=== PATIENT | female | born 1980 ===

== ENCOUNTER 2020-08-25 18:03 | Emergency (ER) | payer OTHER, MEDICAID, SELFPAY ==
[2020-08-25 18:37] VITALS: BP 118/67; PULSE 103; RESP 16; TEMP 36.8; O2SAT 97; BMI 28.1
[2020-08-25 19:02] LABS: MANUAL DIFF FLAG NO
[2020-08-25 19:03] LABS: Basophils Percent Auto 0.5 % (0-2); Eosinophils Percent Auto 0.2 % (0-4); Hematocrit 40.9 % (37-47); Hemoglobin 13.5 g/dl (12.0-16.0); Imm Gran Abs Auto 0.01 X10*3/uL (0.00-0.03); Imm Gran Pct Auto 0.2 % (0.0-0.4); Lymphocytes Absolute Auto 1.8 X10*3/uL (1.2-4.9); Lymphocytes Percent Auto 31.1 % (20-40); Mean Corpuscular Hemoglobin 33.8 pg (27.0-33.0); Mean Corpuscular Volume 102.3 fL (80-98); Mean Platelet Volume 9.6 fL (9.4-12.3); Monocytes Absolute Auto 0.5 X10*3/uL (0.1-1.2); Monocytes Percent Auto 7.9 % (2-11); Neutrophils Absolute Auto 3.5 X10*3/uL (2.0-8.3); Neutrophils Percent Auto 60.1 % (45-73); Platelet Count 275 X10*3/uL (160-400); White Blood Count 5.9 X10*3/uL (4.8-10.8)
[2020-08-25 19:29] LABS: Glucose Urine UA NEG (NEG); Leukocyte Esterase Urine NEG (NEG); Nitrite Urine NEG (NEG); Urine Blood NEG (NEG); Urine Ketones NEG (NEG); Urine Protein NEG (NEG-TRACE)
[2020-08-25 19:30] LABS: Appearance Urine CLEAR; Color Urine YELLOW
[2020-08-25 19:32] LABS: Anion Gap 20 (12-20); Blood Urea Nitrogen 15 mg/dL (9-16); Calcium 8.4 mg/dL (8.4-10.2); Carbon Dioxide 19 mmol/L (22-29); Chloride 108 mmol/L (96-108); Creatinine Clr Calc Pharmacy 113.5; Estimated Glomerular Filt Rate > 60; Glucose Random 93 mg/dL (60-115); Potassium 4.9 mmol/L (3.3-5.1); Sodium 142 mmol/L (135-145)
[2020-08-25 19:42] LABS: Influenza A PCR NEGATIVE (Negative); Influenza B PCR NEGATIVE (Negative); Resp Syncy Virus RNA Qual PCR NEGATIVE (Negative); SARS COV2 PCR INHOUSE NEGATIVE (Negative)
--- NOTE | 2020-08-25 21:39 | ED_ITS ---
HPI - Nausea/Vomiting/Diarrhea General Chief complaint: Nausea/Vomiting/Diarrhea Stated complaint: headache,nausea,vomiting,contact with positive pt Time Seen by Provider: 08/25/20 21:37 Source: patient Mode of arrival: ambulatory History of Present Illness HPI Narrative: This is a 39-year-old female who is status post bariatric surgery and presents with 2 days of nausea, vomiting, diarrhea that has not been associated with fevers, chills, urinary pain/burning/frequency. Patient states that she has had this before, as well as having had an ileus and states that this is nothing similar to those events. And she also endorses that although she can keep down some chicken soup and some water it is not adequate to make it for the volume loss that she has experienced. Related Data Allergies Allergy/AdvReac Type Severity Reaction Status Date / Time shellfish derived Allergy Severe ANAPHYLAXIS Verified 08/25/20 22:45 [SHELLFISH DERIVED] benztropine [From COGENTIN] Allergy Intermediate PSYCHOSIS Verified 08/25/20 22:45 gabapentin [GABAPENTIN] Allergy Intermediate PSYCHOSIS Verified 08/25/20 22:45 amantadine [AMANTADINE] Allergy Mild HIVES, rash Verified 08/25/20 22:45 seafood Allergy Unknown anaphylaxis Uncoded 02/26/19 00:00 Review of Systems Review of Systems: Pertinent positives and negatives as stated in HPI and 10 point review of systems is otherwise negative. PMFSH Past Medical History Source: nursing notes reviewed Medical History ADHD Depression Migraine Surgical History H/O tubal ligation History of cholecystectomy Previous section Social History Social History Advance Directives: No Advance Directives Information Provided: No Physical Exam Vital Signs: Vital Signs: Last Vital Signs Temp 97.7 F 08/25/20 21:48 Pulse 72 08/25/20 21:48 Resp 16 08/25/20 21:48 BP 128/66 08/25/20 21:48 Pulse Ox 100 08/25/20 21:48 Body Mass Index 28.1 VITAL SIGNS: Reviewed. GENERAL: Well developed, well nourished, in no acute distress. HEAD: Normocephalic/atraumatic NOSE: Nares patent bilateral OROPHARYNX: no oral lesions noted, posterior pharynx clear, tacky mucosa NECK: Supple, no adenopathy LUNGS: Normal breath sounds. No adventitious sounds or accessory muscle use. SpO2<97> CARDIOVASCULAR: Regular rate and rhythm without noted murmurs ABDOMEN: Soft, non-tender, non-distended with bowel sounds. NEUROLOGIC: Alert and oriented x 4. Course Course Course Narrative: This is a 39-year-old female with history and clinical p resentation consistent with moderate dehydration secondary to 2 days of nausea, vomiting, diarrhea. I have reviewed all investigations and there are no acute findings. Patient will receive Tylenol, 2 L of IV fluids as well as Zofran and will re-evaluate. On re-evaluation patient has had complete resolution of her headache and is feeling much better and tolerating p.o. intake. She was discharged in stable condition with instructions to follow up with primary care provider. MDM - Nausea/Vomiting/Diarrhea Lab Data Result diagrams: 08/25/20 18:53 08/25/20 18:53 Labs: Lab Results 08/25/20 08/25/20 08/25/20 Range/Units 18:50 18:53 18:53 WBC 5.9 (4.8-10.8) X10*3/uL RBC 4.00 L (4.20-5.50) X10*6/uL Hgb 13.5 (12.0-16.0) g/dl Hct 40.9 (37-47) % MCV 102.3 H (80-98) fL MCH 33.8 H (27.0-33.0) pg MCHC 33.0 (31.0-35.0) g/dl RDW 15.0 (11.0-16.0) % Plt Count 275 (160-400) X10*3/uL MPV 9.6 (9.4-12.3) fL Immature Gran % (Auto) 0.2 (0.0-0.4) % Neut % (Auto) 60.1 (45-73) % Lymph % (Auto) 31.1 (20-40) % Wilkin % (Auto) 7.9 (2-11) % Eos % (Auto) 0.2 (0-4) % Baso % (Auto) 0.5 (0-2) % Lymph # (Auto) 1.8 (1.2-4.9) X10*3/uL Wilkin # (Auto) 0.5 (0.1-1.2) X10*3/uL Eos # (Auto) 0.0 (0.0-0.4) X10*3/uL Baso # (Auto) 0.0 (0.0-0.2) X10*3/uL Abs Immat Gran (auto) 0.01 (0.00-0.03) X10*3/uL Absolute Neuts (auto) 3.5 (2.0-8.3) X10*3/uL Absolute Nucleated RBC 0.000 (0.0-0.012) X10*3/uL Nucleated RBC % (auto) 0.0 (0.0-0.2) /100WBC Sodium 142 (135-145) mmol/L Potassium 4.9 (3.3-5.1) mmol/L Chloride 108 (96-108) mmol/L Carbon Dioxide 19 L (22-29) mmol/L Anion Gap 20 (12-20) BUN 15 (9-16) mg/dL Creatinine 0.77 (0.5-1.4) mg/dL Estim Creat Clear Calc 113.5 Estimated GFR > 60 Random Glucose 93 (60-115) mg/dL Calcium 8.4 (8.4-10.2) mg/dL Urine Color YELLOW Urine Appearance CLEAR Urine pH 7.0 (5.0-8.0) Ur Specific Holland 1.010 (1.005-1.025) Urine Protein NEG (NEG-TRACE) MG/DL Urine Glucose (UA) NEG (NEG) MG/DL Urine Ketones NEG (NEG) MG/DL Urine Blood NEG (NEG) Urine Nitrite NEG (NEG) Ur Leukocyte Esterase NEG (NEG) Coronavirus (PCR) (Negative) Influenza Type A (PCR) (Negative) Influenza Type B (PCR) (Negative) RSV RNA Qual (PCR) (Negative) 08/25/20 Range/Units 18:54 WBC (4.8-10.8) X10*3/uL RBC (4.20-5.50) X10*6/uL Hgb (12.0-16.0) g/dl Hct (37-47) % MCV (80-98) fL MCH (27.0-33.0) pg MCHC (31.0-35.0) g/dl RDW (11.0-16.0) % Plt Count (160-400) X10*3/uL MPV (9.4-12.3) fL Immature Gran % (Auto) (0.0-0.4) % Neut % (Auto) (45-73) % Lymph % (Auto) (20-40) % Wilkin % (Auto) (2-11) % Eos % (Auto) (0-4) % Baso % (Auto) (0-2) % Lymph # (Auto) (1.2-4.9) X10*3/uL Wilkin # (Auto) (0.1-1.2) X10*3/uL Eos # (Auto) (0.0-0.4) X10*3/uL Baso # (Auto) (0.0-0.2) X10*3/uL Abs Immat Gran (auto) (0.00-0.03) X10*3/uL Absolute Neuts (auto) (2.0-8.3) X10*3/uL Absolute Nucleated RBC (0.0-0.012) X10*3/uL Nucleated RBC % (auto) (0.0-0.2) /100WBC Sodium (135-145) mmol/L Potassium (3.3-5.1) mmol/L Chloride (96-108) mmol/L Carbon Dioxide (22-29) mmol/L Anion Gap (12-20) BUN (9-16) mg/dL Creatinine (0.5-1.4) mg/dL Estim Creat Clear Calc Estimated GFR Random Glucose (60-115) mg/dL Calcium (8.4-10.2) mg/dL Urine Color Urine Appearance Urine pH (5.0-8.0) Ur Specific Holland (1.005-1.025) Urine Protein (NEG-TRACE) MG/DL Urine Glucose (UA) (NEG) MG/DL Urine Ketones (NEG) MG/DL Urine Blood (NEG) Urine Nitrite (NEG) Ur Leukocyte Esterase (NEG) Coronavirus (PCR) NEGATIVE (Negative) Influenza Type A (PCR) NEGATIVE (Negative) Influenza Type B (PCR) NEGATIVE (Negative) RSV RNA Qual (PCR) NEGATIVE (Negative) Discharge Plan Discharge Clinical Impression: Gastroenteritis Patient Disposition: Home, Self-Care Instructions: Gastroenteritis (ED) Additional Instructions: Resume all home medications as prescribed. Do not hesitate to return to the emergency department should you experience any acute worsening of your symptoms. Referrals: Physician,Unknown [Primary Care Provider] - 2 days
[2020-08-25 21:48] VITALS: BP 128/66; PULSE 72; RESP 16; TEMP 36.5; O2SAT 100
[2020-08-25] MEDS: ondansetron HCL 4 MG/2 ML VIAL IVPUSH (22:47)
[2020-08-25] MEDS: Acetaminophen 325 MG TABLET 975 MG PO (22:48)
[2020-08-25] MEDS: 0.9 % Sodium Chloride 2,000 ML 999 ML IV (22:48)
[2020-08-26] VITALS: BP 109/64; PULSE 86; RESP 16; TEMP 36.7; O2SAT 99
== END 2020-08-26 01:01 | disposition home or self-care (01) ==
PROVIDERS: Emergency Provider Student in an Organized Health Care Education/Training Program
DX: K52.9 Noninfective gastroenteritis and colitis, unspecified (principal); R11.2 Nausea with vomiting, unspecified; E86.0 Dehydration; Z20.822 Contact with and (suspected) exposure to COVID-19
CPT/HCPCS: 0241U; 36415; 80048; 81003; 85025; 96365; 96375; 99284; J2405

== ENCOUNTER 2020-09-16 01:54 | Emergency (ER) | payer OTHER, MEDICAID, SELFPAY ==
--- NOTE | ~2020-09-16 | CT_ITS ---
EXAMINATION: CT ABDOMEN AND PELVIS WITHOUT CONTRAST CLINICAL INFORMATION: Right lower quadrant pain COMPARISON: Previous pelvic ultrasound obtained the same day and abdominal ultrasound July 2016 TECHNIQUE: Multidetector volumetric imaging was performed from the superior aspect of the liver through the pubic symphysis. Sagittal and coronal reformatted images were obtained on the technologist's workstation. This CT examination was performed using dose optimization techniques as appropriate, variously including the following: *Automated exposure control *Adjustment of mA and/or kV according to patient size (this includes techniques or standardized protocols for targeted exams where dose is matched to indication/reason for exam; i.e. extremities or head) *Use of iterative reconstruction technique DLP: 746 mGy-cm FINDINGS: LUNG BASES: The visualized lung bases are unremarkable. LIVER, GALLBLADDER, AND BILIARY TREE: The liver is enlarged and low in attenuation suggestive of fatty infiltration. The gallbladder is not identified and has presumably been removed. No focal liver lesion or biliary duct dilatation is seen. PANCREAS: Unremarkable. SPLEEN: Unremarkable. ADRENAL GLANDS: Unremarkable. KIDNEYS AND URETERS: The kidneys are normal in size, shape, and attenuation. There is a small 5 mm high attenuation lesion exophytic to the upper pole of the right kidney. This may represent a hyperdense cyst. This was not seen on prior ultrasound July 2016 No hydronephrosis, hydroureter, or calculi seen. No perinephric stranding. BLADDER: Not optimally distended. There is question of mild diffuse bladder wall thickening. GASTROINTESTINAL TRACT: There are postsurgical changes from gastric bypass. The small and large bowel are unremarkable. The appendix is unremarkable. ABDOMINAL WALL: No significant hernia is appreciated. LYMPH NODES: Normal. VASCULAR: Unremarkable. PELVIC VISCERA: There is a surgical clip in the right adnexal region. The uterus and adnexa otherwise appear unremarkable. OSSEOUS STRUCTURES: Unremarkable. CT/CT abdomen pelvis wo con IMPRESSION: Normal-appearing appendix. Postsurgical changes from gastric bypass. Enlarged fatty liver. 5 mm high attenuation lesion exophytic to the upper pole of the right kidney, question representing a hyperdense cyst.
--- NOTE | ~2020-09-16 | US_ITS ---
EXAMINATION: PELVIC ULTRASOUND CLINICAL INFORMATION: Right-sided pain. Rule out torsion. COMPARISON: Previous CT of the abdomen and pelvis from the same day TECHNIQUE: Grayscale and color Doppler imaging of the uterus and ovaries including waveform spectral analysis of the ovarian arteries and veins. FINDINGS: The uterus is anteverted and measures 6.9 x 3.1 x 5.1 cm in dimension. The endometrium does not appear thickened measuring 0.4 cm. There are 2 simple uterine cyst seen adjacent to the endometrium measuring 7 x 9 x 8 mm and 5 x 5 x 4 mm. This is probably related to patient's history of previous endometrial ablation. No other focal uterine lesion is seen. The cervix is normal appearing. The right ovary is normal-appearing and measures 2 x 1.7 x 1.6 cm. The left ovary is normal-appearing and measures 2.9 x 2.1 x 2.2 cm. There is a small simple 1 cm left ovarian cyst. Color and Doppler flow is documented to both ovaries. The bilateral ovarian arteries and veins are patent without evidence of torsion. There is a small amount of fluid in the left pelvis adjacent to the left ovary. US/US pelvic and transvaginal IMPRESSION: No evidence of torsion. Small simple 1 cm left ovarian cyst and small amount of fluid adjacent to the left ovary. 2 central cysts in the uterus adjacent to the endometrium, probably related to patient's history of previous endometrial ablation.
--- NOTE | ~2020-09-16 | US_ITS ---
EXAMINATION: PELVIC ULTRASOUND CLINICAL INFORMATION: Right-sided pain. Rule out torsion. COMPARISON: Previous CT of the abdomen and pelvis from the same day TECHNIQUE: Grayscale and color Doppler imaging of the uterus and ovaries including waveform spectral analysis of the ovarian arteries and veins. FINDINGS: The uterus is anteverted and measures 6.9 x 3.1 x 5.1 cm in dimension. The endometrium does not appear thickened measuring 0.4 cm. There are 2 simple uterine cyst seen adjacent to the endometrium measuring 7 x 9 x 8 mm and 5 x 5 x 4 mm. This is probably related to patient's history of previous endometrial ablation. No other focal uterine lesion is seen. The cervix is normal appearing. The right ovary is normal-appearing and measures 2 x 1.7 x 1.6 cm. The left ovary is normal-appearing and measures 2.9 x 2.1 x 2.2 cm. There is a small simple 1 cm left ovarian cyst. Color and Doppler flow is documented to both ovaries. The bilateral ovarian arteries and veins are patent without evidence of torsion. There is a small amount of fluid in the left pelvis adjacent to the left ovary. US/US pelvic ovarian doppler IMPRESSION: No evidence of torsion. Small simple 1 cm left ovarian cyst and small amount of fluid adjacent to the left ovary. 2 central cysts in the uterus adjacent to the endometrium, probably related to patient's history of previous endometrial ablation.
[2020-09-16 02:21] VITALS: BP 107/74; PULSE 80; RESP 18; TEMP 36.7; O2SAT 100; BMI 27.3
[2020-09-16 05:26] VITALS: BP 117/69; PULSE 106; RESP 16; O2SAT 97
[2020-09-16 05:59] LABS: Basophils Percent Auto 0.4 % (0-2); Eosinophils Percent Auto 0.6 % (0-4); Hematocrit 36.3 % (37-47); Hemoglobin 12.1 g/dl (12.0-16.0); Imm Gran Abs Auto 0.01 X10*3/uL (0.00-0.03); Imm Gran Pct Auto 0.2 % (0.0-0.4); Lymphocytes Absolute Auto 1.3 X10*3/uL (1.2-4.9); Lymphocytes Percent Auto 25.1 % (20-40); MANUAL DIFF FLAG NO; Mean Corpuscular HGB Conc 33.3 g/dl (31.0-35.0); Mean Corpuscular Hemoglobin 33.8 pg (27.0-33.0); Mean Corpuscular Volume 101.4 fL (80-98); Mean Platelet Volume 9.3 fL (9.4-12.3); Monocytes Absolute Auto 0.4 X10*3/uL (0.1-1.2); Monocytes Percent Auto 7.7 % (2-11); Neutrophils Absolute Auto 3.5 X10*3/uL (2.0-8.3); Platelet Count 228 X10*3/uL (160-400); Red Blood Count 3.58 X10*6/uL (4.20-5.50); Red Cell Distribution Width 15.6 % (11.0-16.0); White Blood Count 5.2 X10*3/uL (4.8-10.8)
[2020-09-16 06:39] LABS: Alanine Aminotransferase 36 U/L (0-31); Albumin Level 3.6 g/dL (3.5-5.0); Alkaline Phosphatase 111 U/L (39-117); Anion Gap 19 (12-20); Aspartate Amino Transferase 47 U/L (5-31); Bilirubin Total 0.5 mg/dL (0.0-1.0); Blood Urea Nitrogen 15 mg/dL (9-16); Calcium 7.9 mg/dL (8.4-10.2); Carbon Dioxide 16 mmol/L (22-29); Chloride 110 mmol/L (96-108); Creatinine Clr Calc Pharmacy 122.5; Estimated Glomerular Filt Rate > 60; Glucose Random 144 mg/dL (60-115); Sodium 141 mmol/L (135-145); Total Protein 6.3 g/dL (6.5-8.0)
--- NOTE | 2020-09-16 06:49 | ED_ITS ---
HPI - Abdominal Pain General Chief Complaint: Abdominal Pain Stated Complaint: Abd pain Time Seen by Provider: 09/16/20 06:43 Source: patient Mode of arrival: ambulatory Limitations: no limitations History of Present Illness HPI narrative: 40-year-old female walked into the emergency department for evaluation of lower abdominal pain. Lower abdominal/pelvic pain started about 7 hours ago woke the patient up from sleep, patient describes the pain as sharp, confined to the right lower quadrant/right pelvic area, no radiation, describes the pain as constant since it started, pain is severe 10/10, no other associated symptoms in particular no vaginal discharge, no vaginal bleed, no nausea, no vomiting. Patient never had this pain in the past. Nothing makes the pain worse or better. Patient had surgical history of cholecystectomy, endometrial ablation, C- section, urinary bladder polyp removal. Related Data Allergies Allergy/AdvReac Type Severity Reaction Status Date / Time shellfish derived Allergy Severe ANAPHYLAXIS Verified 08/25/20 22:45 [SHELLFISH DERIVED] benztropine [From COGENTIN] Allergy Intermediate PSYCHOSIS Verified 08/25/20 22:45 gabapentin [GABAPENTIN] Allergy Intermediate PSYCHOSIS Verified 08/25/20 22:45 amantadine [AMANTADINE] Allergy Mild HIVES, rash Verified 08/25/20 22:45 seafood Allergy Unknown anaphylaxis Uncoded 02/26/19 00:00 Review of Systems Review of Systems All other systems are reviewed and are negative Constitutional: Reports as per HPI and Reports no additional constitutional complaints Eyes: Reports as per HPI and Reports no additional eye complaints Reports system reviewed and no additional complaints, except as documented Cardiovascular: Reports as per HPI and Reports no additional cardiovascular complaints Respiratory: Reports as per HPI and Reports no additional respiratory complaints Gastrointestinal: Reports as per HPI and Reports no additional gastrointestinal complaints Genitourinary: Reports no additional female genitourinary complaints Musculoskeletal: Reports no additional musculoskeletal complaints Skin/Breast: Reports system reviewed and no additional complaints, except as docu Psychiatric: Reports no additional psychiatric complaints Endocrine: Reports no additional endocrine complaints Hematologic/Lymphatic: Reports no additional hematologic/lymphatic complaints Allergic/Immunologic: Reports no additional allergic/immunologic complaints Reports system reviewed and no additional complaints, except as documented and Reports Abnormal speech present Physical Exam Vital Signs: Vital Signs: Last Vital Signs Temp 98.0 F 09/16/20 02:21 Pulse 105 H 09/16/20 10:05 Resp 18 09/16/20 10:05 BP 113/53 L 09/16/20 10:05 Pulse Ox 97 09/16/20 10:05 Body Mass Index 27.3 Vital signs have been reviewed as appeared to be correct. Blood pressure normal. Heart rate normal. Respiration rate normal. Temperature normal. Oxygen saturation normal. Appearance: Alert. Oriented X3. No acute distress. Head: Normal external exam. Normocephalic. Atraumatic. No Villanueva signs noted. No raccoon eyes noted Eyes: PERRLA. EOMI. Conjunctiva and sclera normal. Eyelids normal. ENT: TM's Normal. Pharynx normal. Uvula midline. Moist mucous membranes. No trismus noted. No drooling noted. No muffled voice noted. Neck: Normal inspection. Neck supple. FROM. No adenopathy. Thyroid Normal. No meningeal signs. No neck mass noted. CVS: Normal heart rate and rhythm. Heart sound normal. No murmurs noted. Pulses normal throughout. Respiratory: No respiratory distress. Painless inspiration. Breath sounds normal. No wheezes/rales/rhonchi noted. Chest nontender. No accessory muscle usage noted or decreased air movement noted. Abdomen: Soft, obese, right lower quadrant tenderness, no rebound, no guarding. Bowel sounds normal in all 4 quadrants. No distention noted. No organomegaly noted. No visible injury noted. Pelvic exam: Normal external genitalia inspection, no discharge, no CMT, no palpable adnexal mass. Back: No CVA tenderness. Full range of motion noted. Skin: Skin warm and dry. Normal skin color. Normal skin turgor. No rashes/lesions/lacerations noted. Extremities: No lower extremity edema. Extremities exhibit normal range of motion. Extremities nontender. Neuro: Oriented X 3. No motor deficit. No sensory deficit. Reflexes normal. Course Course Course Narrative: Assessment and plan. 40-year-old female came in with lower abdominal/pelvic pain. Labs are unremarkable, patient had pelvic ultrasound and CT of the abdomen pelvis which did not explain the reason for the patient's symptoms, patient received morphine and Toradol in the emergency department pain with under better control, patient is hungry with good appetite tolerated p.o. intake in the emergency department. 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 Reevaluation(s) Reevaluation #1: Patient was ready to be discharged is complaining of palpitation which is likely secondary to anxiety, EKG was ordered which shows sinus tachycardia at 102. MDM - Abdominal Pain Lab Data Attestation: I reviewed the patient's lab results. Result diagrams: 09/16/20 05:50 09/16/20 05:50 Labs: Lab Results 09/16/20 09/16/20 09/16/20 Range/Units 05:35 05:50 05:50 WBC 5.2 (4.8-10.8) X10*3/uL RBC 3.58 L (4.20-5.50) X10*6/uL Hgb 12.1 (12.0-16.0) g/dl Hct 36.3 L (37-47) % MCV 101.4 H (80-98) fL MCH 33.8 H (27.0-33.0) pg MCHC 33.3 (31.0-35.0) g/dl RDW 15.6 (11.0-16.0) % Plt Count 228 (160-400) X10*3/uL MPV 9.3 L (9.4-12.3) fL Immature Gran % (Auto) 0.2 (0.0-0.4) % Neut % (Auto) 66.0 (45-73) % Lymph % (Auto) 25.1 (20-40) % Stone % (Auto) 7.7 (2-11) % Eos % (Auto) 0.6 (0-4) % Baso % (Auto) 0.4 (0-2) % Lymph # (Auto) 1.3 (1.2-4.9) X10*3/uL Stone # (Auto) 0.4 (0.1-1.2) X10*3/uL Eos # (Auto) 0.0 (0.0-0.4) X10*3/uL Baso # (Auto) 0.0 (0.0-0.2) X10*3/uL Abs Immat Gran (auto) 0.01 (0.00-0.03) X10*3/uL Absolute Neuts (auto) 3.5 (2.0-8.3) X10*3/uL Absolute Nucleated RBC 0.000 (0.0-0.012) X10*3/uL Nucleated RBC % (auto) 0.0 (0.0-0.2) /100WBC Hold Purple Top SEE NOTE Hold Blue Top Sodium (135-145) mmol/L Potassium (3.3-5.1) mmol/L Chloride (96-108) mmol/L Carbon Dioxide (22-29) mmol/L Anion Gap (12-20) BUN (9-16) mg/dL Creatinine (0.5-1.4) mg/dL Estim Creat Clear Calc Estimated GFR Random Glucose (60-115) mg/dL Calcium (8.4-10.2) mg/dL Total Bilirubin (0.0-1.0) mg/dL AST (5-31) U/L ALT (0-31) U/L Alkaline Phosphatase (39-117) U/L Total Protein (6.5-8.0) g/dL Albumin (3.5-5.0) g/dL Lipase (8-78) U/L Urine Test NEGATIVE (NEGATIVE) 09/16/20 09/16/20 Range/Units 05:50 05:50 WBC (4.8-10.8) X10*3/uL RBC (4.20-5.50) X10*6/uL Hgb (12.0-16.0) g/dl Hct (37-47) % MCV (80-98) fL MCH (27.0-33.0) pg MCHC (31.0-35.0) g/dl RDW (11.0-16.0) % Plt Count (160-400) X10*3/uL MPV (9.4-12.3) fL Immature Gran % (Auto) (0.0-0.4) % Neut % (Auto) (45-73) % Lymph % (Auto) (20-40) % Stone % (Auto) (2-11) % Eos % (Auto) (0-4) % Baso % (Auto) (0-2) % Lymph # (Auto) (1.2-4.9) X10*3/uL Stone # (Auto) (0.1-1.2) X10*3/uL Eos # (Auto) (0.0-0.4) X10*3/uL Baso # (Auto) (0.0-0.2) X10*3/uL Abs Immat Gran (auto) (0.00-0.03) X10*3/uL Absolute Neuts (auto) (2.0-8.3) X10*3/uL Absolute Nucleated RBC (0.0-0.012) X10*3/uL Nucleated RBC % (auto) (0.0-0.2) /100WBC Hold Purple Top Hold Blue Top SEE NOTE Sodium 141 (135-145) mmol/L Potassium 4.0 (3.3-5.1) mmol/L Chloride 110 H (96-108) mmol/L Carbon Dioxide 16 L (22-29) mmol/L Anion Gap 19 (12-20) BUN 15 (9-16) mg/dL Creatinine 0.72 (0.5-1.4) mg/dL Estim Creat Clear Calc 122.5 Estimated GFR > 60 Random Glucose 144 H D (60-115) mg/dL Calcium 7.9 L (8.4-10.2) mg/dL Total Bilirubin 0.5 (0.0-1.0) mg/dL AST 47 H (5-31) U/L ALT 36 H (0-31) U/L Alkaline Phosphatase 111 (39-117) U/L Total Protein 6.3 L (6.5-8.0) g/dL Albumin 3.6 (3.5-5.0) g/dL Lipase 30 (8-78) U/L Urine Test (NEGATIVE) Imaging Data CT scan - abdomen: Radiologist's impression: Normal-appearing appendix. Postsurgical changes from gastric bypass. Enlarged fatty liver. 5 mm high attenuation lesion exophytic to the upper pole of the right kidney, question representing a hyperdense cyst. Pelvic/ovarian ultrasound: Radiologist's impression: No evidence of torsion. Small simple 1 cm left ovarian cyst and small amount of fluid adjacent to the left ovary. 2 central cysts in the uterus adjacent to the endometrium, probably related to patient's history of previous endometrial ablation. Discharge Plan Discharge Clinical Impression: Abdominal pain Qualifiers: Abdominal location: lower abdomen, unspecified Qualified Code(s): R10.30 - Lower abdominal pain, unspecified Patient Disposition: Home, Self-Care Instructions: Abdominal Pain (ED) Referrals: Physician,Unknown [Primary Care Provider] - 2 days PMFSH Past Medical History Medical History ADHD Depression Migraine Surgical History H/O tubal ligation History of cholecystectomy Previous section Social History Social History Advance Directives: No Advance Directives Information Provided: No
[2020-09-16 07:11] LABS: Lipase 30 U/L (8-78)
[2020-09-16] MEDS: Ketorolac Tromethamine 15 MG/ML VIAL IV (07:46)
[2020-09-16] MEDS: 0.9 % Sodium Chloride 1,000 ML 999 ML IVCONT (07:46)
[2020-09-16] MEDS: Morphine Sulfate 2 MG/ML CARTRIDGE IVPUSH (09:05)
--- NOTE | 2020-09-16 09:15 | PC.NURSE ---
THIS TECH ASSISTED DR STANLEY WITH PELVIC EXAM.
[2020-09-16 09:54] LABS: UPreg QC Valid YES; Urine Pregnancy NEGATIVE (NEGATIVE)
[2020-09-16 10:05] VITALS: BP 113/53; PULSE 105; RESP 18; O2SAT 97
[2020-09-16 10:45] LABS: Glucose Urine UA NEG (NEG); Leukocyte Esterase Urine NEG (NEG); Nitrite Urine NEG (NEG); Urine Blood NEG (NEG); Urine Ketones NEG (NEG); Urine Protein NEG (NEG-TRACE)
[2020-09-16 10:50] LABS: Appearance Urine CLEAR; Color Urine YELLOW
--- NOTE | 2020-09-20 | ECG_ITS ---
Test Reason : palpitations Blood Pressure : / mmHG Vent. Rate : 102 BPM Atrial Rate : 102 BPM P-R Int : 126 ms QRS Dur : 098 ms QT Int : 366 ms P-R-T Axes : 049 009 -12 degrees QTc Int : 477 ms Artifact in tracing Sinus tachycardia Possible Left atrial enlargement Borderline ECG No previous ECGs available Referred By: Mary Jane Del Toro Electronically Signed By:CORINNA LORENZANA
== END 2020-09-16 11:00 | disposition home or self-care (01) ==
PROVIDERS: Emergency Provider Emergency Medicine
DX: R10.30 Lower abdominal pain, unspecified (principal)
CPT/HCPCS: 36415; 74176; 76830; 76856; 80053; 81003; 81025; 83690; 85025; 87086; 93005; 93975; 96361; 96365; 96375; 99284; J1885; J2270

== ENCOUNTER 2020-11-29 14:38 | Outpatient (REF) | payer OTHER, SELFPAY ==
--- NOTE | ~2020-11-29 | MM_ITS ---
EXAMINATION: MM DIAGNOSTIC DIGITAL BREAST TOMOSYNTHESIS, BILATERAL US DIAGNOSTIC ULTRASOUND BREAST, LEFT CLINICAL INFORMATION: 40-year-old with small palpable lesion anterior 11:00 left breast. Left breast tenderness. Prior history oil cyst near this area. Assess for change or new finding. Family history breast cancer, paternal grandmother. The lifetime risk of breast cancer based on the Tyrer-Cuzick Model is 12%. COMPARISON: Mammography: 08/25/2019, outside left mammography 02/17/2017 ([facility]). Targeted left breast ultrasound 08/25/2019. TECHNIQUE: Digital breast tomosynthesis is performed in both the craniocaudal and mediolateral oblique views along with computer-aided detection (CAD). Synthesized 2D images are generated from the tomosynthesis. Ultrasound left breast is targeted to the area of clinical concern 10:00 through 2:00 position. Patient is able to point to the area of palpable concern at time of imaging. Grayscale imaging and color Doppler are performed without and with harmonics. FINDINGS: There are scattered areas of fibroglandular density (ACR BI-RADS breast composition Category b). Parenchymal pattern is similar to prior studies. The right breast shows no interval mass or architectural abnormality. Neither breast shows abnormal calcifications. There is no skin thickening or coarsening of the Jorge's ligaments. There are bilateral nipple piercings. Left breast has a small oil cyst at site of palpable concern anterior 11:00 position with fine peripheral rim and central fat composition. Ultrasound left breast demonstrates oval hypoechoic lesion at site of palpable concern corresponding to the oral cyst on mammography and measuring 1.1 x 0.9 x 0.6 cm. Prior measurements are 1.4 x 1.2 x 0.8 cm. A smaller cyst anterior left breast noted on prior ultrasound is not demonstrated on today's exam. There is no solid mass or architectural abnormality. No skin thickening or edema tracking in soft tissue planes. No focal duct ectasia. Results are discussed with the patient at time of visit. The palpable area corresponds to the chronic oil cyst which is borderline decreased on ultrasound, measuring 1.1 cm in greatest dimension. MM/MM tomosynthesis diagnostic BI IMPRESSION: There are no significant changes from prior study. Palpable lesion left breast corresponds to a chronic oil cyst. ASSESSMENT: BI-RADS 2: Benign RECOMMENDATION: Routine annual mammography screening, beginning age 40, or earlier as clinical risk factors warrant. This patient's information was entered into a reminder system with a target due date for their next mammogram.
== END 2020-11-29 14:39 | disposition home or self-care (01) ==
LOC: HO.MAMMO 14:38
PROVIDERS: Visit Provider Nurse Practitioner Women's Health
DX: N63.22 Unspecified lump in the left breast, upper inner quadrant (principal)
CPT/HCPCS: 76642; 77062; 77066

== ENCOUNTER 2021-01-01 16:00 | Outpatient (REF) | payer OTHER, SELFPAY ==
--- NOTE | ~2021-01-01 | XR_ITS ---
EXAMINATION: XR SHOULDER, LEFT CLINICAL INFORMATION: Dislocation of shoulder. COMPARISON: None TECHNIQUE: Three views of the left shoulder. FINDINGS: The bones and soft tissues are normal. No fracture. Glenohumeral and acromioclavicular alignment is anatomic with normal joint space. No abnormal soft tissue calcifications. XR/XR shoulder LT min 2V IMPRESSION: Normal left shoulder.
--- NOTE | ~2021-01-01 | XR_ITS ---
EXAMINATION: XR HIP, RIGHT CLINICAL INFORMATION: Bursitis of hip. Pain. COMPARISON: None TECHNIQUE: Two views of the right hip. FINDINGS: Bones and soft tissues are normal. No fracture. Alignment is anatomic. Hip joint space is maintained. XR/XR hip RT min 2V IMPRESSION: Normal right hip.
== END 2021-01-01 16:01 | disposition home or self-care (01) ==
LOC: HO.HMGCX 16:00
PROVIDERS: PCP Family Medicine; Visit Provider Physician Assistant Medical
DX: M70.70 Other bursitis of hip, unspecified hip (principal); S43.006A Unspecified dislocation of unspecified shoulder joint, initial encounter; X58.XXXA Exposure to other specified factors, initial encounter; Y93.9 Activity, unspecified; Y92.9 Unspecified place or not applicable; Y99.9 Unspecified external cause status
CPT/HCPCS: 73030; 73502

== ENCOUNTER 2021-01-03 06:15 | Inpatient (IN) | payer OTHER, SELFPAY ==
[2021-01-03] VITALS (7 sets, daily range): BP systolic 123–152; BP diastolic 83–98; PULSE 75–103; RESP 16–18; TEMP 36–36.9; O2SAT 98–100; BMI 25.9
--- NOTE | ~2021-01-03 | CT_ITS ---
EXAMINATION: CT ABDOMEN AND PELVIS WITH CONTRAST CLINICAL INFORMATION: Epigastric pain after drinking. COMPARISON: Most recent CT abdomen/pelvis and pelvic ultrasound dated 09/16/2020. TECHNIQUE: Multidetector volumetric images were obtained from the superior aspect of the liver through the pubic symphysis following administration 85 mL of Omnipaque 350 intravenous contrast. Sagittal and coronal reformatted images were obtained on the technologist's workstation. Oral contrast: No This CT examination was performed using dose optimization techniques as appropriate, variously including the following: *Automated exposure control *Adjustment of mA and/or kV according to patient size (this includes techniques or standardized protocols for targeted exams where dose is matched to indication/reason for exam; i.e. extremities or head) *Use of iterative reconstruction technique DLP: 644 mGy-cm. FINDINGS: LUNG BASES: The visualized lung bases are unremarkable. LIVER, GALLBLADDER, AND BILIARY TREE: The liver is normal in size and shape. Parenchymal hypoattenuation consistent with steatosis. No focal hepatic lesion or biliary ductal dilatation is present. The gallbladder is not visualized and likely surgically absent. PANCREAS: There is moderate fat stranding adjacent to the entirety of the pancreas, consistent with acute pancreatitis. No pancreatic parenchymal lesion or pancreatic ductal dilatation. No associated organized fluid collection to suggest pseudocyst or abscess formation. SPLEEN: Unremarkable. ADRENAL GLANDS: Unremarkable. KIDNEYS AND URETERS: The kidneys are normal in size, shape, and attenuation. No hydronephrosis, hydroureter, or calculi seen. No perinephric stranding. BLADDER: Unremarkable. GASTROINTESTINAL TRACT: Status post Calixto-en-Y gastric bypass. Unremarkable jejunojejunal anastomosis. No bowel wall thickening or associated inflammatory change. No small or large bowel obstruction. Unremarkable appendix. PERITONEAL CAVITY: Trace ascites. No intra-abdominal free air. No organized fluid collection/abscess formation. ABDOMINAL WALL: No significant hernia is appreciated. LYMPH NODES: No new or increasing lymphadenopathy. VASCULAR: Unremarkable. PELVIC VISCERA: The uterus and adnexa are unremarkable. OSSEOUS STRUCTURES: Unremarkable. CT/CT abdomen pelvis w con IMPRESSION: 1. Moderate fat stranding surrounding the entirety of the pancreas, consistent with acute pancreatitis. No pseudocyst or abscess formation. No pancreatic parenchymal lesion or pancreatic ductal dilatation. 2. Trace ascites. 3. Hepatic steatosis is redemonstrated. No new hepatic parenchymal lesion or biliary ductal dilatation. 4. Status post Calixto-en-Y gastric bypass without evidence of complication. No bowel wall thickening or associated inflammatory change. No small or large bowel obstruction.
--- NOTE | 2021-01-03 06:37 | ED_ITS ---
HPI - Abdominal Pain General Chief Complaint: Abdominal Pain Stated Complaint: Abd pain Time Seen by Provider: 01/03/21 06:36 Source: patient Mode of arrival: ambulatory Limitations: no limitations History of Present Illness MD elicited complaint: abdominal pain Onset (ago): day(s) (1) Pain Consistency: constant Location: epigastric Severity: severe Quality: stabbing Radiation: none Migration to: no migration Exacerbating factors: movement Relieving factors: nothing Context: other (states she dislocated her shoulder this weekend and self medicated with whiskey) Associated symptoms: nausea Related Data Home Medications Medication Instructions Recorded Confirmed calcium carbonate 500 mg calcium 500 mg PO DAILY 01/03/21 01/03/21 (1,250 mg) tablet (Calcium 500) cetirizine 10 mg tablet 10 mg PO DAILY 01/03/21 01/03/21 dextroamphetamine-amphetamine ER 1 cap PO QAM 01/03/21 01/03/21 20 mg 24hr capsule,extend release multivitamin 1 tab PO DAILY 01/03/21 01/03/21 oxycodone-acetaminophen 5 mg-325 1 tab PO Q6H PRN 01/03/21 01/03/21 mg tablet (Percocet) vitamin B complex 1 cap PO DAILY 01/03/21 01/03/21 Previous Rx's Medication Instructions Recorded cyclobenzaprine 10 mg tablet 10 mg PO TID PRN #14 tab 01/01/21 ondansetron HCl 4 mg tablet 4 mg PO Q8H PRN #20 tab 01/01/21 (Zofran) Allergies Allergy/AdvReac Type Severity Reaction Status Date / Time shellfish derived Allergy Severe ANAPHYLAXIS Verified 08/25/20 22:45 [SHELLFISH DERIVED] benztropine [From COGENTIN] Allergy Intermediate PSYCHOSIS Verified 08/25/20 22:45 gabapentin [GABAPENTIN] Allergy Intermediate PSYCHOSIS Verified 08/25/20 22:45 amantadine [AMANTADINE] Allergy Mild HIVES, rash Verified 08/25/20 22:45 seafood Allergy Unknown anaphylaxis Uncoded 02/26/19 00:00 Review of Systems Review of Systems Constitutional : No Weight loss, No Fever, No Chills ENT/Mouth : No sore throat, No Rhinorrhea Eyes: No Swelling, No Redness Cardiovascular : No Chest Pain, No SOB, NoEdema Respiratory : No Cough, No Sputum, No Wheezing Gastrointestinal : Positive Nausea, no Vomiting, no Diarrhea, positive abdominal Pain, No Hematochezia, No Melena Genitourinary : No Dysuria, No Urinary Frequency, No Hematuria, No Urgency Musculoskeletal : No joint pain, No Myalgias, No Joint Swelling Skin : No Skin Lesions, No rash Neuro : No Weakness, No Numbness, No Dizziness, No Headache Psych : No Anxiety/Panic, No Depression Heme/Lymph: No Bruising, No Lymphadenopathy Endocrine : No Polyuria, No Polydipsia All other systems reviewed and are negative. Physical Exam Vital Signs: Vital Signs: Last Vital Signs Temp 98.5 F 01/03/21 07:01 Pulse 75 01/03/21 08:53 Resp 16 01/03/21 08:53 BP 123/83 01/03/21 08:53 Pulse Ox 99 01/03/21 07:01 Body Mass Index 25.9 Appearance: Alert. Oriented X3. in pain mild acute distress. Eyes: Pupils equal, round and reactive to light. ENT: Pharynx normal. Neck: Normal inspection. Neck supple. CVS: Normal heart rate and rhythm. Pulses normal. Respiratory: No respiratory distress. Breath sounds normal. Abdomen: Soft and moderate epigastric ttp no rebound mild vol guarding Skin: Skin warm and dry. Normal skin color. Normal skin turgor. Extremities: No lower extremity edema. No calf ttp Neuro: Oriented X 3. No motor deficit. No sensory deficit. Course Course Course Narrative: patient states she dipped her urine earlier and had protein as well as nitrates - discussed need for urine sample with patient repeat IV dilaudid ordered 931am - review of urine suspected infection cultures, lactic acid and IV rocephin ordered MDM - Abdominal Pain MDM Narrative Medical decision making narrative: 40 yo female with hx of migraines, s/p laparascopic gastric bypass remotely, cholecystectomy - comes in with epigastric pain post drinking x 2 days after dislocating her shoulder. Concern for pancreatitis vs internal hernia vs ulcer. IVF, IV morphine for pain, CT scan for evaluation of pancreas/intestines. Dispo per results and findings Lab Data Result diagrams: 01/03/21 07:13 01/03/21 07:13 Labs: Lab Results 01/03/21 01/03/21 01/03/21 Range/Units 07:13 07:13 07:13 WBC 3.4 L (4.8-10.8) X10*3/uL RBC 3.68 L (4.20-5.50) X10*6/uL Hgb 13.1 (12.0-16.0) g/dl Hct 38.9 (37-47) % MCV 105.7 H (80-98) fL MCH 35.6 H (27.0-33.0) pg MCHC 33.7 (31.0-35.0) g/dl RDW 13.2 (11.0-16.0) % Plt Count 132 L D (160-400) X10*3/uL MPV 9.4 (9.4-12.3) fL Immature Gran % (Auto) 0.3 (0.0-0.4) % Neut % (Auto) 76.3 H (45-73) % Lymph % (Auto) 14.3 L (20-40) % [place] % (Auto) 8.2 (2-11) % Eos % (Auto) 0.6 (0-4) % Baso % (Auto) 0.3 (0-2) % Lymph # (Auto) 0.5 L (1.2-4.9) X10*3/uL [place] # (Auto) 0.3 (0.1-1.2) X10*3/uL Eos # (Auto) 0.0 (0.0-0.4) X10*3/uL Baso # (Auto) 0.0 (0.0-0.2) X10*3/uL Abs Immat Gran (auto) 0.01 (0.00-0.03) X10*3/uL Absolute Neuts (auto) 2.6 (2.0-8.3) X10*3/uL Absolute Nucleated RBC 0.000 (0.0-0.012) X10*3/uL Nucleated RBC % (auto) 0.0 (0.0-0.2) /100WBC Sodium 131 L (135-145) mmol/L Potassium 4.0 (3.3-5.1) mmol/L Chloride 95 L (96-108) mmol/L Carbon Dioxide 17 L (22-29) mmol/L Anion Gap 23 H (12-20) BUN 10 (9-16) mg/dL Creatinine 0.97 (0.5-1.4) mg/dL Estim Creat Clear Calc 85.9 Estimated GFR > 60 Random Glucose 100 (60-115) mg/dL Calcium 9.1 D (8.4-10.2) mg/dL Magnesium 1.9 (1.6-2.6) mg/dL Total Bilirubin 0.5 (0.0-1.0) mg/dL Direct Bilirubin 0.3 (0.0-0.5) mg/dL AST 316 H (5-31) U/L ALT 135 H (0-31) U/L Alkaline Phosphatase 177 H D (39-117) U/L Lactate Dehydrogenase 341 H (122-220) U/L Total Protein 7.2 (6.5-8.0) g/dL Albumin 3.9 (3.5-5.0) g/dL Lipase 1312 H (8-78) U/L Urine Color Urine Appearance Urine pH (5.0-8.0) Ur Specific [place] (1.005-1.025) Urine Protein (NEG-TRACE) MG/DL Urine Glucose (UA) (NEG) MG/DL Urine Ketones (NEG) MG/DL Urine Blood (NEG) Urine Nitrite (NEG) Ur Leukocyte Esterase (NEG) Urine RBC (0) /HPF Urine WBC (0-4) /HPF Ur Squamous Epith Cells /LPF Urine Bacteria /LPF Urine Test (NEGATIVE) Ethyl Alcohol mg/dL COVID-19 (ANIKET) Negative (Negative) COVID-19 Clin Com See Note 01/03/21 01/03/21 01/03/21 Range/Units 07:13 07:26 07:26 WBC (4.8-10.8) X10*3/uL RBC (4.20-5.50) X10*6/uL Hgb (12.0-16.0) g/dl Hct (37-47) % MCV (80-98) fL MCH (27.0-33.0) pg MCHC (31.0-35.0) g/dl RDW (11.0-16.0) % Plt Count (160-400) X10*3/uL MPV (9.4-12.3) fL Immature Gran % (Auto) (0.0-0.4) % Neut % (Auto) (45-73) % Lymph % (Auto) (20-40) % [place] % (Auto) (2-11) % Eos % (Auto) (0-4) % Baso % (Auto) (0-2) % Lymph # (Auto) (1.2-4.9) X10*3/uL [place] # (Auto) (0.1-1.2) X10*3/uL Eos # (Auto) (0.0-0.4) X10*3/uL Baso # (Auto) (0.0-0.2) X10*3/uL Abs Immat Gran (auto) (0.00-0.03) X10*3/uL Absolute Neuts (auto) (2.0-8.3) X10*3/uL Absolute Nucleated RBC (0.0-0.012) X10*3/uL Nucleated RBC % (auto) (0.0-0.2) /100WBC Sodium (135-145) mmol/L Potassium (3.3-5.1) mmol/L Chloride (96-108) mmol/L Carbon Dioxide (22-29) mmol/L Anion Gap (12-20) BUN (9-16) mg/dL Creatinine (0.5-1.4) mg/dL Estim Creat Clear Calc Estimated GFR Random Glucose (60-115) mg/dL Calcium (8.4-10.2) mg/dL Magnesium (1.6-2.6) mg/dL Total Bilirubin (0.0-1.0) mg/dL Direct Bilirubin (0.0-0.5) mg/dL AST (5-31) U/L ALT (0-31) U/L Alkaline Phosphatase (39-117) U/L Lactate Dehydrogenase (122-220) U/L Total Protein (6.5-8.0) g/dL Albumin (3.5-5.0) g/dL Lipase (8-78) U/L Urine Color YELLOW Urine Appearance HAZY Urine pH 6.0 (5.0-8.0) Ur Specific [place] >= 1.030 H (1.005-1.025) Urine Protein 2+ H (NEG-TRACE) MG/DL Urine Glucose (UA) NEG (NEG) MG/DL Urine Ketones 40 (NEG) MG/DL Urine Blood TRACE (NEG) Urine Nitrite POS H (NEG) Ur Leukocyte Esterase NEG (NEG) Urine RBC 0-2 (0) /HPF Urine WBC 0-2 (0-4) /HPF Ur Squamous Epith Cells 2+ /LPF Urine Bacteria 2+ /LPF Urine Test NEGATIVE (NEGATIVE) Ethyl Alcohol < 10 mg/dL COVID-19 (ANIKET) (Negative) COVID-19 Clin Com Critical Care Time Critical Care Time Critical Care Time: Yes Total Critical Care Time: 35 Attestation: repeat IV pain medications, 2L of IVF ordered I attest to this time spent taking care of the patient Discharge Plan Discharge Clinical Impression: Abdominal pain, Elevated liver function tests, Acute pancreatitis, UTI (urinary tract infection) Patient Disposition: Admitted As Inpatient [facility] Past Medical History Attestation statement: The following information was validated with the patient. Medical History (Updated 01/03/21 @ 09:32 by Caroline Schwab DO) ADHD Depression Migraine Surgical History (Updated 01/03/21 @ 07:12 by Caroline Schwab DO) H/O gastric bypass H/O tubal ligation History of cholecystectomy Previous section Social History Social History Smoked in Last 30 Days: No Use of substances other than those prescribed or required for medical reasons: No Advance Directives: No Advance Directives Information Provided: No Patient : No
[2021-01-03 07:18] LABS: MANUAL DIFF FLAG NO
[2021-01-03] MEDS: Lactated Ringers 1,000 ML 999 ML IV ×2 (07:22→07:31)
[2021-01-03] MEDS: ondansetron HCL 4 MG/2 ML VIAL IVPUSH (07:22)
[2021-01-03] MEDS: Morphine Sulfate 4 MG/ML CARTRIDGE IVPUSH (07:22)
[2021-01-03 07:23] LABS: Basophils Percent Auto 0.3 % (0-2); Eosinophils Percent Auto 0.6 % (0-4); Hematocrit 38.9 % (37-47); Hemoglobin 13.1 g/dl (12.0-16.0); Imm Gran Abs Auto 0.01 X10*3/uL (0.00-0.03); Imm Gran Pct Auto 0.3 % (0.0-0.4); Lymphocytes Absolute Auto 0.5 X10*3/uL (1.2-4.9); Lymphocytes Percent Auto 14.3 % (20-40); Mean Corpuscular HGB Conc 33.7 g/dl (31.0-35.0); Mean Corpuscular Hemoglobin 35.6 pg (27.0-33.0); Mean Corpuscular Volume 105.7 fL (80-98); Mean Platelet Volume 9.4 fL (9.4-12.3); Monocytes Absolute Auto 0.3 X10*3/uL (0.1-1.2); Monocytes Percent Auto 8.2 % (2-11); Neutrophils Absolute Auto 2.6 X10*3/uL (2.0-8.3); Neutrophils Percent Auto 76.3 % (45-73); Platelet Count 132 X10*3/uL (160-400); Red Blood Count 3.68 X10*6/uL (4.20-5.50); Red Cell Distribution Width 13.2 % (11.0-16.0); White Blood Count 3.4 X10*3/uL (4.8-10.8)
[2021-01-03 07:36] LABS: Glucose Urine UA NEG (NEG); Leukocyte Esterase Urine NEG (NEG); Nitrite Urine POS (NEG); Specific Gravity - Urine >= 1.030 (1.005-1.025); UACC Culture Trigger YES; Urine Blood TRACE (NEG); Urine Ketones 40 MG/DL (NEG); Urine Protein 2+ MG/DL (NEG-TRACE)
[2021-01-03 07:37] LABS: COVID-19 Test Negative (Negative)
[2021-01-03 07:37] LABS: UPreg QC Valid YES; Urine Pregnancy NEGATIVE (NEGATIVE)
[2021-01-03] MEDS: Thiamine HCL 200 MG/2 ML VIAL 100 MG IVPUSH (07:43)
[2021-01-03 07:48] LABS: Ethanol < 10 mg/dL
[2021-01-03 07:48] LABS: Color Urine YELLOW
[2021-01-03 07:49] LABS: Appearance Urine HAZY
[2021-01-03 07:50] LABS: Bacteria Urine 2+ /LPF; RBC Urine 0-2 /HPF (0); Squamous Epithelial Cell Urine 2+ /LPF; WBC Urine 0-2 /HPF (0-4)
[2021-01-03 08:19] LABS: Alanine Aminotransferase 135 U/L (0-31); Albumin Level 3.9 g/dL (3.5-5.0); Alkaline Phosphatase 177 U/L (39-117); Aspartate Amino Transferase 316 U/L (5-31); Bilirubin Direct 0.3 mg/dL (0.0-0.5); Bilirubin Total 0.5 mg/dL (0.0-1.0); Lactate Dehydrogenase 341 U/L (122-220); Lipase 1312 U/L (8-78); Magnesium 1.9 mg/dL (1.6-2.6); Total Protein 7.2 g/dL (6.5-8.0)
[2021-01-03] MEDS: HYDROmorphone HCl 1 MG/ML SYRINGE IVPUSH ×2 (08:52→10:49)
--- NOTE | 2021-01-03 08:59 | PHA.MEDREC ---
Pharmacy Consult ? Medication Reconciliation Pharmacy has completed the medication reconciliation.
[2021-01-03 09:28] LABS: Anion Gap 23 (12-20); Carbon Dioxide 17 mmol/L (22-29); Estimated Glomerular Filt Rate > 60
[2021-01-03] MEDS: cefTRIAXone sodium 1 GM in 0.9 % Sodium Chloride 50 ML IV (10:13)
[2021-01-03] MEDS: iohexoL 350 MG/ML 100 ML INFUS..BTL IV (10:24)
[2021-01-03 10:43] LABS: Lactic Acid 0.8 mmol/L (0.5-2.0)
--- NOTE | 2021-01-03 13:46 | PM.IMHP ---
History of Present Illness Date of Service: 01/03/21 Chief Complaint: Abdominal pain 40 year old female with history of obesity s/p Calixto-en-Y gastric bypass, ADHD here abdominal pain for 2 days, described as severe epigastric pain of 10 radiating to the back. She related that she dislocated her shoulder over the weenken and has been self medicating with whiskey. Work u in the ED has revealed lipase level of >1300 and markedly inflamed pancreas on the CT, fattly liver, anastamosis looks fine. LFTs are high. She is s/p cholecestectomy. Review of Systems Review of Systems: Gen: no fever Resp: no sob, no cough CV: no chest, no CHUN, no leg edema GI: epigastric Neuro: No confusion PMFSH Medical History ADHD Depression Migraine Surgical History H/O gastric bypass H/O tubal ligation History of cholecystectomy History of Calixto-en-Y gastric bypass Previous section Social History Smoked in Last 30 Days: No Use of substances other than those prescribed or required for medical reasons: No Advance Directives: No Advance Directives Information Provided: No Patient : No Meds Allergies Allergy/AdvReac Type Severity Reaction Status Date / Time shellfish derived Allergy Severe ANAPHYLAXIS Verified 08/25/20 22:45 [SHELLFISH DERIVED] benztropine [From COGENTIN] Allergy Intermediate PSYCHOSIS Verified 08/25/20 22:45 gabapentin [GABAPENTIN] Allergy Intermediate PSYCHOSIS Verified 08/25/20 22:45 amantadine [AMANTADINE] Allergy Mild HIVES, rash Verified 08/25/20 22:45 seafood Allergy Unknown anaphylaxis Uncoded 02/26/19 00:00 Active Medications: Current Medications Generic Name Dose Route Start Last Admin Trade Name Freq PRN Reason Stop Dose Admin Al Hydroxide/Mg Hydroxide 30 ml 01/03/21 13:41 Magnesium Hydrox/Alum Hydrox 30 Ml Oral.Susp PO Q4H PRN Heartburn/Nausea Hydromorphone HCl 0.5 mg 01/03/21 13:41 Hydromorphone Hcl 0.5 Mg/0.5 Ml Syringe IVPUSH Q4H PRN Pain, Severe (Pain Scale 7-10) Protocol Dextrose/Sodium Chloride 1,000 mls @ 100 mls/hr 01/03/21 13:45 D5ns IVCONT .Q10H [facility] Pharmacy Consult 1 each 01/03/21 08:39 Consult Rx Perform Med Rec MISCELLANE ONCE PRN Consult order Sodium Chloride 3 ml 01/03/21 16:00 0.9 % Sodium Chloride Flush 3 Ml Syringe IVFLUSH QSHIFT [facility] Home Medications Medication Instructions Recorded Confirmed Last Taken Type calcium carbonate 500 mg calcium 500 mg PO DAILY 01/03/21 01/03/21 12/28/20 History (1,250 mg) tablet (Calcium 500) cetirizine 10 mg tablet 10 mg PO DAILY 01/03/21 01/03/21 12/28/20 History dextroamphetamine-amphetamine ER 1 cap PO QAM 01/03/21 01/03/21 12/28/20 History 20 mg 24hr capsule,extend release multivitamin 1 tab PO DAILY 01/03/21 01/03/21 12/28/20 History oxycodone-acetaminophen 5 mg-325 1 tab PO Q6H PRN 01/03/21 01/03/21 Unknown History mg tablet (Percocet) vitamin B complex 1 cap PO DAILY 01/03/21 01/03/21 12/28/20 History Physical Exam Vital Signs and Narrative: Vital Signs: Last Vital Signs Temp 98.2 F 01/03/21 09:58 Pulse 81 01/03/21 10:50 Resp 16 01/03/21 10:50 BP 132/85 01/03/21 10:50 Pulse Ox 98 01/03/21 09:58 Body Mass Index 25.9 Constitutional Awake and Alert, No apparent distress HEENT-anicteric, Neck Supple, No lymphadenopathy Cardiovascular RRR, No M/R/G, S1 S2, No S3 S4, No pedal edema Respiratory Lungs clear, No respiratory distress Gastrointestinal Epigastric tenderness Skin No rash Neurological Alert & oriented x3 Psychological Appropriate affect Results Labs CBC and Chem 7: 01/03/21 07:13 01/03/21 07:13 Labs: Laboratory Results - last 24 hr 01/03/21 01/03/21 01/03/21 07:13 07:13 07:13 MCV 105.7 H MCH 35.6 H MCHC 33.7 RDW 13.2 Plt Count 132 L D MPV 9.4 Immature Gran % (Auto) 0.3 Neut % (Auto) 76.3 H Lymph % (Auto) 14.3 L [place] % (Auto) 8.2 Eos % (Auto) 0.6 Baso % (Auto) 0.3 Lymph # (Auto) 0.5 L [place] # (Auto) 0.3 Eos # (Auto) 0.0 Baso # (Auto) 0.0 Abs Immat Gran (auto) 0.01 Absolute Neuts (auto) 2.6 Absolute Nucleated RBC 0.000 Nucleated RBC % (auto) 0.0 Anion Gap 23 H Estim Creat Clear Calc 85.9 Estimated GFR > 60 Random Glucose 100 Lactic Acid Calcium 9.1 D Magnesium 1.9 Total Bilirubin 0.5 Direct Bilirubin 0.3 AST 316 H ALT 135 H Alkaline Phosphatase 177 H D Lactate Dehydrogenase 341 H Total Protein 7.2 Albumin 3.9 Lipase 1312 H Urine Color Urine Appearance Urine pH Ur Specific [place] Urine Protein Urine Glucose (UA) Urine Ketones Urine Blood Urine Nitrite Ur Leukocyte Esterase Urine RBC Urine WBC Ur Squamous Epith Cells Urine Bacteria Urine Test Ethyl Alcohol COVID-19 (ANIKET) Negative COVID-19 Clin Com See Note 01/03/21 01/03/21 01/03/21 07:13 07:26 07:26 MCV MCH MCHC RDW Plt Count MPV Immature Gran % (Auto) Neut % (Auto) Lymph % (Auto) [place] % (Auto) Eos % (Auto) Baso % (Auto) Lymph # (Auto) [place] # (Auto) Eos # (Auto) Baso # (Auto) Abs Immat Gran (auto) Absolute Neuts (auto) Absolute Nucleated RBC Nucleated RBC % (auto) Anion Gap Estim Creat Clear Calc Estimated GFR Random Glucose Lactic Acid Calcium Magnesium Total Bilirubin Direct Bilirubin AST ALT Alkaline Phosphatase Lactate Dehydrogenase Total Protein Albumin Lipase Urine Color YELLOW Urine Appearance HAZY Urine pH 6.0 Ur Specific [place] >= 1.030 H Urine Protein 2+ H Urine Glucose (UA) NEG Urine Ketones 40 Urine Blood TRACE Urine Nitrite POS H Ur Leukocyte Esterase NEG Urine RBC 0-2 Urine WBC 0-2 Ur Squamous Epith Cells 2+ Urine Bacteria 2+ Urine Test NEGATIVE Ethyl Alcohol < 10 COVID-19 (ANIKET) COVID-19 Clin Com 01/03/21 09:53 MCV MCH MCHC RDW Plt Count MPV Immature Gran % (Auto) Neut % (Auto) Lymph % (Auto) [place] % (Auto) Eos % (Auto) Baso % (Auto) Lymph # (Auto) [place] # (Auto) Eos # (Auto) Baso # (Auto) Abs Immat Gran (auto) Absolute Neuts (auto) Absolute Nucleated RBC Nucleated RBC % (auto) Anion Gap Estim Creat Clear Calc Estimated GFR Random Glucose Lactic Acid 0.8 Calcium Magnesium Total Bilirubin Direct Bilirubin AST ALT Alkaline Phosphatase Lactate Dehydrogenase Total Protein Albumin Lipase Urine Color Urine Appearance Urine pH Ur Specific [place] Urine Protein Urine Glucose (UA) Urine Ketones Urine Blood Urine Nitrite Ur Leukocyte Esterase Urine RBC Urine WBC Ur Squamous Epith Cells Urine Bacteria Urine Test Ethyl Alcohol COVID-19 (ANIKET) COVID-19 Clin Com Imaging Radiologist's Impressions: Impressions Abdomen/Pelvis CT 01/03/21 06:44 IMPRESSION: 1. Moderate fat stranding surrounding the entirety of the pancreas, consistent with acute pancreatitis. No pseudocyst or abscess formation. No pancreatic parenchymal lesion or pancreatic ductal dilatation. 2. Trace ascites. 3. Hepatic steatosis is redemonstrated. No new hepatic parenchymal lesion or biliary ductal dilatation. 4. Status post Calixto-en-Y gastric bypass without evidence of complication. No bowel wall thickening or associated inflammatory change. No small or large bowel obstruction. Assessment and Plan (1) Acute pancreatitis: Qualifiers: Acute pancreatitis complication: unspecified Pancreatitis type: alcohol induced Qualified Code(s): K85.20 - Alcohol induced acute pancreatitis without necrosis or infection Status: Acute (2) UTI (urinary tract infection): Qualifiers: Hematuria presence: without hematuria Urinary tract infection type: acute cystitis Qualified Code(s): N30.00 - Acute cystitis without hematuria Status: Acute (3) Abdominal pain: Qualifiers: Abdominal location: epigastric Qualified Code(s): R10.13 - Epigastric pain Status: Acute 40 year old female with history of obesity s/p Calixto-en-Y gastric bypass, ADHD here abdominal pain for 2 days, described as severe epigastric pain of 10 radiating to the back, elevated Lipase, and inflamed pancreas on CT. I suspect posible alcoholic pancreatitis. 1/Acute Pancreatitis, possibly alcoholic--with marked imflamation, no Pseudocyst -NPO -check triglycerid -IVF -Dilaudid for pain -GI consult -Should avoid alcohol in the future. 2. ADHD--continue Adaral 3. Alcohol use--CIWA, folic acid, thiamine 4. Elevated LFTs--possibly rlated to pancreatitis, fatty liver, monitor. 5. Leukopenia/thrombocytopenia--possibly related to alcohol use, or acute illness, monitor. 6. DVT--low risk, ambulate Quality Stroke Does the patient have a stroke diagnosis?: No VTE Prior VTE?: No VTE Risk Level:: Medical - low VTE Device Contraindication: N/A - Device Ordered VTE Drug Contraindication: N/A - Med Ordered
[2021-01-03] MEDS: Dextrose 5 % and 0.9 % NaCl 1,000 ML 100 ML IVCONT ×2 (14:12→21:37)
[2021-01-03] MEDS: HYDROmorphone HCl 0.5 MG/0.5 ML SYRINGE IVPUSH ×3 (14:12→21:35)
[2021-01-03 14:18] LABS: Blood Urea Nitrogen 11 mg/dL (9-16); Calcium 9.4 mg/dL (8.4-10.2); Chloride 96 mmol/L (96-108); Creatinine Clr Calc Pharmacy 87.7; Glucose Random 101 mg/dL (60-115); Sodium 132 mmol/L (135-145); Triglycerides 77 mg/dL
[2021-01-04] VITALS: BP 141/86; PULSE 69; RESP 15; TEMP 36.1; O2SAT 100
[2021-01-04] MEDS: HYDROmorphone HCl 0.5 MG/0.5 ML SYRINGE IVPUSH ×8 (01:41→23:17)
[2021-01-04] MEDS: Dextrose 5 % and 0.9 % NaCl 1,000 ML 100 ML IVCONT (06:29)
[2021-01-04 07:16] LABS: Alanine Aminotransferase 84 U/L (0-31); Albumin Level 3.1 g/dL (3.5-5.0); Alkaline Phosphatase 146 U/L (39-117); Aspartate Amino Transferase 146 U/L (5-31); Bilirubin Direct 0.3 mg/dL (0.0-0.5); Bilirubin Total 0.7 mg/dL (0.0-1.0); Lipase 429 U/L (8-78); Total Protein 5.8 g/dL (6.5-8.0)
[2021-01-04 07:45] VITALS: BP 145/81; PULSE 78; RESP 16; TEMP 36.4; O2SAT 99
--- NOTE | 2021-01-04 10:25 | MHC.CM.PN ---
PT REPORTS SHE LIVES WITH HER BOYFRIEND AND TWO CHILDREN. PT STATES SHE IS FROM [place] , [place], HOWEVER THEY ARE STILL FRIENDLY AND SHE WOULD LIKE TO KEEP HIM HER PRIMARY CONTACT. PT REPORTS SHE HAS NO DME AND NO SERVICES. PT REPORTS HER PCP IS DEBORAH SEARS AT [facility]. CURRENT DC PLAN IS HOME WITH NO SERVICES CAR IS OUTSIDE
--- NOTE | 2021-01-04 11:29 | HO.PM.IMPN ---
Subjective Subjective Date of Service: 01/04/21 Interval History: still with pain, wants to try clears Constitutional Constitutional: Reports no additional constitutional complaints Eyes Eyes: Reports no additional eye complaints Physical Exam Vital Signs: Vital Signs: Last Vital Signs Temp 97.5 F 01/04/21 07:45 Pulse 78 01/04/21 07:45 Resp 16 01/04/21 07:45 BP 145/81 H 01/04/21 07:45 Pulse Ox 99 01/04/21 07:45 Body Mass Index 25.9 General: AO X 3, anxious Resp: CTA bilateral CVS: S1,S2,RRR GI: soft, epigastric tender, non distended Neuro: motor grossly intact Psych: appropriate affect Objective Data Current Medications Generic Name Dose Route Start Last Admin Trade Name Freq PRN Reason Stop Dose Admin Al Hydroxide/Mg Hydroxide 30 ml 01/03/21 13:41 Magnesium Hydrox/Alum Hydrox 30 Ml Oral.Susp PO Q4H PRN Heartburn/Nausea Hydromorphone HCl 0.5 mg 01/04/21 09:21 01/04/21 09:48 Hydromorphone Hcl 0.5 Mg/0.5 Ml Syringe IVPUSH 0.5 mg Q2H PRN Administration Pain, Severe (Pain Scale 7-10) Protocol Dextrose/Sodium Chloride 1,000 mls @ 100 mls/hr 01/03/21 13:45 01/04/21 06:29 D5ns IVCONT 100 mls/hr .Q10H MALI Administration Lorazepam 0.5 mg 01/03/21 14:05 Lorazepam 2 Mg/Ml Vial IVPUSH Q4H PRN Anxiety Pharmacy Consult 1 each 01/03/21 08:39 Consult Rx Perform Med Rec MISCELLANE ONCE PRN Consult order Sodium Chloride 3 ml 01/03/21 16:00 01/04/21 09:59 0.9 % Sodium Chloride Flush 3 Ml Syringe IVFLUSH Not Given QSHIFT MALI Vitamin B Complex/Vit C/Folic Acid 1 tab 01/04/21 09:00 01/04/21 09:49 Folic Acid/Vit B Complex And C Tablet PO 1 tab DAILY MALI Administration Labs CBC & Chem 7: 01/03/21 07:13 01/03/21 07:13 Labs: Laboratory Results - last 24 hr 08/18/21 08/19/21 07:13 06:03 Estim Creat Clear Calc 87.7 Random Glucose 101 Calcium 9.4 D Total Bilirubin 0.7 Direct Bilirubin 0.3 AST 146 H ALT 84 H Alkaline Phosphatase 146 H Total Protein 5.8 L Albumin 3.1 L D Triglycerides 77 Lipase 429 H Assessment and Plan (1) Acute pancreatitis: Status: Acute Assessment and Plan: 40F presented with epigastric pain acute alcoholic pancreatitis IVF, pain control, advance to clears, monitor LFTs adhd adderal Quality Stroke Does the patient have a stroke diagnosis?: No VTE Prior VTE?: No VTE Risk Level:: Medical - low VTE Device Contraindication: N/A - Device Ordered VTE Drug Contraindication: N/A - Med Ordered
[2021-01-04 15:14] VITALS: BP 152/94; PULSE 81; RESP 18; TEMP 36.1; O2SAT 100
[2021-01-04] MEDS: 0.9 % Sodium Chloride Flush 3 ML SYRINGE IVFLUSH ×2 (16:09→21:24)
[2021-01-04] MEDS: LORazepam 2 MG/ML VIAL 0.5 MG IVPUSH (21:22)
[2021-01-04 23:17] VITALS: BP 131/90; PULSE 78; RESP 18; TEMP 36; O2SAT 97
[2021-01-05 03:09] VITALS: BP 127/77; PULSE 62; RESP 18; TEMP 36.3; O2SAT 99
[2021-01-05] MEDS: Dextrose 5 % and 0.9 % NaCl 1,000 ML 100 ML IVCONT ×2 (03:11→13:12)
[2021-01-05] MEDS: LORazepam 2 MG/ML VIAL 0.5 MG IVPUSH ×3 (03:11→20:50)
[2021-01-05] MEDS: HYDROmorphone HCl 0.5 MG/0.5 ML SYRINGE IVPUSH ×8 (03:11→22:55)
[2021-01-05 06:36] LABS: Hematocrit 31.8 % (37-47); Hemoglobin 10.1 g/dl (12.0-16.0); Mean Corpuscular HGB Conc 31.8 g/dl (31.0-35.0); Mean Corpuscular Hemoglobin 34.8 pg (27.0-33.0); Mean Corpuscular Volume 109.7 fL (80-98); Mean Platelet Volume 10.6 fL (9.4-12.3); Platelet Count 116 X10*3/uL (160-400); Red Cell Distribution Width 13.3 % (11.0-16.0); White Blood Count 2.8 X10*3/uL (4.8-10.8)
[2021-01-05 07:18] LABS: Alanine Aminotransferase 71 U/L (0-31); Albumin Level 2.9 g/dL (3.5-5.0); Alkaline Phosphatase 128 U/L (39-117); Anion Gap 11 (12-20); Aspartate Amino Transferase 96 U/L (5-31); Bilirubin Direct 0.3 mg/dL (0.0-0.5); Bilirubin Total 0.5 mg/dL (0.0-1.0); Blood Urea Nitrogen 7 mg/dL (9-16); Carbon Dioxide 25 mmol/L (22-29); Chloride 108 mmol/L (96-108); Creatinine Clr Calc Pharmacy 136.6; Estimated Glomerular Filt Rate > 60; Glucose Fasting 96 mg/dL (60-99); Magnesium 1.5 mg/dL (1.6-2.6); Potassium 3.6 mmol/L (3.3-5.1); Sodium 140 mmol/L (135-145); Total Protein 5.3 g/dL (6.5-8.0)
[2021-01-05 07:30] LABS: Calcium 8.2 mg/dL (8.4-10.2)
[2021-01-05 07:49] VITALS: BP 140/102; PULSE 74; RESP 18; TEMP 36; O2SAT 99
[2021-01-05] MEDS: Magnesium Oxide 400 MG TABLET PO ×2 (08:44→17:14)
[2021-01-05] MEDS: 0.9 % Sodium Chloride Flush 3 ML SYRINGE IVFLUSH ×2 (08:45→16:06)
--- NOTE | 2021-01-05 11:27 | MHC.CM.PN ---
IF PATIENT IS ABLE TO TOLERATE DIET, SHE CAN DISCHARGE HOME TODAY- SELF CARE.
--- NOTE | 2021-01-05 11:55 | MHC.CLN ---
DIET/ALLERGY PATIENT ASKED FOR CAESAR SALAD. ADVISED THAT HAS ANCHOVY IN DRESSING. STATED THAT SHE IS NOT ALLERGIC TO SEAFOOD, ONLY SHELLFISH. SEAFOOD ALLERGY DELETED AND ALERTED DINING STAFF.
[2021-01-05] MEDS: ondansetron HCL 4 MG/2 ML VIAL IVPUSH (12:07)
--- NOTE | 2021-01-05 15:15 | HO.PM.IMPN ---
Subjective Subjective Date of Service: 01/05/21 Interval History: had abd pain after trying solids for lunch Constitutional Constitutional: Reports no additional constitutional complaints Eyes Eyes: Reports no additional eye complaints Physical Exam Vital Signs: Vital Signs: Last Vital Signs Temp 96.8 F 01/05/21 07:49 Pulse 74 01/05/21 07:49 Resp 18 01/05/21 07:49 BP 140/102 H 01/05/21 07:49 Pulse Ox 99 01/05/21 07:49 Body Mass Index 25.9 General: AO X 3, anxious Resp:? CTA bilateral CVS: S1,S2,RRR GI: soft, epigastric tender, non distended Neuro:? motor grossly intact Psych: appropriate affect Objective Data Current Medications Generic Name Dose Route Start Last Admin Trade Name Freq PRN Reason Stop Dose Admin Al Hydroxide/Mg Hydroxide 30 ml 01/03/21 13:41 Magnesium Hydrox/Alum Hydrox 30 Ml Oral.Susp PO Q4H PRN Heartburn/Nausea Hydromorphone HCl 0.5 mg 01/04/21 09:21 01/05/21 12:07 Hydromorphone Hcl 0.5 Mg/0.5 Ml Syringe IVPUSH 0.5 mg Q2H PRN Administration Pain, Severe (Pain Scale 7-10) Protocol Dextrose/Sodium Chloride 1,000 mls @ 100 mls/hr 01/03/21 13:45 01/05/21 13:12 D5ns IVCONT 100 mls/hr .Q10H MALI Administration Lorazepam 0.5 mg 01/03/21 14:05 01/05/21 14:03 Lorazepam 2 Mg/Ml Vial IVPUSH 0.5 mg Q4H PRN Administration Anxiety Magnesium Oxide 400 mg 01/05/21 08:30 01/05/21 08:44 Magnesium Oxide 400 Mg Tablet PO 400 mg BIDPC MALI Administration Ondansetron HCl 4 mg 01/05/21 11:56 01/05/21 12:07 Ondansetron Hcl 4 Mg/2 Ml Vial IVPUSH 4 mg Q6H PRN Administration nausea Pharmacy Consult 1 each 01/03/21 08:39 Consult Rx Perform Med Rec MISCELLANE ONCE PRN Consult order Sodium Chloride 3 ml 01/03/21 16:00 01/05/21 08:45 0.9 % Sodium Chloride Flush 3 Ml Syringe IVFLUSH 3 ml QSHIFT MALI Administration Vitamin B Complex/Vit C/Folic Acid 1 tab 01/04/21 09:00 01/05/21 08:44 Folic Acid/Vit B Complex And C Tablet PO 1 tab DAILY MALI Administration Labs CBC & Chem 7: 01/05/21 05:55 01/05/21 05:55 Labs: Laboratory Results - last 24 hr 01/05/21 01/05/21 05:55 05:55 MCV 109.7 H MCH 34.8 H MCHC 31.8 RDW 13.3 Plt Count 116 L MPV 10.6 Absolute Nucleated RBC 0.000 Nucleated RBC % (auto) 0.0 Anion Gap 11 L Estim Creat Clear Calc 136.6 Estimated GFR > 60 Fasting Glucose 96 Calcium 8.2 L D Magnesium 1.5 L Total Bilirubin 0.5 Direct Bilirubin 0.3 AST 96 H ALT 71 H Alkaline Phosphatase 128 H Total Protein 5.3 L Albumin 2.9 L Microbiology Microbiology Results: Microbiology 01/03/21 10:07 Blood Culture - Preliminary Blood - Venous No growth after 48 hours. 01/03/21 09:53 Blood Culture - Preliminary Blood - Venous No growth after 48 hours. 01/03/21 Unknown Urine Culture - Preliminary Urine clean catch - Urine chiu top Gram negative cammy Assessment and Plan (1) Acute pancreatitis: Status: Acute Assessment and Plan: 40F presented with epigastric pain acute alcoholic pancreatitis IVF- changed to lr at 150cc/hr pain control, advanced to solids -but not tolerating today adhd adderal Quality Stroke Does the patient have a stroke diagnosis?: No VTE Prior VTE?: No VTE Risk Level:: Medical - low VTE Device Contraindication: N/A - Device Ordered VTE Drug Contraindication: N/A - Med Ordered
[2021-01-05 15:30] VITALS: BP 149/81; PULSE 76; RESP 18; TEMP 36.4; O2SAT 100
[2021-01-05] MEDS: Lactated Ringers 1,000 ML 150 ML IVCONT ×2 (16:02→22:56)
[2021-01-06] VITALS: BP 158/92; PULSE 74; RESP 16; TEMP 36.6; O2SAT 98
[2021-01-06] MEDS: HYDROmorphone HCl 0.5 MG/0.5 ML SYRINGE IVPUSH ×3 (01:13→07:41)
[2021-01-06] MEDS: LORazepam 2 MG/ML VIAL 0.5 MG IVPUSH (03:56)
[2021-01-06] MEDS: Lactated Ringers 1,000 ML 150 ML IVCONT (05:53)
[2021-01-06 06:50] LABS: Anion Gap 11 (12-20); Blood Urea Nitrogen 7 mg/dL (9-16); Calcium 8.6 mg/dL (8.4-10.2); Carbon Dioxide 27 mmol/L (22-29); Chloride 108 mmol/L (96-108); Creatinine Clr Calc Pharmacy 138.9; Estimated Glomerular Filt Rate > 60; Glucose Fasting 101 mg/dL (60-99); Potassium 3.9 mmol/L (3.3-5.1); Sodium 142 mmol/L (135-145)
[2021-01-06 06:57] LABS: Hematocrit 28.9 % (37-47); Hemoglobin 9.5 g/dl (12.0-16.0); Mean Corpuscular HGB Conc 32.9 g/dl (31.0-35.0); Mean Corpuscular Volume 109.5 fL (80-98); Mean Platelet Volume 10.6 fL (9.4-12.3); Platelet Count 150 X10*3/uL (160-400); Red Blood Count 2.64 X10*6/uL (4.20-5.50); Red Cell Distribution Width 13.4 % (11.0-16.0); White Blood Count 2.9 X10*3/uL (4.8-10.8)
[2021-01-06] MEDS: 0.9 % Sodium Chloride Flush 3 ML SYRINGE IVFLUSH (07:41)
[2021-01-06] MEDS: Magnesium Oxide 400 MG TABLET PO (07:41)
[2021-01-06 08:00] VITALS: BP 140/94; PULSE 68; RESP 16; TEMP 36.4; O2SAT 98
--- NOTE | 2021-01-06 09:40 | PM.DS ---
DS: Providers Provider Date of Service: 01/06/21 Date of admission: 01/03/21 13:42 Primary care physician: Skinny Stout MD DS: Diagnosis Discharge Diagnosis (1) Acute pancreatitis: Status: Acute DS: Medications Discharge Medications Home Medications: Home Medications Medication Instructions Recorded Confirmed calcium carbonate 500 mg calcium 500 mg PO DAILY 01/03/21 01/03/21 (1,250 mg) tablet (Calcium 500) cetirizine 10 mg tablet 10 mg PO DAILY 01/03/21 01/03/21 dextroamphetamine-amphetamine ER 1 cap PO QAM 01/03/21 01/03/21 20 mg 24hr capsule,extend release multivitamin 1 tab PO DAILY 01/03/21 01/03/21 vitamin B complex 1 cap PO DAILY 01/03/21 01/03/21 Previous Rx's Medication Instructions Recorded cyclobenzaprine 10 mg tablet 10 mg PO TID PRN #14 tab 01/01/21 ondansetron HCl 4 mg tablet 4 mg PO Q8H PRN #20 tab 01/01/21 (Zofran) oxycodone-acetaminophen 5 mg-325 1 tab PO Q6H PRN #10 tab 01/06/21 mg tablet (Percocet) DS: Summary Hospital Course Hospital Course: Patient was admitted for acute alcoholic pancreatitis. She was given IV fluids and pain medication. Eventually pain improved and patient was able to tolerate solid diet. She was educated on importance of alcohol abstinence. Time Spent with Patient Time attestation: Total time spent providing and/or coordinating discharge services: Discharge coordination time: Greater than 30 minutes Quality: Stroke Does the patient have a stroke diagnosis?: No Physical Exam Vital Signs: Vital Signs: Last Vital Signs Temp 97.6 F 01/06/21 08:00 Pulse 68 01/06/21 08:00 Resp 16 01/06/21 08:00 BP 140/94 H 01/06/21 08:00 Pulse Ox 98 01/06/21 08:00 Body Mass Index 25.9 General: AO X 3, no acute distress Resp: CTA bilateral CVS: S1,S2,RRR GI: soft, non tender, non distended Neuro: motor grossly intact Psych: appropriate affect DS: Data Data Completed and Pending Labs on day of discharge: Laboratory Results - last 24 hr 01/06/21 01/06/21 05:58 05:58 WBC 2.9 L RBC 2.64 L Hgb 9.5 L Hct 28.9 L MCV 109.5 H MCH 36.0 H MCHC 32.9 RDW 13.4 Plt Count 150 L D MPV 10.6 Absolute Nucleated RBC 0.000 Nucleated RBC % (auto) 0.0 Sodium 142 Potassium 3.9 Chloride 108 Carbon Dioxide 27 Anion Gap 11 L BUN 7 L Creatinine 0.60 Estim Creat Clear Calc 138.9 Estimated GFR > 60 Fasting Glucose 101 H Calcium 8.6 Preliminary micro results at discharge 01/03/21 10:07 Blood Culture - Preliminary Blood - Venous No growth after 48 hours. 01/03/21 09:53 Blood Culture - Preliminary Blood - Venous No growth after 48 hours. Discharge Plan Discharge Patient Disposition: Home, Self-Care Discharge Diagnosis: pancreatitis Referrals: Skinny Stout MD [Primary Care Provider] - 1 Week Discharge Medications: Continued multivitamin Tablet 1 tab PO DAILY RF: 0 cetirizine 10 mg Tablet 10 mg PO DAILY RF: 0 calcium carbonate [Calcium 500] 500 mg calcium (1,250 mg) Tablet 500 mg PO DAILY RF: 0 dextroamphetamine-amphetamine 20 mg capsule,extended release 24hr 1 cap PO QAM RF: 0 vitamin B complex Capsule 1 cap PO DAILY RF: 0 oxycodone-acetaminophen [Percocet] 5-325 mg tablet 1 tab PO Q6H PRN (Reason: Pain (Scale Score 4-6)) Qty: 10 RF: 0 cyclobenzaprine 10 mg tablet 10 mg PO TID PRN (Reason: muscle spasm) Qty: 14 RF: 0 ondansetron HCl [Zofran] 4 mg tablet 4 mg PO Q8H PRN (Reason: nausea and vomiting) Qty: 20 RF: 0 Discharge Orders: Discharge Order (Routine); Ordered 01/06/21 Ordered By: Zaire Diaz Diet: advance to usual diet Activity on Discharge: As tolerated Stand Alone Forms: Patient Portal Discharge page Care Plan Goals: recovery Health Concerns: pancreatitis Plan of Treatment: advance diet as tolerated Assessment: see above
--- NOTE | 2021-01-06 10:05 | MHC.CM.PN ---
HOME TODAY - SELF CARE. RN AWARE OF PLAN.
== END 2021-01-06 11:50 | disposition home or self-care (01) | DRG 282 ==
LOC: HO.ED 09:21 → HO.EDOVER 13:52 → HO.S3 14:08
PROVIDERS: Admitting Provider Internal Medicine; Emergency Provider Emergency Medicine; PCP Family Medicine; Visit Provider Internal Medicine
DX: K85.20 Alcohol induced acute pancreatitis without necrosis or infection (principal); N39.0 Urinary tract infection, site not specified; F32.9 Major depressive disorder, single episode, unspecified; F90.9 Attention-deficit hyperactivity disorder, unspecified type; Z20.822 Contact with and (suspected) exposure to COVID-19; Z98.84 Bariatric surgery status; Z79.899 Other long term (current) drug therapy
CPT/HCPCS: 36415; 74177; 80048; 80076; 81001; 81025; 82077; 83605; 83615; 83690; 83735; 84478; 85025; 85027; 87040; 87086; 87088; 87186; 87635; 96361; 96365; 96375; 96376; 99285; 99291; J0696; J1170; J2060; J2270; J2405; J3411; Q9967

== ENCOUNTER 2021-01-07 11:14 | Emergency (ER) | payer OTHER, MEDICAID, SELFPAY ==
[2021-01-07 11:22] VITALS: BP 151/100; PULSE 61; RESP 18; TEMP 36.6; O2SAT 100; BMI 27.3
--- NOTE | 2021-01-07 11:30 | ED.ABDPAIN ---
HPI - Abdominal Pain General Chief Complaint: Abdominal Pain Stated Complaint: abd pain Time Seen by Provider: 01/07/21 11:18 Source: patient and old records reviewed Mode of arrival: ambulatory Limitations: no limitations History of Present Illness MD elicited complaint: abdominal pain Pertinent past history: other (just DC yesterday after 4 day stay for ETOH pancreatitis) Onset (ago): day(s) (5) Pain Consistency: constant Location: epigastric Severity: severe Quality: stabbing Radiation: back Exacerbating factors: eating and movement Relieving factors: nothing Context: history of similar episodes (just admitted for ETOH pancreatitis) Associated symptoms: nausea and vomiting Related Data Home Medications Medication Instructions Recorded Confirmed calcium carbonate 500 mg calcium 500 mg PO DAILY 01/03/21 01/03/21 (1,250 mg) tablet (Calcium 500) cetirizine 10 mg tablet 10 mg PO DAILY 01/03/21 01/03/21 dextroamphetamine-amphetamine ER 1 cap PO QAM 01/03/21 01/03/21 20 mg 24hr capsule,extend release multivitamin 1 tab PO DAILY 01/03/21 01/03/21 vitamin B complex 1 cap PO DAILY 01/03/21 01/03/21 Previous Rx's Medication Instructions Recorded cyclobenzaprine 10 mg tablet 10 mg PO TID PRN #14 tab 01/01/21 ondansetron HCl 4 mg tablet 4 mg PO Q8H PRN #20 tab 01/01/21 (Zofran) oxycodone-acetaminophen 5 mg-325 1 tab PO Q6H PRN #10 tab 01/06/21 mg tablet (Percocet) morphine 15 mg immediate release 15 mg PO Q6H PRN 3 Days #12 tab 01/07/21 tablet Allergies Allergy/AdvReac Type Severity Reaction Status Date / Time shellfish derived Allergy Severe ANAPHYLAXIS Verified 08/25/20 22:45 [SHELLFISH DERIVED] benztropine [From COGENTIN] Allergy Intermediate PSYCHOSIS Verified 08/25/20 22:45 gabapentin [GABAPENTIN] Allergy Intermediate PSYCHOSIS Verified 08/25/20 22:45 amantadine [AMANTADINE] Allergy Mild HIVES, rash Verified 08/25/20 22:45 seafood Allergy Unknown anaphylaxis Uncoded 01/05/21 11:54 Review of Systems Review of Systems Constitutional : No Weight loss, No Fever, No Chills ENT/Mouth : No sore throat, No Rhinorrhea Eyes: No Swelling, No Redness Cardiovascular : No Chest Pain, No SOB, NoEdema Respiratory : No Cough, No Sputum, No Wheezing Gastrointestinal : Positive Nausea, no Vomiting, no Diarrhea, positive abdominal Pain, No Hematochezia, No Melena Genitourinary : No Dysuria, No Urinary Frequency, No Hematuria, No Urgency Musculoskeletal : No joint pain, No Myalgias, No Joint Swelling Skin : No Skin Lesions, No rash Neuro : No Weakness, No Numbness, No Dizziness, No Headache Psych : No Anxiety/Panic, No Depression Heme/Lymph: No Bruising, No Lymphadenopathy Endocrine : No Polyuria, No Polydipsia All other systems reviewed and are negative. Physical Exam Vital Signs: Vital Signs: Last Vital Signs Temp 98.2 F 01/07/21 14:55 Pulse 61 01/07/21 14:55 Resp 16 01/07/21 14:55 BP 155/99 H 01/07/21 14:55 Pulse Ox 100 01/07/21 14:55 Body Mass Index 27.3 Appearance: Alert. Oriented X3. No acute distress. Eyes: Pupils equal, round and reactive to light. ENT: Pharynx normal. Neck: Normal inspection. Neck supple. CVS: Normal heart rate and rhythm. Pulses normal. Respiratory: No respiratory distress. Breath sounds normal. Abdomen: Soft and moderate epigastric ttp Skin: Skin warm and dry. Normal skin color. Normal skin turgor. Extremities: No lower extremity edema. No calf ttp Neuro: Oriented X 3. No motor deficit. No sensory deficit. Course Course Course Narrative: labs steadily improving VS stable, can tolerate PO, doubt worsening pathology will DC home with Morphine and instruct her to follow up with PCP in 2 days MDM - Abdominal Pain MDM Narrative Medical decision making narrative: 40 yo female with recent admission for ETOH pancreatitis, discharged from facility yesterday after 4 day stay reports persistent pain not controlled with PO medications, states she has nausea but can tolerate PO and does not feel well at this time labs, IVF, IV pain control, will reassess, dispo per results and findings. Lab Data Result diagrams: 01/07/21 14:44 01/07/21 14:44 Labs: Lab Results 01/07/21 01/07/21 01/07/21 Range/Units 14:44 14:44 14:44 WBC 3.1 L (4.8-10.8) X10*3/uL RBC 2.89 L (4.20-5.50) X10*6/uL Hgb 10.3 L (12.0-16.0) g/dl Hct 31.3 L (37-47) % MCV 108.3 H (80-98) fL MCH 35.6 H (27.0-33.0) pg MCHC 32.9 (31.0-35.0) g/dl RDW 13.6 (11.0-16.0) % Plt Count 194 D (160-400) X10*3/uL MPV 10.7 (9.4-12.3) fL Immature Gran % (Auto) 0.6 H (0.0-0.4) % Neut % (Auto) 51.8 (45-73) % Lymph % (Auto) 32.2 (20-40) % [place] % (Auto) 14.1 H (2-11) % Eos % (Auto) 1.0 (0-4) % Baso % (Auto) 0.3 (0-2) % Lymph # (Auto) 1.0 L (1.2-4.9) X10*3/uL [place] # (Auto) 0.4 (0.1-1.2) X10*3/uL Eos # (Auto) 0.0 (0.0-0.4) X10*3/uL Baso # (Auto) 0.0 (0.0-0.2) X10*3/uL Abs Immat Gran (auto) 0.02 (0.00-0.03) X10*3/uL Absolute Neuts (auto) 1.6 L (2.0-8.3) X10*3/uL Absolute Nucleated RBC 0.000 (0.0-0.012) X10*3/uL Nucleated RBC % (auto) 0.0 (0.0-0.2) /100WBC Smear Tech's Comments VERIFIED Sodium 141 (135-145) mmol/L Potassium 4.2 (3.3-5.1) mmol/L Chloride 108 (96-108) mmol/L Carbon Dioxide 21 L (22-29) mmol/L Anion Gap 16 (12-20) BUN 8 L (9-16) mg/dL Creatinine 0.61 (0.5-1.4) mg/dL Estim Creat Clear Calc 140.1 Estimated GFR > 60 Random Glucose 121 H (60-115) mg/dL Calcium 8.7 (8.4-10.2) mg/dL Magnesium 1.8 (1.6-2.6) mg/dL Total Bilirubin 0.2 (0.0-1.0) mg/dL Direct Bilirubin < 0.2 (0.0-0.5) mg/dL AST 60 H (5-31) U/L ALT 67 H (0-31) U/L Alkaline Phosphatase 108 (39-117) U/L Lactate Dehydrogenase 371 H (122-220) U/L Total Protein 6.1 L (6.5-8.0) g/dL Albumin 3.2 L (3.5-5.0) g/dL Lipase 238 H (8-78) U/L Ethyl Alcohol mg/dL COVID-19 (ANIKET) (Negative) COVID-19 Clin Com 01/07/21 01/07/21 Range/Units 14:44 14:46 WBC (4.8-10.8) X10*3/uL RBC (4.20-5.50) X10*6/uL Hgb (12.0-16.0) g/dl Hct (37-47) % MCV (80-98) fL MCH (27.0-33.0) pg MCHC (31.0-35.0) g/dl RDW (11.0-16.0) % Plt Count (160-400) X10*3/uL MPV (9.4-12.3) fL Immature Gran % (Auto) (0.0-0.4) % Neut % (Auto) (45-73) % Lymph % (Auto) (20-40) % [place] % (Auto) (2-11) % Eos % (Auto) (0-4) % Baso % (Auto) (0-2) % Lymph # (Auto) (1.2-4.9) X10*3/uL [place] # (Auto) (0.1-1.2) X10*3/uL Eos # (Auto) (0.0-0.4) X10*3/uL Baso # (Auto) (0.0-0.2) X10*3/uL Abs Immat Gran (auto) (0.00-0.03) X10*3/uL Absolute Neuts (auto) (2.0-8.3) X10*3/uL Absolute Nucleated RBC (0.0-0.012) X10*3/uL Nucleated RBC % (auto) (0.0-0.2) /100WBC Smear Tech's Comments Sodium (135-145) mmol/L Potassium (3.3-5.1) mmol/L Chloride (96-108) mmol/L Carbon Dioxide (22-29) mmol/L Anion Gap (12-20) BUN (9-16) mg/dL Creatinine (0.5-1.4) mg/dL Estim Creat Clear Calc Estimated GFR Random Glucose (60-115) mg/dL Calcium (8.4-10.2) mg/dL Magnesium (1.6-2.6) mg/dL Total Bilirubin (0.0-1.0) mg/dL Direct Bilirubin (0.0-0.5) mg/dL AST (5-31) U/L ALT (0-31) U/L Alkaline Phosphatase (39-117) U/L Lactate Dehydrogenase (122-220) U/L Total Protein (6.5-8.0) g/dL Albumin (3.5-5.0) g/dL Lipase (8-78) U/L Ethyl Alcohol < 10 mg/dL COVID-19 (ANIKET) Negative (Negative) COVID-19 Clin Com See Note Discharge Plan Discharge Clinical Impression: Abdominal pain Qualifiers: Abdominal location: epigastric Qualified Code(s): R10.13 - Epigastric pain Pancreatitis Qualifiers: Chronicity: acute Pancreatitis type: alcohol induced Acute pancreatitis complication: unspecified Qualified Code(s): K85.20 - Alcohol induced acute pancreatitis without necrosis or infection Patient Disposition: Home, Self-Care Instructions: Pancreatitis (ED) Additional Instructions: return to ED for any worsening symptoms or concerns Prescriptions: New morphine 15 mg tablet 15 mg PO Q6H PRN (Reason: pain) 3 Days Qty: 12 RF: 0 No Action multivitamin Tablet 1 tab PO DAILY RF: 0 cetirizine 10 mg Tablet 10 mg PO DAILY RF: 0 calcium carbonate [Calcium 500] 500 mg calcium (1,250 mg) Tablet 500 mg PO DAILY RF: 0 dextroamphetamine-amphetamine 20 mg capsule,extended release 24hr 1 cap PO QAM RF: 0 vitamin B complex Capsule 1 cap PO DAILY RF: 0 oxycodone-acetaminophen [Percocet] 5-325 mg tablet 1 tab PO Q6H PRN (Reason: Pain (Scale Score 4-6)) Qty: 10 RF: 0 cyclobenzaprine 10 mg tablet 10 mg PO TID PRN (Reason: muscle spasm) Qty: 14 RF: 0 ondansetron HCl [Zofran] 4 mg tablet 4 mg PO Q8H PRN (Reason: nausea and vomiting) Qty: 20 RF: 0 Referrals: Skinny Stout MD [Primary Care Provider] - 2 days Stand Alone Forms: Work/School Release [facility] Past Medical History Attestation statement: The following information was validated with the patient. Medical History Acute pancreatitis ADHD Depression Elevated liver function tests Migraine Surgical History H/O gastric bypass H/O tubal ligation History of cholecystectomy History of Calixto-en-Y gastric bypass Previous section Social History Social History Household Members: Spouse Housing: House Do you presently have visiting nurse or other home services: No Patient Tobacco Use Status: Never used Tobacco e-Cigarette/Vaping Use: Never Used Advance Directives: No Advance Directives Information Provided: No Patient : No service: No Current occupational status: employed
[2021-01-07 14:53] LABS: Basophils Percent Auto 0.3 % (0-2); Hematocrit 31.3 % (37-47); Hemoglobin 10.3 g/dl (12.0-16.0); Imm Gran Abs Auto 0.02 X10*3/uL (0.00-0.03); Imm Gran Pct Auto 0.6 % (0.0-0.4); Lymphocytes Percent Auto 32.2 % (20-40); MANUAL DIFF FLAG SCAN; Mean Corpuscular HGB Conc 32.9 g/dl (31.0-35.0); Mean Corpuscular Hemoglobin 35.6 pg (27.0-33.0); Mean Corpuscular Volume 108.3 fL (80-98); Mean Platelet Volume 10.7 fL (9.4-12.3); Monocytes Absolute Auto 0.4 X10*3/uL (0.1-1.2); Monocytes Percent Auto 14.1 % (2-11); Neutrophils Absolute Auto 1.6 X10*3/uL (2.0-8.3); Neutrophils Percent Auto 51.8 % (45-73); Platelet Count 194 X10*3/uL (160-400); Red Blood Count 2.89 X10*6/uL (4.20-5.50); Red Cell Distribution Width 13.6 % (11.0-16.0); SCAN SMEAR FLAG 1; White Blood Count 3.1 X10*3/uL (4.8-10.8)
[2021-01-07 14:55] VITALS: BP 155/99; PULSE 61; RESP 16; TEMP 36.8; O2SAT 100
[2021-01-07 15:07] LABS: COVID-19 Test Negative (Negative); IDNOW Serial# 9DD0AD1C
[2021-01-07 15:11] LABS: Ethanol < 10 mg/dL
[2021-01-07 15:16] LABS: Alanine Aminotransferase 67 U/L (0-31); Albumin Level 3.2 g/dL (3.5-5.0); Alkaline Phosphatase 108 U/L (39-117); Aspartate Amino Transferase 60 U/L (5-31); Bilirubin Direct < 0.2 mg/dL (0.0-0.5); Bilirubin Total 0.2 mg/dL (0.0-1.0); Lipase 238 U/L (8-78); Magnesium 1.8 mg/dL (1.6-2.6); SLIDE REVIEW VERIFIED; Total Protein 6.1 g/dL (6.5-8.0)
[2021-01-07 15:18] LABS: Anion Gap 16 (12-20); Blood Urea Nitrogen 8 mg/dL (9-16); Calcium 8.7 mg/dL (8.4-10.2); Carbon Dioxide 21 mmol/L (22-29); Chloride 108 mmol/L (96-108); Creatinine Clr Calc Pharmacy 140.1; Estimated Glomerular Filt Rate > 60; Glucose Random 121 mg/dL (60-115); Potassium 4.2 mmol/L (3.3-5.1); Sodium 141 mmol/L (135-145)
[2021-01-07 15:22] LABS: Lactate Dehydrogenase 371 U/L (122-220)
[2021-01-07] MEDS: Lactated Ringers 1,000 ML 999 ML IV (15:31)
[2021-01-07] MEDS: ondansetron HCL 4 MG/2 ML VIAL IVPUSH (15:32)
[2021-01-07] MEDS: Morphine Sulfate 4 MG/ML CARTRIDGE 6 MG IVPUSH (15:33)
[2021-01-07] MEDS: Morphine Sulfate Immed Release 15 MG TABLET PO (15:45)
[2021-01-07 17:22] LABS: Amphetamine Screen Urine Not Detected (Not Detect); Barbiturates, Urine Not Detected (Not Detect); Benzodiazepines Screen Urine Not Detected (Not Detect); Cannabinoid Screen Urine Not Detected (Not Detect); Cocaine Screen Urine Not Detected (Not Detect); Fentanyl, urine Not Detected (Not Detect); Opiate Screen Urine POSITIVE (Not Detect); Phencyclidine Screen Urine Not Detected (Not Detect)
== END 2021-01-07 17:19 | disposition home or self-care (01) ==
PROVIDERS: Emergency Provider Emergency Medicine; PCP Family Medicine
DX: K85.20 Alcohol induced acute pancreatitis without necrosis or infection (principal); R10.13 Epigastric pain; R10.9 Unspecified abdominal pain; M54.5 Low back pain; Z79.899 Other long term (current) drug therapy; Z98.84 Bariatric surgery status; Z20.822 Contact with and (suspected) exposure to COVID-19
CPT/HCPCS: 36415; 80048; 80076; 80307; 82077; 83615; 83690; 83735; 85025; 87635; 96365; 96375; 96376; 99284; J2270; J2405

== ENCOUNTER 2021-08-22 14:59 | Outpatient (REF) | payer OTHER, MEDICAID, SELFPAY ==
[2021-08-22 17:01] LABS: Vitamin D 25-OH Total 7.8 ng/mL (>30)
[2021-08-22 17:22] LABS: Folate 2.1 ng/mL (> or = 4.0); Vitamin B12 205 pg/mL (200-900)
[2021-08-23 15:02] LABS: Calcium (PTHI) 8.8 mg/dL (8.6-10.2); PTHI 122 pg/mL (16-77)
[2021-08-27 04:41] LABS: Vitamin B1 21 nmol/L (8-30)
[2021-08-27 15:32] LABS: Zinc 77 mcg/dL (60-130)
[2021-08-28 10:17] LABS: Vitamin A 71 mcg/dL (38-98)
== END 2021-08-22 15:00 | disposition home or self-care (01) ==
LOC: HO.LAB 14:59
PROVIDERS: PCP Family Medicine; Visit Provider Physician Assistant
DX: E66.3 Overweight (principal); E21.3 Hyperparathyroidism, unspecified; K85.10 Biliary acute pancreatitis without necrosis or infection; Z98.84 Bariatric surgery status
CPT/HCPCS: 36415; 82306; 82607; 82746; 83970; 84425; 84590; 84630

== ENCOUNTER 2021-09-06 17:39 | Emergency (ER) | payer OTHER, MEDICAID, SELFPAY ==
--- NOTE | ~2021-09-06 | US_ITS ---
EXAMINATION: US PELVIS CLINICAL INFORMATION: Right lower quadrant/pelvic pain. COMPARISON: None TECHNIQUE: Ultrasound of the pelvis is performed using both transabdominal and transvaginal transducers along with Doppler. Transvaginal imaging is performed due to inadequate visualization transabdominally. FINDINGS: Uterus: The uterus is anteverted and measures 8.1 x 3.2 x 5.1 cm. Nabothian cysts at the cervix. Small cysts along the endometrium as well. The double wall endometrial thickness is 3 mm. The uterus is smooth in contour and has normal myometrial echogenicity. No visible fibroid. Adnexa: Both ovaries are visualized. There is normal color flow to the adnexa. There is no ovarian torsion. There is no pelvic ascites or fluid collection. Right ovary measures 3.5 x 1.8 x 2.3 cm. Dominant follicle measures up to 1.6 cm. No adnexal mass. Left ovary measures 2.6 x 1.7 x 2.4 cm. US/US pelvic and transvaginal IMPRESSION: No active ovarian torsion at this time. No suspicious adnexal mass.
--- NOTE | ~2021-09-06 | US_ITS ---
EXAMINATION: US PELVIS CLINICAL INFORMATION: Right lower quadrant/pelvic pain. COMPARISON: None TECHNIQUE: Ultrasound of the pelvis is performed using both transabdominal and transvaginal transducers along with Doppler. Transvaginal imaging is performed due to inadequate visualization transabdominally. FINDINGS: Uterus: The uterus is anteverted and measures 8.1 x 3.2 x 5.1 cm. Nabothian cysts at the cervix. Small cysts along the endometrium as well. The double wall endometrial thickness is 3 mm. The uterus is smooth in contour and has normal myometrial echogenicity. No visible fibroid. Adnexa: Both ovaries are visualized. There is normal color flow to the adnexa. There is no ovarian torsion. There is no pelvic ascites or fluid collection. Right ovary measures 3.5 x 1.8 x 2.3 cm. Dominant follicle measures up to 1.6 cm. No adnexal mass. Left ovary measures 2.6 x 1.7 x 2.4 cm. US/US pelvic ovarian doppler IMPRESSION: No active ovarian torsion at this time. No suspicious adnexal mass.
--- NOTE | ~2021-09-06 | CT_ITS ---
EXAMINATION: CT ABDOMEN AND PELVIS WITH CONTRAST CLINICAL INFORMATION: Right lower quadrant pain. COMPARISON: 09/03/2020 TECHNIQUE: Multidetector volumetric images were obtained from the superior aspect of the liver through the pubic symphysis following administration 85 mL of Omnipaque 350 intravenous contrast. Sagittal and coronal reformatted images were obtained on the technologist's workstation. Oral contrast: No This CT examination was performed using dose optimization techniques as appropriate, variously including the following: *Automated exposure control *Adjustment of mA and/or kV according to patient size (this includes techniques or standardized protocols for targeted exams where dose is matched to indication/reason for exam; i.e. extremities or head) *Use of iterative reconstruction technique DLP: 559 mGy-cm FINDINGS: LUNG BASES: The visualized lung bases are unremarkable. LIVER, GALLBLADDER, AND BILIARY TREE: Relative hypoattenuation of the hepatic parenchyma is consistent with steatosis. Liver is at the upper limits of normal in size. Hepatic contour is normal. Gallbladder is surgically absent. No biliary ductal dilatation. PANCREAS: Unremarkable. SPLEEN: Unremarkable. ADRENAL GLANDS: Unremarkable. KIDNEYS AND URETERS: The kidneys are normal in size, shape, and attenuation. No hydronephrosis, hydroureter, or calculi seen. No perinephric stranding. BLADDER: Unremarkable. GASTROINTESTINAL TRACT: Postsurgical changes of prior Aclixto-en-Y gastric bypass are noted. The stomach, small bowel, and colon are normal in caliber. No bowel wall thickening. No surrounding inflammatory changes are identified. No intraperitoneal free fluid or free air. Normal appendix. ABDOMINAL WALL: No significant hernia is appreciated. LYMPH NODES: No adenopathy. VASCULAR: Unremarkable. PELVIC VISCERA: Unremarkable. OSSEOUS STRUCTURES: No acute osseous findings. Minimal right convex curvature. CT/CT abdomen pelvis w con IMPRESSION: No acute intra-abdominal or intrapelvic abnormalities. Normal appendix. Prior Calixto-en-Y gastric bypass evidence of bowel obstruction nor surrounding inflammation. Hepatic steatosis.
[2021-09-06 18:00] VITALS: BP 132/85; PULSE 106; RESP 16; TEMP 36.3; O2SAT 98; BMI 26.3
[2021-09-06 18:18] LABS: MANUAL DIFF FLAG NO
[2021-09-06 18:20] LABS: Basophils Percent Auto 0.5 % (0-2); Eosinophils Percent Auto 0.3 % (0-4); Hematocrit 37.2 % (37.0-47.0); Hemoglobin 12.8 g/dl (12.0-16.0); Imm Gran Abs Auto 0.01 X10*3/uL (0.00-0.03); Imm Gran Pct Auto 0.2 % (0.0-0.4); Lymphocytes Absolute Auto 2.1 X10*3/uL (1.2-4.9); Lymphocytes Percent Auto 32.5 % (20-40); Mean Corpuscular HGB Conc 34.4 g/dl (31.0-35.0); Mean Corpuscular Hemoglobin 37.5 pg (27.0-33.0); Mean Corpuscular Volume 109.1 fL (80.0-98.0); Mean Platelet Volume 9.1 fL (9.4-12.3); Monocytes Absolute Auto 0.6 X10*3/uL (0.1-1.2); Monocytes Percent Auto 8.5 % (2-11); Neutrophils Absolute Auto 3.8 x10*3/uL (2.0-8.3); Platelet Count 227 X10*3/uL (160-400); Red Blood Count 3.41 X10*6/uL (4.20-5.50); Red Cell Distribution Width 14.8 % (11.0-16.0); White Blood Count 6.6 X10*3/uL (4.8-10.8)
[2021-09-06 18:24] LABS: Appearance Urine HAZY; Color Urine YELLOW; Glucose Urine UA NEG (NEG); Leukocyte Esterase Urine NEG (NEG); Nitrite Urine NEG (NEG); Specific Gravity - Urine 1.025 (1.005-1.025); Urine Blood NEG (NEG); Urine Ketones 5 MG/DL (NEG); Urine Protein NEG (NEG-TRACE)
[2021-09-06 18:32] LABS: Bacteria Urine TRACE /LPF; RBC Urine 0 /HPF (0); Squamous Epithelial Cell Urine 1+ /LPF; WBC Urine 0 /HPF (0-4)
[2021-09-06 18:43] LABS: Anion Gap 18 (12-20); Blood Urea Nitrogen 16 mg/dL (9-16); Calcium 8.7 mg/dL (8.4-10.2); Carbon Dioxide 24 mmol/L (22-29); Chloride 108 mmol/L (96-108); Creatinine Clr Calc Pharmacy 123.4; Estimated Glomerular Filt Rate > 60; Glucose Random 89 mg/dL (60-115); Potassium 4.4 mmol/L (3.3-5.1); Sodium 146 mmol/L (135-145)
[2021-09-06 20:00] VITALS: BP 120/75; PULSE 89; RESP 20; TEMP 37.4; O2SAT 100
--- NOTE | 2021-09-06 20:00 | ED_ITS ---
HPI - Abdominal Pain General Chief Complaint: Abdominal Pain Stated Complaint: Vomiting Time Seen by Provider: 09/06/21 20:00 Source: patient Mode of arrival: ambulatory Limitations: no limitations History of Present Illness HPI narrative: This is a 40-year-old female presenting to the emergency department with severe right lower quadrant pain and nausea x2 days. Patient tells me that she has not been eating or drinking the past few days because her abdomen is hurting so much. She reports nausea with out vomiting. She rates her pain a 10/10, constant nature. She tells me that the pain has always been in her right lower quadrant it does not radiate. Patient tells me that she has an ultrasound tach, she tells me that she did an ultrasound on herself and found a hemorrhagic cyst. Patient had a gastric Jammie-en-Y 5 years ago and she had her gallbladder removed years ago as well. Patient still has her appendix. She denies chest pain, shortness of breath, fevers, chills, vomiting, back pain, changes in urination, headache, dizziness, vision changes. Throughout my history taking patient is rolling around in her bed, screaming in pain. MD elicited complaint: abdominal pain Pertinent past history: none Onset (ago): day(s) (2) Pain Consistency: constant Location: RLQ Severity: severe Pain scale (0-10): 10 Quality: sharp Radiation: none Migration to: no migration Exacerbating factors: nothing Relieving factors: nothing Associated symptoms: denies other symptoms Related Data Home Medications Medication Instructions Recorded Confirmed calcium carbonate 500 mg calcium 500 mg PO DAILY 01/03/21 08/22/21 (1,250 mg) tablet (Calcium 500) cetirizine 10 mg tablet 10 mg PO DAILY 01/03/21 08/22/21 dextroamphetamine-amphetamine ER 1 cap PO QAM 01/03/21 08/22/21 20 mg 24hr capsule,extend release vitamin B complex 1 cap PO DAILY 01/03/21 08/22/21 levothyroxine 50 mcg tablet 50 mcg PO DAILY 08/22/21 08/22/21 rqxikelr-azhixfee-rmxw 45 mg-folic cap PO DAILY cap 08/22/21 08/22/21 acid 800 mcg-vit K 120 mcg capsule (Bariatric Multivitamins) Previous Rx's Medication Instructions Recorded cholecalciferol (vitamin D3) 50 50 mcg PO DAILY #30 cap 08/23/21 mcg (2,000 unit) capsule ondansetron 4 mg disintegrating 4 mg PO ONCE PRN #10 tab 09/07/21 tablet Allergies Allergy/AdvReac Type Severity Reaction Status Date / Time shellfish derived Allergy Severe ANAPHYLAXIS Verified 08/22/21 15:07 [SHELLFISH DERIVED] benztropine [From COGENTIN] Allergy Intermediate PSYCHOSIS Verified 08/22/21 15:07 gabapentin [GABAPENTIN] Allergy Intermediate PSYCHOSIS Verified 08/22/21 15:07 amantadine [AMANTADINE] Allergy Mild HIVES, rash Verified 08/22/21 15:07 seafood Allergy Unknown anaphylaxis Uncoded 01/05/21 11:54 Review of Systems Review of Systems Constitutional : No Weight loss, No Fever, No Chills, No Fatigue, No Malaise ENT/Mouth : No sore throat, No Rhinorrhea Eyes: No Eye Pain, No Swelling, No Redness Cardiovascular : No Chest Pain, No SOB, No Dyspnea on Exertion, No Orthopnea, No Edema, No Palpitations Respiratory : No Cough, No Sputum, No Wheezing Gastrointestinal : + Nausea, No Vomiting, No Diarrhea, No Constipation, + abdominal Pain, No Hematochezia, No Melena Genitourinary : No Dysuria, No Urinary Frequency, No Hematuria, Musculoskeletal : No joint pain, No Myalgias, No Joint Swelling Skin : No Skin Lesions, No rash Neuro : No Weakness, No Numbness, No Dizziness, No Headache Psych : No Anxiety/Panic, No Depression All other systems reviewed and are negative Yes all other systems are reviewed and are negative [facility] Past Medical History Attestation statement: The following information was validated with the patient. Source: old records reviewed and nursing notes reviewed Medical History Acute pancreatitis ADHD Congenital hypothyroidism Depression Elevated liver function tests Migraine Surgical History H/O gastric bypass H/O tubal ligation History of cholecystectomy History of Jammie-en-Y gastric bypass Previous section Family History Family History Mother No problems noted. Father No problems noted. Brother No problems noted. Brother No problems noted. Sister No problems noted. Sister No problems noted. Son No problems noted. Social History Social History Household Members: Spouse Housing: House Do you presently have visiting nurse or other home services: No Alcohol intake: current Alcohol intake frequency: 3 or more drinks per day Alcohol type: hard liquor Patient Tobacco Use Status: Never used Tobacco e-Cigarette/Vaping Use: Never Used Use of substances other than those prescribed or required for medical reasons: No Advance Directives: No Patient : No service: No Current occupational status: employed Physical Exam ED Vital Signs: Vital Signs - 24 hr 09/06/21 18:00 09/06/21 20:00 09/06/21 21:46 Temperature 97.3 F 99.4 F 99.6 F Pulse Rate 106 H 89 98 Respiratory Rate 16 20 18 Blood Pressure 132/85 120/75 123/77 Pulse Oximetry 98 100 98 09/06/21 23:54 Temperature 99.2 F Pulse Rate 83 Respiratory Rate 16 Blood Pressure 123/60 Pulse Oximetry 97 BMI result Body Mass Index 26.3 VSS Appearance: Alert.? Oriented X3.? No acute distress.? Patient appears un comfortable she is rolling around in bed. Head: Normocephalic, atraumatic, no step-offs or deformities Eyes: Pupils equal, round and reactive to light.? ENT: Pharynx normal.? Neck: Normal inspection.? Neck supple.? CVS: Normal heart rate and rhythm.? Pulses normal.? Respiratory: No respiratory distress.? Breath sounds normal.? Abdomen: Soft and + severe pain to palpation to right lower quadrant. Skin: Skin warm and dry.? Normal skin color.? Normal skin turgor.? Extremities: No lower extremity edema.? No calf ttp. 5/5 strength to bilateral upper and lower extremities Back: No midline tenderness, no C-spine tenderness, full range of motion, no CVA tenderness bilaterally Neuro: Oriented X 3.? No motor deficit.? No sensory deficit. CN 2-12 intact Course Reevaluation(s) Reevaluation #1: CBC appears to be around patient's baseline. No acute electrolyte abnormalities requiring intervention. Transaminases slightly elevated likely secondary to patient's chronic ethanol use. Urine clean. Urine toxicology positive for opiates. Patient refusing ethanol level. COVID negative. CT of the abdomen and pelvis with no acute intra-abdominal or intrapelvic abnormalities. Normal appearing appendix. Patient had a prior jammie en y gastric bypass, w/o obstruction or surrounding inflammation . Hepatic steatosis is noted. Ultrasound of the pelvis pending. History, physical and laboratory studies not consistent with appendicitis, cholecystitis or pancreatitis. Time: 01:05 Reevaluation #2: CT of pelvic and transvaginal with Doppler no signs of active torsion at this time. No adnexal masses noted. Patient reports some improvement after medication. Ambulating with steady gait. At this time patient will be disc harged home with GI follow-up. Comfortable with discharge home Time: 01:52 MDM - Abdominal Pain MDM Narrative Medical decision making narrative: 1952 40-year-old female presents with severe right lower quadrant pain and nausea x2 days worsening. On physical examination patient complains of severe pain with palpation to the right lower quadrant. No rebound tenderness. Negative obturator and psoas. Lungs clear. Regular rate and rhythm. Vital signs stable. Neuro exam nonfocal. Plan at this time is basic labs, CT of the abdomen and pelvis with contrast. Will rule out appendicitis. History and physical examination not consistent with acute abdomen. Medical Records Attestation: I reviewed the patient's medical records. Lab Data Attestation: I reviewed the patient's lab results. Result diagrams: 09/06/21 18:12 09/06/21 21:25 Labs: Lab Results 09/06/21 09/06/21 09/06/21 Range/Units 18:12 18:12 18:12 WBC 6.6 (4.8-10.8) X10*3/uL RBC 3.41 L (4.20-5.50) X10*6/uL Hgb 12.8 (12.0-16.0) g/dl Hct 37.2 (37.0-47.0) % MCV 109.1 H (80.0-98.0) fL MCH 37.5 H (27.0-33.0) pg MCHC 34.4 (31.0-35.0) g/dl RDW 14.8 (11.0-16.0) % Plt Count 227 (160-400) X10*3/uL MPV 9.1 L (9.4-12.3) fL Immature Gran % (Auto) 0.2 (0.0-0.4) % Neut % (Auto) 58.0 (45-73) % Lymph % (Auto) 32.5 (20-40) % [place] % (Auto) 8.5 (2-11) % Eos % (Auto) 0.3 (0-4) % Baso % (Auto) 0.5 (0-2) % Lymph # (Auto) 2.1 (1.2-4.9) X10*3/uL [place] # (Auto) 0.6 (0.1-1.2) X10*3/uL Eos # (Auto) 0.0 (0.0-0.4) X10*3/uL Baso # (Auto) 0.0 (0.0-0.2) X10*3/uL Abs Immat Gran (auto) 0.01 (0.00-0.03) X10*3/uL Absolute Neuts (auto) 3.8 (2.0-8.3) x10*3/uL Absolute Nucleated RBC 0.000 (0.0-0.012) X10*3/uL Nucleated RBC % (auto) 0.0 (0.0-0.2) /100WBC Sodium 146 H (135-145) mmol/L Potassium 4.4 (3.3-5.1) mmol/L Chloride 108 (96-108) mmol/L Carbon Dioxide 24 (22-29) mmol/L Anion Gap 18 (12-20) BUN 16 (9-16) mg/dL Creatinine 0.68 (0.5-1.4) mg/dL Estim Creat Clear Calc 123.4 Estimated GFR > 60 Random Glucose 89 (60-115) mg/dL Calcium 8.7 (8.4-10.2) mg/dL Magnesium (1.6-2.6) mg/dL Total Bilirubin (0.0-1.0) mg/dL AST (5-31) U/L ALT (0-31) U/L Alkaline Phosphatase (39-117) U/L Total Protein (6.5-8.0) g/dL Albumin (3.5-5.0) g/dL Lipase (8-78) U/L Beta HCG, Quant mIU/mL Urine Color YELLOW Urine Appearance HAZY Urine pH 5.0 (5.0-8.0) Ur Specific [place] 1.025 (1.005-1.025) Urine Protein NEG (NEG-TRACE) MG/DL Urine Glucose (UA) NEG (NEG) MG/DL Urine Ketones 5 (NEG) MG/DL Urine Blood NEG (NEG) Urine Nitrite NEG (NEG) Ur Leukocyte Esterase NEG (NEG) Urine RBC 0 (0) /HPF Urine WBC 0 (0-4) /HPF Ur Squamous Epith Cells 1+ /LPF Urine Bacteria TRACE /LPF Urine Opiates Screen (Not Detect) Urine Fentanyl Screen (Not Detect) Ur Barbiturates Screen (Not Detect) Ur Phencyclidine Scrn (Not Detect) Ur Amphetamines Screen (Not Detect) U Benzodiazepines Scrn (Not Detect) Urine Cocaine Screen (Not Detect) U Marijuana (THC) Screen (Not Detect) COVID-19 (ANIKET) (Negative) COVID-19 Clin Com 09/06/21 09/06/21 09/06/21 Range/Units 21:25 21:48 22:49 WBC (4.8-10.8) X10*3/uL RBC (4.20-5.50) X10*6/uL Hgb (12.0-16.0) g/dl Hct (37.0-47.0) % MCV (80.0-98.0) fL MCH (27.0-33.0) pg MCHC (31.0-35.0) g/dl RDW (11.0-16.0) % Plt Count (160-400) X10*3/uL MPV (9.4-12.3) fL Immature Gran % (Auto) (0.0-0.4) % Neut % (Auto) (45-73) % Lymph % (Auto) (20-40) % [place] % (Auto) (2-11) % Eos % (Auto) (0-4) % Baso % (Auto) (0-2) % Lymph # (Auto) (1.2-4.9) X10*3/uL [place] # (Auto) (0.1-1.2) X10*3/uL Eos # (Auto) (0.0-0.4) X10*3/uL Baso # (Auto) (0.0-0.2) X10*3/uL Abs Immat Gran (auto) (0.00-0.03) X10*3/uL Absolute Neuts (auto) (2.0-8.3) x10*3/uL Absolute Nucleated RBC (0.0-0.012) X10*3/uL Nucleated RBC % (auto) (0.0-0.2) /100WBC Sodium 144 (135-145) mmol/L Potassium 4.7 (3.3-5.1) mmol/L Chloride 107 (96-108) mmol/L Carbon Dioxide 22 (22-29) mmol/L Anion Gap 20 (12-20) BUN 16 (9-16) mg/dL Creatinine 0.62 (0.5-1.4) mg/dL Estim Creat Clear Calc 135.4 Estimated GFR > 60 Random Glucose 87 (60-115) mg/dL Calcium 8.3 L (8.4-10.2) mg/dL Magnesium 1.5 L (1.6-2.6) mg/dL Total Bilirubin 0.7 (0.0-1.0) mg/dL AST 83 H (5-31) U/L ALT 79 H (0-31) U/L Alkaline Phosphatase 107 (39-117) U/L Total Protein 6.9 (6.5-8.0) g/dL Albumin 3.7 (3.5-5.0) g/dL Lipase 35 (8-78) U/L Beta HCG, Quant < 2 mIU/mL Urine Color Urine Appearance Urine pH (5.0-8.0) Ur Specific [place] (1.005-1.025) Urine Protein (NEG-TRACE) MG/DL Urine Glucose (UA) (NEG) MG/DL Urine Ketones (NEG) MG/DL Urine Blood (NEG) Urine Nitrite (NEG) Ur Leukocyte Esterase (NEG) Urine RBC (0) /HPF Urine WBC (0-4) /HPF Ur Squamous Epith Cells /LPF Urine Bacteria /LPF Urine Opiates Screen POSITIVE H (Not Detect) Urine Fentanyl Screen Not Detected (Not Detect) Ur Barbiturates Screen Not Detected (Not Detect) Ur Phencyclidine Scrn Not Detected (Not Detect) Ur Amphetamines Screen Not Detected (Not Detect) U Benzodiazepines Scrn Not Detected (Not Detect) Urine Cocaine Screen Not Detected (Not Detect) U Marijuana (THC) Screen Not Detected (Not Detect) COVID-19 (ANIKET) Negative (Negative) COVID-19 Clin Com See Note 09/06/21 Range/Units 22:49 WBC (4.8-10.8) X10*3/uL RBC (4.20-5.50) X10*6/uL Hgb (12.0-16.0) g/dl Hct (37.0-47.0) % MCV (80.0-98.0) fL MCH (27.0-33.0) pg MCHC (31.0-35.0) g/dl RDW (11.0-16.0) % Plt Count (160-400) X10*3/uL MPV (9.4-12.3) fL Immature Gran % (Auto) (0.0-0.4) % Neut % (Auto) (45-73) % Lymph % (Auto) (20-40) % [place] % (Auto) (2-11) % Eos % (Auto) (0-4) % Baso % (Auto) (0-2) % Lymph # (Auto) (1.2-4.9) X10*3/uL [place] # (Auto) (0.1-1.2) X10*3/uL Eos # (Auto) (0.0-0.4) X10*3/uL Baso # (Auto) (0.0-0.2) X10*3/uL Abs Immat Gran (auto) (0.00-0.03) X10*3/uL Absolute Neuts (auto) (2.0-8.3) x10*3/uL Absolute Nucleated RBC (0.0-0.012) X10*3/uL Nucleated RBC % (auto) (0.0-0.2) /100WBC Sodium (135-145) mmol/L Potassium (3.3-5.1) mmol/L Chloride (96-108) mmol/L Carbon Dioxide (22-29) mmol/L Anion Gap (12-20) BUN (9-16) mg/dL Creatinine (0.5-1.4) mg/dL Estim Creat Clear Calc Estimated GFR Random Glucose (60-115) mg/dL Calcium (8.4-10.2) mg/dL Magnesium (1.6-2.6) mg/dL Total Bilirubin (0.0-1.0) mg/dL AST (5-31) U/L ALT (0-31) U/L Alkaline Phosphatase (39-117) U/L Total Protein (6.5-8.0) g/dL Albumin (3.5-5.0) g/dL Lipase (8-78) U/L Beta HCG, Quant mIU/mL Urine Color YELLOW Urine Appearance HAZY Urine pH 5.0 (5.0-8.0) Ur Specific [place] 1.020 (1.005-1.025) Urine Protein NEG (NEG-TRACE) MG/DL Urine Glucose (UA) NEG (NEG) MG/DL Urine Ketones NEG (NEG) MG/DL Urine Blood NEG (NEG) Urine Nitrite NEG (NEG) Ur Leukocyte Esterase NEG (NEG) Urine RBC (0) /HPF Urine WBC (0-4) /HPF Ur Squamous Epith Cells /LPF Urine Bacteria /LPF Urine Opiates Screen (Not Detect) Urine Fentanyl Screen (Not Detect) Ur Barbiturates Screen (Not Detect) Ur Phencyclidine Scrn (Not Detect) Ur Amphetamines Screen (Not Detect) U Benzodiazepines Scrn (Not Detect) Urine Cocaine Screen (Not Detect) U Marijuana (THC) Screen (Not Detect) COVID-19 (ANIKET) (Negative) COVID-19 Clin Com Critical Care Time Critical Care Time Critical Care Time: No Discharge Plan Discharge Clinical Impression: Abdominal pain, Nausea Patient Disposition: Still a Patient Instructions: Acute Nausea and Vomiting (ED), Abdominal Pain (ED) Additional Instructions: Take your medications as prescribed. If you were prescribed antibiotics today, it is important that you take your medication to their entirety, do not skip any doses, do not finish them early. Follow-up with your primary care provider this week. Follow-up with Gastroe nterology and your OBGYN Return to the emergency department with new or worsening symptoms. Such as fevers, chills, chest pain, shortness of breath, nausea, vomiting, dizziness, headache, vision changes, lethargy In case of emergency call 911 CT/CT abdomen pelvis w con IMPRESSION: No acute intra-abdominal or intrapelvic abnormalities. Normal appendix. ? ? Prior Jammie-en-Y gastric bypass evidence of bowel obstruction nor surrounding inflammation. ? Hepatic steatosis. US/US pelvic ovarian doppler IMPRESSION: No active ovarian torsion at this time. No suspicious adnexal mass. FINDINGS: Uterus: The uterus is anteverted and measures 8.1 x 3.2 x 5.1 cm. Nabothian cysts at the cervix. Small cysts along the endometrium as well. The double wall endometrial thickness is 3 mm.? The uterus is smooth in contour and has normal myometrial echogenicity. ? No visible fibroid. Adnexa: Both ovaries are visualized. There is normal color flow to the adnexa. There is no ovarian torsion.? There is no pelvic ascites or fluid collection. Right ovary measures 3.5 x 1.8 x 2.3 cm. Dominant follicle measures up to 1.6 cm. No adnexal mass. Left ovary measures 2.6 x 1.7 x 2.4 cm. Prescriptions: New ondansetron 4 mg tablet,disintegrating 4 mg PO ONCE PRN (Reason: nausea and vomiting) Qty: 10 0RF No Action cholecalciferol (vitamin D3) 50 mcg (2,000 unit) capsule 50 mcg PO DAILY Qty: 30 11RF cetirizine 10 mg Tablet 10 mg PO DAILY 0RF calcium carbonate [Calcium 500] 500 mg calcium (1,250 mg) Tablet 500 mg PO DAILY 0RF dextroamphetamine-amphetamine 20 mg capsule,extended release 24hr 1 cap PO QAM 0RF vitamin B complex Capsule 1 cap PO DAILY 0RF levothyroxine 50 mcg tablet 50 mcg PO DAILY 0RF Bariatric Multivitamins 45 mg iron- 800 mcg-120 mcg capsule PO DAILY 0RF Referrals: Skinny Stout MD [Primary Care Provider] - 2 days Stand Alone Forms: Work/School Release
--- NOTE | 2021-09-06 20:57 | PC.NURSE ---
pt is difficult stick, multiple nurses have attempted to gain access, provider aware
--- NOTE | 2021-09-06 21:30 | PC.NURSE ---
lab drawn, pt to CT.
[2021-09-06] MEDS: iohexoL 350 MG/ML 100 ML INFUS..BTL IV (21:33)
[2021-09-06] MEDS: Morphine Sulfate 4 MG/ML CARTRIDGE IVPUSH (21:42)
[2021-09-06] MEDS: 0.9 % Sodium Chloride 1,000 ML 999 ML IV (21:43)
[2021-09-06] MEDS: ondansetron HCL 4 MG/2 ML VIAL IVPUSH (21:43)
[2021-09-06 21:46] VITALS: BP 123/77; PULSE 98; RESP 18; TEMP 37.6; O2SAT 98
[2021-09-06 21:50] LABS: Alanine Aminotransferase 79 U/L (0-31); Albumin Level 3.7 g/dL (3.5-5.0); Alkaline Phosphatase 107 U/L (39-117); Anion Gap 20 (12-20); Aspartate Amino Transferase 83 U/L (5-31); Bilirubin Total 0.7 mg/dL (0.0-1.0); Blood Urea Nitrogen 16 mg/dL (9-16); Calcium 8.3 mg/dL (8.4-10.2); Carbon Dioxide 22 mmol/L (22-29); Chloride 107 mmol/L (96-108); Creatinine Clr Calc Pharmacy 135.4; Estimated Glomerular Filt Rate > 60; Glucose Random 87 mg/dL (60-115); Magnesium 1.5 mg/dL (1.6-2.6); Potassium 4.7 mmol/L (3.3-5.1); Sodium 144 mmol/L (135-145); Total Protein 6.9 g/dL (6.5-8.0)
--- NOTE | 2021-09-06 21:50 | PC.NURSE ---
pt a&ox3, vss, medicated per provider order, family at bedside. covid swab to lab.
[2021-09-06 21:55] LABS: HCG Quantitative < 2 mIU/mL
[2021-09-06 22:10] LABS: COVID-19 Test Negative (Negative)
[2021-09-06 22:43] LABS: Lipase 35 U/L (8-78)
[2021-09-06 23:11] LABS: Appearance Urine HAZY; Color Urine YELLOW; Glucose Urine UA NEG (NEG); Leukocyte Esterase Urine NEG (NEG); Nitrite Urine NEG (NEG); Urine Blood NEG (NEG); Urine Ketones NEG (NEG); Urine Protein NEG (NEG-TRACE)
[2021-09-06 23:12] LABS: Amphetamine Screen Urine Not Detected (Not Detect); Barbiturates, Urine Not Detected (Not Detect); Benzodiazepines Screen Urine Not Detected (Not Detect); Cannabinoid Screen Urine Not Detected (Not Detect); Cocaine Screen Urine Not Detected (Not Detect); Fentanyl, urine Not Detected (Not Detect); Opiate Screen Urine POSITIVE (Not Detect); Phencyclidine Screen Urine Not Detected (Not Detect)
[2021-09-06 23:54] VITALS: BP 123/60; PULSE 83; RESP 16; TEMP 37.3; O2SAT 97
[2021-09-07] MEDS: Morphine Sulfate 2 MG/ML CARTRIDGE IVPUSH (01:10)
--- NOTE | 2021-09-07 02:37 | PC.NURSE ---
This RN assumed care at 2300. Patient refused to allow ethanol level to be drawn, provider notified of refusal. Patient medicated per JUL. Patient discharged, ambulated with steady gait and able to make needs known, requested a glass of ice water and told this RN that she was going to call an Uber to get home.
== END 2021-09-07 02:05 | disposition still patient (30) ==
PROVIDERS: Physician Assistant; Emergency Provider Internal Medicine; PCP Family Medicine
DX: R10.2 Pelvic and perineal pain (principal); R10.31 Right lower quadrant pain; Z20.822 Contact with and (suspected) exposure to COVID-19; Z79.899 Other long term (current) drug therapy
CPT/HCPCS: 36415; 74177; 76830; 76856; 80048; 80053; 80307; 81001; 81003; 82077; 83690; 83735; 84702; 85025; 87635; 93975; 96361; 96374; 96375; 96376; 99284; J2270; J2405; Q9967

== ENCOUNTER 2021-09-27 18:43 | Emergency (ER) | payer OTHER, MEDICAID, SELFPAY ==
[2021-09-27 19:59] VITALS: BP 143/102; PULSE 88; RESP 18; TEMP 37.4; O2SAT 99; BMI 26.7
[2021-09-27 20:25] LABS: MANUAL DIFF FLAG NO
[2021-09-27 20:27] LABS: Basophils Percent Auto 0.5 % (0-2); Eosinophils Absolute Auto 0.1 X10*3/uL (0.0-0.4); Eosinophils Percent Auto 1.3 % (0-4); Hematocrit 33.8 % (37.0-47.0); Hemoglobin 11.5 g/dl (12.0-16.0); Imm Gran Abs Auto 0.01 X10*3/uL (0.00-0.03); Imm Gran Pct Auto 0.3 % (0.0-0.4); Lymphocytes Absolute Auto 1.4 X10*3/uL (1.2-4.9); Lymphocytes Percent Auto 36.6 % (20-40); Mean Corpuscular Volume 108.7 fL (80.0-98.0); Monocytes Absolute Auto 0.3 X10*3/uL (0.1-1.2); Monocytes Percent Auto 8.2 % (2-11); Neutrophils Absolute Auto 2.1 x10*3/uL (2.0-8.3); Neutrophils Percent Auto 53.1 % (45-73); Platelet Count 126 X10*3/uL (160-400); Red Blood Count 3.11 X10*6/uL (4.20-5.50); Red Cell Distribution Width 13.9 % (11.0-16.0); White Blood Count 3.9 X10*3/uL (4.8-10.8)
[2021-09-27 20:30] LABS: UPreg QC Valid YES; Urine Pregnancy NEGATIVE (NEGATIVE)
[2021-09-27 20:31] LABS: Appearance Urine HAZY; Color Urine YELLOW; Glucose Urine UA NEG (NEG); Leukocyte Esterase Urine NEG (NEG); Nitrite Urine NEG (NEG); PH 5.5 (5.0-8.0); Specific Gravity - Urine >= 1.030 (1.005-1.025); UACC Culture Trigger NO; Urine Blood NEG (NEG); Urine Ketones 15 MG/DL (NEG); Urine Protein 1+ MG/DL (NEG-TRACE)
[2021-09-27 20:39] LABS: Anion Gap 15 (12-20); Blood Urea Nitrogen 17 mg/dL (9-16); Calcium 8.8 mg/dL (8.4-10.2); Carbon Dioxide 23 mmol/L (22-29); Chloride 106 mmol/L (96-108); Estimated Glomerular Filt Rate > 60; Glucose Random 104 mg/dL (60-115); Potassium 3.7 mmol/L (3.3-5.1); Sodium 140 mmol/L (135-145)
[2021-09-27 20:41] LABS: COVID-19 Test Negative (Negative); IDNOW Serial# 55D5AD1C
[2021-09-27 21:12] LABS: RBC Urine 0 /HPF (0); Squamous Epithelial Cell Urine 3+ /LPF; WBC Urine 0 /HPF (0-4)
[2021-09-27 21:13] LABS: Bacteria Urine TRACE /LPF
[2021-09-28 00:28] VITALS: BP 136/102; PULSE 110; RESP 16; TEMP 37; O2SAT 95
[2021-09-28 01:10] LABS: Alanine Aminotransferase 26 U/L (0-31); Albumin Level 3.8 g/dL (3.5-5.0); Alkaline Phosphatase 111 U/L (39-117); Aspartate Amino Transferase 65 U/L (5-31); Bilirubin Direct 0.3 mg/dL (0.0-0.5); Bilirubin Total 0.6 mg/dL (0.0-1.0); Lipase 137 U/L (8-78); Total Protein 6.7 g/dL (6.5-8.0)
--- NOTE | 2021-09-28 01:33 | ED.ABDPAIN ---
HPI - Abdominal Pain General Chief Complaint: Abdominal Pain <RANJAN Beavers Last Filed: 09/28/21 02:02> Stated Complaint: severe abd pain <RANJAN Beavers Last Filed: 09/28/21 02:02> Time Seen by Provider: 09/28/21 00:51 <RANJAN Beavers Last Filed: 09/28/21 02:02> Source: patient <RANJAN Beavers Last Filed: 09/28/21 02:02> Mode of arrival: ambulatory <RANJAN Beavers Last Filed: 09/28/21 02:02> History of Present Illness HPI narrative: 41-year-old female with a past medical history of pancreatitis, ADHD, hypothyroid, depression, migraines, s/p tubal ligation, cholecystectomy, Calixto-en-Y gastric bypass, , presenting to the ED complaining of a severe epigastric abdominal pain radiating around to back x1wk. Admits symptoms feels similar to prior pancreatitis. denies recent ETOH use. Admits to nausea and anorexia with decreased p.o. intake. denies vomiting, diarrhea, constipation, dysuria /hematuria. Patient reports she performed an ultrasound on herself showing fluid around the head of the pancreas <RANJAN Beavers Last Filed: 09/28/21 02:02> MD elicited complaint: abdominal pain <RANJAN Beavers Last Filed: 09/28/21 02:02> Onset (ago): day(s) <RANJAN Beavers Last Filed: 09/28/21 02:02> Related Data Home Medications: Home Medications Medication Instructions Recorded Confirmed calcium carbonate 500 mg calcium 500 mg PO DAILY 01/03/21 08/22/21 (1,250 mg) tablet (Calcium 500) cetirizine 10 mg tablet 10 mg PO DAILY 01/03/21 08/22/21 dextroamphetamine-amphetamine ER 1 cap PO QAM 01/03/21 08/22/21 20 mg 24hr capsule,extend release vitamin B complex 1 cap PO DAILY 01/03/21 08/22/21 levothyroxine 50 mcg tablet 50 mcg PO DAILY 08/22/21 08/22/21 eafikamn-whyukugt-sxef 45 mg-folic cap PO DAILY cap 08/22/21 08/22/21 acid 800 mcg-vit K 120 mcg capsule (Bariatric Multivitamins) Previous Rx's Medication Instructions Recorded cholecalciferol (vitamin D3) 50 50 mcg PO DAILY #30 cap 08/23/21 mcg (2,000 unit) capsule ondansetron 4 mg disintegrating 4 mg PO ONCE PRN #10 tab 09/07/21 tablet <RANJAN Beavers Last Filed: 09/28/21 02:02> Allergies/Adverse Reactions: Allergies Allergy/AdvReac Type Severity Reaction Status Date / Time shellfish derived Allergy Severe ANAPHYLAXIS Verified 08/22/21 15:07 [SHELLFISH DERIVED] benztropine [From COGENTIN] Allergy Intermediate PSYCHOSIS Verified 08/22/21 15:07 gabapentin [GABAPENTIN] Allergy Intermediate PSYCHOSIS Verified 08/22/21 15:07 amantadine [AMANTADINE] Allergy Mild HIVES, rash Verified 08/22/21 15:07 seafood Allergy Unknown anaphylaxis Uncoded 01/05/21 11:54 <RANJAN Beavers Last Filed: 09/28/21 02:02> Review of Systems Review of Systems Constitutional: No Fever, No Chills, No Fatigue, No Malaise, +anorexia ENT/Mouth: No Hearing loss, No Ear Pain, No sore throat, No Rhinorrhea, No Swallowing Difficulty Eyes: No Eye Pain, No Swelling, No Redness, No Vision Changes Cardiovascular: No Chest Pain, No SOB, No Dyspnea on Exertion, No Orthopnea, No Edema, No Palpitations Respiratory: No Cough, No Sputum, No Dyspnea Gastrointestinal: + Nausea, No Vomiting, No Diarrhea, No Constipation, + Abdominal pain Genitourinary: No irregular bleeding, No Dysuria, No Urinary Frequency, No Hematuria, No Urinary Incontinence/retention, No Flank Pain Musculoskeletal: No joint pain, No Myalgias, No Joint Swelling Skin: No Skin Lesions, No rash Neuro: No Weakness, No Dizziness, No Headache <RANJAN Beavers Last Filed: 09/28/21 02:02> Yes all other systems are reviewed and are negative <RANJAN Beavers Last Filed: 09/28/21 02:02> [facility] Past Medical History Attestation statement: The following information was validated with the patient. <RANJAN Beavers Last Filed: 09/28/21 02:02> Medical History: Medical History Acute pancreatitis ADHD Congenital hypothyroidism Depression Elevated liver function tests Migraine <RANJAN Beavers - Last Filed: 09/28/21 02:02> Surgical History: Surgical History H/O gastric bypass H/O tubal ligation History of cholecystectomy History of Calixto-en-Y gastric bypass Previous section <RANJAN Beavers - Last Filed: 09/28/21 02:02> Family History Family History: Family History Mother No problems noted. Father No problems noted. Brother No problems noted. Brother No problems noted. Sister No problems noted. Sister No problems noted. Son No problems noted. <RANJAN Beavers - Last Filed: 09/28/21 02:02> Social History Social History: Social History Household Members: Spouse Housing: House Do you presently have visiting nurse or other home services: No Alcohol intake: never Patient Tobacco Use Status: Never used Tobacco e-Cigarette/Vaping Use: Never Used Use of substances other than those prescribed or required for medical reasons: No Advance Directives: No service: No Current occupational status: employed <RANJAN Beavers - Last Filed: 09/28/21 02:02> Physical Exam ED Vital Signs: Vital Signs - 24 hr 09/27/21 19:59 09/28/21 00:28 09/28/21 02:00 Temperature 99.3 F 98.6 F Pulse Rate 88 110 H 77 Respiratory Rate 18 16 16 Blood Pressure 143/102 H 136/102 H 116/76 Pulse Oximetry 99 95 98 09/28/21 02:51 Temperature Pulse Rate 106 H Respiratory Rate 16 Blood Pressure 133/105 H Pulse Oximetry 98 BMI result Body Mass Index 26.7 <RANJAN Beavers Last Filed: 09/28/21 02:02> Vital Signs - 24 hr 09/27/21 19:59 09/28/21 00:28 09/28/21 02:00 Temperature 99.3 F 98.6 F Pulse Rate 88 110 H 77 Respiratory Rate 18 16 16 Blood Pressure 143/102 H 136/102 H 116/76 Pulse Oximetry 99 95 98 09/28/21 02:51 Temperature Pulse Rate 106 H Respiratory Rate 16 Blood Pressure 133/105 H Pulse Oximetry 98 BMI result Body Mass Index 26.7 <Scarlet Huerta MD - Last Filed: 09/28/21 04:48> Const General: cooperative, healthy appearing and no acute distress <RANJAN Beavers - Last Filed: 09/28/21 02:02> Orientation/consciousness: patient oriented x3 <RANJAN Beavers - Last Filed: 09/28/21 02:02> Limitations: no limitations <RANJAN Beavers - Last Filed: 09/28/21 02:02> HENMT Head: Yes normal to inspection and Yes atraumatic <RANJAN Beavers - Last Filed: 09/28/21 02:02> Ears: hearing grossly normal bilaterally <RANJAN Beavers - Last Filed: 09/28/21 02:02> General nose exam: Normal external nose present <RANJAN Beavers - Last Filed: 09/28/21 02:02> Face and sinus: Yes normal facial exam <RANJAN Beavers - Last Filed: 09/28/21 02:02> Eyes General: appearance normal, both eyes and all related structures <RANJAN Beavers - Last Filed: 09/28/21 02:02> EOM: EOMs intact bilaterally <RANJAN Beavers - Last Filed: 09/28/21 02:02> Neck Neck: Yes normal visual inspection and Yes no meningeal signs <RANJAN Beavers - Last Filed: 09/28/21 02:02> Resp Effort & Inspection: normal respiratory effort and no respiratory distress <RANJAN Beavers - Last Filed: 09/28/21 02:02> Auscultation: clear to auscultation bilaterally <RANJAN Beavers Last Filed: 09/28/21 02:02> Cardio Rate: regular rate <RANJAN Beavers - Last Filed: 09/28/21 02:02> Heart sounds: S1 normal heart sound present and S2 normal heart sound present <RANJAN Beavers - Last Filed: 09/28/21 02:02> GI Inspection: Yes normal to inspection <RANJAN Beavers - Last Filed: 09/28/21 02:02> Palpation (GI): Soft to palpation, Tenderness to palpation present (GI) in the epigastrum, no guarding and not rigid <RANJAN Beavers - Last Filed: 09/28/21 02:02> General: Yes no CVA tenderness <RANJAN Beavers - Last Filed: 09/28/21 02:02> Back/Spine/Pelvis Back: no CVA tenderness <RANJAN Beavers - Last Filed: 09/28/21 02:02> Skin Rashes: no rashes <RANJAN Beavers - Last Filed: 09/28/21 02:02> Wounds: no wounds <RANJAN Beavers - Last Filed: 09/28/21 02:02> Neuro General: patient oriented x3, tone normal and no meningeal signs <RANJAN Beavers - Last Filed: 09/28/21 02:02> Gait exam (Neuro): Normal gait present <RANJAN Beavers - Last Filed: 09/28/21 02:02> Extrem General: Yes normal to inspection <RANJAN Beavers - Last Filed: 09/28/21 02:02> Course Course Course Narrative: -0144-- chronic leukopenia. H&H at baseline. AST chronically elevated. -Lipase 137 - UA not infected, with 15 ketones -0200-- ED care transferred to Dr. Huerta pending IVF, pain management and p.o. challenge <RANJAN Beavers - Last Filed: 09/28/21 02:02> Reevaluation(s) Reevaluation #1: Patient re-evaluated and noted to be able to tolerate oral intake, she was provided with a GI cocktail and otherwise discharged home in stable condition with instructions to follow up with the primary care provider. <Scarlet Huerta MD - Last Filed: 09/28/21 04:48> Time: 04:47 <Scarlet Huerta MD - Last Filed: 09/28/21 04:48> MDM - Abdominal Pain MDM Narrative Medical decision making narrative: 41-year-old female with a past medical history of pancreatitis, ADHD, hypothyroid, depression, migraines, s/p tubal ligation, cholecystectomy, Calixto-en-Y gastric bypass, , presenting to the ED complaining of a severe epigastric abdominal pain radiating around to back x1wk. On exam hypertensive, tachycardic, likely from pain. Abdomen soft with epigastric tenderness, no rebound or guarding, no CVA tenderness. Concern for pancreatitis. Lower concern for dissection/ACS or appendicitis/diverticulitis. Concern for dehydration/metabolic abnormalities Low concern for severe sepsis at this time Plan: Labs, UA, , IVF, symptomatic treatment, re-evaluated. Of note patient had CT abdomen/pelvis and pelvic ultrasound on 09/07/2021 without acute findings. <RANJAN Beavers - Last Filed: 09/28/21 02:02> Medical Records Attestation: I reviewed the patient's medical records. <RANJAN Beavers - Last Filed: 09/28/21 02:02> Lab Data Attestation: I reviewed the patient's lab results. <RANJAN Beavers - Last Filed: 09/28/21 02:02> Result diagrams: : 09/27/21 20:14 09/27/21 20:14 <RANJAN Beavers - Last Filed: 09/28/21 02:02> Labs: Lab Results 09/27/21 09/27/21 09/27/21 Range/Units 20:14 20:14 20:14 WBC 3.9 L (4.8-10.8) X10*3/uL RBC 3.11 L (4.20-5.50) X10*6/uL Hgb 11.5 L (12.0-16.0) g/dl Hct 33.8 L (37.0-47.0) % MCV 108.7 H (80.0-98.0) fL MCH 37.0 H (27.0-33.0) pg MCHC 34.0 (31.0-35.0) g/dl RDW 13.9 (11.0-16.0) % Plt Count 126 L D (160-400) X10*3/uL MPV 10.0 (9.4-12.3) fL Immature Gran % (Auto) 0.3 (0.0-0.4) % Neut % (Auto) 53.1 (45-73) % Lymph % (Auto) 36.6 (20-40) % [place] % (Auto) 8.2 (2-11) % Eos % (Auto) 1.3 (0-4) % Baso % (Auto) 0.5 (0-2) % Lymph # (Auto) 1.4 (1.2-4.9) X10*3/uL [place] # (Auto) 0.3 (0.1-1.2) X10*3/uL Eos # (Auto) 0.1 (0.0-0.4) X10*3/uL Baso # (Auto) 0.0 (0.0-0.2) X10*3/uL Abs Immat Gran (auto) 0.01 (0.00-0.03) X10*3/uL Absolute Neuts (auto) 2.1 (2.0-8.3) x10*3/uL Absolute Nucleated RBC 0.000 (0.0-0.012) X10*3/uL Nucleated RBC % (auto) 0.0 (0.0-0.2) /100WBC Sodium 140 (135-145) mmol/L Potassium 3.7 D (3.3-5.1) mmol/L Chloride 106 (96-108) mmol/L Carbon Dioxide 23 (22-29) mmol/L Anion Gap 15 (12-20) BUN 17 H (9-16) mg/dL Creatinine 0.79 (0.5-1.4) mg/dL Estim Creat Clear Calc 106.0 Estimated GFR > 60 Random Glucose 104 (60-115) mg/dL Calcium 8.8 D (8.4-10.2) mg/dL Magnesium 1.5 L (1.6-2.6) mg/dL Total Bilirubin 0.6 (0.0-1.0) mg/dL Direct Bilirubin 0.3 (0.0-0.5) mg/dL AST 65 H (5-31) U/L ALT 26 (0-31) U/L Alkaline Phosphatase 111 (39-117) U/L Total Protein 6.7 (6.5-8.0) g/dL Albumin 3.8 (3.5-5.0) g/dL Lipase 137 H (8-78) U/L Urine Color Urine Appearance Urine pH (5.0-8.0) Ur Specific Central (1.005-1.025) Urine Protein (NEG-TRACE) MG/DL Urine Glucose (UA) (NEG) MG/DL Urine Ketones (NEG) MG/DL Urine Blood (NEG) Urine Nitrite (NEG) Ur Leukocyte Esterase (NEG) Urine RBC (0) /HPF Urine WBC (0-4) /HPF Ur Squamous Epith Cells /LPF Urine Bacteria /LPF Urine Test (NEGATIVE) Ethyl Alcohol < 10 mg/dL COVID-19 (ANIKET) (Negative) COVID-19 Clin Com 09/27/21 09/27/21 09/27/21 Range/Units 20:18 20:18 20:18 WBC (4.8-10.8) X10*3/uL RBC (4.20-5.50) X10*6/uL Hgb (12.0-16.0) g/dl Hct (37.0-47.0) % MCV (80.0-98.0) fL MCH (27.0-33.0) pg MCHC (31.0-35.0) g/dl RDW (11.0-16.0) % Plt Count (160-400) X10*3/uL MPV (9.4-12.3) fL Immature Gran % (Auto) (0.0-0.4) % Neut % (Auto) (45-73) % Lymph % (Auto) (20-40) % [place] % (Auto) (2-11) % Eos % (Auto) (0-4) % Baso % (Auto) (0-2) % Lymph # (Auto) (1.2-4.9) X10*3/uL [place] # (Auto) (0.1-1.2) X10*3/uL Eos # (Auto) (0.0-0.4) X10*3/uL Baso # (Auto) (0.0-0.2) X10*3/uL Abs Immat Gran (auto) (0.00-0.03) X10*3/uL Absolute Neuts (auto) (2.0-8.3) x10*3/uL Absolute Nucleated RBC (0.0-0.012) X10*3/uL Nucleated RBC % (auto) (0.0-0.2) /100WBC Sodium (135-145) mmol/L Potassium (3.3-5.1) mmol/L Chloride (96-108) mmol/L Carbon Dioxide (22-29) mmol/L Anion Gap (12-20) BUN (9-16) mg/dL Creatinine (0.5-1.4) mg/dL Estim Creat Clear Calc Estimated GFR Random Glucose (60-115) mg/dL Calcium (8.4-10.2) mg/dL Magnesium (1.6-2.6) mg/dL Total Bilirubin (0.0-1.0) mg/dL Direct Bilirubin (0.0-0.5) mg/dL AST (5-31) U/L ALT (0-31) U/L Alkaline Phosphatase (39-117) U/L Total Protein (6.5-8.0) g/dL Albumin (3.5-5.0) g/dL Lipase (8-78) U/L Urine Color YELLOW Urine Appearance HAZY Urine pH 5.5 (5.0-8.0) Ur Specific Central >= 1.030 H (1.005-1.025) Urine Protein 1+ H (NEG-TRACE) MG/DL Urine Glucose (UA) NEG (NEG) MG/DL Urine Ketones 15 (NEG) MG/DL Urine Blood NEG (NEG) Urine Nitrite NEG (NEG) Ur Leukocyte Esterase NEG (NEG) Urine RBC 0 (0) /HPF Urine WBC 0 (0-4) /HPF Ur Squamous Epith Cells 3+ /LPF Urine Bacteria TRACE /LPF Urine Test NEGATIVE (NEGATIVE) Ethyl Alcohol mg/dL COVID-19 (ANIKET) Negative (Negative) COVID-19 Clin Com See Note <RANJAN Beavers - Last Filed: 09/28/21 02:02> Lab Results 09/27/21 09/27/21 09/27/21 Range/Units 20:14 20:14 20:14 WBC 3.9 L (4.8-10.8) X10*3/uL RBC 3.11 L (4.20-5.50) X10*6/uL Hgb 11.5 L (12.0-16.0) g/dl Hct 33.8 L (37.0-47.0) % MCV 108.7 H (80.0-98.0) fL MCH 37.0 H (27.0-33.0) pg MCHC 34.0 (31.0-35.0) g/dl RDW 13.9 (11.0-16.0) % Plt Count 126 L D (160-400) X10*3/uL MPV 10.0 (9.4-12.3) fL Immature Gran % (Auto) 0.3 (0.0-0.4) % Neut % (Auto) 53.1 (45-73) % Lymph % (Auto) 36.6 (20-40) % [place] % (Auto) 8.2 (2-11) % Eos % (Auto) 1.3 (0-4) % Baso % (Auto) 0.5 (0-2) % Lymph # (Auto) 1.4 (1.2-4.9) X10*3/uL [place] # (Auto) 0.3 (0.1-1.2) X10*3/uL Eos # (Auto) 0.1 (0.0-0.4) X10*3/uL Baso # (Auto) 0.0 (0.0-0.2) X10*3/uL Abs Immat Gran (auto) 0.01 (0.00-0.03) X10*3/uL Absolute Neuts (auto) 2.1 (2.0-8.3) x10*3/uL Absolute Nucleated RBC 0.000 (0.0-0.012) X10*3/uL Nucleated RBC % (auto) 0.0 (0.0-0.2) /100WBC Sodium 140 (135-145) mmol/L Potassium 3.7 D (3.3-5.1) mmol/L Chloride 106 (96-108) mmol/L Carbon Dioxide 23 (22-29) mmol/L Anion Gap 15 (12-20) BUN 17 H (9-16) mg/dL Creatinine 0.79 (0.5-1.4) mg/dL Estim Creat Clear Calc 106.0 Estimated GFR > 60 Random Glucose 104 (60-115) mg/dL Calcium 8.8 D (8.4-10.2) mg/dL Magnesium 1.5 L (1.6-2.6) mg/dL Total Bilirubin 0.6 (0.0-1.0) mg/dL Direct Bilirubin 0.3 (0.0-0.5) mg/dL AST 65 H (5-31) U/L ALT 26 (0-31) U/L Alkaline Phosphatase 111 (39-117) U/L Total Protein 6.7 (6.5-8.0) g/dL Albumin 3.8 (3.5-5.0) g/dL Lipase 137 H (8-78) U/L Urine Color Urine Appearance Urine pH (5.0-8.0) Ur Specific Central (1.005-1.025) Urine Protein (NEG-TRACE) MG/DL Urine Glucose (UA) (NEG) MG/DL Urine Ketones (NEG) MG/DL Urine Blood (NEG) Urine Nitrite (NEG) Ur Leukocyte Esterase (NEG) Urine RBC (0) /HPF Urine WBC (0-4) /HPF Ur Squamous Epith Cells /LPF Urine Bacteria /LPF Urine Test (NEGATIVE) Ethyl Alcohol < 10 mg/dL COVID-19 (ANIKET) (Negative) COVID-19 Clin Com 09/27/21 09/27/21 09/27/21 Range/Units 20:18 20:18 20:18 WBC (4.8-10.8) X10*3/uL RBC (4.20-5.50) X10*6/uL Hgb (12.0-16.0) g/dl Hct (37.0-47.0) % MCV (80.0-98.0) fL MCH (27.0-33.0) pg MCHC (31.0-35.0) g/dl RDW (11.0-16.0) % Plt Count (160-400) X10*3/uL MPV (9.4-12.3) fL Immature Gran % (Auto) (0.0-0.4) % Neut % (Auto) (45-73) % Lymph % (Auto) (20-40) % [place] % (Auto) (2-11) % Eos % (Auto) (0-4) % Baso % (Auto) (0-2) % Lymph # (Auto) (1.2-4.9) X10*3/uL [place] # (Auto) (0.1-1.2) X10*3/uL Eos # (Auto) (0.0-0.4) X10*3/uL Baso # (Auto) (0.0-0.2) X10*3/uL Abs Immat Gran (auto) (0.00-0.03) X10*3/uL Absolute Neuts (auto) (2.0-8.3) x10*3/uL Absolute Nucleated RBC (0.0-0.012) X10*3/uL Nucleated RBC % (auto) (0.0-0.2) /100WBC Sodium (135-145) mmol/L Potassium (3.3-5.1) mmol/L Chloride (96-108) mmol/L Carbon Dioxide (22-29) mmol/L Anion Gap (12-20) BUN (9-16) mg/dL Creatinine (0.5-1.4) mg/dL Estim Creat Clear Calc Estimated GFR Random Glucose (60-115) mg/dL Calcium (8.4-10.2) mg/dL Magnesium (1.6-2.6) mg/dL Total Bilirubin (0.0-1.0) mg/dL Direct Bilirubin (0.0-0.5) mg/dL AST (5-31) U/L ALT (0-31) U/L Alkaline Phosphatase (39-117) U/L Total Protein (6.5-8.0) g/dL Albumin (3.5-5.0) g/dL Lipase (8-78) U/L Urine Color YELLOW Urine Appearance HAZY Urine pH 5.5 (5.0-8.0) Ur Specific Central >= 1.030 H (1.005-1.025) Urine Protein 1+ H (NEG-TRACE) MG/DL Urine Glucose (UA) NEG (NEG) MG/DL Urine Ketones 15 (NEG) MG/DL Urine Blood NEG (NEG) Urine Nitrite NEG (NEG) Ur Leukocyte Esterase NEG (NEG) Urine RBC 0 (0) /HPF Urine WBC 0 (0-4) /HPF Ur Squamous Epith Cells 3+ /LPF Urine Bacteria TRACE /LPF Urine Test NEGATIVE (NEGATIVE) Ethyl Alcohol mg/dL COVID-19 (ANIKET) Negative (Negative) COVID-19 Clin Com See Note <Scarlet Huerta MD - Last Filed: 09/28/21 04:48> Discharge Plan Discharge Clinical Impression: Abdominal pain, Pancreatitis <RANJAN Beavers - Last Filed: 09/28/21 02:02> Patient Disposition: Home, Self-Care <RANJAN Beavers - Last Filed: 09/28/21 02:02> Instructions: Abdominal Pain (ED), Pancreatitis (ED), Gastritis (ED), Diet for Stomach Ulcers and Gastritis (ED) <RANJAN Beavers - Last Filed: 09/28/21 02:02> Additional Instructions: your blood work showed mild elevation in your pancreatic enzyme. It is very important for you to stay hydrated at home. Avoid any alcohol use. Please follow-up with your doctor. If symptoms persist or worsen, becomes unbearable, you have fever, your unable to eat or drink you need to return to the emergency department <RANJAN Beavers - Last Filed: 09/28/21 02:02> Prescriptions: No Action cholecalciferol (vitamin D3) 50 mcg (2,000 unit) capsule 50 mcg PO DAILY Qty: 30 11RF cetirizine 10 mg Tablet 10 mg PO DAILY 0RF calcium carbonate [Calcium 500] 500 mg calcium (1,250 mg) Tablet 500 mg PO DAILY 0RF dextroamphetamine-amphetamine 20 mg capsule,extended release 24hr 1 cap PO QAM 0RF vitamin B complex Capsule 1 cap PO DAILY 0RF ondansetron 4 mg tablet,disintegrating 4 mg PO ONCE PRN (Reason: nausea and vomiting) Qty: 10 0RF levothyroxine 50 mcg tablet 50 mcg PO DAILY 0RF Bariatric Multivitamins 45 mg iron- 800 mcg-120 mcg capsule PO DAILY 0RF <RANJAN Beavers - Last Filed: 09/28/21 02:02> Referrals: Lalita lEam MD [Physician] - <RAJNAN Beavers - Last Filed: 09/28/21 02:02>
[2021-09-28 01:49] LABS: Magnesium 1.5 mg/dL (1.6-2.6)
[2021-09-28 02:00] VITALS: BP 116/76; PULSE 77; RESP 16; O2SAT 98
[2021-09-28] MEDS: 0.9 % Sodium Chloride 1,000 ML 999 ML IV ×2 (02:02)
[2021-09-28] MEDS: Magnesium Hydrox/Alum Hydrox 30 ML ORAL.SUSP PO ×2 (02:07→04:53)
[2021-09-28] MEDS: ondansetron HCL 4 MG/2 ML VIAL IVPUSH (02:07)
[2021-09-28] MEDS: Morphine Sulfate 2 MG/ML CARTRIDGE IVPUSH (02:07)
[2021-09-28] MEDS: Famotidine/PF 20 MG/2 ML VIAL IVPUSH (02:07)
[2021-09-28 02:08] LABS: Ethanol < 10 mg/dL
[2021-09-28 02:51] VITALS: BP 133/105; PULSE 106; RESP 16; O2SAT 98
--- NOTE | 2021-09-28 03:30 | PC.NURSE ---
pt given water and saltine crackers for a po challenge, waiting results. pt sitting up on her phone. no s/s of distress.
[2021-09-28] MEDS: Lidocaine HCl Viscous 2 % 15 ML SOLUTION 10 ML MUCOUS MEM (04:52)
[2021-09-28 04:53] VITALS: BP 116/72; PULSE 75; RESP 16
== END 2021-09-28 05:19 | disposition home or self-care (01) ==
PROVIDERS: Physician Assistant; Emergency Provider Student in an Organized Health Care Education/Training Program
DX: K85.90 Acute pancreatitis without necrosis or infection, unspecified (principal); Z90.49 Acquired absence of other specified parts of digestive tract; Z98.84 Bariatric surgery status; Z20.822 Contact with and (suspected) exposure to COVID-19
CPT/HCPCS: 80048; 80076; 81001; 81025; 82077; 83690; 83735; 85025; 87635; 96361; 96374; 96375; 99284; J2270; J2405

== ENCOUNTER 2021-10-13 23:05 | Emergency (ER) | payer OTHER, MEDICAID, SELFPAY ==
[2021-10-14 00:03] VITALS: BP 104/56; PULSE 67; RESP 18; TEMP 36.9; O2SAT 97; BMI 27.2
[2021-10-14 00:32] LABS: MANUAL DIFF FLAG NO
[2021-10-14 00:34] LABS: Basophils Percent Auto 0.6 % (0-2); Eosinophils Percent Auto 0.4 % (0-4); Hematocrit 36.5 % (37.0-47.0); Hemoglobin 12.2 g/dl (12.0-16.0); Imm Gran Abs Auto 0.01 X10*3/uL (0.00-0.03); Imm Gran Pct Auto 0.2 % (0.0-0.4); Lymphocytes Absolute Auto 1.9 X10*3/uL (1.2-4.9); Lymphocytes Percent Auto 38.8 % (20-40); Mean Corpuscular HGB Conc 33.4 g/dl (31.0-35.0); Mean Corpuscular Hemoglobin 36.4 pg (27.0-33.0); Mean Platelet Volume 9.1 fL (9.4-12.3); Monocytes Absolute Auto 0.3 X10*3/uL (0.1-1.2); Monocytes Percent Auto 5.2 % (2-11); Neutrophils Absolute Auto 2.6 x10*3/uL (2.0-8.3); Neutrophils Percent Auto 54.8 % (45-73); Platelet Count 184 X10*3/uL (160-400); Red Blood Count 3.35 X10*6/uL (4.20-5.50); White Blood Count 4.8 X10*3/uL (4.8-10.8)
[2021-10-14 00:37] VITALS: BP 115/60; PULSE 57; RESP 16; O2SAT 98
[2021-10-14 00:44] LABS: Appearance Urine CLEAR; Color Urine YELLOW; Glucose Urine UA NEG (NEG); Leukocyte Esterase Urine NEG (NEG); Nitrite Urine POS (NEG); PH 5.5 (5.0-8.0); Specific Gravity - Urine 1.015 (1.005-1.025); UACC Culture Trigger YES; Urine Blood NEG (NEG); Urine Ketones NEG (NEG); Urine Protein NEG (NEG-TRACE)
[2021-10-14 00:44] LABS: INTERNATIONAL NORM RATIO 1.1 (0.9-1.1); Prothrombin Time 12.8 SEC (9.9-13.0)
[2021-10-14 00:48] LABS: UPreg QC Valid YES; Urine Pregnancy NEGATIVE (NEGATIVE)
[2021-10-14 00:49] LABS: Alanine Aminotransferase 34 U/L (0-31); Albumin Level 3.9 g/dL (3.5-5.0); Alkaline Phosphatase 90 U/L (39-117); Anion Gap 15 (12-20); Aspartate Amino Transferase 51 U/L (5-31); Bilirubin Total 0.7 mg/dL (0.0-1.0); Blood Urea Nitrogen 14 mg/dL (9-16); Calcium 8.4 mg/dL (8.4-10.2); Carbon Dioxide 24 mmol/L (22-29); Chloride 110 mmol/L (96-108); Creatinine Clr Calc Pharmacy 131.9; Estimated Glomerular Filt Rate > 60; Glucose Random 84 mg/dL (60-115); Potassium 3.9 mmol/L (3.3-5.1); Sodium 145 mmol/L (135-145); Total Protein 6.8 g/dL (6.5-8.0)
[2021-10-14 00:51] LABS: Bacteria Urine 3+ /LPF; Calcium Phosphate Crystals Ur TRACE /LPF; RBC Urine 0 /HPF (0); Squamous Epithelial Cell Urine 2+ /LPF; WBC Urine 0 /HPF (0-4)
[2021-10-14 00:55] LABS: COVID-19 Test Negative (Negative); IDNOW Serial# 16C4AD1C; Influenza A Negative (Negative); Influenza B2 Negative (Negative)
[2021-10-14 02:38] VITALS: BP 116/74; PULSE 85; RESP 16; O2SAT 95
--- NOTE | 2021-10-14 02:42 | PC.NURSE ---
Patient placed herself on the floor and then rang her call bryant and stated that she fell on the floor. RN was next store and did not hear anyone fall. Patient has used call bryant many times this evening anytime she needed something.
[2021-10-14 04:00] VITALS: BP 116/81; PULSE 64; RESP 15; O2SAT 99
--- NOTE | 2021-10-14 04:32 | ED_ITS ---
HPI - General Adult General Chief complaint: General Medical Stated complaint: pulse ox high 80's, bruising, fatigue Time Seen by Provider: 10/14/21 01:56 Source: patient Mode of arrival: ambulatory History of Present Illness HPI narrative: 41-year-old female presents with complaints of fatigue, not feeling well, headache and stating that since Friday she has been experience some nausea and vomiting as well as chills and subjective fevers. She denies any alcohol marijuana use. She denies any urinary pain/burning/frequency but states that she often times does not experience when she has a urinary tract infection. Related Data Home Medications Medication Instructions Recorded Confirmed calcium carbonate 500 mg calcium 500 mg PO DAILY 01/03/21 08/22/21 (1,250 mg) tablet (Calcium 500) cetirizine 10 mg tablet 10 mg PO DAILY 01/03/21 08/22/21 dextroamphetamine-amphetamine ER 1 cap PO QAM 01/03/21 08/22/21 20 mg 24hr capsule,extend release vitamin B complex 1 cap PO DAILY 01/03/21 08/22/21 levothyroxine 50 mcg tablet 50 mcg PO DAILY 08/22/21 08/22/21 [id number] 45 mg-folic cap PO DAILY cap 08/22/21 08/22/21 acid 800 mcg-vit K 120 mcg capsule (Bariatric Multivitamins) Previous Rx's Medication Instructions Recorded cholecalciferol (vitamin D3) 50 50 mcg PO DAILY #30 cap 08/23/21 mcg (2,000 unit) capsule ondansetron 4 mg disintegrating 4 mg PO ONCE PRN #10 tab 09/07/21 tablet amoxicillin 875 mg-potassium 1 tab PO Q12H 7 Days #14 tab 10/14/21 clavulanate 125 mg tablet ondansetron 4 mg disintegrating 4 mg PO Q8H PRN #6 tab 10/14/21 tablet Allergies Allergy/AdvReac Type Severity Reaction Status Date / Time shellfish derived Allergy Severe ANAPHYLAXIS Verified 08/22/21 15:07 [SHELLFISH DERIVED] benztropine [From COGENTIN] Allergy Intermediate PSYCHOSIS Verified 08/22/21 15:07 gabapentin [GABAPENTIN] Allergy Intermediate PSYCHOSIS Verified 08/22/21 15:07 amantadine [AMANTADINE] Allergy Mild HIVES, rash Verified 08/22/21 15:07 seafood Allergy Unknown anaphylaxis Uncoded 01/05/21 11:54 Review of Systems Review of Systems: Pertinent positives and negatives as stated in HPI 10 point review of systems is otherwise negative. [facility] Past Medical History Source: nursing notes reviewed Medical History Acute pancreatitis ADHD Congenital hypothyroidism Depression Elevated liver function tests Migraine Surgical History H/O gastric bypass H/O tubal ligation History of cholecystectomy History of Calixto-en-Y gastric bypass Previous section Family History Family History Mother No problems noted. Father No problems noted. Brother No problems noted. Brother No problems noted. Sister No problems noted. Sister No problems noted. Son No problems noted. Social History Social History Household Members: Spouse Housing: House Do you presently have visiting nurse or other home services: No Alcohol intake: never Patient Tobacco Use Status: Never used Tobacco e-Cigarette/Vaping Use: Never Used Use of substances other than those prescribed or required for medical reasons: No Advance Directives: No Patient : No service: No Current occupational status: employed Physical Exam ED Vital Signs: Vital Signs - 24 hr 10/14/21 00:03 10/14/21 00:37 10/14/21 02:38 Temperature 98.5 F Pulse Rate 67 57 85 Respiratory Rate 18 16 16 Blood Pressure 104/56 L 115/60 116/74 Pulse Oximetry 97 98 95 10/14/21 04:00 Temperature Pulse Rate 64 Respiratory Rate 15 Blood Pressure 116/81 Pulse Oximetry 99 BMI result Body Mass Index 27.2 VITAL SIGNS: Reviewed. GENERAL: Well developed, well nourished, in no acute distress. HEAD: Normocephalic/atraumatic EYES: PERRLA, EOMI EARS: Ext canals without abnormality OROPHARYNX: no oral lesions noted, posterior pharynx clear LUNGS: Normal breath sounds. No adventitious sounds or accessory muscle use. SpO2<97> CARDIOVASCULAR: Regular rate and rhythm without noted murmurs ABDOMEN: Soft, non-tender, non-distended with bowel sounds, no CVA tenderness MUSCULOSKELETAL: No tenderness, deformities, or effusions noted on gross inspection. EXTREMITIES: No cyanosis, clubbing or edema. SKIN: Inspection of the skin reveals no rashes NEUROLOGIC: Alert and oriented x 4. Strength and sensation to light touch were grossly intact x 4. Course Course Course Narrative: 41-year-old female with history and clinical presentation most consistent after review of all investigations with likely mild pyelonephritis. Patient will rece moe combination analgesics as well as antiemetics and initial antibiotics. She was informed of all results and otherwise discharged home in stable condition. Medical Decision Making Lab Data Result diagrams: 10/14/21 00:20 10/14/21 00:20 Labs: Lab Results 10/14/21 10/14/21 10/14/21 Range/Units 00:20 00:20 00:20 WBC 4.8 (4.8-10.8) X10*3/uL RBC 3.35 L (4.20-5.50) X10*6/uL Hgb 12.2 (12.0-16.0) g/dl Hct 36.5 L (37.0-47.0) % MCV 109.0 H (80.0-98.0) fL MCH 36.4 H (27.0-33.0) pg MCHC 33.4 (31.0-35.0) g/dl RDW 14.0 (11.0-16.0) % Plt Count 184 D (160-400) X10*3/uL MPV 9.1 L (9.4-12.3) fL Immature Gran % (Auto) 0.2 (0.0-0.4) % Neut % (Auto) 54.8 (45-73) % Lymph % (Auto) 38.8 (20-40) % [place] % (Auto) 5.2 (2-11) % Eos % (Auto) 0.4 (0-4) % Baso % (Auto) 0.6 (0-2) % Lymph # (Auto) 1.9 (1.2-4.9) X10*3/uL [place] # (Auto) 0.3 (0.1-1.2) X10*3/uL Eos # (Auto) 0.0 (0.0-0.4) X10*3/uL Baso # (Auto) 0.0 (0.0-0.2) X10*3/uL Abs Immat Gran (auto) 0.01 (0.00-0.03) X10*3/uL Absolute Neuts (auto) 2.6 (2.0-8.3) x10*3/uL Absolute Nucleated RBC 0.000 (0.0-0.012) X10*3/uL Nucleated RBC % (auto) 0.0 (0.0-0.2) /100WBC PT (9.9-13.0) SEC INR (0.9-1.1) Sodium 145 (135-145) mmol/L Potassium 3.9 (3.3-5.1) mmol/L Chloride 110 H (96-108) mmol/L Carbon Dioxide 24 (22-29) mmol/L Anion Gap 15 (12-20) BUN 14 (9-16) mg/dL Creatinine 0.64 (0.5-1.4) mg/dL Estim Creat Clear Calc 131.9 Estimated GFR > 60 Random Glucose 84 (60-115) mg/dL Calcium 8.4 (8.4-10.2) mg/dL Total Bilirubin 0.7 (0.0-1.0) mg/dL AST 51 H (5-31) U/L ALT 34 H (0-31) U/L Alkaline Phosphatase 90 (39-117) U/L Total Protein 6.8 (6.5-8.0) g/dL Albumin 3.9 (3.5-5.0) g/dL Urine Color Urine Appearance Urine pH (5.0-8.0) Ur Specific [place] (1.005-1.025) Urine Protein (NEG-TRACE) MG/DL Urine Glucose (UA) (NEG) MG/DL Urine Ketones (NEG) MG/DL Urine Blood (NEG) Urine Nitrite (NEG) Ur Leukocyte Esterase (NEG) Urine RBC (0) /HPF Urine WBC (0-4) /HPF Ur Squamous Epith Cells /LPF Calcium Phosphate Cryst /LPF Urine Bacteria /LPF Urine Test (NEGATIVE) COVID-19 (ANIKET) (Negative) COVID-19 Clin Com Influenza Type A (DANNY) Negative (Negative) Influenza Type B (DANNY) Negative (Negative) Influenza A & B Note See Note 05/29/22 05/29/22 05/29/22 Range/Units 00:20 00:25 00:38 WBC (4.8-10.8) X10*3/uL RBC (4.20-5.50) X10*6/uL Hgb (12.0-16.0) g/dl Hct (37.0-47.0) % MCV (80.0-98.0) fL MCH (27.0-33.0) pg MCHC (31.0-35.0) g/dl RDW (11.0-16.0) % Plt Count (160-400) X10*3/uL MPV (9.4-12.3) fL Immature Gran % (Auto) (0.0-0.4) % Neut % (Auto) (45-73) % Lymph % (Auto) (20-40) % [place] % (Auto) (2-11) % Eos % (Auto) (0-4) % Baso % (Auto) (0-2) % Lymph # (Auto) (1.2-4.9) X10*3/uL [place] # (Auto) (0.1-1.2) X10*3/uL Eos # (Auto) (0.0-0.4) X10*3/uL Baso # (Auto) (0.0-0.2) X10*3/uL Abs Immat Gran (auto) (0.00-0.03) X10*3/uL Absolute Neuts (auto) (2.0-8.3) x10*3/uL Absolute Nucleated RBC (0.0-0.012) X10*3/uL Nucleated RBC % (auto) (0.0-0.2) /100WBC PT 12.8 (9.9-13.0) SEC INR 1.1 (0.9-1.1) Sodium (135-145) mmol/L Potassium (3.3-5.1) mmol/L Chloride (96-108) mmol/L Carbon Dioxide (22-29) mmol/L Anion Gap (12-20) BUN (9-16) mg/dL Creatinine (0.5-1.4) mg/dL Estim Creat Clear Calc Estimated GFR Random Glucose (60-115) mg/dL Calcium (8.4-10.2) mg/dL Total Bilirubin (0.0-1.0) mg/dL AST (5-31) U/L ALT (0-31) U/L Alkaline Phosphatase (39-117) U/L Total Protein (6.5-8.0) g/dL Albumin (3.5-5.0) g/dL Urine Color YELLOW Urine Appearance CLEAR Urine pH 5.5 (5.0-8.0) Ur Specific [place] 1.015 (1.005-1.025) Urine Protein NEG (NEG-TRACE) MG/DL Urine Glucose (UA) NEG (NEG) MG/DL Urine Ketones NEG (NEG) MG/DL Urine Blood NEG (NEG) Urine Nitrite POS H (NEG) Ur Leukocyte Esterase NEG (NEG) Urine RBC 0 (0) /HPF Urine WBC 0 (0-4) /HPF Ur Squamous Epith Cells 2+ /LPF Calcium Phosphate Cryst TRACE /LPF Urine Bacteria 3+ /LPF Urine Test (NEGATIVE) COVID-19 (ANIKET) Negative (Negative) COVID-19 Clin Com See Note Influenza Type A (DANNY) (Negative) Influenza Type B (DANNY) (Negative) Influenza A & B Note 10/14/21 Range/Units 00:38 WBC (4.8-10.8) X10*3/uL RBC (4.20-5.50) X10*6/uL Hgb (12.0-16.0) g/dl Hct (37.0-47.0) % MCV (80.0-98.0) fL MCH (27.0-33.0) pg MCHC (31.0-35.0) g/dl RDW (11.0-16.0) % Plt Count (160-400) X10*3/uL MPV (9.4-12.3) fL Immature Gran % (Auto) (0.0-0.4) % Neut % (Auto) (45-73) % Lymph % (Auto) (20-40) % [place] % (Auto) (2-11) % Eos % (Auto) (0-4) % Baso % (Auto) (0-2) % Lymph # (Auto) (1.2-4.9) X10*3/uL [place] # (Auto) (0.1-1.2) X10*3/uL Eos # (Auto) (0.0-0.4) X10*3/uL Baso # (Auto) (0.0-0.2) X10*3/uL Abs Immat Gran (auto) (0.00-0.03) X10*3/uL Absolute Neuts (auto) (2.0-8.3) x10*3/uL Absolute Nucleated RBC (0.0-0.012) X10*3/uL Nucleated RBC % (auto) (0.0-0.2) /100WBC PT (9.9-13.0) SEC INR (0.9-1.1) Sodium (135-145) mmol/L Potassium (3.3-5.1) mmol/L Chloride (96-108) mmol/L Carbon Dioxide (22-29) mmol/L Anion Gap (12-20) BUN (9-16) mg/dL Creatinine (0.5-1.4) mg/dL Estim Creat Clear Calc Estimated GFR Random Glucose (60-115) mg/dL Calcium (8.4-10.2) mg/dL Total Bilirubin (0.0-1.0) mg/dL AST (5-31) U/L ALT (0-31) U/L Alkaline Phosphatase (39-117) U/L Total Protein (6.5-8.0) g/dL Albumin (3.5-5.0) g/dL Urine Color Urine Appearance Urine pH (5.0-8.0) Ur Specific [place] (1.005-1.025) Urine Protein (NEG-TRACE) MG/DL Urine Glucose (UA) (NEG) MG/DL Urine Ketones (NEG) MG/DL Urine Blood (NEG) Urine Nitrite (NEG) Ur Leukocyte Esterase (NEG) Urine RBC (0) /HPF Urine WBC (0-4) /HPF Ur Squamous Epith Cells /LPF Calcium Phosphate Cryst /LPF Urine Bacteria /LPF Urine Test NEGATIVE (NEGATIVE) COVID-19 (ANIKET) (Negative) COVID-19 Clin Com Influenza Type A (DANNY) (Negative) Influenza Type B (DANNY) (Negative) Influenza A & B Note Discharge Plan Discharge Clinical Impression: Pyelonephritis Patient Disposition: Home, Self-Care Instructions: Kidney Infection (ED) Additional Instructions: 1. Tylenol 1000 mg, orally, every 6 hours as needed for pain control, temperatures greater than 100.4, or headaches. 2. Please complete the entire course of antibiotics that you have been prescribed. You have also been provided a prescription for antinausea med ications. Please increase your fluid hydration to include water over the next 24-48 hours. 3. Follow-up with your primary care provider in the next 2-3 days for re- evaluation. Return to the ER for worsening symptoms. Prescriptions: New amoxicillin-pot clavulanate 875-125 mg tablet 1 tab PO Q12H 7 Days Qty: 14 0RF ondansetron 4 mg tablet,disintegrating 4 mg PO Q8H PRN (Reason: nausea and vomiting) Qty: 6 0RF No Action cholecalciferol (vitamin D3) 50 mcg (2,000 unit) capsule 50 mcg PO DAILY Qty: 30 11RF cetirizine 10 mg Tablet 10 mg PO DAILY 0RF calcium carbonate [Calcium 500] 500 mg calcium (1,250 mg) Tablet 500 mg PO DAILY 0RF dextroamphetamine-amphetamine 20 mg capsule,extended release 24hr 1 cap PO QAM 0RF vitamin B complex Capsule 1 cap PO DAILY 0RF ondansetron 4 mg tablet,disintegrating 4 mg PO ONCE PRN (Reason: nausea and vomiting) Qty: 10 0RF levothyroxine 50 mcg tablet 50 mcg PO DAILY 0RF Bariatric Multivitamins 45 mg iron- 800 mcg-120 mcg capsule PO DAILY 0RF
[2021-10-14] MEDS: Acetaminophen 325 MG TABLET 975 MG PO (05:40)
[2021-10-14] MEDS: Amoxicillin/Potassium Clav 875 MG TABLET PO (05:40)
[2021-10-14] MEDS: Ondansetron ODT 4 MG TAB.RAPDIS TRANSLINGU (05:41)
== END 2021-10-14 06:02 | disposition home or self-care (01) ==
PROVIDERS: Emergency Provider Student in an Organized Health Care Education/Training Program
DX: N12 Tubulo-interstitial nephritis, not specified as acute or chronic (principal); R51.9 Headache, unspecified; R50.9 Fever, unspecified; Z20.822 Contact with and (suspected) exposure to COVID-19; Z79.899 Other long term (current) drug therapy
CPT/HCPCS: 36415; 80053; 81001; 81025; 85025; 85610; 87086; 87088; 87186; 87502; 87635; 99283; 99284

== ENCOUNTER 2021-11-05 17:25 | Emergency (ER) | payer OTHER, MEDICAID, SELFPAY ==
[2021-11-05 17:39] VITALS: BP 157/81; PULSE 73; RESP 24; TEMP 36.2; O2SAT 95; BMI 27.3
--- NOTE | 2021-11-05 20:07 | ED_ITS ---
HPI - Abdominal Pain General Chief Complaint: Abdominal Pain Stated Complaint: Abdominal Pain Time Seen by Provider: 11/05/21 20:03 Source: patient Mode of arrival: ambulatory Limitations: no limitations History of Present Illness HPI narrative: 41-year-old female with history of gallstone pancreatitis, obesity status post gastric bypass, hyperparathyroidism, alcohol use disorder who presents to the ER with middle abdominal pain and vomiting that started 3 hours prior to arrival. She states the pain came on all of the sudden and is intense in the middle of her abdomen. She denies any fevers or diarrhea. She feels it is different than her prior episodes of pancreatitis. She is noticeably tremulous on examination. She reports she drinks about a pt of alcohol every night, her last drink was 2 days ago. She has been slowly weaning down since December. She has been through withdrawal before and states she may be going through withdrawal at this time. She denies any other substance use. She denies any blood in her vomitus. MD elicited complaint: abdominal pain Pertinent past history: other (Pancreatitis, alcohol abuse) Onset (ago): hour(s) Pain Consistency: constant Location: epigastric and periumbilical Severity: moderate Pain scale (0-10): 7 Quality: stabbing and aching Radiation: none Migration to: no migration Exacerbating factors: nothing Relieving factors: nothing Context: history of similar episodes Associated symptoms: nausea and vomiting Related Data Home Medications Medication Instructions Recorded Confirmed calcium carbonate 500 mg calcium 500 mg PO DAILY 01/03/21 08/22/21 (1,250 mg) tablet (Calcium 500) cetirizine 10 mg tablet 10 mg PO DAILY 01/03/21 08/22/21 dextroamphetamine-amphetamine ER 1 cap PO QAM 01/03/21 08/22/21 20 mg 24hr capsule,extend release vitamin B complex 1 cap PO DAILY 01/03/21 08/22/21 levothyroxine 50 mcg tablet 50 mcg PO DAILY 08/22/21 08/22/21 [id number]-feac 45 mg-folic cap PO DAILY 08/22/21 08/22/21 acid 800 mcg-vit K 120 mcg capsule (Bariatric Multivitamins) Previous Rx's Medication Instructions Recorded cholecalciferol (vitamin D3) 50 50 mcg PO DAILY #30 caps 08/23/21 mcg (2,000 unit) capsule ondansetron 4 mg disintegrating 4 mg PO ONCE PRN nausea and 09/07/21 tablet vomiting #10 tabs amoxicillin 875 mg-potassium 1 tab PO Q12H 7 days #14 tabs 10/14/21 clavulanate 125 mg tablet ondansetron 4 mg disintegrating 4 mg PO Q8H PRN nausea and 10/14/21 tablet vomiting #6 tabs sulfamethoxazole 800 1 tab PO BID uti 7 days #14 tabs 10/18/21 mg-trimethoprim 160 mg tablet (Bactrim DS) chlordiazepoxide HCl 25 mg capsule 25 mg PO TID PRN alcohol 11/06/21 withdrawal #8 caps ondansetron 4 mg disintegrating 4 mg PO Q8H PRN nausea and 11/06/21 tablet vomiting #10 tabs Allergies Allergy/AdvReac Type Severity Reaction Status Date / Time shellfish derived Allergy Severe ANAPHYLAXIS Verified 08/22/21 15:07 [SHELLFISH DERIVED] benztropine [From COGENTIN] Allergy Intermediate PSYCHOSIS Verified 08/22/21 15:07 gabapentin [GABAPENTIN] Allergy Intermediate PSYCHOSIS Verified 08/22/21 15:07 amantadine [AMANTADINE] Allergy Mild HIVES, rash Verified 08/22/21 15:07 seafood Allergy Unknown anaphylaxis Uncoded 01/05/21 11:54 Review of Systems Review of Systems Constitutional: No Fever, No Chills ENT/Mouth: No sore throat, No Rhinorrhea, No Swallowing Difficulty Eyes: No Eye Pain, No Swelling, No Redness Cardiovascular: No Chest Pain, No SOB, No Orthopnea, No Edema Respiratory: No Cough, No Sputum, No Wheezing, No dyspnea Gastrointestinal: + Nausea, + Vomiting, No Diarrhea, +abdominal Pain, No Hematochezia, No Melena Genitourinary: No Dysuria, No Urinary Frequency, No Hematuria Musculoskeletal: No joint pain, No Myalgias Skin: No Skin Lesions, No rash Neuro: No Weakness, No Numbness, No Dizziness, No Headache Psych: + Anxiety/Panic, No Depression Heme/Lymph: No Bruising, No Lymphadenopathy Endocrine: No Polyuria, No Polydipsia PMFSH Past Medical History Medical History Acute pancreatitis ADHD Congenital hypothyroidism Depression Elevated liver function tests Migraine Surgical History H/O gastric bypass H/O tubal ligation History of cholecystectomy History of Calixto-en-Y gastric bypass Previous section Family History Family History Mother No problems noted. Father No problems noted. Brother No problems noted. Brother No problems noted. Sister No problems noted. Sister No problems noted. Son No problems noted. Social History Social History Household Members: Spouse Housing: House Do you presently have visiting nurse or other home services: No Alcohol intake: never Patient Tobacco Use Status: Never used Tobacco e-Cigarette/Vaping Use: Never Used Advance Directives: No service: No Current occupational status: employed Physical Exam ED Vital Signs: Vital Signs - 24 hr 11/05/21 17:39 11/05/21 20:34 11/05/21 23:14 Temperature 97.2 F Pulse Rate 73 81 106 H Respiratory Rate 24 H 18 16 Blood Pressure 157/81 H 156/74 H 162/77 H Pulse Oximetry 95 99 98 Oxygen Delivery Method Room Air Room Air Room Air BMI result Body Mass Index 27.3 Appearance: Alert. Oriented X3. No acute distress. Eyes: Pupils equal, round and reactive to light. ENT: Pharynx normal. Neck: Normal inspection. Neck supple. CVS: Normal heart rate and rhythm. Pulses normal. Respiratory: No respiratory distress. Breath sounds normal. Abdomen: Soft with middle abdominal tenderness, mild. No rebound or guarding. Normal +BS x4 Skin: Skin warm and dry. Normal skin color. Normal skin turgor. No rashes. Extremities: No lower extremity edema. Neuro: Oriented X 3. Tremulous in the upper extremities. Slightly anxious. Nonfocal. Course Course Course Narrative: 41-year-old female with a history of pancreatitis, history of alcoholism, gastric bypass, who presents to the ER with acute onset abdominal pain, nausea and vomiting that started today. This is in the setting of weaning down on alcohol and not having any alcohol intake in last 48 hours. She appears to be in early alcohol withdrawal. Her CIWA score is 4. She states she has been through alcohol withdrawal at home and this feels similar. She has never been h ospitalized for it and has no history of seizures. She is a difficult stick, labs unable to be obtained at triage. Tech at the bedside now to obtain the lab work. Will give a dose of Ativan, GI cocktail, Zofran and reassess. Reevaluation(s) Reevaluation #1: Labs show acute on chronic elevation of her liver enzymes, mild h yperbilirubinemia and lipase of 180. On previous visits she has had similar lab work, chronic elevation of her alk-phos is also noted. She is status post cholecystectomy in the past. She has no right upper quadrant pain. Suspect her transaminitis and abnormal liver functions are due to alcoholic hepatitis and alcohol abuse. Her magnesium is critically low 1.1. She was given 2 g IV magnesium. She is tolerating p.o.. She is declining need for detox. She would like to be discharged home. Will give her a few tablets of Librium to help her through her [place] withdrawal at home. Will also give her Zofran. We discussed the results of her lab work and need for repeat in the future. Stable for discharge home with outpatient follow-up. MDM - Abdominal Pain Lab Data Result diagrams: 11/05/21 20:31 11/05/21 20:31 Labs: Lab Results 11/05/21 11/05/21 11/05/21 Range/Units 20:31 20:31 20:31 WBC 3.7 L (4.8-10.8) X10*3/uL RBC 3.33 L (4.20-5.50) X10*6/uL Hgb 12.3 (12.0-16.0) g/dl Hct 34.7 L (37.0-47.0) % MCV 104.2 H (80.0-98.0) fL MCH 36.9 H (27.0-33.0) pg MCHC 35.4 H (31.0-35.0) g/dl RDW 14.1 (11.0-16.0) % Plt Count 174 (160-400) X10*3/uL MPV 9.5 (9.4-12.3) fL Immature Gran % (Auto) 0.0 (0.0-0.4) % Neut % (Auto) 66.2 (45-73) % Lymph % (Auto) 27.7 (20-40) % [place] % (Auto) 5.6 (2-11) % Eos % (Auto) 0.0 (0-4) % Baso % (Auto) 0.5 (0-2) % Lymph # (Auto) 1.0 L (1.2-4.9) X10*3/uL [place] # (Auto) 0.2 (0.1-1.2) X10*3/uL Eos # (Auto) 0.0 (0.0-0.4) X10*3/uL Baso # (Auto) 0.0 (0.0-0.2) X10*3/uL Abs Immat Gran (auto) 0.00 (0.00-0.03) X10*3/uL Absolute Neuts (auto) 2.5 (2.0-8.3) x10*3/uL Absolute Nucleated RBC 0.000 (0.0-0.012) X10*3/uL Nucleated RBC % (auto) 0.0 (0.0-0.2) /100WBC Sodium 131 L (135-145) mmol/L Potassium 3.8 (3.3-5.1) mmol/L Chloride 96 (96-108) mmol/L Carbon Dioxide 21 L (22-29) mmol/L Anion Gap 18 (12-20) BUN 9 (9-16) mg/dL Creatinine 0.67 (0.5-1.4) mg/dL Estim Creat Clear Calc 126.3 Estimated GFR > 60 Random Glucose 144 H (60-115) mg/dL Calcium 8.3 L (8.4-10.2) mg/dL Magnesium (1.6-2.6) mg/dL Total Bilirubin (0.0-1.0) mg/dL Direct Bilirubin (0.0-0.5) mg/dL AST (5-31) U/L ALT (0-31) U/L Alkaline Phosphatase (39-117) U/L Total Protein (6.5-8.0) g/dL Albumin (3.5-5.0) g/dL Lipase (8-78) U/L Urine Color DK YELLOW Urine Appearance CLEAR Urine pH 5.5 (5.0-8.0) Ur Specific [place] 1.025 (1.005-1.025) Urine Protein NEG (NEG-TRACE) MG/DL Urine Glucose (UA) NEG (NEG) MG/DL Urine Ketones 5 (NEG) MG/DL Urine Blood NEG (NEG) Urine Nitrite NEG (NEG) Ur Leukocyte Esterase NEG (NEG) Urine RBC 0-2 (0) /HPF Urine WBC 0-2 (0-4) /HPF Ur Squamous Epith Cells 3+ /LPF Amorphous Sediment TRACE /LPF Urine Bacteria TRACE /LPF Urine Mucus 1+ /LPF 11/05/21 Range/Units 20:31 WBC (4.8-10.8) X10*3/uL RBC (4.20-5.50) X10*6/uL Hgb (12.0-16.0) g/dl Hct (37.0-47.0) % MCV (80.0-98.0) fL MCH (27.0-33.0) pg MCHC (31.0-35.0) g/dl RDW (11.0-16.0) % Plt Count (160-400) X10*3/uL MPV (9.4-12.3) fL Immature Gran % (Auto) (0.0-0.4) % Neut % (Auto) (45-73) % Lymph % (Auto) (20-40) % [place] % (Auto) (2-11) % Eos % (Auto) (0-4) % Baso % (Auto) (0-2) % Lymph # (Auto) (1.2-4.9) X10*3/uL [place] # (Auto) (0.1-1.2) X10*3/uL Eos # (Auto) (0.0-0.4) X10*3/uL Baso # (Auto) (0.0-0.2) X10*3/uL Abs Immat Gran (auto) (0.00-0.03) X10*3/uL Absolute Neuts (auto) (2.0-8.3) x10*3/uL Absolute Nucleated RBC (0.0-0.012) X10*3/uL Nucleated RBC % (auto) (0.0-0.2) /100WBC Sodium (135-145) mmol/L Potassium (3.3-5.1) mmol/L Chloride (96-108) mmol/L Carbon Dioxide (22-29) mmol/L Anion Gap (12-20) BUN (9-16) mg/dL Creatinine (0.5-1.4) mg/dL Estim Creat Clear Calc Estimated GFR Random Glucose (60-115) mg/dL Calcium (8.4-10.2) mg/dL Magnesium 1.1 L* (1.6-2.6) mg/dL Total Bilirubin 1.9 H (0.0-1.0) mg/dL Direct Bilirubin 1.0 H (0.0-0.5) mg/dL AST 316 H (5-31) U/L ALT 219 H (0-31) U/L Alkaline Phosphatase 217 H D (39-117) U/L Total Protein 6.8 (6.5-8.0) g/dL Albumin 3.5 (3.5-5.0) g/dL Lipase 180 H (8-78) U/L Urine Color Urine Appearance Urine pH (5.0-8.0) Ur Specific [place] (1.005-1.025) Urine Protein (NEG-TRACE) MG/DL Urine Glucose (UA) (NEG) MG/DL Urine Ketones (NEG) MG/DL Urine Blood (NEG) Urine Nitrite (NEG) Ur Leukocyte Esterase (NEG) Urine RBC (0) /HPF Urine WBC (0-4) /HPF Ur Squamous Epith Cells /LPF Amorphous Sediment /LPF Urine Bacteria /LPF Urine Mucus /LPF Critical Care Time Critical Care Time Critical Care Time: Yes Total Critical Care Time: 35 Attestation: I have personally provided critical care time exclusive of time spent on separately billable procedures. Time includes review of lab data, radiology results, frequent bedside reassessment, and monitoring for potential decompensation. Intervention performed as documented. Discharge Plan Discharge Clinical Impression: Acute alcoholic hepatitis, Hypomagnesemia Patient Disposition: Home, Self-Care Instructions: Alcoholic Hepatitis (ED) Additional Instructions: Your labs showed mild elevation of your liver enzymes and your pancreatic enzy mes. Treatment is supportive care and abstaining from alcohol. Stick to a bland diet while you are not feeling well. Take the prescribed medication as needed for nausea and the prescribed Librium a s needed for alcohol withdrawal symptoms. Recommend following up with GI - name and number below. If you develop new or worsening symptoms call 911 or come back to the ER for further evaluation. Prescriptions: New ondansetron 4 mg tablet,disintegrating 4 mg PO Q8H PRN (Reason: nausea and vomiting) Qty: 10 0RF chlordiazepoxide HCl 25 mg capsule 25 mg PO TID PRN (Reason: alcohol withdrawal) Qty: 8 0RF No Action cholecalciferol (vitamin D3) 50 mcg (2,000 unit) capsule 50 mcg PO DAILY Qty: 30 11RF cetirizine 10 mg Tablet 10 mg PO DAILY calcium carbonate [Calcium 500] 500 mg calcium (1,250 mg) Tablet 500 mg PO DAILY dextroamphetamine-amphetamine 20 mg capsule,extended release 24hr 1 cap PO QAM vitamin B complex Capsule 1 cap PO DAILY amoxicillin-pot clavulanate 875-125 mg tablet 1 tab PO Q12H 7 Days Qty: 14 0RF ondansetron 4 mg tablet,disintegrating 4 mg PO Q8H PRN (Reason: nausea and vomiting) Qty: 6 0RF sulfamethoxazole-trimethoprim [Bactrim DS] 800-160 mg tablet 1 tab PO BID 7 Days Qty: 14 0RF ondansetron 4 mg tablet,disintegrating 4 mg PO ONCE PRN (Reason: nausea and vomiting) Qty: 10 0RF levothyroxine 50 mcg tablet 50 mcg PO DAILY Bariatric Multivitamins 45 mg iron- 800 mcg-120 mcg capsule PO DAILY Referrals: Ciro Kirk MD [Physician] - (alcoholic hepatitis, chronic pancreatitis ) Stand Alone Forms: Work/School Release
[2021-11-05] MEDS: Magnesium Hydrox/Alum Hydrox 30 ML ORAL.SUSP PO (20:13)
[2021-11-05] MEDS: Ondansetron ODT 4 MG TAB.RAPDIS TRANSLINGU (20:13)
[2021-11-05] MEDS: PHENobarb/Hyoscy/Atropine/Scop 10 ML ELIXIR PO (20:14)
[2021-11-05] MEDS: Lidocaine HCl Viscous 2 % 15 ML SOLUTION MUCOUS MEM (20:14)
[2021-11-05 20:34] VITALS: BP 156/74; PULSE 81; RESP 18; O2SAT 99
[2021-11-05 20:43] LABS: MANUAL DIFF FLAG NO
[2021-11-05 20:45] LABS: Appearance Urine CLEAR; Basophils Percent Auto 0.5 % (0-2); Color Urine DK YELLOW; Glucose Urine UA NEG (NEG); Hematocrit 34.7 % (37.0-47.0); Hemoglobin 12.3 g/dl (12.0-16.0); Leukocyte Esterase Urine NEG (NEG); Lymphocytes Percent Auto 27.7 % (20-40); Mean Corpuscular HGB Conc 35.4 g/dl (31.0-35.0); Mean Corpuscular Hemoglobin 36.9 pg (27.0-33.0); Mean Corpuscular Volume 104.2 fL (80.0-98.0); Mean Platelet Volume 9.5 fL (9.4-12.3); Monocytes Absolute Auto 0.2 X10*3/uL (0.1-1.2); Monocytes Percent Auto 5.6 % (2-11); Neutrophils Absolute Auto 2.5 x10*3/uL (2.0-8.3); Neutrophils Percent Auto 66.2 % (45-73); Nitrite Urine NEG (NEG); PH 5.5 (5.0-8.0); Platelet Count 174 X10*3/uL (160-400); Red Blood Count 3.33 X10*6/uL (4.20-5.50); Red Cell Distribution Width 14.1 % (11.0-16.0); Specific Gravity - Urine 1.025 (1.005-1.025); Urine Blood NEG (NEG); Urine Ketones 5 MG/DL (NEG); Urine Protein NEG (NEG-TRACE); White Blood Count 3.7 X10*3/uL (4.8-10.8)
[2021-11-05 20:56] LABS: Squamous Epithelial Cell Urine 3+ /LPF
[2021-11-05 20:57] LABS: Amorphous Sediment Urine TRACE /LPF; Bacteria Urine TRACE /LPF; Mucus Urine 1+ /LPF
[2021-11-05 20:58] LABS: RBC Urine 0-2 /HPF (0); WBC Urine 0-2 /HPF (0-4)
[2021-11-05 20:59] LABS: Anion Gap 18 (12-20); Blood Urea Nitrogen 9 mg/dL (9-16); Calcium 8.3 mg/dL (8.4-10.2); Carbon Dioxide 21 mmol/L (22-29); Chloride 96 mmol/L (96-108); Creatinine Clr Calc Pharmacy 126.3; Estimated Glomerular Filt Rate > 60; Glucose Random 144 mg/dL (60-115); Potassium 3.8 mmol/L (3.3-5.1); Sodium 131 mmol/L (135-145)
[2021-11-05] MEDS: LORazepam 1 MG TABLET PO (21:07)
[2021-11-05 21:09] LABS: Alanine Aminotransferase 219 U/L (0-31); Albumin Level 3.5 g/dL (3.5-5.0); Alkaline Phosphatase 217 U/L (39-117); Aspartate Amino Transferase 316 U/L (5-31); Bilirubin Total 1.9 mg/dL (0.0-1.0); Lipase 180 U/L (8-78); Magnesium 1.1 mg/dL (1.6-2.6); Total Protein 6.8 g/dL (6.5-8.0)
[2021-11-05] MEDS: Magnesium Sulfate/H2O 2 GM/50 ML PIGGYBACK IV (21:30)
[2021-11-05 23:14] VITALS: BP 162/77; PULSE 106; RESP 16; O2SAT 98
[2021-11-06] MEDS: chlordiazePOXIDE HCl 25 MG CAPSULE PO (00:13)
[2021-11-06 00:25] VITALS: BP 173/80; PULSE 93; RESP 17; TEMP 37.1; O2SAT 100
== END 2021-11-06 00:34 | disposition home or self-care (01) ==
PROVIDERS: Physician Assistant; Emergency Provider Internal Medicine
DX: K70.10 Alcoholic hepatitis without ascites (principal); E83.42 Hypomagnesemia; Z79.899 Other long term (current) drug therapy; Z98.84 Bariatric surgery status
CPT/HCPCS: 36415; 80048; 80076; 81001; 83690; 83735; 85025; 96365; 99284; J3475

== ENCOUNTER 2021-12-10 20:32 | Emergency (ER) | payer OTHER, MEDICAID, SELFPAY ==
--- NOTE | ~2021-12-10 | CT_ITS ---
EXAMINATION: NONCONTRAST HEAD CT NONCONTRAST MAXILLOFACIAL CT INDICATION INFORMATION: Fall. Contusion to left cheek. COMPARISON: None TECHNIQUE: Separate noncontrast CT examinations of the head and maxillofacial bones were performed. Coronal and sagittal images were created for each examination at the technologist workstation. This CT examination was performed using dose optimization techniques as appropriate, variously including the following: *Automated exposure control *Adjustment of mA and/or kV according to patient size (this includes techniques or standardized protocols for targeted exams where dose is matched to indication/reason for exam; i.e. extremities or head) *Use of iterative reconstruction technique DLP: 871 mGy-cm FINDINGS: Head: There is no evidence of acute intracranial hemorrhage or territorial infarction. No abnormal mass effect or midline shift is seen. [place] to white matter differentiation is well preserved. No extra-axial fluid collections are identified. No hydrocephalus. No significant volume loss. There is no abnormal attenuation within the brain parenchyma. No acute soft tissue abnormality. No calvarial fracture. The mastoid air cells are well aerated. Maxillofacial: No acute maxillofacial fractures are seen. The pterygoid plates are intact. The lamina papyracea are intact. The zygomatic arches are intact. The orbital rims are intact. Mandible and temporomandibular joints are intact. Scattered mucous retention cysts within the bilateral maxillary sinuses. Remainder of the paranasal sinuses are clear. The uncinate process is normal bilaterally. The infundibula and middle meati are patent. The nasal septum is midline. The orbits demonstrate a normal appearance bilaterally. The globes are intact, and there are no suspicious findings to suggest retrobulbar hemorrhage. Soft tissues unremarkable. CT/CT facial bones wo con IMPRESSION: 1. No acute intracranial findings. 2. No acute maxillofacial fracture.
[2021-12-10 20:54] VITALS: BP 104/64; PULSE 82; RESP 18; TEMP 37.2; O2SAT 96; BMI 27.3
[2021-12-10 21:09] LABS: MANUAL DIFF FLAG NO
[2021-12-10 21:12] LABS: Basophils Percent Auto 0.7 % (0-2); Eosinophils Percent Auto 0.7 % (0-4); Hematocrit 33.9 % (37.0-47.0); Hemoglobin 11.4 g/dl (12.0-16.0); Imm Gran Abs Auto 0.02 X10*3/uL (0.00-0.03); Imm Gran Pct Auto 0.4 % (0.0-0.4); Lymphocytes Absolute Auto 2.2 X10*3/uL (1.2-4.9); Lymphocytes Percent Auto 50.3 % (20-40); Mean Corpuscular HGB Conc 33.6 g/dl (31.0-35.0); Mean Corpuscular Hemoglobin 35.5 pg (27.0-33.0); Mean Corpuscular Volume 105.6 fL (80.0-98.0); Mean Platelet Volume 10.4 fL (9.4-12.3); Monocytes Absolute Auto 0.4 X10*3/uL (0.1-1.2); Monocytes Percent Auto 8.5 % (2-11); Neutrophils Absolute Auto 1.8 x10*3/uL (2.0-8.3); Neutrophils Percent Auto 39.4 % (45-73); Platelet Count 140 X10*3/uL (160-400); Red Blood Count 3.21 X10*6/uL (4.20-5.50); Red Cell Distribution Width 15.2 % (11.0-16.0); White Blood Count 4.5 X10*3/uL (4.8-10.8)
[2021-12-10 21:30] LABS: Alanine Aminotransferase 63 U/L (0-31); Albumin Level 3.2 g/dL (3.5-5.0); Alkaline Phosphatase 206 U/L (39-117); Anion Gap 19 (12-20); Aspartate Amino Transferase 89 U/L (5-31); Bilirubin Direct 0.2 mg/dL (0.0-0.5); Bilirubin Total 0.8 mg/dL (0.0-1.0); Blood Urea Nitrogen 12 mg/dL (9-16); Calcium 8.2 mg/dL (8.4-10.2); Carbon Dioxide 16 mmol/L (22-29); Chloride 110 mmol/L (96-108); Creatinine Clr Calc Pharmacy 124.4; Estimated Glomerular Filt Rate > 60; Glucose Random 79 mg/dL (60-115); Potassium 4.8 mmol/L (3.3-5.1); Sodium 140 mmol/L (135-145); Total Protein 7.1 g/dL (6.5-8.0)
[2021-12-10 22:19] LABS: Ethanol 363 mg/dL; Lipase 38 U/L (8-78)
[2021-12-10 22:53] VITALS: BP 94/56; PULSE 74; RESP 14; O2SAT 98
[2021-12-10 23:09] LABS: Appearance Urine CLEAR; Color Urine STRAW; Glucose Urine UA NEG (NEG); Leukocyte Esterase Urine NEG (NEG); Nitrite Urine NEG (NEG); Specific Gravity - Urine <= 1.005 (1.005-1.025); Urine Blood NEG (NEG); Urine Ketones NEG (NEG); Urine Protein NEG (NEG-TRACE)
[2021-12-10 23:10] LABS: UPreg QC Valid YES
[2021-12-10 23:11] LABS: Urine Pregnancy NEGATIVE (NEGATIVE)
[2021-12-10 23:26] LABS: COVID-19 Test Negative (Negative)
--- NOTE | 2021-12-10 23:39 | PC.NURSE ---
This US called [facility] med Records for Dr. Huerta @ 23:38
[2021-12-10] MEDS: 0.9 % Sodium Chloride 2,000 ML 999 ML IV (23:43)
[2021-12-11] VITALS: BP 102/72; PULSE 71; RESP 13; O2SAT 98
--- NOTE | 2021-12-11 00:01 | ED_ITS ---
HPI - Female Genitourinary General Chief complaint: Urogenital-Female Stated complaint: complications with UTI Time Seen by Provider: 12/10/21 21:58 Source: patient Mode of arrival: ambulatory History of Present Illness HPI Narrative: 41-year-old female who has complaints that her UTI has not been adequately treated with her current antibiotic regimen and states that she was seen at [facility] 2 days ago but the urine culture has not been returned yet at this time. Patient states that she is currently on Bactrim and that the antibiotic has been switched to Cipro but she has not picked that up. She denies any fever, chills, but states that she has had several episodes of nausea and vomiting without evidence of blood. Patient denies any alcohol consumption at this time and denies any alcohol withdrawal symptoms in the past such as seizures or hallucinations. However on reference to the triage note both the patient and spouse are concerned regarding increased fevers and confusion. Patient also reports that she has abrasions at her left cheek and shoulder that she sustained when she fell. Related Data Home Medications Medication Instructions Recorded Confirmed calcium carbonate 500 mg calcium 500 mg PO DAILY 01/03/21 08/22/21 (1,250 mg) tablet (Calcium 500) cetirizine 10 mg tablet 10 mg PO DAILY 01/03/21 08/22/21 dextroamphetamine-amphetamine ER 1 cap PO QAM 01/03/21 08/22/21 20 mg 24hr capsule,extend release vitamin B complex 1 cap PO DAILY 01/03/21 08/22/21 levothyroxine 50 mcg tablet 50 mcg PO DAILY 08/22/21 08/22/21 [id number] 45 mg-folic cap PO DAILY 08/22/21 08/22/21 acid 800 mcg-vit K 120 mcg capsule (Bariatric Multivitamins) Previous Rx's Medication Instructions Recorded cholecalciferol (vitamin D3) 50 50 mcg PO DAILY #30 caps 08/23/21 mcg (2,000 unit) capsule ondansetron 4 mg disintegrating 4 mg PO ONCE PRN nausea and 09/07/21 tablet vomiting #10 tabs amoxicillin 875 mg-potassium 1 tab PO Q12H 7 days #14 tabs 10/14/21 clavulanate 125 mg tablet ondansetron 4 mg disintegrating 4 mg PO Q8H PRN nausea and 05/29/22 tablet vomiting #6 tabs sulfamethoxazole 800 1 tab PO BID uti 7 days #14 tabs 10/18/21 mg-trimethoprim 160 mg tablet (Bactrim DS) chlordiazepoxide HCl 25 mg capsule 25 mg PO TID PRN alcohol 11/06/21 withdrawal #8 caps ondansetron 4 mg disintegrating 4 mg PO Q8H PRN nausea and 11/06/21 tablet vomiting #10 tabs Allergies Allergy/AdvReac Type Severity Reaction Status Date / Time shellfish derived Allergy Severe ANAPHYLAXIS Verified 08/22/21 15:07 [SHELLFISH DERIVED] benztropine [From COGENTIN] Allergy Intermediate PSYCHOSIS Verified 08/22/21 15:07 gabapentin [GABAPENTIN] Allergy Intermediate PSYCHOSIS Verified 08/22/21 15:07 amantadine [AMANTADINE] Allergy Mild HIVES, rash Verified 08/22/21 15:07 seafood Allergy Unknown anaphylaxis Uncoded 01/05/21 11:54 Review of Systems Review of Systems: Pertinent positives and negatives as stated in HPI 10 point review of systems is otherwise negative. [facility] Past Medical History Source: nursing notes reviewed Medical History Acute pancreatitis ADHD Congenital hypothyroidism Depression Elevated liver function tests Migraine Surgical History H/O gastric bypass H/O tubal ligation History of cholecystectomy History of Calixto-en-Y gastric bypass Previous section Family History Family History Mother No problems noted. Father No problems noted. Brother No problems noted. Brother No problems noted. Sister No problems noted. Sister No problems noted. Son No problems noted. Social History Social History Household Members: Spouse Housing: House Do you presently have visiting nurse or other home services: No Alcohol intake: current Alcohol intake frequency: 0-2 drinks per day Alcohol ty pe: hard liquor Patient Tobacco Use Status: Never used Tobacco e-Cigarette/Vaping Use: Never Used Use of substances other than those prescribed or required for medical reasons: No Advance Directives: No Advance Directives Information Provided: No Patient : No service: No Current occupational status: employed Physical Exam Vital Signs: Vital Signs: Last Vital Signs Temp 99.0 F 12/10/21 20:54 Pulse 90 12/11/21 03:47 Resp 13 12/11/21 00:00 BP 114/59 L 12/11/21 03:47 Pulse Ox 92 12/11/21 03:47 O2 Del Method 12/11/21 03:47 BMI result Body Mass Index 27.3 VITAL SIGNS: Reviewed. GENERAL: Well developed, well nourished, in no acute distress but appears to be intoxicated. HEAD: Normocephalic/atraumatic EYES: PERRLA, EOMI EARS: Ext canals without abnormality OROPHARYNX: no oral lesions noted, posterior pharynx clear LUNGS: Normal breath sounds. No adventitious sounds or accessory muscle use. SpO2<98> CARDIOVASCULAR: Regular rate and rhythm without noted murmurs ABDOMEN: Soft, non-tender, non-distended with bowel sounds. MUSCULOSKELETAL: No tenderness, deformities, or effusions noted on gross inspection. EXTREMITIES: No cyanosis, clubbing or edema. SKIN: Inspection of the skin reveals no rashes NEUROLOGIC: Alert and oriented x 4. Strength and sensation to light touch were grossly intact x 4. Course Course Course Narrative: 41-year-old female who presents with complaints regarding urinary symptoms, but she is currently on antibiotics and on review of prior urine cultures the antibiotics should cover her UTI. I obtained records from [facility] and it appears patient was last seen there on 12/06/2021 and at that time the urine culture showed no growth. I suspect patient is intoxicated and on review of BAL it is noted to be well over 300. Urinalysis appears to be within normal limits. Review of all investigations indicative dehydration and likely a mild alcohol related ketoacidosis, patient received 2 L of IV fluids as well as combination analgesics for the pain in her face and on re-evaluation patient is feeling much better. Review of all imaging negative for acute fractures Or intracranial pathology. Patient has been informed of all results as well as a plan for discharge. MDM - Female Genitourinary Lab Data Result diagrams: 12/10/21 21:05 12/11/21 03:19 Labs: Lab Results 12/10/21 12/10/21 12/10/21 Range/Units 21:05 21:05 23:00 WBC 4.5 L (4.8-10.8) X10*3/uL RBC 3.21 L (4.20-5.50) X10*6/uL Hgb 11.4 L (12.0-16.0) g/dl Hct 33.9 L (37.0-47.0) % MCV 105.6 H (80.0-98.0) fL MCH 35.5 H (27.0-33.0) pg MCHC 33.6 (31.0-35.0) g/dl RDW 15.2 (11.0-16.0) % Plt Count 140 L (160-400) X10*3/uL MPV 10.4 (9.4-12.3) fL Immature Gran % (Auto) 0.4 (0.0-0.4) % Neut % (Auto) 39.4 L (45-73) % Lymph % (Auto) 50.3 H (20-40) % [place]eman % (Auto) 8.5 (2-11) % Eos % (Auto) 0.7 (0-4) % Baso % (Auto) 0.7 (0-2) % Lymph # (Auto) 2.2 (1.2-4.9) X10*3/uL [place] # (Auto) 0.4 (0.1-1.2) X10*3/uL Eos # (Auto) 0.0 (0.0-0.4) X10*3/uL Baso # (Auto) 0.0 (0.0-0.2) X10*3/uL Abs Immat Gran (auto) 0.02 (0.00-0.03) X10*3/uL Absolute Neuts (auto) 1.8 L (2.0-8.3) x10*3/uL Absolute Nucleated RBC 0.000 (0.0-0.012) X10*3/uL Nucleated RBC % (auto) 0.0 (0.0-0.2) /100WBC Sodium 140 (135-145) mmol/L Potassium 4.8 D (3.3-5.1) mmol/L Chloride 110 H (96-108) mmol/L Carbon Dioxide 16 L (22-29) mmol/L Anion Gap 19 (12-20) BUN 12 (9-16) mg/dL Creatinine 0.68 (0.5-1.4) mg/dL Estim Creat Clear Calc 124.4 Estimated GFR > 60 Random Glucose 79 (60-115) mg/dL Calcium 8.2 L (8.4-10.2) mg/dL Magnesium Cancelled Total Bilirubin 0.8 (0.0-1.0) mg/dL Direct Bilirubin 0.2 (0.0-0.5) mg/dL AST 89 H (5-31) U/L ALT 63 H (0-31) U/L Alkaline Phosphatase 206 H (39-117) U/L Total Protein 7.1 (6.5-8.0) g/dL Albumin 3.2 L (3.5-5.0) g/dL Lipase 38 (8-78) U/L Urine Color Urine Appearance Urine pH (5.0-8.0) Ur Specific [place] (1.005-1.025) Urine Protein (NEG-TRACE) MG/DL Urine Glucose (UA) (NEG) MG/DL Urine Ketones (NEG) MG/DL Urine Blood (NEG) Urine Nitrite (NEG) Ur Leukocyte Esterase (NEG) Urine Test (NEGATIVE) Ethyl Alcohol 363 H* mg/dL COVID-19 (ANIKET) Negative (Negative) COVID-19 Clin Com See Note 12/10/21 12/10/21 12/11/21 Range/Units 23:00 23:00 03:19 WBC (4.8-10.8) X10*3/uL RBC (4.20-5.50) X10*6/uL Hgb (12.0-16.0) g/dl Hct (37.0-47.0) % MCV (80.0-98.0) fL MCH (27.0-33.0) pg MCHC (31.0-35.0) g/dl RDW (11.0-16.0) % Plt Count (160-400) X10*3/uL MPV (9.4-12.3) fL Immature Gran % (Auto) (0.0-0.4) % Neut % (Auto) (45-73) % Lymph % (Auto) (20-40) % Hodgeman % (Auto) (2-11) % Eos % (Auto) (0-4) % Baso % (Auto) (0-2) % Lymph # (Auto) (1.2-4.9) X10*3/uL [place] # (Auto) (0.1-1.2) X10*3/uL Eos # (Auto) (0.0-0.4) X10*3/uL Baso # (Auto) (0.0-0.2) X10*3/uL Abs Immat Gran (auto) (0.00-0.03) X10*3/uL Absolute Neuts (auto) (2.0-8.3) x10*3/uL Absolute Nucleated RBC (0.0-0.012) X10*3/uL Nucleated RBC % (auto) (0.0-0.2) /100WBC Sodium 144 (135-145) mmol/L Potassium 4.0 (3.3-5.1) mmol/L Chloride 113 H (96-108) mmol/L Carbon Dioxide 21 L (22-29) mmol/L Anion Gap 14 (12-20) BUN 11 (9-16) mg/dL Creatinine 0.76 (0.5-1.4) mg/dL Estim Creat Clear Calc 111.4 Estimated GFR > 60 Random Glucose 138 H (60-115) mg/dL Calcium 7.3 L D (8.4-10.2) mg/dL Magnesium Total Bilirubin (0.0-1.0) mg/dL Direct Bilirubin (0.0-0.5) mg/dL AST (5-31) U/L ALT (0-31) U/L Alkaline Phosphatase (39-117) U/L Total Protein (6.5-8.0) g/dL Albumin (3.5-5.0) g/dL Lipase (8-78) U/L Urine Color STRAW Urine Appearance CLEAR Urine pH 6.0 (5.0-8.0) Ur Specific [place] <= 1.005 (1.005-1.025) Urine Protein NEG (NEG-TRACE) MG/DL Urine Glucose (UA) NEG (NEG) MG/DL Urine Ketones NEG (NEG) MG/DL Urine Blood NEG (NEG) Urine Nitrite NEG (NEG) Ur Leukocyte Esterase NEG (NEG) Urine Test NEGATIVE (NEGATIVE) Ethyl Alcohol mg/dL COVID-19 (ANIKET) (Negative) COVID-19 Clin Com Discharge Plan Discharge Clinical Impression: Dysuria, Alcohol intoxication, Dehydration Patient Disposition: Home, Self-Care Instructions: Dehydration (ED), Alcohol Intoxication (ED), Dysuria (ED) Additional Instructions: 1. Resume all home medications as prescribed. 2. Increase fluid hydration, especially with water. 3. Follow-up with your primary care provider by calling the office in the morning. Return to the ER for worsening symptoms. Prescriptions: No Action cholecalciferol (vitamin D3) 50 mcg (2,000 unit) capsule 50 mcg PO DAILY Qty: 30 11RF cetirizine 10 mg Tablet 10 mg PO DAILY calcium carbonate [Calcium 500] 500 mg calcium (1,250 mg) Tablet 500 mg PO DAILY dextroamphetamine-amphetamine 20 mg capsule,extended release 24hr 1 cap PO QAM vitamin B complex Capsule 1 cap PO DAILY amoxicillin-pot clavulanate 875-125 mg tablet 1 tab PO Q12H 7 Days Qty: 14 0RF ondansetron 4 mg tablet,disintegrating 4 mg PO Q8H PRN (Reason: nausea and vomiting) Qty: 6 0RF sulfamethoxazole-trimethoprim [Bactrim DS] 800-160 mg tablet 1 tab PO BID 7 Days Qty: 14 0RF ondansetron 4 mg tablet,disintegrating 4 mg PO ONCE PRN (Reason: nausea and vomiting) Qty: 10 0RF ondansetron 4 mg tablet,disintegrating 4 mg PO Q8H PRN (Reason: nausea and vomiting) Qty: 10 0RF chlordiazepoxide HCl 25 mg capsule 25 mg PO TID PRN (Reason: alcohol withdrawal) Qty: 8 0RF levothyroxine 50 mcg tablet 50 mcg PO DAILY Bariatric Multivitamins 45 mg iron- 800 mcg-120 mcg capsule PO DAILY Referrals: Skinny Stout MD [Primary Care Provider] - Stand Alone Forms: Work/School Release
[2021-12-11 01:48] VITALS: BP 110/74; PULSE 78; O2SAT 97
[2021-12-11] MEDS: Ibuprofen 400 MG TABLET PO (02:18)
[2021-12-11] MEDS: Acetaminophen 325 MG TABLET 975 MG PO (02:19)
--- NOTE | 2021-12-11 02:21 | PC.NURSE ---
pt reporting increased left sided facial pain, medicated per provider order.
[2021-12-11 03:41] LABS: Anion Gap 14 (12-20); Blood Urea Nitrogen 11 mg/dL (9-16); Calcium 7.3 mg/dL (8.4-10.2); Carbon Dioxide 21 mmol/L (22-29); Chloride 113 mmol/L (96-108); Creatinine Clr Calc Pharmacy 111.4; Estimated Glomerular Filt Rate > 60; Glucose Random 138 mg/dL (60-115); Sodium 144 mmol/L (135-145)
[2021-12-11 03:47] VITALS: BP 114/59; PULSE 90; O2SAT 92
[2021-12-11 04:16] LABS: Magnesium 1.5 mg/dL (1.6-2.6)
== END 2021-12-11 04:44 | disposition home or self-care (01) ==
PROVIDERS: Emergency Provider Student in an Organized Health Care Education/Training Program; PCP Family Medicine
DX: N39.0 Urinary tract infection, site not specified (principal); R30.0 Dysuria; R51.9 Headache, unspecified; F10.129 Alcohol abuse with intoxication, unspecified; Y90.8 Blood alcohol level of 240 mg/100 ml or more; Z20.822 Contact with and (suspected) exposure to COVID-19; Z79.899 Other long term (current) drug therapy
CPT/HCPCS: 36415; 70450; 70486; 80048; 80053; 81003; 81025; 82077; 82248; 83690; 83735; 85025; 87635; 96360; 96361; 99284

== ENCOUNTER 2022-02-11 20:11 | Emergency (ER) | payer OTHER, MEDICAID, SELFPAY ==
[2022-02-11 20:15] VITALS: BP 90/48; PULSE 83; RESP 16; TEMP 36.8; O2SAT 96; BMI 28.1
--- NOTE | 2022-02-11 23:02 | ED_ITS ---
HPI - Allergic Reaction General Chief complaint: Allergic Reaction Stated complaint: allergic reaction epi pen given Time Seen by Provider: 02/11/22 22:59 Source: patient Mode of arrival: ambulatory Limitations: no limitations History of Present Illness HPI narrative: 41-year-old female presenting to the ER with complaints of possible allergic reaction that occurred prior to arrival. She reports that she ordered onion rings from a [place] location and she believes that they cross contaminated with seafood and she is allergic to seafood. She developed some scratchy throat after eating the onion rings therefore she took her EpiPen at approximately 19:30. She reports that she is feeling much better. She denies any symptoms at this time. Requesting for refill for her EpiPen. complaint: allergic reaction Onset (ago): hour(s) (Prior to arrival) Exposure: food (See above) Symptoms: other (Scratchy throat) Severity: mild Treatment prior to arrival: epinephrine Previous Allergic Reaction History: prior ED visit(s) Related Data Home Medications Medication Instructions Recorded Confirmed calcium carbonate 500 mg calcium 500 mg PO DAILY 01/03/21 08/22/21 (1,250 mg) tablet (Calcium 500) cetirizine 10 mg tablet 10 mg PO DAILY 01/03/21 08/22/21 dextroamphetamine-amphetamine ER 1 cap PO QAM 01/03/21 08/22/21 20 mg 24hr capsule,extend release vitamin B complex 1 cap PO DAILY 01/03/21 08/22/21 levothyroxine 50 mcg tablet 50 mcg PO DAILY 08/22/21 08/22/21 bfptkock-[id number]-[id number] 45 mg-folic cap PO DAILY 08/22/21 08/22/21 acid 800 mcg-vit K 120 mcg capsule (Bariatric Multivitamins) Previous Rx's Medication Instructions Recorded cholecalciferol (vitamin D3) 50 50 mcg PO DAILY #30 caps 08/23/21 mcg (2,000 unit) capsule ondansetron 4 mg disintegrating 4 mg PO ONCE PRN nausea and 09/07/21 tablet vomiting #10 tabs amoxicillin 875 mg-potassium 1 tab PO Q12H 7 days #14 tabs 10/14/21 clavulanate 125 mg tablet ondansetron 4 mg disintegrating 4 mg PO Q8H PRN nausea and 10/14/21 tablet vomiting #6 tabs sulfamethoxazole 800 1 tab PO BID uti 7 days #14 tabs 10/18/21 mg-trimethoprim 160 mg tablet (Bactrim DS) chlordiazepoxide HCl 25 mg capsule 25 mg PO TID PRN alcohol 11/06/21 withdrawal #8 caps ondansetron 4 mg disintegrating 4 mg PO Q8H PRN nausea and 11/06/21 tablet vomiting #10 tabs diphenhydramine HCl 25 mg tablet 50 mg PO TID PRN allergic reaction 02/11/22 (Benadryl Allergy) #10 tabs epinephrine 0.3 mg/0.3 mL 0.3 mg (0.3 mL) IM Q20M PRN 02/11/22 injection, auto-injector (EpiPen) anaphylaxis #2 ea prednisone 20 mg tablet 40 mg PO DAILY rash 5 days #10 tabs 02/11/22 Allergies Allergy/AdvReac Type Severity Reaction Status Date / Time shellfish derived Allergy Severe ANAPHYLAXIS Verified 08/22/21 15:07 [SHELLFISH DERIVED] benztropine [From COGENTIN] Allergy Intermediate PSYCHOSIS Verified 08/22/21 15:07 gabapentin [GABAPENTIN] Allergy Intermediate PSYCHOSIS Verified 08/22/21 15:07 amantadine [AMANTADINE] Allergy Mild HIVES, rash Verified 08/22/21 15:07 seafood Allergy Unknown anaphylaxis Uncoded 01/05/21 11:54 Review of Systems Review of Systems: Constitutional : No Fever, No Chills , no body aches, no recent illness Head/Face: No facial swelling, No facial redness ENT/Mouth : + resolved scratchy throat, No oral/throat swelling, No Hoarseness, No Swallowing Difficulty Eyes: No Eye Pain, No Swelling, No Redness Cardiovascular : No Chest Pain, No SOB, No palpitations Respiratory : No Cough, No Sputum, No Wheezing, No Smoke Exposure, No Dyspnea Gastrointestinal : No Nausea, No Vomiting, No Diarrhea, No abdominal Pain Genitourinary : No Dysuria, No Urinary Frequency, No Hematuria Musculoskeletal : No joint pain, No Myalgias, No Joint Swelling Skin : No Skin Lesions, No rash Neuro : No Weakness, No Numbness, No Headache, No dizziness, No tingling Psych : No Anxiety/Panic, No Depression Heme/Lymph: No Bruising, No Lymphadenopathy Endocrine : No Polyuria, No Polydipsia Denies changes in lotions or detergents. Denies new medications or any changes in medications. Denies drainage from rash. Denies any recent sick contacts or recent travel. Yes all other systems are reviewed and are negative [facility] Past Medical History Attestation statement: The following information was validated with the patient. Source: old records reviewed and nursing notes reviewed Medical History Acute pancreatitis ADHD Congenital hypothyroidism Depression Elevated liver function tests Migraine Surgical History H/O gastric bypass H/O tubal ligation History of cholecystectomy History of Calixto-en-Y gastric bypass Previous section Family History Family History Mother No problems noted. Father No problems noted. Brother No problems noted. Brother No problems noted. Sister No problems noted. Sister No problems noted. Son No problems noted. Social History Social History Household Members: Spouse Housing: House Do you presently have visiting nurse or other home services: No Alcohol intake: current Alcohol intake frequency: 0-2 drinks per day Alcohol type: hard liquor Patient Tobacco Use Status: Never used Tobacco e-Cigarette/Vaping Use: Never Used Advance Directives: No Advance Directives Information Provided: No service: No Current occupational status: employed Physical Exam ED Vital Signs: Vital Signs - 24 hr 02/11/22 20:15 Temperature 98.2 F Pulse Rate 83 Respiratory Rate 16 Blood Pressure 90/48 L Pulse Oximetry 96 Oxygen Delivery Method Room Air BMI result Body Mass Index 28.1 vital signs have been reviewed as normal and appeared to be correct. Blood pressure normal. Heart rate normal. Respiration rate normal. Temperature normal. Oxygen saturation normal. Appearance: Alert. Oriented X3. No acute distress. Head: Normal external exam. Normocephalic. Atraumatic. Eyes: PERRLA. EOMI. Conjunctiva and sclera normal. Eyelids normal. ENT: Pharynx normal. Uvula midline. Moist mucous membranes. No lesions/ulcerations or masses noted on the tongue. Normal voice. No trismus noted. No drooling noted. No muffled voice noted. Neck: Normal inspection. Neck supple. FROM. No adenopathy. Thyroid Normal. No tracheal deviation noted. No crepitus is noted. No meningeal signs. No neck mass noted. No signs of trauma noted. CVS: Normal heart rate and rhythm. Heart sound normal. Pulses normal throughout. No murmurs/rales/gallops. Respiratory: No respiratory distress. Painless inspiration. Breath sounds normal. No wheezes/rales/rhonchi noted. Chest nontender. No crepitus is noted. No signs of trauma noted. No accessory muscle usage noted or decreased air movement noted. No signs of trauma. Abdomen: Soft and nontender. Bowel sounds normal in all 4 quadrants. No distention noted. No organomegaly noted. No visible injury noted. Back: No CVA tenderness. Full range of motion noted. Nontender. No signs of trauma. Patient neuro intact bilaterally and distally on all 4 extremities. Patient's reflexes intact bilaterally and distally on all 4 extremities. No rashes/lesion/induration/fluctuance or signs of infection noted. Skin: Skin warm and dry. Normal skin color. Normal skin turgor. No rashes/lesions/lacerations noted. Extremities: No lower extremity edema. No calf tenderness is noted. Extre mities exhibit normal range of motion and nontender. Neuro: Oriented X 3. No motor deficit. No sensory deficit. Reflexes normal. Normal steady gait. No focal neuro deficits noted. CN's II-XII intact bilaterally? Vascular: + radial pulses/+ 2 distal pedal pulses/+2 dorsalis pedis b/l. Normal cap refill. No cyanosis noted to upper extremity nails and lower extremity toes nails. Course Course Course Narrative: IMP/Plan: Allergic rxn. Not anaphylaxis. Not sepsis/ infectious etiology. Patient well appearing in no acute distress, breathing easily without throat symptoms. Speaking full sentences, and handling secretions without difficulty. There is no obvious threat to airway. Lungs are CTA in all rojas. No signs of angioedema, stridor, airway compromise, anaphylaxis or anaphylactic shock. Not c/w SSSS/ TEN/ Eryth multiforme/ [place]. Given HPI and PE - Will watch and observe. If patient continues to be symptom free - will d/c with return precautions. Patient understands and agrees with plan MDM - Allergic Reaction Medical Records Attestation: I reviewed the patient's medical records. Discharge Plan Discharge Clinical Impression: Allergic reaction Patient Disposition: Home, Self-Care Instructions: General Allergic Reaction (ED) Prescriptions: New diphenhydramine HCl [Benadryl Allergy] 25 mg tablet 50 mg PO TID PRN (Reason: allergic reaction) Qty: 10 0RF prednisone 20 mg tablet 40 mg PO DAILY 5 Days Qty: 10 0RF epinephrine [EpiPen] 0.3 mg/0.3 mL auto-injector 0.3 mg IM Q20M PRN (Reason: anaphylaxis) Qty: 2 0RF Rx Instructions: do not exceed 3 doses per episode No Action cholecalciferol (vitamin D3) 50 mcg (2,000 unit) capsule 50 mcg PO DAILY Qty: 30 11RF cetirizine 10 mg Tablet 10 mg PO DAILY calcium carbonate [Calcium 500] 500 mg calcium (1,250 mg) Tablet 500 mg PO DAILY dextroamphetamine-amphetamine 20 mg capsule,extended release 24hr 1 cap PO QAM vitamin B complex Capsule 1 cap PO DAILY amoxicillin-pot clavulanate 875-125 mg tablet 1 tab PO Q12H 7 Days Qty: 14 0RF ondansetron 4 mg tablet,disintegrating 4 mg PO Q8H PRN (Reason: nausea and vomiting) Qty: 6 0RF sulfamethoxazole-trimethoprim [Bactrim DS] 800-160 mg tablet 1 tab PO BID 7 Days Qty: 14 0RF ondansetron 4 mg tablet,disintegrating 4 mg PO ONCE PRN (Reason: nausea and vomiting) Qty: 10 0RF ondansetron 4 mg tablet,disintegrating 4 mg PO Q8H PRN (Reason: nausea and vomiting) Qty: 10 0RF chlordiazepoxide HCl 25 mg capsule 25 mg PO TID PRN (Reason: alcohol withdrawal) Qty: 8 0RF levothyroxine 50 mcg tablet 50 mcg PO DAILY Bariatric Multivitamins 45 mg iron- 800 mcg-120 mcg capsule PO DAILY Referrals: Physician,Unknown J [Primary Care Provider] - 2 days (your pcp) Interventions: ED Discharge Assessment Last Done: 02/11/22 23:09 Discharge Date/Time: 02/11/22 23:09
== END 2022-02-11 23:09 | disposition home or self-care (01) ==
PROVIDERS: Emergency Provider Student in an Organized Health Care Education/Training Program
DX: T78.40XA Allergy, unspecified, initial encounter (principal); X58.XXXA Exposure to other specified factors, initial encounter; Z98.84 Bariatric surgery status
CPT/HCPCS: 99282; 99283

== ENCOUNTER 2022-03-08 09:01 | Emergency (ER) | payer OTHER, MEDICAID, SELFPAY ==
--- NOTE | ~2022-03-08 | CT_ITS ---
EXAMINATION: CT HEAD WITHOUT CONTRAST CLINICAL INFORMATION: Trauma, dizziness COMPARISON: CT had noncontrast 12/11/2021 TECHNIQUE: Contiguous axial imaging was performed from the skull base to vertex without intravenous administration of contrast. Additional 2-D coronal and sagittal reformatted images are generated on the CT workstation and uploaded to PACS. This CT examination was performed using dose optimization techniques as appropriate, variously including the following: *Automated exposure control *Adjustment of mA and/or kV according to patient size (this includes techniques or standardized protocols for targeted exams where dose is matched to indication/reason for exam; i.e. extremities or head) *Use of iterative reconstruction technique DLP: 684 mGy-cm FINDINGS: There is no intracranial hemorrhage, hematoma, or extra-axial fluid collection. The ventricles are normal in size. There is no hydrocephalus, edema, or mass effect. The chiu-white matter differentiation appears well preserved . There is no visible acute territorial infarct or mass lesion. The calvarium appears intact. There is no pneumocephalus or orbital emphysema. The visualized sinuses and middle ears and mastoid air cells show no significant mucosal thickening. There are no air-fluid levels. CT/CT head/brain wo IV con IMPRESSION: No acute intracranial abnormality.
--- NOTE | ~2022-03-08 | CT_ITS ---
EXAMINATION: CT ABDOMEN AND PELVIS WITHOUT CONTRAST CLINICAL INFORMATION: Right flank pain, fever, nausea and vomiting. COMPARISON: Pelvic ultrasound 09/07/2021. CT abdomen and pelvis with contrast 09/06/2021. TECHNIQUE: Multidetector volumetric imaging was performed from the superior aspect of the liver through the pubic symphysis. No oral or intravenous contrast. Sagittal and coronal reformatted images were obtained on the technologist's workstation. This CT examination was performed using dose optimization techniques as appropriate, variously including the following: *Automated exposure control *Adjustment of mA and/or kV according to patient size (this includes techniques or standardized protocols for targeted exams where dose is matched to indication/reason for exam; i.e. extremities or head) *Use of iterative reconstruction technique DLP: 666 mGy-cm FINDINGS: LUNG BASES: The visualized lung bases are unremarkable. LIVER, GALLBLADDER, AND BILIARY TREE: Liver is borderline enlarged measuring 20.7 cm in length. The parenchyma appears homogeneous. Hepatic steatosis noted on prior imaging. There is no intrahepatic ductal dilatation. There is been prior cholecystectomy. Common duct is just under 1 cm, stable from prior exam. No choledocholithiasis. PANCREAS: The pancreas is normal in size and contour. No pancreatic ductal distention. The fatty tissue posterior to the pancreatic head is ill-defined which may suggest early/mild pancreatitis. This may be correlated with laboratories and clinical impression. SPLEEN: Unremarkable. ADRENAL GLANDS: Unremarkable. KIDNEYS AND URETERS: The kidneys are normal in size, shape, and attenuation. No hydronephrosis, hydroureter, or calculi seen. No perinephric stranding. BLADDER: Unremarkable. GASTROINTESTINAL TRACT: Prior gastric bypass. No bowel obstruction or focal inflammatory changes in bowel or mesentery. Normal appendix. No ascites or fluid collection. ABDOMINAL WALL: No significant hernia is appreciated. LYMPH NODES: No lymphadenopathy. VASCULAR: Unremarkable. PELVIC VISCERA: There are 2 surgical clips deep right pelvis again noted. There is a 3.0 x 3.4 cm right adnexal cyst, water attenuation, 9 HU. No pelvic ascites. OSSEOUS STRUCTURES: Unremarkable. CT/CT abdomen pelvis wo IV con IMPRESSION: -Subtle induration side adjacent to posterior pancreatic head. Pancreas otherwise unremarkable. Recommend correlation with laboratories and clinical impression to exclude early pancreatitis. -Prior cholecystectomy. No ductal dilatation. -Prior gastric bypass. No obstruction or inflammatory changes. Normal appendix. No ascites. -Right adnexal cyst 3.4 x 3.0 cm, likely benign functional cyst.
[2022-03-08 09:10] VITALS: BP 136/76; PULSE 73; RESP 18; TEMP 36.7; O2SAT 99; BMI 26.1
--- NOTE | 2022-03-08 09:22 | ED.DIZZY ---
HPI - Dizziness General Chief Complaint: Dizziness Stated Complaint: head inj/dizziness/flank pain Time Seen by Provider: 03/08/22 09:05 Source: patient Mode of arrival: ambulatory Limitations: no limitations History of Present Illness HPI Narrative: 41 yo female with history of obesity s/p gastric bypass, gallstone pancreatitis s/p cholecystectomy, hx recurrent UTIs, hx pyelonephritis, alcohol use disorder, ADHD who presents to the ER for evaluation of dizziness for the last 1 week s/p minor head trauma as well as acute onset of right flank pain that started at 3am. She states last on 03/01 she sneezed and hit her head on the coffee table. She does not know if she lost consciousness. She went to bed and woke up the next day nauseated, vomiting and dizzy. She rested the weekend but felt lethargic and unwell. She works as an [employer] and looking at the screens this week made her symptoms worse. She reports dizziness and vertigo with moving her head and bending down. She also reports intermittent fevers all week, all less than 102 per her report. She woke up today at 3am with right flank pain and she feels she has a kidney infection and says she is prone to them. No abdominal pain. She endorses ongoing nausea, vomiting, chills, and fevers. She denies urinary symptoms like dysuria, frequency and urgency. MD elicited complaint: dizziness, vertigo and other (flank pain) Pertinent past history: BPPV Onset (ago): week(s) (1) Timing: sudden onset Severity: moderate Description: sense of movement, room spinning and off-balance Context: trauma History of similar symptoms: No Exacerbating factors: change in body position Relieving factors: remaining still and lying down Associated symptoms: nausea, vomiting, fever and chills Related Data Home Medications Medication Instructions Recorded Confirmed calcium carbonate 500 mg calcium 500 mg PO DAILY 01/03/21 08/22/21 (1,250 mg) tablet (Calcium 500) cetirizine 10 mg tablet 10 mg PO DAILY 01/03/21 08/22/21 dextroamphetamine-amphetamine ER 1 cap PO QAM 01/03/21 08/22/21 20 mg 24hr capsule,extend release vitamin B complex 1 cap PO DAILY 01/03/21 08/22/21 levothyroxine 50 mcg tablet 50 mcg PO DAILY 08/22/21 08/22/21 [id number] 45 mg-folic cap PO DAILY 08/22/21 08/22/21 acid 800 mcg-vit K 120 mcg capsule (Bariatric Multivitamins) Previous Rx's Medication Instructions Recorded cholecalciferol (vitamin D3) 50 50 mcg PO DAILY #30 caps 08/23/21 mcg (2,000 unit) capsule ondansetron 4 mg disintegrating 4 mg PO ONCE PRN nausea and 09/07/21 tablet vomiting #10 tabs amoxicillin 875 mg-potassium 1 tab PO Q12H 7 days #14 tabs 10/14/21 clavulanate 125 mg tablet ondansetron 4 mg disintegrating 4 mg PO Q8H PRN nausea and 10/14/21 tablet vomiting #6 tabs sulfamethoxazole 800 1 tab PO BID uti 7 days #14 tabs 10/18/21 mg-trimethoprim 160 mg tablet (Bactrim DS) chlordiazepoxide HCl 25 mg capsule 25 mg PO TID PRN alcohol 11/06/21 withdrawal #8 caps ondansetron 4 mg disintegrating 4 mg PO Q8H PRN nausea and 11/06/21 tablet vomiting #10 tabs diphenhydramine HCl 25 mg tablet 50 mg PO TID PRN allergic reaction 02/11/22 (Benadryl Allergy) #10 tabs epinephrine 0.3 mg/0.3 mL 0.3 mg (0.3 mL) IM Q20M PRN 02/11/22 injection, auto-injector (EpiPen) anaphylaxis #2 ea prednisone 20 mg tablet 40 mg PO DAILY rash 5 days #10 tabs 02/11/22 meclizine 25 mg tablet 25 mg PO TID PRN dizziness #14 tabs 03/08/22 Allergies Allergy/AdvReac Type Severity Reaction Status Date / Time shellfish derived Allergy Severe ANAPHYLAXIS Verified 08/22/21 15:07 [SHELLFISH DERIVED] benztropine [From COGENTIN] Allergy Intermediate PSYCHOSIS Verified 08/22/21 15:07 gabapentin [GABAPENTIN] Allergy Intermediate PSYCHOSIS Verified 08/22/21 15:07 amantadine [AMANTADINE] Allergy Mild HIVES, rash Verified 08/22/21 15:07 seafood Allergy Unknown anaphylaxis Uncoded 01/05/21 11:54 Review of Systems Review of Systems: Constitutional: No Fever, No Chills ENT/Mouth: No sore throat, No Rhinorrhea, No Swallowing Difficulty Eyes: No Eye Pain, No Swelling, No Redness Cardiovascular: No Chest Pain, No SOB, No Orthopnea, No Edema Respiratory: No Cough, No Sputum, No Wheezing, No dyspnea Gastrointestinal: No Nausea, No Vomiting, No Diarrhea, No abdominal Pain, No Hematochezia, No Melena Genitourinary: No Dysuria, No Urinary Frequency, No Hematuria, +Flank pain Musculoskeletal: No joint pain, No Myalgias Skin: No Skin Lesions, No rash Neuro: No Weakness, No Numbness, + Dizziness, +Headache Psych: +Anxiety/Panic, No Depression Heme/Lymph: No Bruising, No Lymphadenopathy Endocrine: No Polyuria, No Polydipsia PMFSH Past Medical History Medical History Acute pancreatitis ADHD Congenital hypothyroidism Depression Elevated liver function tests Migraine Surgical History H/O gastric bypass H/O tubal ligation History of cholecystectomy History of Calixto-en-Y gastric bypass Previous section Family History Family History Mother No problems noted. Father No problems noted. Brother No problems noted. Brother No problems noted. Sister No problems noted. Sister No problems noted. Son No problems noted. Social History Social History Household Members: Spouse Housing: House Do you presently have visiting nurse or other home services: No Alcohol intake: current Alcohol intake frequency: 0-2 drinks per day Alcohol type: hard liquor Patient Tobacco Use Status: Never used Tobacco e-Cigarette/Vaping Use: Never Used Advance Directives: Yes Advance Directives Information Provided: Yes Advance Directives on File: No service: No Current occupational status: employed Physical Exam Vital Signs: Vital Signs: Last Vital Signs Temp 98.1 F 03/08/22 09:10 Pulse 73 03/08/22 09:10 Resp 18 03/08/22 09:10 BP 136/76 03/08/22 09:10 Pulse Ox 99 03/08/22 09:10 O2 Del Method 03/08/22 09:10 BMI result Body Mass Index 26.1 Appearance: Alert. Oriented X3. No acute distress. Eyes: Pupils equal, round and reactive to light. ENT: Pharynx normal. Neck: Normal inspection. Neck supple. CVS: Normal heart rate and rhythm. Pulses normal. Respiratory: No respiratory distress. Breath sounds normal. Abdomen: Soft and nontender. +BS x4. CVA tenderness on the right. Skin: Skin warm and dry. Normal skin color. Normal skin turgor. No rashes. Extremities: No lower extremity edema. Neuro: Oriented X 3. No motor deficit. No sensory deficit. Steady gait Course Course Course Narrative: 41 yo female presenting with dizziness status post minor head trauma 1 week ago as well as new onset right flank pain that started last night. Nonfocal neuro exam, odd affect. CT scan and labs are pending. IVF and meclizine ordered for now, will reassess. Reevaluation(s) Reevaluation #1: CT head normal. CT abd without acute pathology. Lipase normal. LFTs slightly elevated but improved from her baseline. UA negative for infection and . Her pain is most likely due to MSK pain. ETOH level 250. Explained not comfortable giving narcotics or muscle relaxers. Offered detox but declined. Will d/c home with meclizine for vertigo. Counseled on concussion management. She will follow up with her PCP. [facility] - Dizziness Lab Data Result diagrams: 03/08/22 09:27 03/08/22 09:27 Labs: Lab Results 03/08/22 03/08/22 03/08/22 Range/Units 09:26 09:26 09:26 WBC (4.8-10.8) X10*3/uL RBC (4.20-5.50) X10*6/uL Hgb (12.0-16.0) g/dl Hct (37.0-47.0) % MCV (80.0-98.0) fL MCH (27.0-33.0) pg MCHC (31.0-35.0) g/dl RDW (11.0-16.0) % Plt Count (160-400) X10*3/uL MPV (9.4-12.3) fL Immature Gran % (Auto) (0.0-0.4) % Neut % (Auto) (45-73) % Lymph % (Auto) (20-40) % Garza % (Auto) (2-11) % Eos % (Auto) (0-4) % Baso % (Auto) (0-2) % Lymph # (Auto) (1.2-4.9) X10*3/uL Garza # (Auto) (0.1-1.2) X10*3/uL Eos # (Auto) (0.0-0.4) X10*3/uL Baso # (Auto) (0.0-0.2) X10*3/uL Abs Immat Gran (auto) (0.00-0.03) X10*3/uL Absolute Neuts (auto) (2.0-8.3) x10*3/uL Absolute Nucleated RBC (0.0-0.012) X10*3/uL Nucleated RBC % (auto) (0.0-0.2) /100WBC Sodium (135-145) mmol/L Potassium (3.3-5.1) mmol/L Chloride (96-108) mmol/L Carbon Dioxide (22-29) mmol/L Anion Gap (12-20) BUN (9-16) mg/dL Creatinine (0.5-1.4) mg/dL Estim Creat Clear Calc Estimated GFR Random Glucose (60-115) mg/dL Calcium (8.4-10.2) mg/dL Magnesium (1.6-2.6) mg/dL Total Bilirubin (0.0-1.0) mg/dL Direct Bilirubin (0.0-0.5) mg/dL AST (5-31) U/L ALT (0-31) U/L Alkaline Phosphatase (39-117) U/L Total Protein (6.5-8.0) g/dL Albumin (3.5-5.0) g/dL Lipase (8-78) U/L Urine Color Yellow Urine Appearance Clear Urine pH 7.5 (5.0-9.0) Ur Specific Weston <= 1.005 (1.005-1.025) Urine Protein Negative (Neg-Trace) mg/dL Urine Glucose (UA) Negative (Negative) mg/dL Urine Ketones Negative (Negative) mg/dL Urine Blood Negative (Negative) Urine Nitrite Negative (Negative) Ur Leukocyte Esterase Negative (Negative) Urine Test NEGATIVE (NEGATIVE) Urine Opiates Screen Not Detected (Not Detect) Urine Fentanyl Screen Not Detected (Not Detect) Ur Barbiturates Screen Not Detected (Not Detect) Ur Phencyclidine Scrn Not Detected (Not Detect) Ur Amphetamines Screen Not Detected (Not Detect) U Benzodiazepines Scrn Not Detected (Not Detect) Urine Cocaine Screen Not Detected (Not Detect) U Marijuana (THC) Screen Not Detected (Not Detect) Ethyl Alcohol mg/dL COVID-19 (ANIKET) (Negative) COVID-19 Clin Com Influenza Type A (DANNY) (Negative) Influenza Type B (DANNY) (Negative) Influenza A & B Note 03/08/22 03/08/22 03/08/22 Range/Units 09:27 09:27 09:27 WBC 3.5 L (4.8-10.8) X10*3/uL RBC 3.21 L (4.20-5.50) X10*6/uL Hgb 11.1 L (12.0-16.0) g/dl Hct 33.8 L (37.0-47.0) % MCV 105.3 H (80.0-98.0) fL MCH 34.6 H (27.0-33.0) pg MCHC 32.8 (31.0-35.0) g/dl RDW 14.6 (11.0-16.0) % Plt Count 182 D (160-400) X10*3/uL MPV 9.7 (9.4-12.3) fL Immature Gran % (Auto) 0.0 (0.0-0.4) % Neut % (Auto) 45.3 (45-73) % Lymph % (Auto) 47.6 H (20-40) % Garza % (Auto) 5.9 (2-11) % Eos % (Auto) 0.6 (0-4) % Baso % (Auto) 0.6 (0-2) % Lymph # (Auto) 1.7 (1.2-4.9) X10*3/uL Garza # (Auto) 0.2 (0.1-1.2) X10*3/uL Eos # (Auto) 0.0 (0.0-0.4) X10*3/uL Baso # (Auto) 0.0 (0.0-0.2) X10*3/uL Abs Immat Gran (auto) 0.00 (0.00-0.03) X10*3/uL Absolute Neuts (auto) 1.6 L (2.0-8.3) x10*3/uL Absolute Nucleated RBC 0.000 (0.0-0.012) X10*3/uL Nucleated RBC % (auto) 0.0 (0.0-0.2) /100WBC Sodium 141 (135-145) mmol/L Potassium 4.9 D (3.3-5.1) mmol/L Chloride 106 (96-108) mmol/L Carbon Dioxide 20 L (22-29) mmol/L Anion Gap 20 (12-20) BUN 14 (9-16) mg/dL Creatinine 0.67 (0.5-1.4) mg/dL Estim Creat Clear Calc 123.8 Estimated GFR > 60 Random Glucose 90 (60-115) mg/dL Calcium 9.1 D (8.4-10.2) mg/dL Magnesium 1.7 (1.6-2.6) mg/dL Total Bilirubin 0.4 (0.0-1.0) mg/dL Direct Bilirubin < 0.2 (0.0-0.5) mg/dL AST 75 H (5-31) U/L ALT 33 H (0-31) U/L Alkaline Phosphatase 102 D (39-117) U/L Total Protein 7.6 (6.5-8.0) g/dL Albumin 3.8 (3.5-5.0) g/dL Lipase 28 (8-78) U/L Urine Color Urine Appearance Urine pH (5.0-9.0) Ur Specific Weston (1.005-1.025) Urine Protein (Neg-Trace) mg/dL Urine Glucose (UA) (Negative) mg/dL Urine Ketones (Negative) mg/dL Urine Blood (Negative) Urine Nitrite (Negative) Ur Leukocyte Esterase (Negative) Urine Test (NEGATIVE) Urine Opiates Screen (Not Detect) Urine Fentanyl Screen (Not Detect) Ur Barbiturates Screen (Not Detect) Ur Phencyclidine Scrn (Not Detect) Ur Amphetamines Screen (Not Detect) U Benzodiazepines Scrn (Not Detect) Urine Cocaine Screen (Not Detect) U Marijuana (THC) Screen (Not Detect) Ethyl Alcohol 246 mg/dL COVID-19 (ANIKET) (Negative) COVID-19 Clin Com Influenza Type A (DANNY) Negative (Negative) Influenza Type B (DANNY) Negative (Negative) Influenza A & B Note See Note 03/08/22 Range/Units 09:27 WBC (4.8-10.8) X10*3/uL RBC (4.20-5.50) X10*6/uL Hgb (12.0-16.0) g/dl Hct (37.0-47.0) % MCV (80.0-98.0) fL MCH (27.0-33.0) pg MCHC (31.0-35.0) g/dl RDW (11.0-16.0) % Plt Count (160-400) X10*3/uL MPV (9.4-12.3) fL Immature Gran % (Auto) (0.0-0.4) % Neut % (Auto) (45-73) % Lymph % (Auto) (20-40) % Garza % (Auto) (2-11) % Eos % (Auto) (0-4) % Baso % (Auto) (0-2) % Lymph # (Auto) (1.2-4.9) X10*3/uL Garza # (Auto) (0.1-1.2) X10*3/uL Eos # (Auto) (0.0-0.4) X10*3/uL Baso # (Auto) (0.0-0.2) X10*3/uL Abs Immat Gran (auto) (0.00-0.03) X10*3/uL Absolute Neuts (auto) (2.0-8.3) x10*3/uL Absolute Nucleated RBC (0.0-0.012) X10*3/uL Nucleated RBC % (auto) (0.0-0.2) /100WBC Sodium (135-145) mmol/L Potassium (3.3-5.1) mmol/L Chloride (96-108) mmol/L Carbon Dioxide (22-29) mmol/L Anion Gap (12-20) BUN (9-16) mg/dL Creatinine (0.5-1.4) mg/dL Estim Creat Clear Calc Estimated GFR Random Glucose (60-115) mg/dL Calcium (8.4-10.2) mg/dL Magnesium (1.6-2.6) mg/dL Total Bilirubin (0.0-1.0) mg/dL Direct Bilirubin (0.0-0.5) mg/dL AST (5-31) U/L ALT (0-31) U/L Alkaline Phosphatase (39-117) U/L Total Protein (6.5-8.0) g/dL Albumin (3.5-5.0) g/dL Lipase (8-78) U/L Urine Color Urine Appearance Urine pH (5.0-9.0) Ur Specific Weston (1.005-1.025) Urine Protein (Neg-Trace) mg/dL Urine Glucose (UA) (Negative) mg/dL Urine Ketones (Negative) mg/dL Urine Blood (Negative) Urine Nitrite (Negative) Ur Leukocyte Esterase (Negative) Urine Test (NEGATIVE) Urine Opiates Screen (Not Detect) Urine Fentanyl Screen (Not Detect) Ur Barbiturates Screen (Not Detect) Ur Phencyclidine Scrn (Not Detect) Ur Amphetamines Screen (Not Detect) U Benzodiazepines Scrn (Not Detect) Urine Cocaine Screen (Not Detect) U Marijuana (THC) Screen (Not Detect) Ethyl Alcohol mg/dL COVID-19 (ANIKET) Negative (Negative) COVID-19 Clin Com See Note Influenza Type A (DANNY) (Negative) Influenza Type B (DANNY) (Negative) Influenza A & B Note Critical Care Time Critical Care Time Critical Care Time: No Discharge Plan Discharge Clinical Impression: Head injury Patient Disposition: Home, Self-Care Instructions: Head Injury (ED) Additional Instructions: Your head CT was normal. Your labs were unremarkable compared to your prior. Your urine test is negative for infection. Rest and stay hydrated, drink plenty of water. Avoid screen time and physical activity. Do not drink alcohol. Recommend detox. Take the prescribed medication as needed for dizziness and vertigo. CT scan of your abdomen is unremarkable. , the most likely cause of your pain in your right flank is muscular pain. Recommend taking Tylenol and Motrin as needed for this. Follow-up with the primary care doctor. If you develop new or worsening symptoms call 911 or come back to the ER for further evaluation. Prescriptions: New meclizine 25 mg tablet 25 mg PO TID PRN (Reason: dizziness) Qty: 14 0RF No Action cholecalciferol (vitamin D3) 50 mcg (2,000 unit) capsule 50 mcg PO DAILY Qty: 30 11RF cetirizine 10 mg Tablet 10 mg PO DAILY calcium carbonate [Calcium 500] 500 mg calcium (1,250 mg) Tablet 500 mg PO DAILY dextroamphetamine-amphetamine 20 mg capsule,extended release 24hr 1 cap PO QAM vitamin B complex Capsule 1 cap PO DAILY amoxicillin-pot clavulanate 875-125 mg tablet 1 tab PO Q12H 7 Days Qty: 14 0RF ondansetron 4 mg tablet,disintegrating 4 mg PO Q8H PRN (Reason: nausea and vomiting) Qty: 6 0RF sulfamethoxazole-trimethoprim [Bactrim DS] 800-160 mg tablet 1 tab PO BID 7 Days Qty: 14 0RF diphenhydramine HCl [Benadryl Allergy] 25 mg tablet 50 mg PO TID PRN (Reason: allergic reaction) Qty: 10 0RF prednisone 20 mg tablet 40 mg PO DAILY 5 Days Qty: 10 0RF epinephrine [EpiPen] 0.3 mg/0.3 mL auto-injector 0.3 mg IM Q20M PRN (Reason: anaphylaxis) Qty: 2 0RF Rx Instructions: do not exceed 3 doses per episode ondansetron 4 mg tablet,disintegrating 4 mg PO ONCE PRN (Reason: nausea and vomiting) Qty: 10 0RF ondansetron 4 mg tablet,disintegrating 4 mg PO Q8H PRN (Reason: nausea and vomiting) Qty: 10 0RF chlordiazepoxide HCl 25 mg capsule 25 mg PO TID PRN (Reason: alcohol withdrawal) Qty: 8 0RF levothyroxine 50 mcg tablet 50 mcg PO DAILY Bariatric Multivitamins 45 mg iron- 800 mcg-120 mcg capsule PO DAILY Stand Alone Forms: Work/School Release Interventions: ED Discharge Assessment Last Done: 03/08/22 12:33 Discharge Date/Time: 03/08/22 12:34
[2022-03-08] MEDS: 0.9 % Sodium Chloride 1,000 ML 999 ML IVCONT (09:30)
[2022-03-08] MEDS: ondansetron HCL 4 MG/2 ML VIAL IVPUSH (09:35)
[2022-03-08] MEDS: Meclizine HCl 25 MG TABLET 50 MG PO (09:35)
[2022-03-08 09:41] LABS: MANUAL DIFF FLAG NO
[2022-03-08 09:45] LABS: Basophils Percent Auto 0.6 % (0-2); Eosinophils Percent Auto 0.6 % (0-4); Hematocrit 33.8 % (37.0-47.0); Hemoglobin 11.1 g/dl (12.0-16.0); Lymphocytes Absolute Auto 1.7 X10*3/uL (1.2-4.9); Lymphocytes Percent Auto 47.6 % (20-40); Mean Corpuscular HGB Conc 32.8 g/dl (31.0-35.0); Mean Corpuscular Hemoglobin 34.6 pg (27.0-33.0); Mean Corpuscular Volume 105.3 fL (80.0-98.0); Mean Platelet Volume 9.7 fL (9.4-12.3); Monocytes Absolute Auto 0.2 X10*3/uL (0.1-1.2); Monocytes Percent Auto 5.9 % (2-11); Neutrophils Absolute Auto 1.6 x10*3/uL (2.0-8.3); Neutrophils Percent Auto 45.3 % (45-73); Platelet Count 182 X10*3/uL (160-400); Red Blood Count 3.21 X10*6/uL (4.20-5.50); Red Cell Distribution Width 14.6 % (11.0-16.0); White Blood Count 3.5 X10*3/uL (4.8-10.8)
[2022-03-08 09:51] LABS: Appearance Urine Clear; Color Urine Yellow; Glucose Urine UA Negative (Negative); Leukocyte Esterase Urine Negative (Negative); Nitrite Urine Negative (Negative); PH 7.5 (5.0-9.0); Specific Gravity - Urine <= 1.005 (1.005-1.025); UPreg QC Valid YES; Urine Blood Negative (Negative); Urine Ketones Negative (Negative); Urine Pregnancy NEGATIVE (NEGATIVE); Urine Protein Negative (Neg-Trace)
[2022-03-08 10:02] LABS: Amphetamine Screen Urine Not Detected (Not Detect); Barbiturates, Urine Not Detected (Not Detect); Benzodiazepines Screen Urine Not Detected (Not Detect); Cannabinoid Screen Urine Not Detected (Not Detect); Cocaine Screen Urine Not Detected (Not Detect); Fentanyl, urine Not Detected (Not Detect); Opiate Screen Urine Not Detected (Not Detect); Phencyclidine Screen Urine Not Detected (Not Detect)
[2022-03-08 10:05] LABS: COVID-19 Test Negative (Negative); IDNOW Serial# 16C4AD1C
[2022-03-08 10:06] LABS: Alanine Aminotransferase 33 U/L (0-31); Albumin Level 3.8 g/dL (3.5-5.0); Alkaline Phosphatase 102 U/L (39-117); Anion Gap 20 (12-20); Aspartate Amino Transferase 75 U/L (5-31); Bilirubin Direct < 0.2 mg/dL (0.0-0.5); Bilirubin Total 0.4 mg/dL (0.0-1.0); Blood Urea Nitrogen 14 mg/dL (9-16); Calcium 9.1 mg/dL (8.4-10.2); Carbon Dioxide 20 mmol/L (22-29); Chloride 106 mmol/L (96-108); Creatinine Clr Calc Pharmacy 123.8; Estimated Glomerular Filt Rate > 60; Ethanol 246 mg/dL; Glucose Random 90 mg/dL (60-115); Influenza A Negative (Negative); Influenza B2 Negative (Negative); Lipase 28 U/L (8-78); Magnesium 1.7 mg/dL (1.6-2.6); Potassium 4.9 mmol/L (3.3-5.1); Sodium 141 mmol/L (135-145); Total Protein 7.6 g/dL (6.5-8.0)
[2022-03-08] MEDS: Lidocaine 4 % Patch ADH..PATCH 1 PATCH TRANSDERMA (11:10)
== END 2022-03-08 12:34 | disposition home or self-care (01) ==
PROVIDERS: Physician Assistant; Emergency Provider Emergency Medicine
DX: S09.90XA Unspecified injury of head, initial encounter (principal); W22.03XA Walked into furniture, initial encounter; R42 Dizziness and giddiness; R10.9 Unspecified abdominal pain; F10.99 Alcohol use, unspecified with unspecified alcohol-induced disorder; Y90.8 Blood alcohol level of 240 mg/100 ml or more; Z20.822 Contact with and (suspected) exposure to COVID-19; Y93.89 Activity, other specified; Y92.019 Unspecified place in single-family (private) house as the place of occurrence of the external cause; Y99.9 Unspecified external cause status
CPT/HCPCS: 70450; 74176; 80048; 80076; 80307; 81003; 81025; 82077; 83690; 83735; 85025; 87502; 87635; 96361; 96374; 99284; J2405

== ENCOUNTER 2022-05-22 20:12 | Emergency (ER) | payer OTHER, SELFPAY ==
--- NOTE | 2022-05-22 20:13 | ED_ITS ---
HPI - Allergic Reaction General Chief complaint: Allergic Reaction <RANJAN Beavers - Last Filed: 05/22/22 20:38> Stated complaint: allergic reaction to shellfish <RANJAN Beavers - Last Filed: 05/22/22 20:38> Time Seen by Provider: 05/22/22 20:52 <RANJAN Beavers - Last Filed: 05/22/22 20:38> Source: patient <Peter Blank MD - Last Filed: 05/23/22 02:38> Mode of arrival: ambulatory <Peter Blank MD - Last Filed: 05/23/22 02:38> Limitations: no limitations <Peter Blank MD - Last Filed: 05/23/22 02:38> History of Present Illness HPI narrative: Patient allergic to shellfish had fried clamari at home noticed throat tightness face swelling coughing shortness of breath took EpiPen injection and 50 mg of Benadryl prior to arrival. Patient also had few drinks. After arrival patient feeling much better no nausea no vomiting <Peter Blank MD - Last Filed: 05/23/22 02:38> Related Data Home medications: Home Medications Medication Instructions Recorded Confirmed calcium carbonate 500 mg calcium 500 mg PO DAILY 01/03/21 08/22/21 (1,250 mg) tablet (Calcium 500) cetirizine 10 mg tablet 10 mg PO DAILY 01/03/21 08/22/21 dextroamphetamine-amphetamine ER 1 cap PO QAM 01/03/21 08/22/21 20 mg 24hr capsule,extend release vitamin B complex 1 cap PO DAILY 01/03/21 08/22/21 levothyroxine 50 mcg tablet 50 mcg PO DAILY 08/22/21 08/22/21 [id number] 45 mg-folic cap PO DAILY 08/22/21 08/22/21 acid 800 mcg-vit K 120 mcg capsule (Bariatric Multivitamins) Previous Rx's Medication Instructions Recorded cholecalciferol (vitamin D3) 50 50 mcg PO DAILY #30 caps 08/23/21 mcg (2,000 unit) capsule ondansetron 4 mg disintegrating 4 mg PO ONCE PRN nausea and 09/07/21 tablet vomiting #10 tabs amoxicillin 875 mg-potassium 1 tab PO Q12H 7 days #14 tabs 10/14/21 clavulanate 125 mg tablet ondansetron 4 mg disintegrating 4 mg PO Q8H PRN nausea and 10/14/21 tablet vomiting #6 tabs sulfamethoxazole 800 1 tab PO BID uti 7 days #14 tabs 10/18/21 mg-trimethoprim 160 mg tablet (Bactrim DS) chlordiazepoxide HCl 25 mg capsule 25 mg PO TID PRN alcohol 11/06/21 withdrawal #8 caps ondansetron 4 mg disintegrating 4 mg PO Q8H PRN nausea and 11/06/21 tablet vomiting #10 tabs diphenhydramine HCl 25 mg tablet 50 mg PO TID PRN allergic reaction 02/11/22 (Benadryl Allergy) #10 tabs epinephrine 0.3 mg/0.3 mL 0.3 mg (0.3 mL) IM Q20M PRN 02/11/22 injection, auto-injector (EpiPen) anaphylaxis #2 ea prednisone 20 mg tablet 40 mg PO DAILY rash 5 days #10 tabs 02/11/22 meclizine 25 mg tablet 25 mg PO TID PRN dizziness #14 tabs 03/08/22 <RANJAN Beavers - Last Filed: 05/22/22 20:38> Allergies/adverse reactions: Allergies Allergy/AdvReac Type Severity Reaction Status Date / Time shellfish derived Allergy Severe ANAPHYLAXIS Verified 05/22/22 20:28 [SHELLFISH DERIVED] benztropine [From COGENTIN] Allergy Intermediate PSYCHOSIS Verified 05/22/22 20:28 gabapentin [GABAPENTIN] Allergy Intermediate PSYCHOSIS Verified 05/22/22 20:28 amantadine [AMANTADINE] Allergy Mild HIVES, rash Verified 05/22/22 20:28 seafood Allergy Unknown anaphylaxis Uncoded 05/22/22 20:28 <RANJAN Beavers - Last Filed: 05/22/22 20:38> Review of Systems Review of Systems: Yes all other systems are reviewed and are negative <Peter Blank MD - Last Filed: 05/23/22 02:38> FOR[facility]LY [facility] Past Medical History Medical History: Medical History Acute pancreatitis ADHD Congenital hypothyroidism Depression Elevated liver function tests Migraine <RANJAN Beavers - Last Filed: 05/22/22 20:38> Surgical History: Surgical History H/O gastric bypass H/O tubal ligation History of cholecystectomy History of Calixto-en-Y gastric bypass Previous section <RANJAN Beavers - Last Filed: 05/22/22 20:38> Family History Family History: Family History Mother No problems noted. Father No problems noted. Brother No problems noted. Brother No problems noted. Sister No problems noted. Sister No problems noted. Son No problems noted. <RANJAN Beavers - Last Filed: 05/22/22 20:38> Social History Social History: Social History Household Members: Spouse Housing: House Do you presently have visiting nurse or other home services: No Alcohol intake: current Alcohol intake frequency: a few times a week Alcohol type: hard liquor Patient Tobacco Use Status: Never used Tobacco Smoked in Last 30 Days: No e-Cigarette/Vaping Use: Never Used Use of substances other than those prescribed or required for medical reasons: No Advance Directives: No Patient : No service: No Current occupational status: employed <RANJAN Beavers - Last Filed: 05/22/22 20:38> Physical Exam ED Vital Signs: Vital Signs - 24 hr 05/22/22 20:15 05/22/22 20:47 05/22/22 20:58 Temperature 96.9 F 98.4 F Pulse Rate 98 84 94 Respiratory Rate 20 16 18 Blood Pressure 93/36 L 104/44 L 112/47 L Pulse Oximetry 100 93 99 Oxygen Delivery Method Room Air Room Air Room Air BMI result Body Mass Index 26.6 <RANJAN Beavers - Last Filed: 05/22/22 20:38> Vital Signs - 24 hr 05/22/22 20:15 05/22/22 20:47 05/22/22 20:58 Temperature 96.9 F 98.4 F Pulse Rate 98 84 94 Respiratory Rate 20 16 18 Blood Pressure 93/36 L 104/44 L 112/47 L Pulse Oximetry 100 93 99 Oxygen Delivery Method Room Air Room Air Room Air BMI result Body Mass Index 26.6 <Peter Blank MD - Last Filed: 05/23/22 02:38> Appearance: Alert. Oriented X3. No acute distress. ENT: Pharynx normal. Oral Mucosa moist no rash noticed tongue normal uvula normal no stridor Neck: Normal inspection. Neck supple. CVS: Normal heart rate and rhythm. Pulses normal. Respiratory: No respiratory distress. Equal air entry bilateral, no wheezing/rales/rhonchi Abdomen: Soft and nontender. Bowel sounds are present, no mass palpable, no CVA tenderness Skin: Skin warm and dry. Normal skin color. Normal skin turgor. Extremities: No lower extremity edema. No calf tenderness Neuro: Oriented X 3. No motor deficit. No sensory deficit.No cerebellar signs , cranial nerves II-XII intact <Peter Blank MD - Last Filed: 05/23/22 02:38> Course Course Course Narrative: RME--41yo F with PMHx anaphylaxis to shellfish presenting to the ED c/o allergic reaction to calarmari [employer] with facial swelling, cough, and throat closing sensation. Was given Epipen and 50mg Benadryl [employer] with some relief. Pt appears very intoxicated, head leaning back in wheelchair, admits to drinking [employer] will not be explicit Sating 100% on RA, lungs CTA, uvula midline, talking in complete sentences IV solumedrol, pepcid and Ethanol ordered <RANJAN Beavers - Last Filed: 05/22/22 20:38> Medications Administered Discontinued Medications Generic Name Dose Route Start Last Admin Trade Name Freq PRN Reason Stop Dose Admin Dexamethasone 10 mg 05/22/22 20:58 05/22/22 21:33 Dexamethasone 2 Mg Tablet PO 05/22/22 20:59 10 mg ONCE ONE Administration Famotidine 20 mg 05/22/22 20:58 05/22/22 21:33 Famotidine 20 Mg Tablet PO 05/22/22 20:59 20 mg ONCE ONE Administration <RANJAN Beavers - Last Filed: 05/22/22 20:38> Medications Administered Discontinued Medications Generic Name Dose Route Start Last Admin Trade Name Freq PRN Reason Stop Dose Admin Dexamethasone 10 mg 05/22/22 20:58 05/22/22 21:33 Dexamethasone 2 Mg Tablet PO 05/22/22 20:59 10 mg ONCE ONE Administration Famotidine 20 mg 05/22/22 20:58 05/22/22 21:33 Famotidine 20 Mg Tablet PO 05/22/22 20:59 20 mg ONCE ONE Administration <Peter Blank MD - Last Filed: 05/23/22 02:38> Medical Decision Making Medical Decision Making MDM Narrative: Patient in for elective relation to shellfish likely had food at home with contain is part of shellfish. Improved after epi and Benadryl will give Decadron p.o. and Pepcid advised to take epi it recurs of symptoms <Peter Blank MD - Last Filed: 05/23/22 02:38> Discharge Plan Discharge Clinical Impression: Anaphylaxis <RANJAN Beavers - Last Filed: 05/22/22 20:38> Patient Disposition: Home, Self-Care <RANJAN Beavers - Last Filed: 05/22/22 20:38> Instructions: Food Allergy (ED) <RANJAN Beavers - Last Filed: 05/22/22 20:38> Additional Instructions: Rest at home try to stay away from shellfishn Take EpiPen/Benadryl as advised Report to the ER if worsening of recurrence of throat closing/ rash <RANJAN Beavers - Last Filed: 05/22/22 20:38> Prescriptions: No Action cholecalciferol (vitamin D3) 50 mcg (2,000 unit) capsule 50 mcg PO DAILY Qty: 30 11RF cetirizine 10 mg Tablet 10 mg PO DAILY calcium carbonate [Calcium 500] 500 mg calcium (1,250 mg) Tablet 500 mg PO DAILY dextroamphetamine-amphetamine 20 mg capsule,extended release 24hr 1 cap PO QAM vitamin B complex Capsule 1 cap PO DAILY amoxicillin-pot clavulanate 875-125 mg tablet 1 tab PO Q12H 7 Days Qty: 14 0RF ondansetron 4 mg tablet,disintegrating 4 mg PO Q8H PRN (Reason: nausea and vomiting) Qty: 6 0RF sulfamethoxazole-trimethoprim [Bactrim DS] 800-160 mg tablet 1 tab PO BID 7 Days Qty: 14 0RF diphenhydramine HCl [Benadryl Allergy] 25 mg tablet 50 mg PO TID PRN (Reason: allergic reaction) Qty: 10 0RF prednisone 20 mg tablet 40 mg PO DAILY 5 Days Qty: 10 0RF epinephrine [EpiPen] 0.3 mg/0.3 mL auto-injector 0.3 mg IM Q20M PRN (Reason: anaphylaxis) Qty: 2 0RF Rx Instructions: do not exceed 3 doses per episode ondansetron 4 mg tablet,disintegrating 4 mg PO ONCE PRN (Reason: nausea and vomiting) Qty: 10 0RF ondansetron 4 mg tablet,disintegrating 4 mg PO Q8H PRN (Reason: nausea and vomiting) Qty: 10 0RF chlordiazepoxide HCl 25 mg capsule 25 mg PO TID PRN (Reason: alcohol withdrawal) Qty: 8 0RF meclizine 25 mg tablet 25 mg PO TID PRN (Reason: dizziness) Qty: 14 0RF levothyroxine 50 mcg tablet 50 mcg PO DAILY Bariatric Multivitamins 45 mg iron- 800 mcg-120 mcg capsule PO DAILY <RANJAN Beavers - Last Filed: 05/22/22 20:38> Interventions: ED Discharge Assessment Last Done: 05/22/22 21:57 <RANJAN Beavers - Last Filed: 05/22/22 20:38> Discharge Date/Time: 05/22/22 21:57 <RANJAN Beavers - Last Filed: 05/22/22 20:38>
[2022-05-22 20:15] VITALS: BP 93/36; PULSE 98; RESP 20; TEMP 36.1; O2SAT 100; BMI 26.6
[2022-05-22 20:47] VITALS: BP 104/44; PULSE 84; RESP 16; TEMP 36.9; O2SAT 93
[2022-05-22 20:58] VITALS: BP 112/47; PULSE 94; RESP 18; O2SAT 99
[2022-05-22] MEDS: dexAMETHasone 2 MG TABLET 10 MG PO (21:33)
[2022-05-22] MEDS: Famotidine 20 MG TABLET PO (21:33)
--- NOTE | 2022-05-22 21:55 | PC.NURSE ---
pt discharge to waiting room to wait for ride. iv removed at time of discharge. pt reports 0/10 pain. pt verbalized understanding of discharge plan
== END 2022-05-22 21:57 | disposition home or self-care (01) ==
PROVIDERS: Emergency Provider Internal Medicine
DX: T78.03XA Anaphylactic reaction due to other fish, initial encounter (principal); T78.49XA Other allergy, initial encounter; X58.XXXA Exposure to other specified factors, initial encounter
CPT/HCPCS: 99283; 99284; J8540

== ENCOUNTER 2022-06-02 22:25 | Inpatient (IN) | payer OTHER, SELFPAY ==
--- NOTE | 2022-06-02 | ECG_ITS ---
Test Reason : CHEST PAIN Blood Pressure : / mmHG Vent. Rate : 088 BPM Atrial Rate : 088 BPM P-R Int : 116 ms QRS Dur : 094 ms QT Int : 356 ms P-R-T Axes : 047 009 017 degrees QTc Int : 430 ms Sinus rhythm with marked sinus arrhythmia Possible Left atrial enlargement Borderline ECG When compared with ECG of 16-SEP-2020 10:12, QT has shortened Referred By: Generic ED Physician Electronically Signed By:MARTINE VELASQUEZ MD
--- NOTE | ~2022-06-02 | XR_ITS ---
EXAMINATION: XR CHEST CLINICAL INFORMATION: Chest pain COMPARISON: 11/16/2019 TECHNIQUE: Frontal view of the chest was obtained. FINDINGS: No acute finding. Lung rojas are felt to be grossly clear. There is no effusion. The cardiac silhouette is comparable. Some limitation from rotation here. The hilar regions do not appear pathologically enlarged. XR/XR chest 1V IMPRESSION: No acute finding.
--- NOTE | ~2022-06-02 | CT_ITS ---
EXAMINATION: CT ABDOMEN AND PELVIS WITH CONTRAST CLINICAL INFORMATION: Left upper quadrant and epigastric pain COMPARISON: 03/08/2022 TECHNIQUE: Multidetector volumetric images were obtained from the superior aspect of the liver through the pubic symphysis following administration 85 mL of Omnipaque 350 intravenous contrast. Sagittal and coronal reformatted images were obtained on the technologist's workstation. Oral contrast: No This CT examination was performed using dose optimization techniques as appropriate, variously including the following: *Automated exposure control *Adjustment of mA and/or kV according to patient size (this includes techniques or standardized protocols for targeted exams where dose is matched to indication/reason for exam; i.e. extremities or head) *Use of iterative reconstruction technique DLP: 703 mGy-cm FINDINGS: LUNG BASES: The visualized lung bases are unremarkable. LIVER, GALLBLADDER, AND BILIARY TREE: The liver is enlarged measuring 22 cm in CC dimension. The liver is normal in shape with decreased attenuation. No focal hepatic lesion or biliary ductal dilatation is present. The gallbladder is not seen. PANCREAS: The pancreatic parenchyma is homogenous. Prominent inflammatory changes are seen along the pancreatic head and neck. No fluid collection. No ductal dilatation. SPLEEN: Unremarkable. ADRENAL GLANDS: Unremarkable. KIDNEYS AND URETERS: The kidneys are normal in size, shape, and attenuation. No hydronephrosis, hydroureter, or calculi seen. No perinephric stranding. BLADDER: Unremarkable. GASTROINTESTINAL TRACT: Postsurgical changes of gastric bypass. No bowel obstruction. No colonic wall thickening or inflammation. No free air. No significant free fluid. ABDOMINAL WALL: No significant hernia is appreciated. LYMPH NODES: Normal. VASCULAR: Unremarkable. PELVIC VISCERA: The uterus and adnexa are unremarkable. OSSEOUS STRUCTURES: Unremarkable. CT/CT abdomen pelvis w IV con IMPRESSION: 1. Prominent inflammatory changes along the pancreatic head and neck suggestive of acute pancreatitis. No fluid collection. 2. Hepatomegaly with hepatic steatosis. Fleischner guidelines were followed.
[2022-06-02 22:26] VITALS: BP 150/80; PULSE 104; RESP 20; TEMP 36.1; O2SAT 99; BMI 27.3
[2022-06-02 22:46] VITALS: BP 134/74; PULSE 103; RESP 15; TEMP 36.8; O2SAT 97
[2022-06-02 23:37] LABS: MANUAL DIFF FLAG NO
[2022-06-02 23:38] LABS: Basophils Percent Auto 0.5 % (0-2); Hematocrit 34.2 % (37.0-47.0); Hemoglobin 11.7 g/dl (12.0-16.0); Imm Gran Abs Auto 0.01 X10*3/uL (0.00-0.03); Imm Gran Pct Auto 0.2 % (0.0-0.4); Lymphocytes Absolute Auto 1.1 X10*3/uL (1.2-4.9); Lymphocytes Percent Auto 17.4 % (20-40); Mean Corpuscular HGB Conc 34.2 g/dl (31.0-35.0); Mean Corpuscular Volume 102.4 fL (80.0-98.0); Mean Platelet Volume 9.6 fL (9.4-12.3); Monocytes Absolute Auto 0.4 X10*3/uL (0.1-1.2); Monocytes Percent Auto 6.7 % (2-11); Neutrophils Percent Auto 75.2 % (45-73); Platelet Count 175 X10*3/uL (160-400); Red Blood Count 3.34 X10*6/uL (4.20-5.50); White Blood Count 6.6 X10*3/uL (4.8-10.8)
--- NOTE | 2022-06-02 23:41 | PC.NURSE ---
PT A&Ox4, reports 10/10 epigastric pain, radiating to chest and back. Reports N/V. Denies diarrhea. PT hyperventilating, tender to touch in the epigastric region, +BS. Labs collected and sent to lab.
[2022-06-02 23:52] LABS: Anion Gap 23 (12-20); Blood Urea Nitrogen 14 mg/dL (9-16); Calcium 8.6 mg/dL (8.4-10.2); Carbon Dioxide 18 mmol/L (22-29); Chloride 97 mmol/L (96-108); Creatinine Clr Calc Pharmacy 107.1; Estimated Glomerular Filt Rate > 60; Glucose Random 93 mg/dL (60-115); Potassium 3.8 mmol/L (3.3-5.1); Sodium 134 mmol/L (135-145)
[2022-06-03] VITALS (19 sets, daily range): BP systolic 107–145; BP diastolic 67–87; PULSE 78–109; RESP 14–22; TEMP 36.4–36.8; O2SAT 94–99
[2022-06-03] LABS: Troponin-I High Sensitivity < 3.5 ng/L (<3.5-17.0)
[2022-06-03] MEDS: Morphine Sulfate 4 MG/ML CARTRIDGE IVPUSH ×5 (00:23→21:20)
[2022-06-03] MEDS: 0.9 % Sodium Chloride 1,000 ML 999 ML IV (00:23)
[2022-06-03] MEDS: ondansetron HCL 4 MG/2 ML VIAL IVPUSH ×3 (00:24→17:01)
[2022-06-03] MEDS: LORazepam 2 MG/ML VIAL 1 MG IVPUSH (00:28)
--- NOTE | 2022-06-03 00:28 | ED_ITS ---
HPI - Chest Pain General Chief Complaint: Chest Pain <RANJAN Bone - Last Filed: 06/03/22 01:32> Stated Complaint: chest pain/ abdominal pain <RANJAN Bone Last Filed: 06/03/22 01:32> Time Seen by Provider: 06/02/22 22:55 <RANJAN Bone - Last Filed: 06/03/22 01:32> Source: patient <RANJAN Bone Last Filed: 06/03/22 01:32> Mode of arrival: ambulatory <RANJAN Bone Last Filed: 06/03/22 01:32> Limitations: no limitations <RANJAN Bone Last Filed: 06/03/22 01:32> History of Present Illness HPI narrative: This is a 41-year-old female presenting to the emergency department with severe epigastric pain and left upper quadrant pain associated with nausea and vomiting x1 day, she tells me at times she feels like the epigastric pain radiates into her chest, she describes as a sharp, burning sensation that is severe in nature. Patient tells me she has been vomiting bile and has not been able to keep anything down today and feels dehydrated. Patient tells me she is a daily drinker she drinks 1 pt of whiskey a day her last drink was yesterday, tells me she has never gone into alcohol withdrawal. She reports she does however have history of pancreatitis. Denies chest pain, shortness of breath, headache, vision changes, dizziness, weakness. <RANJAN Bone Last Filed: 06/03/22 01:32> Related Data Home Medications: Home Medications Medication Instructions Recorded Confirmed calcium carbonate 500 mg calcium 500 mg PO DAILY 01/03/21 08/22/21 (1,250 mg) tablet (Calcium 500) cetirizine 10 mg tablet 30 mg PO DAILY 01/03/21 08/22/21 dextroamphetamine-amphetamine ER 1 cap PO QAM 01/03/21 08/22/21 20 mg 24hr capsule,extend release vitamin B complex 1 cap PO DAILY 01/03/21 08/22/21 levothyroxine 50 mcg tablet 50 mcg PO DAILY 08/22/21 08/22/21 [id number] 45 mg-folic cap PO DAILY 08/22/21 08/22/21 acid 800 mcg-vit K 120 mcg capsule (Bariatric Multivitamins) dextroamphetamine-amphetamine ER 1 cap PO QAM 06/03/22 06/03/22 20 mg 24hr capsule,extend release levothyroxine 75 mcg tablet 1 tab PO DAILY 06/03/22 06/03/22 Previous Rx's Medication Instructions Recorded cholecalciferol (vitamin D3) 50 50 mcg PO DAILY #30 caps 08/23/21 mcg (2,000 unit) capsule ondansetron 4 mg disintegrating 4 mg PO ONCE PRN nausea and 09/07/21 tablet vomiting #10 tabs amoxicillin 875 mg-potassium 1 tab PO Q12H 7 days #14 tabs 10/14/21 clavulanate 125 mg tablet ondansetron 4 mg disintegrating 4 mg PO Q8H PRN nausea and 10/14/21 tablet vomiting #6 tabs sulfamethoxazole 800 1 tab PO BID uti 7 days #14 tabs 10/18/21 mg-trimethoprim 160 mg tablet (Bactrim DS) chlordiazepoxide HCl 25 mg capsule 25 mg PO TID PRN alcohol 11/06/21 withdrawal #8 caps ondansetron 4 mg disintegrating 4 mg PO Q8H PRN nausea and 11/06/21 tablet vomiting #10 tabs diphenhydramine HCl 25 mg tablet 50 mg PO TID PRN allergic reaction 02/11/22 (Benadryl Allergy) #10 tabs epinephrine 0.3 mg/0.3 mL 0.3 mg (0.3 mL) IM Q20M PRN 02/11/22 injection, auto-injector (EpiPen) anaphylaxis #2 ea prednisone 20 mg tablet 40 mg PO DAILY rash 5 days #10 tabs 02/11/22 meclizine 25 mg tablet 25 mg PO TID PRN dizziness #14 tabs 03/08/22 <RANJAN Bone - Last Filed: 06/03/22 01:32> Allergies/Adverse Reactions: Allergies Allergy/AdvReac Type Severity Reaction Status Date / Time shellfish derived Allergy Severe ANAPHYLAXIS Verified 06/02/22 22:31 [SHELLFISH DERIVED] benztropine [From COGENTIN] Allergy Intermediate PSYCHOSIS Verified 06/02/22 22:31 gabapentin [GABAPENTIN] Allergy Intermediate PSYCHOSIS Verified 06/02/22 22:31 amantadine [AMANTADINE] Allergy Mild HIVES, rash Verified 06/02/22 22:31 seafood Allergy Unknown anaphylaxis Uncoded 06/02/22 22:31 <RANJAN Bone - Last Filed: 06/03/22 01:32> Review of Systems Review of Systems: Constitutional : No Weight loss, No Fever, No Chills, No Fatigue, No Malaise ENT/Mouth : No sore throat, No Rhinorrhea Eyes: No Eye Pain, No Swelling, No Redness Cardiovascular : No Chest Pain, No SOB, No Dyspnea on Exertion, No Orthopnea, No Edema, No Palpitations Respiratory : No Cough, No Sputum, No Wheezing Gastrointestinal : + Nausea, + Vomiting, No Diarrhea, No Constipation, + abdo jluis Pain, No Hematochezia, No Melena Genitourinary : No Dysuria, No Urinary Frequency, No Hematuria, Musculoskeletal : No joint pain, No Myalgias, No Joint Swelling Skin : No Skin Lesions, No rash Neuro : No Weakness, No Numbness, No Dizziness, No Headache Psych : No Anxiety/Panic, No Depression All other systems reviewed and are negative <RANJAN Bone - Last Filed: 06/03/22 01:32> Yes all other systems are reviewed and are negative <RANJAN Bone - Last Filed: 06/03/22 01:32> PMFSH Past Medical History Attestation statement: The following information was validated with the patient. <RANJAN Bartholomew - Last Filed: 06/03/22 01:32> Source: old records reviewed and nursing notes reviewed <RANJAN Bone - Last Filed: 06/03/22 01:32> Medical History: Medical History Acute pancreatitis ADHD Congenital hypothyroidism Depression Elevated liver function tests Migraine <RANJAN Bone - Last Filed: 06/03/22 01:32> Surgical History: Surgical History H/O gastric bypass H/O tubal ligation History of cholecystectomy History of Calixto-en-Y gastric bypass Previous section <RANJAN Bone - Last Filed: 06/03/22 01:32> Family History Family History: Family History Mother No problems noted. Father No problems noted. Brother No problems noted. Brother No problems noted. Sister No problems noted. Sister No problems noted. Son No problems noted. <RANJAN Bone - Last Filed: 06/03/22 01:32> Social History Social History: Social History Household Members: Spouse Housing: House Do you presently have visiting nurse or other home services: No Alcohol intake: former Patient Tobacco Use Status: Never used Tobacco Smoked in Last 30 Days: No e-Cigarette/Vaping Use: Never Used Use of substances other than those prescribed or required for medical reasons: No Advance Directives: No Advance Directives Information Provided: No Patient : No service: No Current occupational status: employed <RANJAN Bone - Last Filed: 06/03/22 01:32> Physical Exam Vital Signs: Vital Signs: Last Vital Signs Temp 98.2 F 06/03/22 05:07 Pulse 98 06/03/22 06:24 Resp 20 06/03/22 06:24 BP 139/86 06/03/22 06:24 Pulse Ox 99 06/03/22 06:24 O2 Del Method 06/03/22 06:24 BMI result Body Mass Index 27.3 vss <RANJAN Bone - Last Filed: 06/03/22 01:32> Vital Signs: Last Vital Signs Temp 98.2 F 06/03/22 05:07 Pulse 98 06/03/22 06:24 Resp 20 06/03/22 06:24 BP 139/86 06/03/22 06:24 Pulse Ox 99 06/03/22 06:24 O2 Del Method 06/03/22 06:24 BMI result Body Mass Index 27.3 <Peace Lombardi MD - Last Filed: 06/03/22 06:27> Appearance: Alert.? Oriented X3.? No acute distress.? Patient appears uncomfortable. Head: Normocephalic, atraumatic, no step-offs or deformities Eyes: Pupils equal, round and reactive to light.? ENT: Pharynx normal.? Neck: Normal inspection.? Neck supple.? CVS: Rapid rate normal rhythm likely sinus tachycardia.? Pulses normal.? Respiratory: No respiratory distress.? Breath sounds normal.? Abdomen: Soft and tenderness to palpation of epigastric and left upper quadrant.? Normoactive bowel sounds Skin: Skin warm and dry.? Normal skin color.? Normal skin turgor.? Extremities: No lower extremity edema.? No calf ttp. 5/5 strength to bilateral upper and lower extremities Back: No midline tenderness, no C-spine tenderness, full range of motion, no CVA tenderness bilaterally Neuro: Oriented X 3.? No motor deficit.? No sensory deficit. CN 2-12 intact <RANJAN Bone - Last Filed: 06/03/22 01:32> Course Reevaluation(s) Reevaluation #1: CBC appears to be around patient's baseline with a macrocytic anemia hemoglobin 11.7, hematocrit 34.2, likely secondary to chronic alcohol abuse, chemistry with sodium of 134 patient being hydrated with IV fluids. Anion gap of 23 likely secondary to ethanol. <RANJAN Bone - Last Filed: 06/03/22 01:32> Time: 00:36 <RANJAN Bone - Last Filed: 06/03/22 01:32> Reevaluation #2: Patient's transaminases noted to be elevated at 2 2 1 fashion likely secondary to chronic alcohol abuse. Patient's lipase 90 elevated patient does have a left upper quadrant pain and epigastric pain which could be concerning for a pancreatitis Patient tells me she wants to cut down drinking. <RANJAN Bone - Last Filed: 06/03/22 01:32> Time: 01:23 <RANJAN Bone Last Filed: 06/03/22 01:32> Reevaluation #3: Patient not tolerating p.o. continues to have nausea and vomiting, CT showing pancreatitis. Patient will be admitted to the hospital due to patient's CIWA score will start her on phenobarbital to prevent alcohol withdrawal. Patient willing to stay. Comfortable at this time. Getting IV fluids. At this time I feel comfortable with plan hospital accepts admission <RANJAN Bone - Last Filed: 06/03/22 01:32> Time: 01:31 <RANJAN Bone - Last Filed: 06/03/22 01:32> Medications Administered Generic Name Dose Route Start Last Admin Trade Name Freq PRN Reason Stop Dose Admin Dextrose/Lactated Ringer's 1,000 mls @ 125 mls/hr 06/03/22 04:30 06/03/22 04:48 D5lr IVCONT 125 mls/hr .Q8H MALI Administration Insulin Human Regular 100 unit in 100 mls @ 0 mls/hr 06/03/22 04:30 06/03/22 04:51 Myxredlin IVCONT 1 unit/hr .Q0M MALI 1 mls/hr Administration Protocol Per Protocol Phenobarbital Sodium 230 mg 06/03/22 05:15 06/03/22 05:09 Phenobarbital Sodium 130 Mg/Ml Vial Im Q3hx2 IM 06/03/22 08:16 230 mg Q3H MALI Administration Discontinued Medications Generic Name Dose Route Start Last Admin Trade Name Freq PRN Reason Stop Dose Admin Dextrose 25 gm 06/03/22 04:22 06/03/22 05:02 Dextrose 50 % 25 Gm/50 Ml Syringe IVPUSH 06/03/22 04:23 25 gm ONCE ONE Administration Sodium Chloride 1,000 mls @ 999 mls/hr 06/03/22 00:15 06/03/22 01:40 Ns IV 06/03/22 01:15 Infused .Q1H1M MALI Infusion Iohexol 85 ml 06/03/22 01:14 06/03/22 01:15 Iohexol 350 Mg/Ml 100 Ml Infus..Btl IV 06/03/22 01:15 85 ml ONCE ONE Administration Lorazepam 1 mg 06/03/22 00:11 06/03/22 00:28 Lorazepam 2 Mg/Ml Vial IVPUSH 06/03/22 00:12 1 mg ONCE ONE Administration Morphine Sulfate 4 mg 06/03/22 00:11 06/03/22 00:23 Morphine Sulfate 4 Mg/Ml Cartridge IVPUSH 06/03/22 00:12 4 mg ONCE ONE Administration Protocol Morphine Sulfate 4 mg 06/03/22 06:14 06/03/22 06:24 Morphine Sulfate 4 Mg/Ml Cartridge IVPUSH 06/03/22 06:15 4 mg ONCE ONE Administration Protocol Ondansetron HCl 4 mg 06/03/22 00:11 06/03/22 00:24 Ondansetron Hcl 4 Mg/2 Ml Vial IVPUSH 06/03/22 00:12 4 mg ONCE ONE Administration Phenobarbital Sodium 300 mg 06/03/22 02:15 06/03/22 02:27 Phenobarbital Sodium 130 Mg/Ml Im Once IM 06/03/22 02:16 300 mg ONCE ONE Administration <RANJAN Bone - Last Filed: 06/03/22 01:32> Medications Administered Generic Name Dose Route Start Last Admin Trade Name Freq PRN Reason Stop Dose Admin Dextrose/Lactated Ringer's 1,000 mls @ 125 mls/hr 06/03/22 04:30 06/03/22 04:48 D5lr IVCONT 125 mls/hr .Q8H MALI Administration Insulin Human Regular 100 unit in 100 mls @ 0 mls/hr 06/03/22 04:30 06/03/22 04:51 Myxredlin IVCONT 1 unit/hr .Q0M MALI 1 mls/hr Administration Protocol Per Protocol Phenobarbital Sodium 230 mg 06/03/22 05:15 06/03/22 05:09 Phenobarbital Sodium 130 Mg/Ml Vial Im Q3hx2 IM 06/03/22 08:16 230 mg Q3H MALI Administration Discontinued Medications Generic Name Dose Route Start Last Admin Trade Name Fremariely PRN Reason Stop Dose Admin Dextrose 25 gm 06/03/22 04:22 06/03/22 05:02 Dextrose 50 % 25 Gm/50 Ml Syringe IVPUSH 06/03/22 04:23 25 gm ONCE ONE Administration Sodium Chloride 1,000 mls @ 999 mls/hr 06/03/22 00:15 06/03/22 01:40 Ns IV 06/03/22 01:15 Infused .Q1H1M MALI Infusion Iohexol 85 ml 06/03/22 01:14 06/03/22 01:15 Iohexol 350 Mg/Ml 100 Ml Infus..Btl IV 06/03/22 01:15 85 ml ONCE ONE Administration Lorazepam 1 mg 06/03/22 00:11 06/03/22 00:28 Lorazepam 2 Mg/Ml Vial IVPUSH 06/03/22 00:12 1 mg ONCE ONE Administration Morphine Sulfate 4 mg 06/03/22 00:11 06/03/22 00:23 Morphine Sulfate 4 Mg/Ml Cartridge IVPUSH 06/03/22 00:12 4 mg ONCE ONE Administration Protocol Morphine Sulfate 4 mg 06/03/22 06:14 06/03/22 06:24 Morphine Sulfate 4 Mg/Ml Cartridge IVPUSH 06/03/22 06:15 4 mg ONCE ONE Administration Protocol Ondansetron HCl 4 mg 06/03/22 00:11 06/03/22 00:24 Ondansetron Hcl 4 Mg/2 Ml Vial IVPUSH 06/03/22 00:12 4 mg ONCE ONE Administration Phenobarbital Sodium 300 mg 06/03/22 02:15 06/03/22 02:27 Phenobarbital Sodium 130 Mg/Ml Im Once IM 06/03/22 02:16 300 mg ONCE ONE Administration <Peace Lombardi MD - Last Filed: 06/03/22 06:27> Medical Decision Making Medical Decision Making [facility] Narrative: [id number] 41-year-old female presenting with nausea, vomiting, epigastric pain and left upper quadrant pain x1 day. Current daily drinker of 1 pt of whiskey per day. History of pancreatitis. Physical exam significant for tenderness to palpation to epigastric and left upper quadrant. Rapid rate normal rhythm likely sinus tachycardia. Patient appears uncomfortable. I do have some concern for alcohol withdrawal CIWA 9 at this time no signs of autonomic dysfunction however, however will rule out intra-abdominal processes as well such as pancreatitis, other differentials include gastric ulcers or gastritis. Unlikely acute abdomen, appendicitis, diverticulitis or cholecy stitis. Plan at this time labs, imaging, UA, CIWA,Ethanol, Lipase. Will medicate with morphine, Zofran, Ativan. <RANJAN Bone - Last Filed: 06/03/22 01:32> 0033 41-year-old female presenting with nausea, vomiting, epigastric pain and left upper quadrant pain x1 day. Current daily drinker of 1 pt of whiskey per day. History of pancreatitis. Physical exam significant for tenderness to palpation to epigastric and left upper quadrant. Rapid rate normal rhythm likely sinus tachycardia. Patient appears uncomfortable. I do have some concern for alcohol withdrawal CIWA 9 at this time no signs of autonomic dysfunction however, however will rule out intra-abdominal processes as well such as pancreatitis, other differentials include gastric ulcers or gastritis. Unlikely acute abdomen, appendicitis, diverticulitis or cholecystitis. Plan at this time labs, imaging, UA, CIWA,Ethanol, Lipase. Will medicate with morphine, Zofran, Ativan. 04:30: Dr. Lopez informed me that the patient's triglycerides are 2397. Patient will need an insulin drip and needs to be admitted to the ICU. We will have a bed available at 07:00. -I discussed the patient with [employer] COUNSELOR Mynor from the ICU, up-to-date recommends a dose of 0.1 milligrams/kilogram. However, in the unit the use 1-2 units/hour. Patient will be given D50 pushes, started on D5 LR, patient will need glucose checks every 30 minutes. -Dr. Bazzi accepted the pt to the ICU <Peace Lombardi MD - Last Filed: 06/03/22 06:27> Differential Diagnosis Differential Diagnoses: The differential diagnosis associated with the presentation includes <RANJAN Mar - Last Filed: 06/03/22 01:32> I do have some concern for alcohol withdrawal, however will rule out intra-abdominal processes as well such as pancreatitis, other differentials include gastric ulcers or gastritis. Unlikely acute abdomen, appendicitis, diverticulitis or cholecystitis. <RANJAN Bone - Last Filed: 06/03/22 01:32> Admission/Observation Consideration of admission/observation: Escalation of care including admission/observation considered <RANJAN Bone - Last Filed: 06/03/22 01:32> Possible hospital admission <RANJAN Bone - Last Filed: 06/03/22 01:32> Lab Data MDM Lab Attestation statement: I reviewed the patient's lab results. <RANJAN Bone - Last Filed: 06/03/22 01:32> Result Diagrams: 06/02/22 23:32 06/02/22 23:32 <RANJAN Bone - Last Filed: 06/03/22 01:32> Labs: Lab Results 06/02/22 06/02/22 06/02/22 Range/Units 23:32 23:32 23:32 WBC 6.6 (4.8-10.8) X10*3/uL RBC 3.34 L (4.20-5.50) X10*6/uL Hgb 11.7 L (12.0-16.0) g/dl Hct 34.2 L (37.0-47.0) % MCV 102.4 H (80.0-98.0) fL MCH 35.0 H (27.0-33.0) pg MCHC 34.2 (31.0-35.0) g/dl RDW 15.0 (11.0-16.0) % Plt Count 175 (160-400) X10*3/uL MPV 9.6 (9.4-12.3) fL Immature Gran % (Auto) 0.2 (0.0-0.4) % Neut % (Auto) 75.2 H (45-73) % Lymph % (Auto) 17.4 L (20-40) % [place] % (Auto) 6.7 (2-11) % Eos % (Auto) 0.0 (0-4) % Baso % (Auto) 0.5 (0-2) % Lymph # (Auto) 1.1 L (1.2-4.9) X10*3/uL [place] # (Auto) 0.4 (0.1-1.2) X10*3/uL Eos # (Auto) 0.0 (0.0-0.4) X10*3/uL Baso # (Auto) 0.0 (0.0-0.2) X10*3/uL Abs Immat Gran (auto) 0.01 (0.00-0.03) X10*3/uL Absolute Neuts (auto) 5.0 (2.0-8.3) x10*3/uL Absolute Nucleated RBC 0.000 (0.0-0.012) X10*3/uL Nucleated RBC % (auto) 0.0 (0.0-0.2) /100WBC Sodium 134 L (135-145) mmol/L Potassium 3.8 D (3.3-5.1) mmol/L Chloride 97 (96-108) mmol/L Carbon Dioxide 18 L (22-29) mmol/L Anion Gap 23 H (12-20) BUN 14 (9-16) mg/dL Creatinine 0.79 (0.5-1.4) mg/dL Estim Creat Clear Calc 107.1 Estimated GFR > 60 POC Glucose (60-115) mg/dL Random Glucose 93 (60-115) mg/dL Calcium 8.6 (8.4-10.2) mg/dL Total Bilirubin 0.9 (0.0-1.0) mg/dL Direct Bilirubin 0.4 (0.0-0.5) mg/dL AST 111 H (5-31) U/L ALT 89 H (0-31) U/L Alkaline Phosphatase 212 H (39-117) U/L Troponin I High Sens < 3.5 (<3.5-17.0) ng/L Total Protein 7.5 (6.5-8.0) g/dL Albumin 3.7 (3.5-5.0) g/dL Triglycerides 2397 mg/dL Lipase 90 H (8-78) U/L Ethyl Alcohol < 10 mg/dL COVID-19 (ANIKET) (Negative) COVID-19 Clin Com Influenza Type A (DANNY) (Negative) Influenza Type B (DANNY) (Negative) Influenza A & B Note 06/03/22 06/03/22 06/03/22 Range/Units 01:18 01:18 04:43 WBC (4.8-10.8) X10*3/uL RBC (4.20-5.50) X10*6/uL Hgb (12.0-16.0) g/dl Hct (37.0-47.0) % MCV (80.0-98.0) fL MCH (27.0-33.0) pg MCHC (31.0-35.0) g/dl RDW (11.0-16.0) % Plt Count (160-400) X10*3/uL MPV (9.4-12.3) fL Immature Gran % (Auto) (0.0-0.4) % Neut % (Auto) (45-73) % Lymph % (Auto) (20-40) % [place] % (Auto) (2-11) % Eos % (Auto) (0-4) % Baso % (Auto) (0-2) % Lymph # (Auto) (1.2-4.9) X10*3/uL [place] # (Auto) (0.1-1.2) X10*3/uL Eos # (Auto) (0.0-0.4) X10*3/uL Baso # (Auto) (0.0-0.2) X10*3/uL Abs Immat Gran (auto) (0.00-0.03) X10*3/uL Absolute Neuts (auto) (2.0-8.3) x10*3/uL Absolute Nucleated RBC (0.0-0.012) X10*3/uL Nucleated RBC % (auto) (0.0-0.2) /100WBC Sodium (135-145) mmol/L Potassium (3.3-5.1) mmol/L Chloride (96-108) mmol/L Carbon Dioxide (22-29) mmol/L Anion Gap (12-20) BUN (9-16) mg/dL Creatinine (0.5-1.4) mg/dL Estim Creat Clear Calc Estimated GFR POC Glucose 125 H (60-115) mg/dL Random Glucose (60-115) mg/dL Calcium (8.4-10.2) mg/dL Total Bilirubin (0.0-1.0) mg/dL Direct Bilirubin (0.0-0.5) mg/dL AST (5-31) U/L ALT (0-31) U/L Alkaline Phosphatase (39-117) U/L Troponin I High Sens (<3.5-17.0) ng/L Total Protein (6.5-8.0) g/dL Albumin (3.5-5.0) g/dL Triglycerides mg/dL Lipase (8-78) U/L Ethyl Alcohol mg/dL COVID-19 (ANIKET) Negative (Negative) COVID-19 Clin Com See Note Influenza Type A (DANNY) Negative (Negative) Influenza Type B (DANNY) Negative (Negative) Influenza A & B Note See Note 06/03/22 06/03/22 Range/Units 05:21 05:52 WBC (4.8-10.8) X10*3/uL RBC (4.20-5.50) X10*6/uL Hgb (12.0-16.0) g/dl Hct (37.0-47.0) % MCV (80.0-98.0) fL MCH (27.0-33.0) pg MCHC (31.0-35.0) g/dl RDW (11.0-16.0) % Plt Count (160-400) X10*3/uL MPV (9.4-12.3) fL Immature Gran % (Auto) (0.0-0.4) % Neut % (Auto) (45-73) % Lymph % (Auto) (20-40) % [place] % (Auto) (2-11) % Eos % (Auto) (0-4) % Baso % (Auto) (0-2) % Lymph # (Auto) (1.2-4.9) X10*3/uL [place] # (Auto) (0.1-1.2) X10*3/uL Eos # (Auto) (0.0-0.4) X10*3/uL Baso # (Auto) (0.0-0.2) X10*3/uL Abs Immat Gran (auto) (0.00-0.03) X10*3/uL Absolute Neuts (auto) (2.0-8.3) x10*3/uL Absolute Nucleated RBC (0.0-0.012) X10*3/uL Nucleated RBC % (auto) (0.0-0.2) /100WBC Sodium (135-145) mmol/L Potassium (3.3-5.1) mmol/L Chloride (96-108) mmol/L Carbon Dioxide (22-29) mmol/L Anion Gap (12-20) BUN (9-16) mg/dL Creatinine (0.5-1.4) mg/dL Estim Creat Clear Calc Estimated GFR POC Glucose 228 H 231 H (60-115) mg/dL Random Glucose (60-115) mg/dL Calcium (8.4-10.2) mg/dL Total Bilirubin (0.0-1.0) mg/dL Direct Bilirubin (0.0-0.5) mg/dL AST (5-31) U/L ALT (0-31) U/L Alkaline Phosphatase (39-117) U/L Troponin I High Sens (<3.5-17.0) ng/L Total Protein (6.5-8.0) g/dL Albumin (3.5-5.0) g/dL Triglycerides mg/dL Lipase (8-78) U/L Ethyl Alcohol mg/dL COVID-19 (ANIKET) (Negative) COVID-19 Clin Com Influenza Type A (DANNY) (Negative) Influenza Type B (DANNY) (Negative) Influenza A & B Note <RANJAN Bone - Last Filed: 06/03/22 01:32> Lab Results 06/02/22 06/02/22 06/02/22 Range/Units 23:32 23:32 23:32 WBC 6.6 (4.8-10.8) X10*3/uL RBC 3.34 L (4.20-5.50) X10*6/uL Hgb 11.7 L (12.0-16.0) g/dl Hct 34.2 L (37.0-47.0) % MCV 102.4 H (80.0-98.0) fL MCH 35.0 H (27.0-33.0) pg MCHC 34.2 (31.0-35.0) g/dl RDW 15.0 (11.0-16.0) % Plt Count 175 (160-400) X10*3/uL MPV 9.6 (9.4-12.3) fL Immature Gran % (Auto) 0.2 (0.0-0.4) % Neut % (Auto) 75.2 H (45-73) % Lymph % (Auto) 17.4 L (20-40) % [place] % (Auto) 6.7 (2-11) % Eos % (Auto) 0.0 (0-4) % Baso % (Auto) 0.5 (0-2) % Lymph # (Auto) 1.1 L (1.2-4.9) X10*3/uL [place] # (Auto) 0.4 (0.1-1.2) X10*3/uL Eos # (Auto) 0.0 (0.0-0.4) X10*3/uL Baso # (Auto) 0.0 (0.0-0.2) X10*3/uL Abs Immat Gran (auto) 0.01 (0.00-0.03) X10*3/uL Absolute Neuts (auto) 5.0 (2.0-8.3) x10*3/uL Absolute Nucleated RBC 0.000 (0.0-0.012) X10*3/uL Nucleated RBC % (auto) 0.0 (0.0-0.2) /100WBC Sodium 134 L (135-145) mmol/L Potassium 3.8 D (3.3-5.1) mmol/L Chloride 97 (96-108) mmol/L Carbon Dioxide 18 L (22-29) mmol/L Anion Gap 23 H (12-20) BUN 14 (9-16) mg/dL Creatinine 0.79 (0.5-1.4) mg/dL Estim Creat Clear Calc 107.1 Estimated GFR > 60 POC Glucose (60-115) mg/dL Random Glucose 93 (60-115) mg/dL Calcium 8.6 (8.4-10.2) mg/dL Total Bilirubin 0.9 (0.0-1.0) mg/dL Direct Bilirubin 0.4 (0.0-0.5) mg/dL AST 111 H (5-31) U/L ALT 89 H (0-31) U/L Alkaline Phosphatase 212 H (39-117) U/L Troponin I High Sens < 3.5 (<3.5-17.0) ng/L Total Protein 7.5 (6.5-8.0) g/dL Albumin 3.7 (3.5-5.0) g/dL Triglycerides 2397 mg/dL Lipase 90 H (8-78) U/L Ethyl Alcohol < 10 mg/dL COVID-19 (ANIKET) (Negative) COVID-19 Clin Com Influenza Type A (DANNY) (Negative) Influenza Type B (DANNY) (Negative) Influenza A & B Note 06/03/22 06/03/22 06/03/22 Range/Units 01:18 01:18 04:43 WBC (4.8-10.8) X10*3/uL RBC (4.20-5.50) X10*6/uL Hgb (12.0-16.0) g/dl Hct (37.0-47.0) % MCV (80.0-98.0) fL MCH (27.0-33.0) pg MCHC (31.0-35.0) g/dl RDW (11.0-16.0) % Plt Count (160-400) X10*3/uL MPV (9.4-12.3) fL Immature Gran % (Auto) (0.0-0.4) % Neut % (Auto) (45-73) % Lymph % (Auto) (20-40) % [place] % (Auto) (2-11) % Eos % (Auto) (0-4) % Baso % (Auto) (0-2) % Lymph # (Auto) (1.2-4.9) X10*3/uL [place] # (Auto) (0.1-1.2) X10*3/uL Eos # (Auto) (0.0-0.4) X10*3/uL Baso # (Auto) (0.0-0.2) X10*3/uL Abs Immat Gran (auto) (0.00-0.03) X10*3/uL Absolute Neuts (auto) (2.0-8.3) x10*3/uL Absolute Nucleated RBC (0.0-0.012) X10*3/uL Nucleated RBC % (auto) (0.0-0.2) /100WBC Sodium (135-145) mmol/L Potassium (3.3-5.1) mmol/L Chloride (96-108) mmol/L Carbon Dioxide (22-29) mmol/L Anion Gap (12-20) BUN (9-16) mg/dL Creatinine (0.5-1.4) mg/dL Estim Creat Clear Calc Estimated GFR POC Glucose 125 H (60-115) mg/dL Random Glucose (60-115) mg/dL Calcium (8.4-10.2) mg/dL Total Bilirubin (0.0-1.0) mg/dL Direct Bilirubin (0.0-0.5) mg/dL AST (5-31) U/L ALT (0-31) U/L Alkaline Phosphatase (39-117) U/L Troponin I High Sens (<3.5-17.0) ng/L Total Protein (6.5-8.0) g/dL Albumin (3.5-5.0) g/dL Triglycerides mg/dL Lipase (8-78) U/L Ethyl Alcohol mg/dL COVID-19 (ANIKET) Negative (Negative) COVID-19 Clin Com See Note Influenza Type A (DANNY) Negative (Negative) Influenza Type B (DANNY) Negative (Negative) Influenza A & B Note See Note 06/03/22 06/03/22 Range/Units 05:21 05:52 WBC (4.8-10.8) X10*3/uL RBC (4.20-5.50) X10*6/uL Hgb (12.0-16.0) g/dl Hct (37.0-47.0) % MCV (80.0-98.0) fL MCH (27.0-33.0) pg MCHC (31.0-35.0) g/dl RDW (11.0-16.0) % Plt Count (160-400) X10*3/uL MPV (9.4-12.3) fL Immature Gran % (Auto) (0.0-0.4) % Neut % (Auto) (45-73) % Lymph % (Auto) (20-40) % [place] % (Auto) (2-11) % Eos % (Auto) (0-4) % Baso % (Auto) (0-2) % Lymph # (Auto) (1.2-4.9) X10*3/uL [place] # (Auto) (0.1-1.2) X10*3/uL Eos # (Auto) (0.0-0.4) X10*3/uL Baso # (Auto) (0.0-0.2) X10*3/uL Abs Immat Gran (auto) (0.00-0.03) X10*3/uL Absolute Neuts (auto) (2.0-8.3) x10*3/uL Absolute Nucleated RBC (0.0-0.012) X10*3/uL Nucleated RBC % (auto) (0.0-0.2) /100WBC Sodium (135-145) mmol/L Potassium (3.3-5.1) mmol/L Chloride (96-108) mmol/L Carbon Dioxide (22-29) mmol/L Anion Gap (12-20) BUN (9-16) mg/dL Creatinine (0.5-1.4) mg/dL Estim Creat Clear Calc Estimated GFR POC Glucose 228 H 231 H (60-115) mg/dL Random Glucose (60-115) mg/dL Calcium (8.4-10.2) mg/dL Total Bilirubin (0.0-1.0) mg/dL Direct Bilirubin (0.0-0.5) mg/dL AST (5-31) U/L ALT (0-31) U/L Alkaline Phosphatase (39-117) U/L Troponin I High Sens (<3.5-17.0) ng/L Total Protein (6.5-8.0) g/dL Albumin (3.5-5.0) g/dL Triglycerides mg/dL Lipase (8-78) U/L Ethyl Alcohol mg/dL COVID-19 (ANIKET) (Negative) COVID-19 Clin Com Influenza Type A (DANNY) (Negative) Influenza Type B (DANNY) (Negative) Influenza A & B Note <Peace Lombradi MD - Last Filed: 06/03/22 06:27> Independent Interpretation I performed an independent interpretation of an: CT Scan <RANJAN Bone - Last Filed: 06/03/22 01:32> Radiology Impression Discussion of test interpretation with radiology: I have reviewed the radiologist's reading. <RANJAN Bone - Last Filed: 06/03/22 01:32> External Record Review External record reviewed: Inpatient record, Office record, Outpatient record, Prior outpatient labs, Prior outpatient radiology, Primary care record and Outside ED record <RANJAN Bone - Last Filed: 06/03/22 01:32> Core Measures AMI core measures followed: Yes <RANJAN Bone - Last Filed: 06/03/22 01:32> Measure exclusions: not indicated <RANJAN Bone - Last Filed: 06/03/22 01:32> Critical Care Time Critical Care Time Critical Care Time: No <RANJAN Bone - Last Filed: 06/03/22 01:32> Yes <Peace Lombardi MD - Last Filed: 06/03/22 06:27> Total Critical Care Time: 45 <Peace Lombardi MD - Last Filed: 06/03/22 06:27> Attestation: I have personally provided critical care time. Time includes review of lab data, radiology results, discussion with consultants, and monitoring for potential decompensation. Intervention performed as documented. <Peace Lombardi MD - Last Filed: 06/03/22 06:27> Discharge Plan Discharge Clinical Impression: Nausea & vomiting, Alcohol withdrawal, Acute pancreatitis, Hypertriglyceridemia <RANJAN Bone - Last Filed: 06/03/22 01:32> Patient Disposition: Admitted As Inpatient <RANJAN Bone - Last Filed: 06/03/22 01:32>
[2022-06-03 00:39] LABS: Ethanol < 10 mg/dL; Lipase 90 U/L (8-78)
[2022-06-03 00:54] LABS: Alanine Aminotransferase 89 U/L (0-31); Albumin Level 3.7 g/dL (3.5-5.0); Alkaline Phosphatase 212 U/L (39-117); Aspartate Amino Transferase 111 U/L (5-31); Bilirubin Direct 0.4 mg/dL (0.0-0.5); Bilirubin Total 0.9 mg/dL (0.0-1.0); Total Protein 7.5 g/dL (6.5-8.0)
[2022-06-03] MEDS: iohexoL 350 MG/ML 100 ML INFUS..BTL 85 ML IV (01:15)
--- NOTE | 2022-06-03 01:30 | P.HPHOSP_ITS ---
History of Present Illness Date of Service: 06/03/22 FORMERLY [facility], [facility] Medical History Acute pancreatitis ADHD Congenital hypothyroidism Depression Elevated liver function tests Migraine Family History Mother No problems noted. Father No problems noted. Brother No problems noted. Brother No problems noted. Sister No problems noted. Sister No problems noted. Son No problems noted. Surgical History H/O gastric bypass H/O tubal ligation History of cholecystectomy History of Calixto-en-Y gastric bypass Previous section Social History Household Members: Spouse Housing: House Do you presently have visiting nurse or other home services: No Alcohol intake: former Patient Tobacco Use Status: Never used Tobacco Smoked in Last 30 Days: No e-Cigarette/Vaping Use: Never Used Use of substances other than those prescribed or required for medical reasons: No Advance Directives: No Advance Directives Information Provided: No Patient : No service: No Current occupational status: employed Meds Allergies Allergy/AdvReac Type Severity Reaction Status Date / Time shellfish derived Allergy Severe ANAPHYLAXIS Verified 06/02/22 22:31 [SHELLFISH DERIVED] benztropine [From COGENTIN] Allergy Intermediate PSYCHOSIS Verified 06/02/22 22:31 gabapentin [GABAPENTIN] Allergy Intermediate PSYCHOSIS Verified 06/02/22 22:31 amantadine [AMANTADINE] Allergy Mild HIVES, rash Verified 06/02/22 22:31 seafood Allergy Unknown anaphylaxis Uncoded 06/02/22 22:31 Home Medications Medication Instructions Recorded Confirmed Last Taken Type calcium carbonate 500 mg calcium 500 mg PO DAILY 01/03/21 08/22/21 12/28/20 History (1,250 mg) tablet (Calcium 500) cetirizine 10 mg tablet 10 mg PO DAILY 01/03/21 08/22/21 12/28/20 History dextroamphetamine-amphetamine ER 1 cap PO QAM 01/03/21 08/22/21 12/28/20 History 20 mg 24hr capsule,extend release vitamin B complex 1 cap PO DAILY 01/03/21 08/22/2112/28/21 History levothyroxine 50 mcg tablet 50 mcg PO DAILY 08/22/21 08/22/21 Unknown History jfnyandr-[id number] 45 mg-folic cap PO DAILY 08/22/21 08/22/21 Unknown History acid 800 mcg-vit K 120 mcg capsule (Bariatric Multivitamins) Physical Exam Vital Signs and Narrative: Vital Signs: Last Vital Signs Temp 97.9 F 06/03/22 00:18 Pulse 107 H 06/03/22 00:18 Resp 22 H 06/03/22 00:23 BP 134/87 06/03/22 00:18 Pulse Ox 98 06/03/22 00:18 O2 Del Method 06/03/22 00:18 BMI result Body Mass Index 27.3 Results Labs 06/02/22 23:32 06/02/22 23:32 Labs: Laboratory Results - last 24 hr 06/02/22 06/02/22 06/02/22 23:32 23:32 23:32 MCV 102.4 H MCH 35.0 H MCHC 34.2 RDW 15.0 Plt Count 175 MPV 9.6 Immature Gran % (Auto) 0.2 Neut % (Auto) 75.2 H Lymph % (Auto) 17.4 L [place] % (Auto) 6.7 Eos % (Auto) 0.0 Baso % (Auto) 0.5 Lymph # (Auto) 1.1 L [place] # (Auto) 0.4 Eos # (Auto) 0.0 Baso # (Auto) 0.0 Abs Immat Gran (auto) 0.01 Absolute Neuts (auto) 5.0 Absolute Nucleated RBC 0.000 Nucleated RBC % (auto) 0.0 Anion Gap 23 H Estim Creat Clear Calc 107.1 Estimated GFR > 60 Random Glucose 93 Calcium 8.6 Total Bilirubin 0.9 Direct Bilirubin 0.4 AST 111 H ALT 89 H Alkaline Phosphatase 212 H Troponin I High Sens < 3.5 Total Protein 7.5 Albumin 3.7 Lipase 90 H Ethyl Alcohol < 10 Imaging Radiologist's Impressions: Impressions Chest X-Ray 06/02/22 23:25 IMPRESSION: No acute finding. Abdomen/Pelvis CT 06/03/22 01:00 IMPRESSION: 1. Prominent inflammatory changes along the pancreatic head and neck suggestive of acute pancreatitis. No fluid collection. 2. Hepatomegaly with hepatic steatosis. Fleischner guidelines were followed. Assessment and Plan Time Spent With Patient Time: Total time managing care of this patient today ____ minutes.
[2022-06-03 01:42] LABS: COVID-19 Test Negative (Negative); IDNOW Serial# 16C4AD1C; IDNOW Serial# BCCEAD1C; Influenza A Negative (Negative); Influenza B2 Negative (Negative)
[2022-06-03 01:44] LABS: Triglycerides 2397 mg/dL
[2022-06-03] MEDS: PHENobarbitaL sodium 130 MG/ML IM ONCE 300 MG IM (02:27)
--- NOTE | 2022-06-03 03:13 | PC.NURSE ---
PT reports some effectiveness with meds given. Seizure precautions maintained. No apparent distress. Visitor at bedside.
[2022-06-03] MEDS: Dextrose 5 % and Lactated Ring 1,000 ML 125 ML IVCONT ×2 (04:48→10:56)
[2022-06-03] MEDS: Insulin Regular/NS 100 UNIT/100 ML PLAST..BAG IVCONT (04:51)
[2022-06-03 04:57] LABS: Glucose, Whole Blood 125 mg/dL (60-115)
[2022-06-03] MEDS: Dextrose 50 % 25 GM/50 ML SYRINGE IVPUSH (05:02)
[2022-06-03] MEDS: PHENobarbitaL sodium 130 MG/ML VIAL IM Q3Hx2 230 MG IM ×2 (05:09→07:37)
--- NOTE | 2022-06-03 05:23 | PC.NURSE ---
Addendum entered by Jasmyn Schulte 06/03/22 05:30: POC [id number] as ordered. Original Note: 2nd IV line established. D5 in LR running as ordered. Insulin drip started as ordered. POC 125. CIWA score 6. Meds given as documented. PT tolerating well. Will continue to observe.
[2022-06-03 05:25] LABS: Glucose, Whole Blood 228 mg/dL (60-115)
[2022-06-03 05:57] LABS: Glucose, Whole Blood 231 mg/dL (60-115)
--- NOTE | 2022-06-03 05:58 | PC.NURSE ---
Addendum entered by Jasmyn Schulte 06/03/22 06:30: NPO diet to be continued as ordered. Addendum entered by Jasmyn Schulte 06/03/22 06:28: IV med given as documented. VSS. Original Note: PT reports 10/10 epigastric pain. Ice pack provided. Provider notified, awaiting for new orders.
[2022-06-03 06:34] LABS: Glucose, Whole Blood 211 mg/dL (60-115)
[2022-06-03 06:56] LABS: Glucose, Whole Blood 177 mg/dL (60-115)
[2022-06-03 07:23] LABS: Glucose, Whole Blood 164 mg/dL (60-115)
[2022-06-03] MEDS: Enoxaparin Sodium 40 MG/0.4 ML SYRINGE SUBCUT (07:38)
[2022-06-03 08:19] LABS: Glucose, Whole Blood 151 mg/dL (60-115)
[2022-06-03 08:30] LABS: MANUAL DIFF FLAG NO
[2022-06-03 08:33] LABS: Basophils Percent Auto 0.2 % (0-2); Eosinophils Percent Auto 0.2 % (0-4); Imm Gran Abs Auto 0.01 X10*3/uL (0.00-0.03); Imm Gran Pct Auto 0.2 % (0.0-0.4); Lymphocytes Percent Auto 23.9 % (20-40); Mean Corpuscular HGB Conc 34.5 g/dl (31.0-35.0); Mean Corpuscular Hemoglobin 35.6 pg (27.0-33.0); Mean Corpuscular Volume 103.2 fL (80.0-98.0); Mean Platelet Volume 9.6 fL (9.4-12.3); Monocytes Absolute Auto 0.3 X10*3/uL (0.1-1.2); Monocytes Percent Auto 7.2 % (2-11); Neutrophils Absolute Auto 2.8 x10*3/uL (2.0-8.3); Neutrophils Percent Auto 68.3 % (45-73); Platelet Count 121 X10*3/uL (160-400); Red Blood Count 2.81 X10*6/uL (4.20-5.50); Red Cell Distribution Width 14.8 % (11.0-16.0); White Blood Count 4.2 X10*3/uL (4.8-10.8)
--- NOTE | 2022-06-03 08:42 | PHA.MEDREC ---
Pharmacy Consult ? Medication Reconciliation Pharmacy has completed the medication reconciliation. Patient was able to tell me all of her medications and the doses. Compared to the claim history and it matched up well. She also knew the otc medications that she takes.
[2022-06-03 08:52] LABS: Anion Gap 18 (12-20); Blood Urea Nitrogen 9 mg/dL (9-16); Calcium 7.9 mg/dL (8.4-10.2); Carbon Dioxide 20 mmol/L (22-29); Chloride 102 mmol/L (96-108); Creatinine Clr Calc Pharmacy 112.8; Estimated Glomerular Filt Rate > 60; Glucose Random 143 mg/dL (60-115); Magnesium 1.1 mg/dL (1.6-2.6); Phosphorus 1.9 mg/dL (2.7-4.5); Potassium 3.5 mmol/L (3.3-5.1); Sodium 136 mmol/L (135-145); Triglycerides 1051 mg/dL
[2022-06-03] MEDS: Magnesium Sulfate/H2O 2 GM/50 ML PIGGYBACK IV (09:03)
[2022-06-03 10:18] LABS: Glucose, Whole Blood 127 mg/dL (60-115)
[2022-06-03] MEDS: Sodium,Potassium Phosphates POWD.PACK 2 PACKET PO (10:36)
[2022-06-03] MEDS: gemfibroziL 600 MG TABLET PO ×2 (10:37→15:51)
--- NOTE | 2022-06-03 11:39 | P.HPCC_ITS ---
History of Present Illness Date of Service: 06/03/22 Chief Complaint: abdominal pain 41-year-old lady with underlying history of obesity status post Calixto-en-Y gastric bypass, alcoholism (1 pint of whiskey per day), pancreatitis admitted on 06/03/2022 with acute alcoholic pancreatitis with hypertriglyceridemia requiring initiation insulin drip for triglycerides control. Patient also been started on IV fluids and phenobarbital alcohol withdrawal protocol. Her CT abdomen demonstrated no necrotizing features and she was admitted to the intensive care unit. Review of Systems Constitutional: Constitutional: Denies daytime sleepiness, Denies excessive sweating, Denies fatigue, Denies fever(s), Denies lethargy, Denies malaise, Denies night sweats, Denies snoring and Denies weight loss Eyes: Eyes: Denies blurry vision and Denies itchy eyes ENT: Denies nasal congestion, Denies post nasal drip, Denies sinus pain, Denies sinus pressure and Denies other ( Thrush) Cardiovascular: Cardiovascular: Denies chest pain, Denies pedal edema, Denies dyspnea, Denies orthopnea and Denies paroxysmal nocturnal dyspnea Respiratory: Respiratory: Denies cough, Denies hemoptysis, Denies excessive phlegm production, Denies dyspnea, Denies snoring and Denies wheezing Gastrointestinal: Gastrointestinal: Reports abdominal pain and Denies heartburn Musculoskeletal: Musculoskeletal: Denies myalgias, Denies arthralgias and Denies joint swelling Integumentary/Breasts: Skin/Breast: Denies rash Neurologic: Denies memory loss and Denies seizure-like activity Psychiatric: Psychiatric: Denies abnormal sleep pattern, Denies anxiety and Denies memory loss Endocrine: Endocrine: Denies excessive sweating, Denies fatigue and Denies he at intolerance Hematologic/Lymphatic: Hematologic/Lymphatic: Denies easy bruising Allergic/Immunologic: Allergic/Immunologic: Denies itchy eyes, Denies seasonal rhinorrhea and Denies wheezing PMFSH Past Medical History Medical History Acute pancreatitis ADHD Congenital hypothyroidism Depression Elevated liver function tests Migraine Family History Family History Mother No problems noted. Father No problems noted. Brother No problems noted. Brother No problems noted. Sister No problems noted. Sister No problems noted. Son No problems noted. Surgical History Surgical History H/O gastric bypass H/O tubal ligation History of cholecystectomy History of Calixto-en-Y gastric bypass Previous section Social History Social History Household Members: Spouse Housing: House Do you presently have visiting nurse or other home services: No Alcohol intake: former Patient Tobacco Use Status: Never used Tobacco Smoked in Last 30 Days: No e-Cigarette/Vaping Use: Never Used Use of substances other than those prescribed or required for medical reasons: No Currently Displaying Signs/Symptoms of Drug Intoxication Withdrawal: No Have you been hit, kicked, punched, or otherwise hurt by someone within the past year? If so, by whom?: No Do you feel safe in your current relationship?: Yes Is there a partner from a previous relationship who is making you feel unsafe now?: No Are you made to feel afraid or neglected: No Advance Directives: No Advance Directives Information Provided: No Do you have thoughts of harming others: None Do you have a plan to hurt others: No Plan Recently lost weight without trying: No Eating poorly because of decreased appetite: No Nutrition Risks: No Nutritional Risk Patient : No : No Poor oral hygiene: No service: No Current occupational status: employed Meds Allergies Allergy/AdvReac Type Severity Reaction Status Date / Time shellfish derived Allergy Severe ANAPHYLAXIS Verified 06/02/22 22:31 [SHELLFISH DERIVED] benztropine [From COGENTIN] Allergy Intermediate PSYCHOSIS Verified 06/02/22 22:31 gabapentin [GABAPENTIN] Allergy Intermediate PSYCHOSIS Verified 06/02/22 22:31 amantadine [AMANTADINE] Allergy Mild HIVES, rash Verified 06/02/22 22:31 seafood Allergy Unknown anaphylaxis Uncoded 06/02/22 22:31 Active Medications: Current Medications Dextrose (Dextrose 50 % 25 Gm/50 Ml Syringe) 25 gm IVPUSH Q15M PRN PRN Reason: per Hypoglycemia Standing Ord. Enoxaparin Sodium (Enoxaparin Sodium 40 Mg/0.4 Ml Syringe) 40 mg SUBCUT DAILY MALI Last Admin: 06/03/22 07:38 Dose: 40 mg Gemfibrozil (Gemfibrozil 600 Mg Tablet) 600 mg PO BIDAC [facility] Last Admin: 06/03/22 10:37 Dose: 600 mg Dextrose/Lactated Ringer's (D5lr) 1,000 mls @ 125 mls/hr IVCONT .Q8H [facility] Last Admin: 06/03/22 10:56 Dose: 125 mls/hr Insulin Human Regular (Myxredlin) 100 unit in 100 mls @ 0 mls/hr IVCONT .Q0M [facility]; Protocol Last Admin: 06/03/22 04:51 Dose: 1 unit/hr, 1 mls/hr Morphine Sulfate (Morphine Sulfate 4 Mg/Ml Cartridge) 4 mg IVPUSH Q4H PRN; Protocol PRN Reason: Pain, Moderate (Pain Scale 4-6 Ondansetron HCl (Ondansetron Hcl 4 Mg/2 Ml Vial) 4 mg IVPUSH Q6H PRN PRN Reason: Nausea Last Admin: 06/03/22 10:56 Dose: 4 mg Pharmacy Consult (Consult Rx Etoh Phenob Im/Po) 1 each MISCELLANE ONCE PRN; Protocol PRN Reason: Consult order Pharmacy Consult (Consult Rx Perform Med Rec) 1 each MISCELLANE ONCE PRN PRN Reason: Consult order Phenobarbital (Phenobarbital 15 Mg Tablet) 45 mg PO BID [facility]; Protocol Stop: 06/05/22 09:01 Phenobarbital (Phenobarbital 15 Mg Tablet) 15 mg PO BID [facility]; Protocol Stop: 06/07/22 09:01 Phenobarbital (Phenobarbital 15 Mg Tablet) 15 mg PO DAILY [facility]; Protocol Stop: 06/09/22 09:01 Home Medications Medication Instructions Recorded Confirmed Last Taken Type calcium carbonate 500 mg calcium 500 mg PO DAILY 01/03/21 06/03/22 12/28/20 History (1,250 mg) tablet (Calcium 500) cetirizine 10 mg tablet 30 mg PO DAILY 01/03/21 06/03/22 06/02/22 History vitamin B complex 1 cap PO DAILY 01/03/21 06/03/22 06/02/22 History dextroamphetamine-amphetamine ER 20 mg PO QAM 06/03/22 06/03/22 06/02/22 History 20 mg 24hr capsule,extend release levothyroxine 75 mcg tablet 75 mcg PO DAILY@0600 06/03/22 06/03/22 06/02/22 History therapeutic multivitamin 1 tab PO QAM 06/03/22 06/03/22 06/02/22 History (Thera-Tabs tablet) Physical Exam Vital Signs: Vital Signs: Last Vital Signs Temp 98.2 F 06/03/22 08:00 Pulse 93 06/03/22 11:00 Resp 15 06/03/22 11:00 BP 131/67 06/03/22 11:00 Pulse Ox 95 06/03/22 11:00 O2 Del Method 06/03/22 11:00 BMI result Body Mass Index 27.3 Const: General: no acute distress and alert Nutritional Appearance: not obese Orientation/consciousness: Other orientation findings ( oriented) HEENT: Head: Yes atraumatic Mouth: no other ( thrush) Throat: No postnasal drainage Eyes: General: appearance normal, both eyes and all related structures Sclerae: sclerae normal EOM: EOMs intact bilaterally Neck: Neck: Yes supple Lymphatic: no lymphadenopathy noted Resp: Effort & Inspection: normal respiratory effort and no use of accessory muscles Auscultation: clear to auscultation bilaterally Cardio: Rate: tachycardic Rhythm: regular rhythm Heart sounds: no gallops, no murmurs and no rubs GI: Palpation (GI): Soft to palpation, Tenderness to palpation present (GI) ( mild epigastric) with no rebound tenderness and Other GI palpation findings present Skin: General skin exam: other ( warm) Rashes: no rashes Extrem: General: No clubbing, No cyanosis and No edema Results Labs 06/03/22 08:26 06/03/22 08:26 Labs: Laboratory Results - last 24 hr 06/02/22 06/02/22 06/02/22 23:32 23:32 23:32 MCV 102.4 H MCH 35.0 H MCHC 34.2 RDW 15.0 Plt Count 175 MPV 9.6 Immature Gran % (Auto) 0.2 Neut % (Auto) 75.2 H Lymph % (Auto) 17.4 L [place] % (Auto) 6.7 Eos % (Auto) 0.0 Baso % (Auto) 0.5 Lymph # (Auto) 1.1 L [place] # (Auto) 0.4 Eos # (Auto) 0.0 Baso # (Auto) 0.0 Abs Immat Gran (auto) 0.01 Absolute Neuts (auto) 5.0 Absolute Nucleated RBC 0.000 Nucleated RBC % (auto) 0.0 Anion Gap 23 H Estim Creat Clear Calc 107.1 Estimated GFR > 60 POC Glucose Random Glucose 93 Calcium 8.6 Phosphorus Magnesium Total Bilirubin 0.9 Direct Bilirubin 0.4 AST 111 H ALT 89 H Alkaline Phosphatase 212 H Troponin I High Sens < 3.5 Total Protein 7.5 Albumin 3.7 Triglycerides 2397 Lipase 90 H Ethyl Alcohol < 10 COVID-19 (ANIKET) COVID-19 Clin Com Influenza Type A (DANNY) Influenza Type B (DANNY) Influenza A & B Note 06/03/22 06/03/22 06/03/22 01:18 01:18 04:43 MCV MCH MCHC RDW Plt Count MPV Immature Gran % (Auto) Neut % (Auto) Lymph % (Auto) [place] % (Auto) Eos % (Auto) Baso % (Auto) Lymph # (Auto) [place] # (Auto) Eos # (Auto) Baso # (Auto) Abs Immat Gran (auto) Absolute Neuts (auto) Absolute Nucleated RBC Nucleated RBC % (auto) Anion Gap Estim Creat Clear Calc Estimated GFR POC Glucose 125 H Random Glucose Calcium Phosphorus Magnesium Total Bilirubin Direct Bilirubin AST ALT Alkaline Phosphatase Troponin I High Sens Total Protein Albumin Triglycerides Lipase Ethyl Alcohol COVID-19 (ANIKET) Negative COVID-19 Clin Com See Note Influenza Type A (DANNY) Negative Influenza Type B (DANNY) Negative Influenza A & B Note See Note 06/03/22 06/03/22 06/03/22 05:21 05:52 06:21 MCV MCH MCHC RDW Plt Count MPV Immature Gran % (Auto) Neut % (Auto) Lymph % (Auto) [place] % (Auto) Eos % (Auto) Baso % (Auto) Lymph # (Auto) [place] # (Auto) Eos # (Auto) Baso # (Auto) Abs Immat Gran (auto) Absolute Neuts (auto) Absolute Nucleated RBC Nucleated RBC % (auto) Anion Gap Estim Creat Clear Calc Estimated GFR POC Glucose 228 H 231 H 211 H Random Glucose Calcium Phosphorus Magnesium Total Bilirubin Direct Bilirubin AST ALT Alkaline Phosphatase Troponin I High Sens Total Protein Albumin Triglycerides Lipase Ethyl Alcohol COVID-19 (ANIKET) COVID-19 Clin Com Influenza Type A (DANNY) Influenza Type B (DANNY) Influenza A & B Note 06/03/22 06/03/22 06/03/22 06:51 07:19 08:10 MCV MCH MCHC RDW Plt Count MPV Immature Gran % (Auto) Neut % (Auto) Lymph % (Auto) [place] % (Auto) Eos % (Auto) Baso % (Auto) Lymph # (Auto) [place] # (Auto) Eos # (Auto) Baso # (Auto) Abs Immat Gran (auto) Absolute Neuts (auto) Absolute Nucleated RBC Nucleated RBC % (auto) Anion Gap Estim Creat Clear Calc Estimated GFR POC Glucose 177 H 164 H 151 H Random Glucose Calcium Phosphorus Magnesium Total Bilirubin Direct Bilirubin AST ALT Alkaline Phosphatase Troponin I High Sens Total Protein Albumin Triglycerides Lipase Ethyl Alcohol COVID-19 (ANIKET) COVID-19 Clin Com Influenza Type A (DANNY) Influenza Type B (DANNY) Influenza A & B Note 06/03/22 06/03/22 06/03/22 08:26 08:26 10:14 MCV 103.2 H MCH 35.6 H MCHC 34.5 RDW 14.8 Plt Count 121 L D MPV 9.6 Immature Gran % (Auto) 0.2 Neut % (Auto) 68.3 Lymph % (Auto) 23.9 [place] % (Auto) 7.2 Eos % (Auto) 0.2 Baso % (Auto) 0.2 Lymph # (Auto) 1.0 L [place] # (Auto) 0.3 Eos # (Auto) 0.0 Baso # (Auto) 0.0 Abs Immat Gran (auto) 0.01 Absolute Neuts (auto) 2.8 Absolute Nucleated RBC 0.000 Nucleated RBC % (auto) 0.0 Anion Gap 18 Estim Creat Clear Calc 112.8 Estimated GFR > 60 POC Glucose 127 H Random Glucose 143 H Calcium 7.9 L D Phosphorus 1.9 L Magnesium 1.1 L* Total Bilirubin Direct Bilirubin AST ALT Alkaline Phosphatase Troponin I High Sens Total Protein Albumin Triglycerides 1051 Lipase Ethyl Alcohol COVID-19 (ANIKET) COVID-19 Clin Com Influenza Type A (DANNY) Influenza Type B (DANNY) Influenza A & B Note Imaging Radiologist's Impressions: Impressions Chest X-Ray 06/02/22 23:25 IMPRESSION: No acute finding. Abdomen/Pelvis CT 06/03/22 01:00 IMPRESSION: 1. Prominent inflammatory changes along the pancreatic head and neck suggestive of acute pancreatitis. No fluid collection. 2. Hepatomegaly with hepatic steatosis. Fleischner guidelines were followed. Assessment and Plan (1) Acute pancreatitis: Status: Acute (2) Hypertriglyceridemia: Status: Acute (3) Alcohol withdrawal: Status: Acute Plan Assessment: 41-year-old lady admitted with acute alcoholic/hypertriglyceridemia pancreatitis requiring insulin drip. Plan: Neuro: No acute issues. Cardiac: No acute issues. Pulmonary: No acute issues. Renal: No acute issues. Endo: No acute issues. GI: Acute pancreatitis with significant hypertriglyceridemia. Continue ins ulin drip until triglyceride under 1000. Started on gemfibrozil. Continue IV fluid resuscitation. CT abdomen with no cysts or necrosis. ID: No acute issues Heme/Onc: No acute issues. Psych: No acute issues. Miscellaneous: No acute issues. Prophylaxis: heparin Diet: NPO Critical care time spent: 45 minutes Time Spent With Patient Time: Total time managing care of this patient today ____ minutes.
[2022-06-03 12:10] LABS: Glucose, Whole Blood 145 mg/dL (60-115)
[2022-06-03 13:53] LABS: Triglycerides 567 mg/dL
[2022-06-03 14:19] LABS: Glucose, Whole Blood 119 mg/dL (60-115)
[2022-06-03] MEDS: Lactated Ringers 1,000 ML 150 ML IVCONT ×2 (15:07→18:27)
--- NOTE | 2022-06-03 18:00 | PC.NURSE ---
Assumed care of patient at this time; recieved report from MEDICAL ECONOMICS CONSULTANT taj.
[2022-06-03] MEDS: PHENobarbitaL 15 MG TABLET 45 MG PO (20:28)
[2022-06-04] VITALS (9 sets, daily range): BP systolic 110–138; BP diastolic 59–85; PULSE 75–94; RESP 16–18; TEMP 36.3–36.8; O2SAT 94–100; BMI 29.9
[2022-06-04] MEDS: Lactated Ringers 1,000 ML 150 ML IVCONT ×4 (00:45→20:23)
[2022-06-04] MEDS: Morphine Sulfate 4 MG/ML CARTRIDGE IVPUSH ×4 (01:41→20:20)
[2022-06-04] MEDS: diphenhydrAMINE HCL 25 MG CAPSULE 50 MG PO (03:31)
[2022-06-04 07:05] LABS: MANUAL DIFF FLAG NO
[2022-06-04 07:07] LABS: Basophils Percent Auto 0.3 % (0-2); Eosinophils Percent Auto 1.3 % (0-4); Hematocrit 30.3 % (37.0-47.0); Imm Gran Abs Auto 0.01 X10*3/uL (0.00-0.03); Imm Gran Pct Auto 0.3 % (0.0-0.4); Lymphocytes Absolute Auto 1.1 X10*3/uL (1.2-4.9); Lymphocytes Percent Auto 34.8 % (20-40); Mean Corpuscular Hemoglobin 34.7 pg (27.0-33.0); Mean Corpuscular Volume 105.2 fL (80.0-98.0); Monocytes Absolute Auto 0.3 X10*3/uL (0.1-1.2); Monocytes Percent Auto 8.4 % (2-11); Neutrophils Absolute Auto 1.7 x10*3/uL (2.0-8.3); Neutrophils Percent Auto 54.9 % (45-73); Red Blood Count 2.88 X10*6/uL (4.20-5.50); White Blood Count 3.1 X10*3/uL (4.8-10.8)
[2022-06-04 07:08] LABS: Venous Blood Gas Refer to POC result
[2022-06-04 07:09] LABS: VBG Base Excess 2.1 mmol/L; VBG HCO3 26 mmol/L (22-26); VBG pCO2 37 mmHg; VBG pH 7.44 (7.32-7.43); VBG pO2 44 mmHg
[2022-06-04 07:23] LABS: Alanine Aminotransferase 66 U/L (0-31); Alkaline Phosphatase 195 U/L (39-117); Aspartate Amino Transferase 114 U/L (5-31); Bilirubin Total 1.3 mg/dL (0.0-1.0); Blood Urea Nitrogen 5 mg/dL (9-16); Calcium 7.8 mg/dL (8.4-10.2); Creatinine Clr Calc Pharmacy 122.6; Estimated Glomerular Filt Rate > 60; Glucose Random 90 mg/dL (60-115); Lipase 206 U/L (8-78); Magnesium 1.6 mg/dL (1.6-2.6); Phosphorus 2.7 mg/dL (2.7-4.5); Total Protein 5.6 g/dL (6.5-8.0)
[2022-06-04 07:30] LABS: Mean Platelet Volume 10.3 fL (9.4-12.3); Platelet Count 98 X10*3/uL (160-400)
[2022-06-04] MEDS: gemfibroziL 600 MG TABLET PO ×2 (07:33→15:50)
[2022-06-04] MEDS: PHENobarbitaL 15 MG TABLET 45 MG PO ×2 (07:33→20:17)
[2022-06-04] MEDS: Enoxaparin Sodium 40 MG/0.4 ML SYRINGE SUBCUT (07:34)
[2022-06-04 07:35] LABS: Anion Gap 13 (12-20); Carbon Dioxide 23 mmol/L (22-29); Chloride 104 mmol/L (96-108); Potassium 3.8 mmol/L (3.3-5.1); Sodium 136 mmol/L (135-145)
[2022-06-04] MEDS: ondansetron HCL 4 MG/2 ML VIAL IVPUSH (07:39)
[2022-06-04] MEDS: Multivitamin TABLET 1 TAB PO (09:57)
[2022-06-04] MEDS: Folic Acid 1 MG TABLET PO (09:57)
[2022-06-04] MEDS: Loratadine 10 MG TABLET 30 MG PO (09:57)
[2022-06-04] MEDS: Thiamine HCL 100 MG TABLET PO (09:57)
--- NOTE | 2022-06-04 10:41 | MHC.CM.PN ---
CM met with Patient at bedside. Patient lives in a house with her Partner and she is functionally independent and working. Home self care VS Recovery intervention r/t ETOH is the tentative plan and CM has initiated and will follow for dc planning. Patient has received Moderna/Covid vax x4 and her PCP/PA [facility]- [facility].
[2022-06-04] MEDS: Levothyroxine Sodium 75 MCG TABLET PO (11:15)
[2022-06-04] MEDS: Dextroamphetamine/Amphetamine XR 10 MG CAP.ER.24H 20 MG PO (11:15)
--- NOTE | 2022-06-04 14:45 | P.PNIM_ITS ---
Subjective Subjective Date of Service: 06/04/22 Interval History: Seen and evaluated this morning Very minimal tremors Alert and oriented, interactive Still reporting epigastric pain Other overnight events Review of Systems Review of Systems: Yes all other systems are reviewed and are negative Physical Exam Vital Signs: Vital Signs: Last Vital Signs Temp 97.8 F 06/04/22 12:00 Pulse 82 06/04/22 12:00 Resp 18 06/04/22 12:00 BP 128/64 06/04/22 12:00 Pulse Ox 94 06/04/22 12:00 O2 Del Method 06/04/22 12:00 BMI result Body Mass Index 29.9 Const: Other: Constitutional : Awake, interactive, not in distress Neck : Normal inspection, Supple Cardiovascular : RRR, no JVP, no lower extremity edema Respiratory : good bilateral air entry, no crackles, wheezes or rhonchi Gastrointestinal: soft, lax, Normal bowel sounds, epigastric tenderness with palpation Skin : Warm, Dry Neurological : Alert & oriented x3, No focal deficit Objective Data Active Medications Amphetamine/Dextroamphetamine (Dextroamphetamine/Amphetamine Xr 10 Mg Cap.Er.24h) 20 mg PO DAILY [facility] Last Admin: 06/04/22 11:15 Dose: 20 mg Documented By: JAN Dextrose (Dextrose 50 % 25 Gm/50 Ml Syringe) 25 gm IVPUSH Q15M PRN PRN Reason: per Hypoglycemia Standing Ord. Enoxaparin Sodium (Enoxaparin Sodium 40 Mg/0.4 Ml Syringe) 40 mg SUBCUT DAILY [facility] Last Admin: 06/04/22 07:34 Dose: 40 mg Documented By: JAN Epinephrine (Epinephrine 1 Mg/Ml Vial) 0.3 mg IM Q20M PRN PRN Reason: anaphylaxis Folic Acid (Folic Acid 1 Mg Tablet) 1 mg PO DAILY [facility] Last Admin: 06/04/22 09:57 Dose: 1 mg Documented By: JAN Gemfibrozil (Gemfibrozil 600 Mg Tablet) 600 mg PO BIDAC [facility] Last Admin: 06/04/22 07:33 Dose: 600 mg Documented By: JAN Lactated Ringer's (Lr) 1,000 mls @ 150 mls/hr IVCONT .Q6H40M [facility] Last Admin: 06/04/22 13:56 Dose: 150 mls/hr Documented By: JAN Levothyroxine Sodium (Levothyroxine Sodium 75 Mcg Tablet) 75 mcg PO DAILY@0600 [facility] Last Admin: 06/04/22 11:15 Dose: 75 mcg Documented By: JAN Loratadine (Loratadine 10 Mg Tablet) 30 mg PO DAILY [facility] Last Admin: 06/04/22 09:57 Dose: 30 mg Documented By: JAN Morphine Sulfate (Morphine Sulfate 4 Mg/Ml Cartridge) 4 mg IVPUSH Q4H PRN; Protocol PRN Reason: Pain, Moderate (Pain Scale 4-6 Last Admin: 06/04/22 12:58 Dose: 4 mg Documented By: DOBROAna Paula Multivitamins/Vitamin C (Multivitamin Tablet) 1 tab PO DAILY [facility] Last Admin: 06/04/22 09:57 Dose: 1 tab Documented By: JAN Ondansetron HCl (Ondansetron Hcl 4 Mg/2 Ml Vial) 4 mg IVPUSH Q6H PRN PRN Reason: Nausea Last Admin: 06/04/22 07:39 Dose: 4 mg Documented By: JAN Pharmacy Consult (Consult Rx Etoh Phenob Im/Po) 1 each MISCELLANE ONCE PRN; Protocol PRN Reason: Consult order Pharmacy Consult (Consult Rx Perform Med Rec) 1 each MISCELLANE ONCE PRN PRN Reason: Consult order Phenobarbital (Phenobarbital 15 Mg Tablet) 45 mg PO BID [facility]; Protocol Stop: 06/05/22 09:01 Last Admin: 06/04/22 07:33 Dose: 45 mg Documented By: JAN Phenobarbital (Phenobarbital 15 Mg Tablet) 15 mg PO BID [facility]; Protocol Stop: 06/07/22 09:01 Phenobarbital (Phenobarbital 15 Mg Tablet) 15 mg PO DAILY [facility]; Protocol Stop: 06/09/22 09:01 Thiamine HCl (Thiamine Hcl 100 Mg Tablet) 100 mg PO DAILY [facility] Last Admin: 06/04/22 09:57 Dose: 100 mg Documented By: JAN Labs 06/04/22 07:00 06/04/22 07:00 Labs: Laboratory Results - last 24 hr 06/04/22 06/04/22 06/04/22 07:00 07:00 07:03 MCV 105.2 H MCH 34.7 H MCHC 33.0 RDW 15.0 Plt Count 98 L MPV 10.3 Immature Gran % (Auto) 0.3 Neut % (Auto) 54.9 Lymph % (Auto) 34.8 Mora % (Auto) 8.4 Eos % (Auto) 1.3 Baso % (Auto) 0.3 Lymph # (Auto) 1.1 L Mora # (Auto) 0.3 Eos # (Auto) 0.0 Baso # (Auto) 0.0 Abs Immat Gran (auto) 0.01 Absolute Neuts (auto) 1.7 L Absolute Nucleated RBC 0.000 Nucleated RBC % (auto) 0.0 VBG pH 7.44 H VBG pCO2 37 VBG pO2 44 VBG HCO3 26 VBG O2 Saturation 63.0 VBG Base Excess 2.1 Anion Gap 13 Estim Creat Clear Calc 122.6 Estimated GFR > 60 Random Glucose 90 Calcium 7.8 L Phosphorus 2.7 Magnesium 1.6 Total Bilirubin 1.3 H AST 114 H ALT 66 H Alkaline Phosphatase 195 H Total Protein 5.6 L Albumin 3.0 L Lipase 206 H Assessment and Plan (1) Alcohol withdrawal: Status: Acute (2) Acute pancreatitis: Status: Acute (3) Hypertriglyceridemia: Status: Acute Plan A 41 years old lady with PMH of gastric bypass, alcoholism who presented with acute alcoholic pancreatitis found to have hypertriglyceridemia requiring ICU admission for insulin drip. Acute alcoholic pancreatitis Continue IVF Pain medication as needed Start clear liquids, advance as tolerated Zofran for nausea Hypertriglyceridemia Trended down to 500 Started gemfibrozil Alcohol abuse and withdrawal Continue phenobarbital protocol Get Addiction team evaluation Start folic acid and thiamine ADH Continue dextroamphetamine Hypothyroidism Continue levothyroxine DVT PPX Early ambulation Patient will need overnight hospital stay to continue treatment for pancreatitis pending improvement in oral intake and resolution of a call withdrawal. Time Spent With Patient Time: Total time managing care of this patient today ____ minutes. Quality Stroke Does the patient have a stroke diagnosis?: No VTE Prior VTE?: No VTE Risk Level:: Medical - low VTE Device Contraindication: Treatment Not Indicated VTE Drug Contraindication: N/A - Med Ordered
[2022-06-04] MEDS: PHENobarbitaL sodium 130 MG/ML VIAL IM (16:56)
[2022-06-05] VITALS (8 sets, daily range): BP systolic 124–166; BP diastolic 67–82; PULSE 76–98; RESP 16–20; TEMP 36.3–36.8; O2SAT 95–99; BMI 30.2
[2022-06-05] MEDS: Morphine Sulfate 4 MG/ML CARTRIDGE IVPUSH ×5 (01:20→22:33)
[2022-06-05] MEDS: Lactated Ringers 1,000 ML 150 ML IVCONT ×2 (03:15→12:25)
[2022-06-05] MEDS: Levothyroxine Sodium 75 MCG TABLET PO (05:40)
[2022-06-05 07:01] LABS: Hematocrit 28.9 % (37.0-47.0); Hemoglobin 9.6 g/dl (12.0-16.0); Mean Corpuscular HGB Conc 33.2 g/dl (31.0-35.0); Mean Corpuscular Volume 105.5 fL (80.0-98.0); Mean Platelet Volume 10.9 fL (9.4-12.3); Platelet Count 114 X10*3/uL (160-400); Red Blood Count 2.74 X10*6/uL (4.20-5.50)
[2022-06-05 07:02] LABS: White Blood Count 2.4 X10*3/uL (4.8-10.8)
[2022-06-05 07:16] LABS: Anion Gap 17 (12-20); Blood Urea Nitrogen 6 mg/dL (9-16); Carbon Dioxide 17 mmol/L (22-29); Chloride 107 mmol/L (96-108); Creatinine Clr Calc Pharmacy 123.3; Estimated Glomerular Filt Rate > 60; Glucose Random 97 mg/dL (60-115); Sodium 137 mmol/L (135-145)
--- NOTE | 2022-06-05 09:50 | MHC.CM.PN ---
DP home self care vs community resource information provided by the Recovery team. Patient will arrange for transportation home at discharge.
[2022-06-05] MEDS: Thiamine HCL 100 MG TABLET PO (10:38)
[2022-06-05] MEDS: Loratadine 10 MG TABLET 30 MG PO (10:38)
[2022-06-05] MEDS: gemfibroziL 600 MG TABLET PO ×2 (10:39→16:26)
[2022-06-05] MEDS: Multivitamin TABLET 1 TAB PO (10:39)
[2022-06-05] MEDS: Dextroamphetamine/Amphetamine XR 10 MG CAP.ER.24H 20 MG PO (10:39)
[2022-06-05] MEDS: Folic Acid 1 MG TABLET PO (10:39)
--- NOTE | 2022-06-05 10:39 | MHC.RECOVRN ---
Met with pt in 485 after consult placed to Addiction Medicine. Pt laying in bed, sleeping, wakes to voice. Pt immediately states The power came back on, the generators must have kicked in. Pt continued to explain that the lights had been flickering and the power had briefly gone out last night. Pt easily engages in conversation, reports drinking almost 4 pints of whiskey 4x weekly at the beginning of the pandemic and when my left me. Since then, pt reports having reduced the amount to 1 pint, however, the night [employer] did drink 2 pints. Pt denies hx ATS and withdrawal symptoms. Pt reports taking naltrexone in the past as well as acamprosate. Reports positive effect with acamprosate. Began discussing [facility], pt visibly confused and believes she is currently at [facility]. Pt provided with written resources and supports, recovery team will check in when pt is more clear. Discussed with RN as well as Katelyn Moise APRN.
[2022-06-05] MEDS: PHENobarbitaL 15 MG TABLET 45 MG PO (10:40)
[2022-06-05] MEDS: Enoxaparin Sodium 40 MG/0.4 ML SYRINGE SUBCUT (10:40)
[2022-06-05] MEDS: ondansetron HCL 4 MG/2 ML VIAL IVPUSH (10:52)
--- NOTE | 2022-06-05 12:49 | P.PNIM_ITS ---
Subjective Subjective Date of Service: 06/05/22 Interval History: cc: abd pain interval history:improving, ready to try solids Physical Exam Vital Signs: Vital Signs: Last Vital Signs Temp 98.2 F 06/05/22 11:48 Pulse 77 06/05/22 11:48 Resp 20 06/05/22 11:48 BP 124/79 06/05/22 11:48 Pulse Ox 96 06/05/22 11:48 O2 Del Method 06/05/22 11:48 BMI result Body Mass Index 30.2 Const: Other: Constitutional : Awake, interactive, not in distress Neck : Normal inspection, Supple Cardiovascular : RRR, no JVP, no lower extremity edema Respiratory : good bilateral air entry, no crackles, wheezes or rhonchi Gastrointestinal: soft, lax, Normal bowel sounds, epigastric tenderness with palpation Skin : Warm, Dry Neurological : Alert & oriented x3, No focal deficit Objective Data Active Medications Amphetamine/Dextroamphetamine (Dextroamphetamine/Amphetamine Xr 10 Mg Cap.Er.24h) 20 mg PO DAILY [facility] Last Admin: 06/05/22 10:39 Dose: 20 mg Documented By: JOANIE Dextrose (Dextrose 50 % 25 Gm/50 Ml Syringe) 25 gm IVPUSH Q15M PRN PRN Reason: per Hypoglycemia Standing Ord. Enoxaparin Sodium (Enoxaparin Sodium 40 Mg/0.4 Ml Syringe) 40 mg SUBCUT DAILY [facility] Last Admin: 06/05/22 10:40 Dose: 40 mg Documented By: JOANIE Epinephrine (Epinephrine 1 Mg/Ml Vial) 0.3 mg IM Q20M PRN PRN Reason: anaphylaxis Folic Acid (Folic Acid 1 Mg Tablet) 1 mg PO DAILY [facility] Last Admin: 06/05/22 10:39 Dose: 1 mg Documented By: JOANIE Gemfibrozil (Gemfibrozil 600 Mg Tablet) 600 mg PO BIDAC [facility] Last Admin: 06/05/22 10:39 Dose: 600 mg Documented By: JOANIE Lactated Ringer's (Lr) 1,000 mls @ 150 mls/hr IVCONT .Q6H40M [facility] Last Admin: 06/05/22 12:25 Dose: 150 mls/hr Documented By: JOANIE Levothyroxine Sodium (Levothyroxine Sodium 75 Mcg Tablet) 75 mcg PO DAILY@0600 [facility] Last Admin: 06/05/22 05:40 Dose: 75 mcg Documented By: SOLANGE Loratadine (Loratadine 10 Mg Tablet) 30 mg PO DAILY [facility] Last Admin: 06/05/22 10:38 Dose: 30 mg Documented By: JOANIE Morphine Sulfate (Morphine Sulfate 4 Mg/Ml Cartridge) 4 mg IVPUSH Q4H PRN; Protocol PRN Reason: Pain, Moderate (Pain Scale 4-6 Last Admin: 06/05/22 11:12 Dose: 4 mg Documented By: KENYON Multivitamins/Vitamin C (Multivitamin Tablet) 1 tab PO DAILY [facility] Last Admin: 06/05/22 10:39 Dose: 1 tab Documented By: JOANIE Ondansetron HCl (Ondansetron Hcl 4 Mg/2 Ml Vial) 4 mg IVPUSH Q6H PRN PRN Reason: Nausea Last Admin: 06/05/22 10:52 Dose: 4 mg Documented By: JOANIE Pharmacy Consult (Consult Rx Etoh Phenob Im/Po) 1 each MISCELLANE ONCE PRN; Protocol PRN Reason: Consult order Pharmacy Consult (Consult Rx Perform Med Rec) 1 each MISCELLANE ONCE PRN PRN Reason: Consult order Phenobarbital (Phenobarbital 15 Mg Tablet) 15 mg PO BID [facility]; Protocol Stop: 06/07/22 09:01 Phenobarbital (Phenobarbital 15 Mg Tablet) 15 mg PO DAILY [facility]; Protocol Stop: 06/09/22 09:01 Thiamine HCl (Thiamine Hcl 100 Mg Tablet) 100 mg PO DAILY [facility] Last Admin: 06/05/22 10:38 Dose: 100 mg Documented By: JOANIE Labs 06/05/22 06:17 06/05/22 06:17 Labs: Laboratory Results - last 24 hr 06/05/22 06/05/22 06:17 06:17 MCV 105.5 H MCH 35.0 H MCHC 33.2 RDW 15.0 Plt Count 114 L MPV 10.9 Absolute Nucleated RBC 0.000 Nucleated RBC % (auto) 0.0 Anion Gap 17 Estim Creat Clear Calc 123.3 Estimated GFR > 60 Random Glucose 97 Calcium 8.0 L Assessment and Plan (1) Alcohol withdrawal: Status: Acute (2) Acute pancreatitis: Status: Acute (3) Hypertriglyceridemia: Status: Acute Plan A 41 years old lady with PMH of gastric bypass, alcoholism who presented with acute alcoholic pancreatitis found to have hypertriglyceridemia requiring ICU admission for insulin drip. Acute alcoholic and triglyceride pancreatitis advance to solids dc fluids Hypertriglyceridemia Trended down to 500 Started gemfibrozil monitor Alcohol dependence with withdrawal Continue phenobarbital protocol Started folic acid and thiamine ADHD Continue dextroamphetamine Hypothyroidism Continue levothyroxine DVT PPX lovenox full code reason for continued hospitalization:await tolerance of po Time Spent With Patient Time: Total time managing care of this patient today ____ minutes. Quality Stroke Does the patient have a stroke diagnosis?: No VTE Prior VTE?: No VTE Risk Level:: Medical - low VTE Device Contraindication: Treatment Not Indicated VTE Drug Contraindication: N/A - Med Ordered
[2022-06-05] MEDS: diphenhydrAMINE HCL 25 MG CAPSULE PO (16:26)
[2022-06-05] MEDS: PHENobarbitaL 15 MG TABLET PO (20:04)
[2022-06-06] MEDS: LORazepam 2 MG/ML VIAL 1 MG IVPUSH (02:09)
--- NOTE | 2022-06-06 03:28 | PC.NURSE ---
06/05 7p PT SHOWING SIGNS OF ALCOHOL WITHDRAWAL. MD MADE AWARE. 1X DOSE OF ATIVAN IV GIVEN. FALL PRECAUTIONS IN PLACE. PATIENT CONSTANTLY GETTING UP AND WANDERING IN HALLWAY. REDIRECTED TO ROOM MULTIPLE TIMES. CAMERA IN ROOM, BED ALARM ON. SITTER AT BEDSIDE TO MAINTAIN SAFETY.
[2022-06-06 03:39] VITALS: BP 146/69; PULSE 96; RESP 17; TEMP 36.9; O2SAT 96
[2022-06-06] MEDS: LORazepam 2 MG/ML VIAL IVPUSH (05:58)
[2022-06-06] MEDS: Levothyroxine Sodium 75 MCG TABLET PO (06:00)
[2022-06-06 06:54] LABS: Hematocrit 24.8 % (37.0-47.0); Mean Corpuscular HGB Conc 32.3 g/dl (31.0-35.0); Mean Corpuscular Hemoglobin 34.5 pg (27.0-33.0); Mean Corpuscular Volume 106.9 fL (80.0-98.0); Mean Platelet Volume 10.6 fL (9.4-12.3); Platelet Count 113 X10*3/uL (160-400); Red Blood Count 2.32 X10*6/uL (4.20-5.50); Red Cell Distribution Width 15.3 % (11.0-16.0); White Blood Count 3.1 X10*3/uL (4.8-10.8)
[2022-06-06 07:28] LABS: Alanine Aminotransferase 39 U/L (0-31); Albumin Level 2.7 g/dL (3.5-5.0); Alkaline Phosphatase 152 U/L (39-117); Aspartate Amino Transferase 45 U/L (5-31); Bilirubin Direct 0.4 mg/dL (0.0-0.5); Bilirubin Total 0.8 mg/dL (0.0-1.0); Blood Urea Nitrogen 8 mg/dL (9-16); Calcium 8.1 mg/dL (8.4-10.2); Creatinine Clr Calc Pharmacy 116.8; Estimated Glomerular Filt Rate > 60; Glucose Fasting 85 mg/dL (60-99); Total Protein 5.1 g/dL (6.5-8.0)
[2022-06-06 07:56] LABS: Anion Gap 12 (12-20); Carbon Dioxide 20 mmol/L (22-29); Chloride 107 mmol/L (96-108); Potassium 3.5 mmol/L (3.3-5.1); Sodium 135 mmol/L (135-145); Triglycerides 77 mg/dL
[2022-06-06 08:00] VITALS: BP 114/64; PULSE 70; RESP 20; TEMP 36.6; O2SAT 94
[2022-06-06] MEDS: Loratadine 10 MG TABLET 30 MG PO (10:20)
[2022-06-06] MEDS: PHENobarbitaL 15 MG TABLET PO (10:20)
[2022-06-06] MEDS: gemfibroziL 600 MG TABLET PO (10:20)
[2022-06-06] MEDS: Thiamine HCL 100 MG TABLET PO (10:20)
[2022-06-06] MEDS: Multivitamin TABLET 1 TAB PO (10:20)
[2022-06-06] MEDS: Dextroamphetamine/Amphetamine XR 10 MG CAP.ER.24H 20 MG PO (10:20)
[2022-06-06] MEDS: Folic Acid 1 MG TABLET PO (10:20)
[2022-06-06 12:00] VITALS: BP 105/62; PULSE 70; RESP 20; TEMP 36.6; O2SAT 95
--- NOTE | 2022-06-06 12:26 | P.PNIM_ITS ---
Subjective Subjective Date of Service: 06/06/22 Interval History: cc: abd pain interval history:toelrating solids, worsening confusion Physical Exam Vital Signs: Vital Signs: Last Vital Signs Temp 97.9 F 06/06/22 08:00 Pulse 70 06/06/22 08:00 Resp 20 06/06/22 08:00 BP 114/64 06/06/22 08:00 Pulse Ox 94 06/06/22 08:00 O2 Del Method 06/06/22 08:00 BMI result Body Mass Index 30.2 lethargic oriented to person, place, and date, but poor insight, strange affect, some tremors, no abd tenderness Objective Data Active Medications Amphetamine/Dextroamphetamine (Dextroamphetamine/Amphetamine Xr 10 Mg Cap.Er.24h) 20 mg PO DAILY [facility] Last Admin: 06/06/22 10:20 Dose: 20 mg Documented By: FELICITY Dextrose (Dextrose 50 % 25 Gm/50 Ml Syringe) 25 gm IVPUSH Q15M PRN PRN Reason: per Hypoglycemia Standing Ord. Enoxaparin Sodium (Enoxaparin Sodium 40 Mg/0.4 Ml Syringe) 40 mg SUBCUT DAILY [facility] Last Admin: 06/06/22 10:26 Dose: Not Given Documented By: FELICITY Non-Admin Reason: Patient Refused Epinephrine (Epinephrine 1 Mg/Ml Vial) 0.3 mg IM Q20M PRN PRN Reason: anaphylaxis Folic Acid (Folic Acid 1 Mg Tablet) 1 mg PO DAILY [facility] Last Admin: 06/06/22 10:20 Dose: 1 mg Documented By: FELICITY Gemfibrozil (Gemfibrozil 600 Mg Tablet) 600 mg PO BIDAC [facility] Last Admin: 06/06/22 10:20 Dose: 600 mg Documented By: FELICITY Levothyroxine Sodium (Levothyroxine Sodium 75 Mcg Tablet) 75 mcg PO DAILY@0600 [facility] Last Admin: 06/06/22 06:00 Dose: 75 mcg Documented By: LIU-ONEALZEAna Paula Loratadine (Loratadine 10 Mg Tablet) 30 mg PO DAILY [facility] Last Admin: 06/06/22 10:20 Dose: 30 mg Documented By: FELICITY Morphine Sulfate (Morphine Sulfate 4 Mg/Ml Cartridge) 4 mg IVPUSH Q4H PRN; Protocol PRN Reason: Pain, Moderate (Pain Scale 4-6 Last Admin: 06/05/22 22:33 Dose: 4 mg Documented By: TAHIR Multivitamins/Vitamin C (Multivitamin Tablet) 1 tab PO DAILY [facility] Last Admin: 06/06/22 10:20 Dose: 1 tab Documented By: FELICITY Ondansetron HCl (Ondansetron Hcl 4 Mg/2 Ml Vial) 4 mg IVPUSH Q6H PRN PRN Reason: Nausea Last Admin: 06/05/22 10:52 Dose: 4 mg Documented By: JOANIE Pharmacy Consult (Consult Rx Etoh Phenob Im/Po) 1 each MISCELLANE ONCE PRN; Protocol PRN Reason: Consult order Pharmacy Consult (Consult Rx Perform Med Rec) 1 each MISCELLANE ONCE PRN PRN Reason: Consult order Phenobarbital (Phenobarbital 15 Mg Tablet) 15 mg PO BID [facility]; Protocol Stop: 06/07/22 09:01 Last Admin: 06/06/22 10:20 Dose: 15 mg Documented By: FELICITY Phenobarbital (Phenobarbital 15 Mg Tablet) 15 mg PO DAILY [facility]; Protocol Stop: 06/09/22 09:01 Thiamine HCl (Thiamine Hcl 100 Mg Tablet) 100 mg PO DAILY [facility] Last Admin: 06/06/22 10:20 Dose: 100 mg Documented By: FELICITY Labs 06/06/22 06:41 06/06/22 06:41 Labs: Laboratory Results - last 24 hr 06/05/22 06/06/22 06/06/22 06:17 06:41 06:41 MCV 106.9 H MCH 34.5 H MCHC 32.3 RDW 15.3 Plt Count 113 L MPV 10.6 Absolute Nucleated RBC 0.000 Nucleated RBC % (auto) 0.0 Smear Path Review SEE NOTE Anion Gap 12 Estim Creat Clear Calc 116.8 Estimated GFR > 60 Fasting Glucose 85 Calcium 8.1 L Total Bilirubin 0.8 Direct Bilirubin 0.4 AST 45 H ALT 39 H Alkaline Phosphatase 152 H Total Protein 5.1 L Albumin 2.7 L Triglycerides 77 Assessment and Plan (1) Alcohol withdrawal: Status: Acute (2) Acute pancreatitis: Status: Acute (3) Hypertriglyceridemia: Status: Acute Plan A 41 years old lady with PMH of gastric bypass, alcoholism who presented with acute alcoholic pancreatitis found to have hypertriglyceridemia requiring ICU admission for insulin drip. Acute alcoholic and triglyceride pancreatitis rsolved Hypertriglyceridemia Trended down to 77 (from 2396) Started gemfibrozil Alcohol dependence with withdrawal Continue phenobarbital protocol Started folic acid and thiamine ADHD Continue dextroamphetamine Hypothyroidism Continue levothyroxine DVT PPX lovenox full code reason for continued hospitalization:acute confusion Time Spent With Patient Time: Total time managing care of this patient today ____ minutes. Quality Stroke Does the patient have a stroke diagnosis?: No VTE Prior VTE?: No VTE Risk Level:: Medical - low VTE Device Contraindication: Treatment Not Indicated VTE Drug Contraindication: N/A - Med Ordered
--- NOTE | 2022-06-06 13:20 | PM.DS ---
DS: Providers Provider Date of Service: 06/06/22 Date of admission: 06/03/22 06:25 Primary care physician: RANJAN Caldwell Consults: 06/04/22 13:43 Addiction Medicine Routine Consulting Provider: Addiction Covering Reason for consultation: etoh 1pt daily Has provider been notified: Yes DS: Diagnosis Discharge Diagnosis (1) Alcohol withdrawal: Status: Acute (2) Acute pancreatitis: Status: Acute (3) Hypertriglyceridemia: Status: Acute DS: Summary Hospital Course Hospital Course: from initial hpi: Chief Complaint:? abdominal pain ?41-year-old lady with underlying history of obesity status post Calixto-en-Y gastric bypass, alcoholism (1 pint of whiskey per day), pancreatitis admitted on 06/03/2022 with acute alcoholic pancreatitis with hypertriglyceridemia requiring initiation insulin drip for triglycerides control.? Patient also been started on IV fluids and phenobarbital alcohol withdrawal protocol.? Her CT abdomen demonstrated no necrotizing features and she was admitted to the intensive care unit. hospital course: Patient was admitted for acute alcoholic and triglyceride induced pancreatitis. She was treated with IV fluids, IV insulin, gemfibrozil. Her triglycerides decreased 77, her abdominal pain resolved and she was able to tolerate solids. For alcohol dependence with withdrawal she was given phenobarbital protocol along with multivitamins and withdrawal symptoms resolved. Mental status is back to baseline. For ADHD she was continued on dextroamphetamine. For hypothyroidism she was continued on Synthroid. Patient is feeling better will be discharged home she should continue on gemfibrozil, multivitamins, avoid alcohol. Time Spent with Patient Time attestation: Total time managing care of this patient today ____ minutes. Discharge coordination time: Greater than 30 minutes Quality: Safe Use of Opioids Does Pt have an Active Cancer Diagnosis on the Problem List?: No Quality: Stroke Does the patient have a stroke diagnosis?: No Physical Exam Vital Signs: Vital Signs: Last Vital Signs Temp 97.8 F 06/06/22 12:00 Pulse 70 06/06/22 12:00 Resp 20 06/06/22 12:00 BP 105/62 06/06/22 12:00 Pulse Ox 95 06/06/22 12:00 O2 Del Method 06/06/22 12:00 BMI result Body Mass Index 30.2 General: AO X 3, no acute distress Resp: CTA bilateral, no accessory muscles used CVS: S1,S2,RRR GI: soft, non tender, non distended Neuro: motor grossly intact, alert Psych: appropriate affect, appropriate insight DS: Data Data Completed and Pending Labs on day of discharge: Laboratory Results - last 24 hr 06/06/22 06/06/22 06:41 06:41 WBC 3.1 L RBC 2.32 L Hgb 8.0 L Hct 24.8 L MCV 106.9 H MCH 34.5 H MCHC 32.3 RDW 15.3 Plt Count 113 L MPV 10.6 Absolute Nucleated RBC 0.000 Nucleated RBC % (auto) 0.0 Sodium 135 Potassium 3.5 Chloride 107 Carbon Dioxide 20 L Anion Gap 12 BUN 8 L Creatinine 0.76 Estim Creat Clear Calc 116.8 Estimated GFR > 60 Fasting Glucose 85 Calcium 8.1 L Total Bilirubin 0.8 Direct Bilirubin 0.4 AST 45 H ALT 39 H Alkaline Phosphatase 152 H Total Protein 5.1 L Albumin 2.7 L Triglycerides 77 Discharge Plan Discharge Anticipated Discharge Date/Time: 06/06/22 13:17 Patient Disposition: Home, Self-Care Discharge Diagnosis: pancreatitis Referrals: Miguelangel Sanchez PA [Primary Care Provider] - 1 Week Discharge Medications: New gemfibrozil 600 mg Tablet 600 mg PO BIDAC Qty: 60 0RF folic acid 1 mg Tablet 1 mg PO DAILY Qty: 30 0RF thiamine mononitrate (vit B1) 100 mg Tablet 100 mg PO DAILY Qty: 30 0RF Continued cholecalciferol (vitamin D3) 50 mcg (2,000 unit) capsule 50 mcg PO DAILY Qty: 30 11RF cetirizine 10 mg Tablet 30 mg PO DAILY calcium carbonate [Calcium 500] 500 mg calcium (1,250 mg) Tablet 500 mg PO DAILY vitamin B complex Capsule 1 cap PO DAILY epinephrine [EpiPen] 0.3 mg/0.3 mL auto-injector 0.3 mg IM Q20M PRN (Reason: anaphylaxis) Qty: 2 0RF Rx Instructions: do not exceed 3 doses per episode dextroamphetamine-amphetamine 20 mg capsule,extended release 24hr 20 mg PO QAM levothyroxine 75 mcg tablet 75 mcg PO DAILY@0600 Thera-Tabs Tablet 1 tab PO QAM Discharge Orders: Discharge Order (Routine); Ordered 06/06/22 Ordered By: Zaire Diaz Diet: Advance to usual diet Activity on Discharge: As tolerated Stand Alone Forms: Patient Portal Discharge page Care Plan Goals: recovery Health Concerns: etoh and TG Plan of Treatment: lopid, vitamins, avoid etoh Assessment: see above
--- NOTE | 2022-06-06 13:54 | MHC.RECOVRN ---
This designer writer met w/ patient, patient was sitting up in bed when t/w entered room. Patient states had looked through recovery resources, not interested at this time in recovery resources, declined making appointment with [facility]. Patient states will f/u w/ PCP if interested in AVRIL. Patient reminded to call [facility] if any questions. Patient verbalized understanding.
--- NOTE | 2022-06-06 14:27 | MHC.CM.PN ---
Patient is discharged today to home. The recovery nurse has provided community resource information to the patient. The patient has arranged for transportation home.
== END 2022-06-06 15:25 | disposition home or self-care (01) | DRG 282 ==
LOC: HO.ED 06-03 01:32 → HO.EDOVER 06-03 06:32 → HO.ICU 06-03 07:36 → HO.IMC 06-03 16:59
PROVIDERS: Internal Medicine Pulmonary Disease; Physician Assistant; Student in an Organized Health Care Education/Training Program; Admitting Provider Registered Nurse Community Health; Emergency Provider Emergency Medicine; PCP Physician Assistant Medical; Visit Provider Internal Medicine
DX: K85.20 Alcohol induced acute pancreatitis without necrosis or infection (principal); F10.239 Alcohol dependence with withdrawal, unspecified; F90.9 Attention-deficit hyperactivity disorder, unspecified type; E78.1 Pure hyperglyceridemia; E03.1 Congenital hypothyroidism without goiter; Z20.822 Contact with and (suspected) exposure to COVID-19; Z98.84 Bariatric surgery status; Z88.8 Allergy status to other drugs, medicaments and biological substances; Z79.890 Hormone replacement therapy; Z79.899 Other long term (current) drug therapy
CPT/HCPCS: 36415; 71045; 74177; 80048; 80053; 80076; 82077; 82803; 82947; 83690; 83735; 84100; 84478; 84484; 85025; 85027; 87502; 87635; 93005; 99285; J1650; J2060; J2270; J2405; J2560; J3475; Q9967

== ENCOUNTER 2022-09-11 20:07 | Observation (INO) | payer OTHER, SELFPAY ==
--- NOTE | ~2022-09-11 | CT_ITS ---
EXAMINATION: CT ABDOMEN AND PELVIS WITH CONTRAST CLINICAL INFORMATION: Acute on chronic pancreatitis COMPARISON: 06/03/2022 TECHNIQUE: Multidetector volumetric images were obtained from the superior aspect of the liver through the pubic symphysis following administration 85 mL of Omnipaque 350 intravenous contrast. Sagittal and coronal reformatted images were obtained on the technologist's workstation. Oral contrast: No This CT examination was performed using dose optimization techniques as appropriate, variously including the following: *Automated exposure control *Adjustment of mA and/or kV according to patient size (this includes techniques or standardized protocols for targeted exams where dose is matched to indication/reason for exam; i.e. extremities or head) *Use of iterative reconstruction technique DLP: 567 mGy-cm FINDINGS: LUNG BASES: The visualized lung bases are unremarkable. LIVER, GALLBLADDER, AND BILIARY TREE: The liver is normal in size with decreased attenuation. Subtle nodularity to the contour of the liver parenchyma. No focal hepatic lesion or biliary ductal dilatation is present. The gallbladder appears to be absent. PANCREAS: The pancreatic parenchyma is homogenous. No ductal dilatation. Mild peripancreatic inflammation in the region of the pancreatic head. No fluid collection. SPLEEN: Unremarkable. ADRENAL GLANDS: Unremarkable. KIDNEYS AND URETERS: The kidneys are normal in size, shape, and attenuation. No hydronephrosis, hydroureter, or calculi seen. No perinephric stranding. BLADDER: Unremarkable. GASTROINTESTINAL TRACT: Postsurgical changes of gastric bypass. Normal caliber small bowel. No obstruction. No colonic wall thickening or inflammation. ABDOMINAL WALL: No significant hernia is appreciated. LYMPH NODES: Normal. VASCULAR: Unremarkable. PELVIC VISCERA: The uterus and adnexa are unremarkable. OSSEOUS STRUCTURES: No acute or suspicious osseous abnormality. CT/CT abdomen pelvis w IV con IMPRESSION: Inflammatory changes adjacent to the pancreatic head. Correlate for pancreatitis. Hepatic steatosis. Subtle nodularity of the hepatic contour. This could be associated with cirrhosis. Fleischner guidelines were followed.
[2022-09-11 20:18] VITALS: BP 149/100; PULSE 87; RESP 18; TEMP 36.2; O2SAT 98; BMI 25.2
--- NOTE | 2022-09-11 20:19 | ED_ITS ---
HPI - General Adult General Chief complaint: Abdominal Pain <RANJAN Bone - Last Filed: 09/11/22 20:22> Stated complaint: Abd pain/ Back pain <RANJAN Bone - Last Filed: 09/11/22 20:22> Time Seen by Provider: 09/11/22 21:38 <RANJAN Bone - Last Filed: 09/11/22 20:22> Source: patient <Peter Blank MD - Last Filed: 09/12/22 04:38> Mode of arrival: ambulatory <Peter Blank MD - Last Filed: 09/12/22 04:38> Limitations: no limitations <Peter Blank MD - Last Filed: 09/12/22 04:38> History of Present Illness HPI narrative: Patient's history of alcohol-induced pancreatitis been sober for few month had few drinks 2 days ago since then having mid abdominal pain radiating to the back with nausea vomiting similar to that in the past when she had pancreatitis. Patient able to hold down any liquids since the pain started, No fever no chills no urinary complaint patient does have history of gastric bypass <Peter Blank MD - Last Filed: 09/12/22 04:38> Related Data Home medications: Home Medications Medication Instructions Recorded Confirmed calcium carbonate 500 mg calcium 500 mg PO DAILY 01/03/21 06/03/22 (1,250 mg) tablet (Calcium 500) cetirizine 10 mg tablet 30 mg PO DAILY 01/03/21 06/03/22 vitamin B complex 1 cap PO DAILY 01/03/21 06/03/22 dextroamphetamine-amphetamine ER 20 mg PO QA 06/03/22 06/03/22 20 mg 24hr capsule,extend release levothyroxine 75 mcg tablet 75 mcg PO DAILY@0600 06/03/22 06/03/22 therapeutic multivitamin 1 tab PO QA 06/03/22 06/03/22 (Thera-Tabs tablet) Previous Rx's Medication Instructions Recorded cholecalciferol (vitamin D3) 50 50 mcg PO DAILY #30 caps 08/23/21 mcg (2,000 unit) capsule epinephrine 0.3 mg/0.3 mL 0.3 mg (0.3 mL) IM Q20M PRN 02/11/22 injection, auto-injector (EpiPen) anaphylaxis #2 ea folic acid 1 mg tablet 1 mg PO DAILY #30 tabs 06/06/22 gemfibrozil 600 mg tablet 600 mg PO BIDAC #60 tabs 06/06/22 thiamine mononitrate (vit B1) 100 100 mg PO DAILY #30 tabs 06/06/22 mg tablet <RANJAN Bone - Last Filed: 09/11/22 20:22> Allergies/adverse reactions: Allergies Allergy/AdvReac Type Severity Reaction Status Date / Time shellfish derived Allergy Severe ANAPHYLAXIS Verified 09/11/22 20:18 [SHELLFISH DERIVED] benztropine [From COGENTIN] Allergy Intermediate PSYCHOSIS Verified 09/11/22 20:18 gabapentin [GABAPENTIN] Allergy Intermediate PSYCHOSIS Verified 09/11/22 20:18 amantadine [AMANTADINE] Allergy Mild HIVES, rash Verified 09/11/22 20:18 <RANJAN Bone - Last Filed: 09/11/22 20:22> Review of Systems Review of Systems: Yes all other systems are reviewed and are negative <Peter Blank MD - Last Filed: 09/12/22 04:38> [facility] Past Medical History Medical History: Medical History Acute pancreatitis ADHD Congenital hypothyroidism Depression Elevated liver function tests Migraine <RANJAN Bone - Last Filed: 09/11/22 20:22> Surgical History: Surgical History H/O gastric bypass H/O tubal ligation History of cholecystectomy History of Calixto-en-Y gastric bypass Previous section <RANJAN Bone - Last Filed: 09/11/22 20:22> Family History Family History: Family History Mother No problems noted. Father No problems noted. Brother No problems noted. Brother No problems noted. Sister No problems noted. Sister No problems noted. Son No problems noted. <RANJAN Bone - Last Filed: 09/11/22 20:22> Social History Social History: Social History Household Members: Spouse Housing: House Do you presently have visiting nurse or other home services: No Alcohol intake: former Patient Tobacco Use Status: Never used Tobacco e-Cigarette/Vaping Use: Never Used Advance Directives: No Advance Directives Information Provided: No Nutrition Risks: No Nutritional Risk service: No Current occupational status: employed <RANJAN Bone - Last Filed: 09/11/22 20:22> Physical Exam ED Vital Signs: Vital Signs - 24 hr 09/11/22 20:18 09/11/22 22:58 09/11/22 23:23 Temperature 97.2 F 97.5 F Pulse Rate 87 74 Respiratory Rate 18 16 17 Blood Pressure 149/100 H 143/98 H Pulse Oximetry 98 99 Oxygen Delivery Method Room Air 09/12/22 01:22 Temperature Pulse Rate Respiratory Rate 16 Blood Pressure Pulse Oximetry Oxygen Delivery Method BMI result Body Mass Index 25.2 <RANJAN Bone - Last Filed: 09/11/22 20:22> Vital Signs - 24 hr 09/11/22 20:18 09/11/22 22:58 09/11/22 23:23 Temperature 97.2 F 97.5 F Pulse Rate 87 74 Respiratory Rate 18 16 17 Blood Pressure 149/100 H 143/98 H Pulse Oximetry 98 99 Oxygen Delivery Method Room Air 09/12/22 01:22 Temperature Pulse Rate Respiratory Rate 16 Blood Pressure Pulse Oximetry Oxygen Delivery Method BMI result Body Mass Index 25.2 <Peter Blank MD - Last Filed: 09/12/22 04:38> Appearance: Alert. Oriented X3. No acute distress. Eyes: No pallor or icterus ENT: Pharynx normal. Oral Mucosa moist Neck: Normal inspection. Neck supple. CVS: Normal heart rate and rhythm. Pulses normal. Respiratory: No respiratory distress. Equal air entry bilateral, no wheezing/rales/rhonchi Abdomen: Soft mid abdominal tenderness no rebound tenderness or guarding. Bowel sounds are present, no mass palpable, no CVA tenderness Skin: Skin warm and dry. Normal skin color. Normal skin turgor. Extremities: No lower extremity edema. No calf tenderness Neuro: Oriented X 3. <Peter Blank MD - Last Filed: 09/12/22 04:38> Course Course Course Narrative: This is an RME: Additional HPI, ROS, PE not included below will be deferred to primary provider. 42 year old female with PMH of acute pancreatitis with ICU admission presents with diffuse abdominal pain that radiates to the back. Pain is an 8/10 and patient additionally endorses nausea. Patient reports her last alcoholic beverage was on the 09 of September and she believes she is in withdrawl. No fever, +chills, +malaise. PE: diffuse upper abdominal pain Plan: Labs, imaging <RANJAN Bone - Last Filed: 09/11/22 20:22> Medications Administered Generic Name Dose Route Start Last Admin Trade Name Freq PRN Reason Stop Dose Admin Sodium Chloride 1,000 mls @ 80 mls/hr 09/12/22 03:00 09/12/22 03:25 Ns IVCONT 80 mls/hr .[id number] MALI Administration Discontinued Medications Generic Name Dose Route Start Last Admin Trade Name Freq PRN Reason Stop Dose Admin Famotidine 20 mg 09/11/22 21:51 09/11/22 22:58 Famotidine/Pf 20 Mg/2 Ml Vial IVPUSH 09/11/22 21:52 20 mg ONCE ONE Administration Hydromorphone HCl 1.5 mg 09/12/22 03:40 09/12/22 04:02 Hydromorphone Hcl 2 Mg/Ml Vial IVPUSH 09/12/22 03:41 1.5 mg ONCE ONE Administration Protocol Sodium Chloride 1,000 mls @ 999 mls/hr 09/11/22 20:15 09/12/22 00:25 Ns IV 09/11/22 21:15 Infused .Q1H1M MALI Infusion Sodium Chloride 1,000 mls @ 999 mls/hr 09/11/22 21:48 09/12/22 00:10 Ns IV 09/11/22 22:48 Infused .Q1H1M ONE Infusion Sodium Chloride 1,000 mls @ 999 mls/hr 09/12/22 00:10 09/12/22 03:24 Ns IV 09/12/22 01:10 Infused .Q1H1M ONE Infusion Magnesium Sulfate 2 gm in 50 mls @ 25 mls/hr 09/12/22 01:39 09/12/22 04:14 Magnesium Sulfate/H2o IV 09/12/22 03:38 Infused ONCE ONE Infusion Ceftriaxone Sodium 1 gm/ 50 mls @ 100 mls/hr 09/12/22 02:05 09/12/22 03:53 Sodium Chloride IV 09/12/22 02:34 Infused ONCE ONE Infusion Iohexol 85 ml 09/12/22 00:28 09/12/22 00:30 Iohexol 350 Mg/Ml 100 Ml Infus..Btl IV 09/12/22 00:29 85 ml ONCE ONE Administration Morphine Sulfate 4 mg 09/11/22 21:48 09/11/22 22:58 Morphine Sulfate 4 Mg/Ml Cartridge IVPUSH 09/11/22 21:49 4 mg ONCE ONE Administration Protocol Morphine Sulfate 4 mg 09/12/22 00:09 09/12/22 01:22 Morphine Sulfate 4 Mg/Ml Cartridge IVPUSH 09/12/22 00:10 4 mg ONCE ONE Administration Protocol Ondansetron HCl 4 mg 09/11/22 21:48 09/11/22 22:57 Ondansetron Hcl 4 Mg/2 Ml Vial IVPUSH 09/11/22 21:49 4 mg ONCE ONE Administration <RANJAN Bone - Last Filed: 09/11/22 20:22> Medications Administered Generic Name Dose Route Start Last Admin Trade Name Freq PRN Reason Stop Dose Admin Sodium Chloride 1,000 mls @ 80 mls/hr 09/12/22 03:00 09/12/22 03:25 Ns IVCONT 80 mls/hr .[id number] MALI Administration Discontinued Medications Generic Name Dose Route Start Last Admin Trade Name Freq PRN Reason Stop Dose Admin Famotidine 20 mg 09/11/22 21:51 09/11/22 22:58 Famotidine/Pf 20 Mg/2 Ml Vial IVPUSH 09/11/22 21:52 20 mg ONCE ONE Administration Hydromorphone HCl 1.5 mg 09/12/22 03:40 09/12/22 04:02 Hydromorphone Hcl 2 Mg/Ml Vial IVPUSH 09/12/22 03:41 1.5 mg ONCE ONE Administration Protocol Sodium Chloride 1,000 mls @ 999 mls/hr 09/11/22 20:15 09/12/22 00:25 Ns IV 09/11/22 21:15 Infused .Q1H1M MALI Infusion Sodium Chloride 1,000 mls @ 999 mls/hr 09/11/22 21:48 09/12/22 00:10 Ns IV 09/11/22 22:48 Infused .Q1H1M ONE Infusion Sodium Chloride 1,000 mls @ 999 mls/hr 09/12/22 00:10 09/12/22 03:24 Ns IV 09/12/22 01:10 Infused .Q1H1M ONE Infusion Magnesium Sulfate 2 gm in 50 mls @ 25 mls/hr 09/12/22 01:39 09/12/22 04:14 Magnesium Sulfate/H2o IV 09/12/22 03:38 Infused ONCE ONE Infusion Ceftriaxone Sodium 1 gm/ 50 mls @ 100 mls/hr 09/12/22 02:05 09/12/22 03:53 Sodium Chloride IV 09/12/22 02:34 Infused ONCE ONE Infusion Iohexol 85 ml 09/12/22 00:28 09/12/22 00:30 Iohexol 350 Mg/Ml 100 Ml Infus..Btl IV 09/12/22 00:29 85 ml ONCE ONE Administration Morphine Sulfate 4 mg 09/11/22 21:48 09/11/22 22:58 Morphine Sulfate 4 Mg/Ml Cartridge IVPUSH 09/11/22 21:49 4 mg ONCE ONE Administration Protocol Morphine Sulfate 4 mg 09/12/22 00:09 09/12/22 01:22 Morphine Sulfate 4 Mg/Ml Cartridge IVPUSH 09/12/22 00:10 4 mg ONCE ONE Administration Protocol Ondansetron HCl 4 mg 09/11/22 21:48 09/11/22 22:57 Ondansetron Hcl 4 Mg/2 Ml Vial IVPUSH 09/11/22 21:49 4 mg ONCE ONE Administration <Peter Blank MD - Last Filed: 09/12/22 04:38> Medical Decision Making Medical Decision Making MDM Narrative: Patient acute pancreatitis slightly elevated lipase but CT scan showed inflammation around the head of the pancreas patient has significant pain and unable to take anything p.o. will admit patient for acute pancreatitis uncomplicated <Peter Blank MD - Last Filed: 09/12/22 04:38> Differential Diagnosis Acute pancreatitis/gastritis <Peter Blank MD - Last Filed: 09/12/22 04:38> Consult Healthcare Provider Management of the patient was discussed with: Hospitalist <Peter Blank MD - Last Filed: 09/12/22 04:38> Lab Data MDM Lab Attestation statement: I reviewed the patient's lab results. <Peter Blank MD - Last Filed: 09/12/22 04:38> Result Diagrams: 09/11/22 20:57 09/11/22 20:57 <RANJAN Bone - Last Filed: 09/11/22 20:22> Labs: Lab Results 09/11/22 09/11/22 Range/Units 20:57 20:57 WBC 4.1 L (4.8-10.8) X10*3/uL RBC 3.64 L D (4.20-5.50) X10*6/uL Hgb 12.9 D (12.0-16.0) g/dl Hct 38.8 D (37.0-47.0) % MCV 106.6 H (80.0-98.0) fL MCH 35.4 H (27.0-33.0) pg MCHC 33.2 (31.0-35.0) g/dl RDW 14.1 (11.0-16.0) % Plt Count 190 D (160-400) X10*3/uL MPV 9.5 (9.4-12.3) fL Immature Gran % (Auto) 0.2 (0.0-0.4) % Neut % (Auto) 67.0 (45-73) % Lymph % (Auto) 22.1 (20-40) % [place] % (Auto) 9.8 (2-11) % Eos % (Auto) 0.7 (0-4) % Baso % (Auto) 0.2 (0-2) % Lymph # (Auto) 0.9 L (1.2-4.9) X10*3/uL [place] # (Auto) 0.4 (0.1-1.2) X10*3/uL Eos # (Auto) 0.0 (0.0-0.4) X10*3/uL Baso # (Auto) 0.0 (0.0-0.2) X10*3/uL Abs Immat Gran (auto) 0.01 (0.00-0.03) X10*3/uL Absolute Neuts (auto) 2.7 (2.0-8.3) x10*3/uL Absolute Nucleated RBC 0.000 (0.0-0.012) X10*3/uL Nucleated RBC % (auto) 0.0 (0.0-0.2) /100WBC Sodium 136 (135-145) mmol/L Potassium 4.5 D (3.3-5.1) mmol/L Chloride 101 (96-108) mmol/L Carbon Dioxide 17 L (22-29) mmol/L Anion Gap 23 H (12-20) BUN 12 (9-16) mg/dL Creatinine 1.28 (0.5-1.4) mg/dL Estim Creat Clear Calc 58.9 Estimated GFR 46 Random Glucose 118 H (60-115) mg/dL Calcium 9.4 D (8.4-10.2) mg/dL Magnesium 1.5 L (1.6-2.6) mg/dL Total Bilirubin 1.3 H (0.0-1.0) mg/dL AST 49 H (5-31) U/L ALT 25 (0-31) U/L Alkaline Phosphatase 141 H (39-117) U/L Total Protein 7.6 (6.5-8.0) g/dL Albumin 4.1 (3.5-5.0) g/dL Triglycerides 149 mg/dL Lipase 122 H (8-78) U/L Beta HCG, Quant < 2 mIU/mL Ethyl Alcohol < 10 mg/dL <RANJAN Bone - Last Filed: 09/11/22 20:22> Lab Results 09/11/22 09/11/22 Range/Units 20:57 20:57 WBC 4.1 L (4.8-10.8) X10*3/uL RBC 3.64 L D (4.20-5.50) X10*6/uL Hgb 12.9 D (12.0-16.0) g/dl Hct 38.8 D (37.0-47.0) % MCV 106.6 H (80.0-98.0) fL MCH 35.4 H (27.0-33.0) pg MCHC 33.2 (31.0-35.0) g/dl RDW 14.1 (11.0-16.0) % Plt Count 190 D (160-400) X10*3/uL MPV 9.5 (9.4-12.3) fL Immature Gran % (Auto) 0.2 (0.0-0.4) % Neut % (Auto) 67.0 (45-73) % Lymph % (Auto) 22.1 (20-40) % [place] % (Auto) 9.8 (2-11) % Eos % (Auto) 0.7 (0-4) % Baso % (Auto) 0.2 (0-2) % Lymph # (Auto) 0.9 L (1.2-4.9) X10*3/uL [place] # (Auto) 0.4 (0.1-1.2) X10*3/uL Eos # (Auto) 0.0 (0.0-0.4) X10*3/uL Baso # (Auto) 0.0 (0.0-0.2) X10*3/uL Abs Immat Gran (auto) 0.01 (0.00-0.03) X10*3/uL Absolute Neuts (auto) 2.7 (2.0-8.3) x10*3/uL Absolute Nucleated RBC 0.000 (0.0-0.012) X10*3/uL Nucleated RBC % (auto) 0.0 (0.0-0.2) /100WBC Sodium 136 (135-145) mmol/L Potassium 4.5 D (3.3-5.1) mmol/L Chloride 101 (96-108) mmol/L Carbon Dioxide 17 L (22-29) mmol/L Anion Gap 23 H (12-20) BUN 12 (9-16) mg/dL Creatinine 1.28 (0.5-1.4) mg/dL Estim Creat Clear Calc 58.9 Estimated GFR 46 Random Glucose 118 H (60-115) mg/dL Calcium 9.4 D (8.4-10.2) mg/dL Magnesium 1.5 L (1.6-2.6) mg/dL Total Bilirubin 1.3 H (0.0-1.0) mg/dL AST 49 H (5-31) U/L ALT 25 (0-31) U/L Alkaline Phosphatase 141 H (39-117) U/L Total Protein 7.6 (6.5-8.0) g/dL Albumin 4.1 (3.5-5.0) g/dL Triglycerides 149 mg/dL Lipase 122 H (8-78) U/L Beta HCG, Quant < 2 mIU/mL Ethyl Alcohol < 10 mg/dL <Peter Blank MD - Last Filed: 09/12/22 04:38> Radiology Impression Discussion of test interpretation with radiology: I have reviewed the radiologist's reading. <Peter Blank MD - Last Filed: 09/12/22 04:38> Radiologist Impression: CT/CT abdomen pelvis w IV con IMPRESSION: Inflammatory changes adjacent to the pancreatic head. Correlate for pancreatitis. ? Hepatic steatosis. Subtle nodularity of the hepatic contour. This could be associated with cirrhosis.? ? <Peter Blank MD - Last Filed: 09/12/22 04:38> Discharge Plan Discharge Clinical Impression: Acute alcoholic pancreatitis <RANJAN Bone - Last Filed: 09/11/22 20:22> Patient Disposition: Admitted As Inpatient <RANJAN Bone - Last Filed: 09/11/22 20:22>
[2022-09-11 21:17] LABS: MANUAL DIFF FLAG NO
[2022-09-11 21:18] LABS: Basophils Percent Auto 0.2 % (0-2); Eosinophils Percent Auto 0.7 % (0-4); Hematocrit 38.8 % (37.0-47.0); Hemoglobin 12.9 g/dl (12.0-16.0); Imm Gran Abs Auto 0.01 X10*3/uL (0.00-0.03); Imm Gran Pct Auto 0.2 % (0.0-0.4); Lymphocytes Absolute Auto 0.9 X10*3/uL (1.2-4.9); Lymphocytes Percent Auto 22.1 % (20-40); Mean Corpuscular HGB Conc 33.2 g/dl (31.0-35.0); Mean Corpuscular Hemoglobin 35.4 pg (27.0-33.0); Mean Corpuscular Volume 106.6 fL (80.0-98.0); Mean Platelet Volume 9.5 fL (9.4-12.3); Monocytes Absolute Auto 0.4 X10*3/uL (0.1-1.2); Monocytes Percent Auto 9.8 % (2-11); Neutrophils Absolute Auto 2.7 x10*3/uL (2.0-8.3); Platelet Count 190 X10*3/uL (160-400); Red Blood Count 3.64 X10*6/uL (4.20-5.50); Red Cell Distribution Width 14.1 % (11.0-16.0); White Blood Count 4.1 X10*3/uL (4.8-10.8)
[2022-09-11 21:49] LABS: Alanine Aminotransferase 25 U/L (0-31); Albumin Level 4.1 g/dL (3.5-5.0); Alkaline Phosphatase 141 U/L (39-117); Anion Gap 23 (12-20); Aspartate Amino Transferase 49 U/L (5-31); Bilirubin Total 1.3 mg/dL (0.0-1.0); Blood Urea Nitrogen 12 mg/dL (9-16); Calcium 9.4 mg/dL (8.4-10.2); Carbon Dioxide 17 mmol/L (22-29); Chloride 101 mmol/L (96-108); Creatinine Clr Calc Pharmacy 58.9; Estimated Glomerular Filt Rate 46; Ethanol < 10 mg/dL; Glucose Random 118 mg/dL (60-115); Lipase 122 U/L (8-78); Magnesium 1.5 mg/dL (1.6-2.6); Potassium 4.5 mmol/L (3.3-5.1); Sodium 136 mmol/L (135-145); Total Protein 7.6 g/dL (6.5-8.0); Triglycerides 149 mg/dL
[2022-09-11 21:52] LABS: HCG Quantitative < 2 mIU/mL
[2022-09-11] MEDS: ondansetron HCL 4 MG/2 ML VIAL IVPUSH (22:57)
[2022-09-11 22:58] VITALS: RESP 16
[2022-09-11] MEDS: Morphine Sulfate 4 MG/ML CARTRIDGE IVPUSH (22:58)
[2022-09-11] MEDS: Famotidine/PF 20 MG/2 ML VIAL IVPUSH (22:58)
[2022-09-11] MEDS: 0.9 % Sodium Chloride 1,000 ML 999 ML IV ×2 (22:59)
[2022-09-11 23:23] VITALS: BP 143/98; PULSE 74; RESP 17; TEMP 36.4; O2SAT 99
[2022-09-12] VITALS (9 sets, daily range): BP systolic 135–158; BP diastolic 86–106; PULSE 76–96; RESP 16–18; TEMP 36.1–36.7; O2SAT 96–99
[2022-09-12] MEDS: iohexoL 350 MG/ML 100 ML INFUS..BTL 85 ML IV (00:30)
[2022-09-12] MEDS: Morphine Sulfate 4 MG/ML CARTRIDGE IVPUSH ×2 (01:22→08:52)
[2022-09-12] MEDS: 0.9 % Sodium Chloride 1,000 ML 999 ML IV (01:24)
--- NOTE | 2022-09-12 01:40 | P.HPHOSP_ITS ---
History of Present Illness Date of Service: 09/12/22 Chief Complaint: Abdominal Pain This is a 42-year-old female with pertinent history of alcohol use disorder with history of alcoholic pancreatitis, ADHD on Adderall, hypothyroidism presents to the emergency department for evaluation of abdominal pain. Patient reports epigastric pain that started after she had whiskey about 2 days prior to presentation. The pain radiated to the back and was associated with nausea and multiple episodes of nonbloody emesis. Patient states she has been sober on and off. She has naltrexone and acamprosate prescriptions but she has not taken it and is working on it. Admits to smoking marijuana once to relieve the nausea. Has not been able to tolerate p.o. intake. Patient states the pain is similar to when she had pancreatitis in past. She denies fever, chills, shortness of breath, palpitations, chest discomfort, changes in bowel habits. Admits to urinary urgency. In the emergency department, pancreatic inflammation seen on imaging concerning for pancreatitis. Review of Systems Constitutional: Constitutional: Reports lethargy Cardiovascular: Cardiovascular: Reports no additional cardiovascular complaints Respiratory: Respiratory: Reports no additional respiratory complaints Gastrointestinal: Gastrointestinal: Reports abdominal pain, Reports nausea and Reports vomiting Genitourinary: Genitourinary: Reports no additional female genitourinary complaints [facility] Medical History Acute pancreatitis ADHD Congenital hypothyroidism Depression Elevated liver function tests Migraine Family History Mother No problems noted. Father No problems noted. Brother No problems noted. Brother No problems noted. Sister No problems noted. Sister No problems noted. Son No problems noted. Surgical History H/O gastric bypass H/O tubal ligation History of cholecystectomy History of Calixto-en-Y gastric bypass Previous section Social History Household Members: Spouse Housing: House Do you presently have visiting nurse or other home services: No Alcohol intake: former Patient Tobacco Use Status: Never used Tobacco e-Cigarette/Vaping Use: Never Used service: No Current occupational status: employed Meds Allergies Allergy/AdvReac Type Severity Reaction Status Date / Time shellfish derived Allergy Severe ANAPHYLAXIS Verified 09/11/22 20:18 [SHELLFISH DERIVED] benztropine [From COGENTIN] Allergy Intermediate PSYCHOSIS Verified 09/11/22 2 0:18 gabapentin [GABAPENTIN] Allergy Intermediate PSYCHOSIS Verified 09/11/22 20:18 amantadine [AMANTADINE] Allergy Mild HIVES, rash Verified 09/11/22 20:18 Active Medications: Current Medications Acetaminophen (Acetaminophen 325 Mg Tablet) 650 mg PO Q6H PRN PRN Reason: Pain, Mild (Pain Scale 1-3) Enoxaparin Sodium (Enoxaparin Sodium 40 Mg/0.4 Ml Syringe) 40 mg SUBCUT Q24H [facility] Melatonin (Melatonin 3 Mg Tablet) 6 mg PO BEDTIME PRN PRN Reason: Insomnia Morphine Sulfate (Morphine Sulfate 4 Mg/Ml Cartridge) 4 mg IVPUSH Q4H PRN; Protocol PRN Reason: Pain, Severe (Pain Scale 7-10) Ondansetron HCl (Ondansetron Hcl 4 Mg/2 Ml Vial) 4 mg IVPUSH Q8H PRN PRN Reason: Nausea and Vomiting Pharmacy Consult (Consult Rx Perform Med Rec) 1 each MISCELLANE ONCE PRN PRN Reason: Consult order Sodium Chloride (0.9 % Sodium Chloride Flush 3 Ml Syringe) 3 ml IVFLUSH QSHIFT [facility] Home Medications Medication Instructions Recorded Confirmed Last Taken Type calcium carbonate 500 mg calcium 500 mg PO DAILY 01/03/21 06/03/22 12/28/20 History (1,250 mg) tablet (Calcium 500) cetirizine 10 mg tablet 30 mg PO DAILY 01/03/21 06/03/22 06/02/22 History vitamin B complex 1 cap PO DAILY 01/03/21 06/03/22 06/02/22 History dextroamphetamine-amphetamine ER 20 mg PO QAM 06/03/22 06/03/22 06/02/22 History 20 mg 24hr capsule,extend release levothyroxine 75 mcg tablet 75 mcg PO DAILY@0600 06/03/22 06/03/22 06/02/22 History therapeutic multivitamin 1 tab PO QAM 06/03/22 06/03/22 06/02/22 History (Thera-Tabs tablet) Physical Exam Vital Signs and Narrative: Vital Signs: Last Vital Signs Temp 97.5 F 09/11/22 23:23 Pulse 74 09/11/22 23:23 Resp 16 09/12/22 01:22 BP 143/98 H 09/11/22 23:23 Pulse Ox 99 09/11/22 23:23 O2 Del Method Room Air 09/11/22 20:18 BMI result Body Mass Index 25.2 Middle-aged female lying in bed in mild distress Neck supple, no JVD Regular rate and rhythm, S1-S2 heard Regular breath sounds bilaterally, no wheezing or crackles appreciated Abdomen with epigastric tenderness, no guarding, no rigidity, no rebound tenderness Patient is awake, alert and oriented to self, place, time and person ; no focal motor deficit Psych: Normal mood No pedal edema Results Labs 09/11/22 20:57 09/11/22 20:57 Labs: Laboratory Results - last 24 hr 09/11/22 09/11/22 20:57 20:57 MCV 106.6 H MCH 35.4 H MCHC 33.2 RDW 14.1 Plt Count 190 D MPV 9.5 Immature Gran % (Auto) 0.2 Neut % (Auto) 67.0 Lymph % (Auto) 22.1 [place] % (Auto) 9.8 Eos % (Auto) 0.7 Baso % (Auto) 0.2 Lymph # (Auto) 0.9 L [place] # (Auto) 0.4 Eos # (Auto) 0.0 Baso # (Auto) 0.0 Abs Immat Gran (auto) 0.01 Absolute Neuts (auto) 2.7 Absolute Nucleated RBC 0.000 Nucleated RBC % (auto) 0.0 Anion Gap 23 H Estim Creat Clear Calc 58.9 Estimated GFR 46 Random Glucose 118 H Calcium 9.4 D Magnesium 1.5 L Total Bilirubin 1.3 H AST 49 H ALT 25 Alkaline Phosphatase 141 H Total Protein 7.6 Albumin 4.1 Triglycerides 149 Lipase 122 H Beta HCG, Quant < 2 Ethyl Alcohol < 10 Imaging Radiologist's Impressions: Impressions Abdomen/Pelvis CT 09/12/22 00:34 IMPRESSION: Inflammatory changes adjacent to the pancreatic head. Correlate for pancreatitis. Hepatic steatosis. Subtle nodularity of the hepatic contour. This could be associated with cirrhosis. Fleischner guidelines were followed. Assessment and Plan (1) Acute alcoholic pancreatitis: Status: Acute Plan This is a 42-year-old female with pertinent history of alcohol use disorder with history of alcoholic pancreatitis, ADHD on Adderall, hypothyroidism presents to the emergency department for evaluation of abdominal pain. #. Acute alcoholic pancreatitis: Will admit patient and continue fluid resuscitation. Morphine IV p.r.n. for pain control. Clear liquid diet and advanced as tolerated. Continue thiamine and folic acid. Consulting addiction medicine #. Acute UTI: Initiating IV ceftriaxone while in the hospital. Urine culture pending #. ADHD: On Adderall #. Hypothyroidism: Continue Synthroid #. Hypomagnesemia due to alcohol use disorder: Repleted #. Macrocytosis due to alcohol use disorder: Patient on B12 and folate supplementation Med rec pending DVT prophylaxis: Lovenox 40 mg daily Full code Clear liquid diet Time Spent With Patient Time: Total time managing care of this patient today ____ minutes. Quality Stroke Does the patient have a stroke diagnosis?: No VTE Prior VTE?: No VTE Risk Level:: Medical - moderate - high VTE Device Contraindication: Treatment Not Indicated VTE Drug Contraindication: N/A - Med Ordered
[2022-09-12] MEDS: Magnesium Sulfate/H2O 2 GM/50 ML PIGGYBACK IV (01:56)
[2022-09-12 01:58] LABS: Appearance Urine Cloudy; Color Urine Yellow; Glucose Urine UA Negative (Negative); Leukocyte Esterase Urine Trace (Negative); Nitrite Urine Positive (Negative); PH 5.5 (5.0-9.0); Specific Gravity - Urine >= 1.030 (1.005-1.025); UMIC TRIGGER UACC YES; Urine Blood Negative (Negative); Urine Ketones 15 mg/dL (Negative); Urine Protein Trace mg/dL (Neg-Trace)
[2022-09-12 02:00] LABS: Bacteria Urine 4+ (None Seen); RBC Urine 0-2 /HPF (0-2); Squamous Epithelial Cell Urine >20 /HPF (0-2); UACC Culture Trigger YES
[2022-09-12 02:08] LABS: Amphetamine Screen Urine POSITIVE (Not Detect); Barbiturates, Urine Not Detected (Not Detect); Benzodiazepines Screen Urine Not Detected (Not Detect); Cannabinoid Screen Urine POSITIVE (Not Detect); Cocaine Screen Urine Not Detected (Not Detect); Fentanyl, urine Not Detected (Not Detect); Opiate Screen Urine POSITIVE (Not Detect); Phencyclidine Screen Urine Not Detected (Not Detect)
[2022-09-12 02:49] LABS: Lactic Acid 0.7 mmol/L (0.5-2.0)
[2022-09-12] MEDS: cefTRIAXone sodium 1 GM in 0.9 % Sodium Chloride 50 ML IV ×2 (03:23→21:55)
[2022-09-12] MEDS: 0.9 % Sodium Chloride 1,000 ML 80 ML IVCONT ×2 (03:25→16:40)
[2022-09-12] MEDS: HYDROmorphone HCl 2 MG/ML VIAL 1.5 MG IVPUSH (04:02)
[2022-09-12] MEDS: ondansetron HCL 4 MG/2 ML VIAL IVPUSH (05:58)
[2022-09-12 06:51] LABS: MANUAL DIFF FLAG NO
[2022-09-12 06:57] LABS: Basophils Percent Auto 0.3 % (0-2); Eosinophils Percent Auto 0.3 % (0-4); Hematocrit 32.4 % (37.0-47.0); Hemoglobin 10.7 g/dl (12.0-16.0); Imm Gran Abs Auto 0.02 X10*3/uL (0.00-0.03); Imm Gran Pct Auto 0.5 % (0.0-0.4); Lymphocytes Absolute Auto 0.8 X10*3/uL (1.2-4.9); Lymphocytes Percent Auto 20.4 % (20-40); Mean Corpuscular Hemoglobin 35.7 pg (27.0-33.0); Mean Platelet Volume 9.9 fL (9.4-12.3); Monocytes Absolute Auto 0.4 X10*3/uL (0.1-1.2); Monocytes Percent Auto 10.3 % (2-11); Neutrophils Absolute Auto 2.5 x10*3/uL (2.0-8.3); Neutrophils Percent Auto 68.2 % (45-73); Platelet Count 151 X10*3/uL (160-400); White Blood Count 3.7 X10*3/uL (4.8-10.8)
[2022-09-12 07:16] LABS: Anion Gap 17 (12-20); Blood Urea Nitrogen 9 mg/dL (9-16); Carbon Dioxide 15 mmol/L (22-29); Chloride 107 mmol/L (96-108); Creatinine Clr Calc Pharmacy 93.1; Estimated Glomerular Filt Rate > 60; Glucose Random 109 mg/dL (60-115); Potassium 4.4 mmol/L (3.3-5.1); Sodium 135 mmol/L (135-145)
[2022-09-12] MEDS: 0.9 % Sodium Chloride Flush 3 ML SYRINGE IVFLUSH (07:18)
--- NOTE | 2022-09-12 07:20 | PC.NURSE ---
Pt sitting up in bed, airway open and patent, no obvious signs of distress, no difficulty breathing. A&ox4, skin normal for ethnicity, warm, and dry. Lung sounds clr and equal bilaterally all rojas. Heart sounds normal. Bowel sounds present all rojas, abdomen tender upper medial. No edema noted. Pt reporting pain 8/10.
[2022-09-12 07:28] LABS: Calcium 8.3 mg/dL (8.4-10.2)
--- NOTE | 2022-09-12 08:10 | PM.EVENT ---
Event Note Date of Service: 09/12/22 Event Note: Patient seen and examined. She was admitted this morning with acute pancreatitis that is alcohol related in addition to UTI. She is clinically presently stable. Assessment and plan of today as per H and P of this morning. Med reconciliation still pending. Dilaudid for pain as morphine not as effective Time Spent With Patient Time: Total time managing care of this patient today ____ minutes.
--- NOTE | 2022-09-12 08:51 | PHA.MEDREC ---
Pharmacy Consult ? Medication Reconciliation Pharmacy has completed the medication reconciliation. Pt able to list medications
[2022-09-12] MEDS: Enoxaparin Sodium 40 MG/0.4 ML SYRINGE SUBCUT (08:52)
[2022-09-12] MEDS: Thiamine HCL 100 MG TABLET PO (09:51)
[2022-09-12] MEDS: Levothyroxine Sodium 75 MCG TABLET PO (09:51)
[2022-09-12] MEDS: Loratadine 10 MG TABLET 30 MG PO (09:52)
--- NOTE | 2022-09-12 12:52 | PC.NURSE ---
RN to RN report given to
[2022-09-12] MEDS: HYDROmorphone HCl 1 MG/ML SYRINGE IVPUSH ×3 (13:19→21:53)
--- NOTE | 2022-09-12 14:05 | MHC.RECOVRN ---
This telegraphic typewriter installer met with patient after addiction consult was placed. Patient was resting comfortably, sitting up in bed, eating and working on [employer] when t/w entered room. Patient denies GONZALEZ, AVH, anxiety, sweats, tactile disturbances, tremor, agitation. 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 Patient states drinking 1-2 pints Whiskey, 1-2x's per week. Patient reports has naltrexone, campral to take at home. Patient reports is aware of recovery supports and has friends supportive of recovery. Patient declined recovery supports from Addiction/Recovery team. Pt encouraged to reach out with questions/concerns.
[2022-09-12] MEDS: Acetaminophen 325 MG TABLET 650 MG PO (16:40)
--- NOTE | 2022-09-12 18:13 | P.EN_ITS ---
Event Note Date of Service: 09/12/22 Event Note: Addiction consult placed for patient Please see de icer kit assembler noted dated 09/12/22 Time Spent With Patient Time: Total time managing care of this patient today ____ minutes.
--- NOTE | 2022-09-12 18:13 | PM.EVENT ---
Event Note Date of Service: 09/12/22 Event Note: Addiction consult placed for patient Please see customer support technician noted dated 09/12/22 Time Spent With Patient Time: Total time managing care of this patient today ____ minutes.
[2022-09-13] MEDS: Acetaminophen 325 MG TABLET 650 MG PO ×2 (00:59→08:46)
[2022-09-13] MEDS: HYDROmorphone HCl 1 MG/ML SYRINGE IVPUSH ×3 (02:06→10:06)
[2022-09-13 02:42] VITALS: RESP 18
[2022-09-13] MEDS: 0.9 % Sodium Chloride 1,000 ML 80 ML IVCONT (03:18)
[2022-09-13 03:27] VITALS: BP 124/84; PULSE 72; RESP 16; TEMP 36; O2SAT 98
[2022-09-13] MEDS: Levothyroxine Sodium 75 MCG TABLET PO (05:57)
[2022-09-13 06:59] VITALS: RESP 18
[2022-09-13 08:00] VITALS: BP 140/88; PULSE 82; RESP 20; TEMP 36.9; O2SAT 99
[2022-09-13] MEDS: Loratadine 10 MG TABLET 30 MG PO (08:46)
[2022-09-13] MEDS: Folic Acid 1 MG TABLET PO (08:46)
[2022-09-13] MEDS: Dextroamphetamine/Amphetamine XR 10 MG CAP.ER.24H 20 MG PO (08:46)
[2022-09-13] MEDS: Cholecalciferol (Vitamin D3) 25 MCG TABLET 50 MCG PO (08:47)
[2022-09-13] MEDS: Thiamine HCL 100 MG TABLET PO (08:47)
[2022-09-13] MEDS: Enoxaparin Sodium 40 MG/0.4 ML SYRINGE SUBCUT (08:47)
--- NOTE | 2022-09-13 10:41 | PM.DS ---
DS: Providers Provider Date of Service: 09/13/22 Date of admission: 09/12/22 01:37 Primary care physician: Unknown Physician Consults: 09/12/22 03:00 Addiction Medicine Routine Consulting Provider: Addiction Covering Reason for consultation: alcohol use disorder DS: Diagnosis Discharge Diagnosis (1) Acute alcoholic pancreatitis: Status: Acute DS: Summary Hospital Course Hospital Course: Chief Complaint: Abdominal Pain This is a 42-year-old female with pertinent history of alcohol use disorder with history of alcoholic pancreatitis, ADHD on Adderall, hypothyroidism presents to the emergency department for evaluation of abdominal pain.? Patient reports epigastric pain that started after she had whiskey about 2 days prior to presentation.? The pain radiated to the back and was associated with nausea and multiple episodes of nonbloody emesis.? Patient states she has been sober on and off. She has naltrexone and acamprosate prescriptions but she has not taken it and is working on it.? Admits to smoking marijuana once to relieve the nausea.? Has not been able to tolerate p.o. intake.? Patient states the pain is similar to when she had pancreatitis in past.? She denies fever, chills, shortness of breath, palpitations, chest discomfort, changes in bowel habits.? Admits to urinary urgency. In the emergency department, pancreatic inflammation seen on imaging concerning for pancreatitis. Hospital coruse: She presented with abdominal pain and found to have acute pancreatitis and noted to have elevated lipase and CT finding consistent with pancreatitis which is attributed to alcohol use. She was managed conservatively with hydration, pain medication and diet was slowly advance, she was doing well by the next day of hospitalizatio and diet was changed to low fat diet which she is tolerating, we discussed the need for complete alcohol cessation to prevent further health complication. CT further show fattly liver and possible early signs of cirrhosis Time Spent with Patient Time attestation: Total time managing care of this patient today ____ minutes. Discharge coordination time: Greater than 30 minutes Quality: Safe Use of Opioids Does Pt have an Active Cancer Diagnosis on the Problem List?: No Quality: Stroke Does the patient have a stroke diagnosis?: No Physical Exam Vital Signs: Vital Signs: Last Vital Signs Temp 98.4 F 09/13/22 08:00 Pulse 82 09/13/22 08:00 Resp 20 09/13/22 08:00 BP 140/88 H 09/13/22 08:00 Pulse Ox 99 09/13/22 08:00 O2 Del Method Room Air 09/13/22 08:00 BMI result Body Mass Index 25.2 Const: Other: General: AO X 3, no acute distress Resp: CTA bilateral CVS: S1,S2,RRR GI: +BS, NT, no distention Skin: No rash Neuro: motor grossly intact Psych: appropriate affect DS: Data Data Completed and Pending Completed studies during hospitalization [Text1]: Procedures [facility]ox[facility] for Substance Abuse Treatment (06/03/22) Labs on day of discharge: Preliminary micro results at discharge 09/12/22 Unknown Urine Culture - Preliminary Urine clean catch - Clean Catch Midstream Gram negative cammy 09/12/22 02:31 Blood Culture - Preliminary Blood - Venous No growth after 24 hours. Discharge Plan Discharge Anticipated Discharge Date/Time: 09/13/22 10:36 Patient Disposition: Home, Self-Care Discharge Diagnosis: Acute alcoholic pancreatitis, Referrals: Physician,Unknown J [Primary Care Provider] - 1 Week Discharge Medications: Continued cholecalciferol (vitamin D3) 50 mcg (2,000 unit) capsule 50 mcg PO DAILY Qty: 30 11RF cetirizine 10 mg Tablet 30 mg PO DAILY vitamin B complex Capsule 1 cap PO DAILY epinephrine [EpiPen] 0.3 mg/0.3 mL auto-injector 0.3 mg IM Q20M PRN (Reason: anaphylaxis) Qty: 2 0RF Rx Instructions: do not exceed 3 doses per episode dextroamphetamine-amphetamine 20 mg capsule,extended release 24hr 20 mg PO DAILY levothyroxine 75 mcg tablet 75 mcg PO DAILY@0600 Thera-Tabs Tablet 1 tab PO QAM folic acid 1 mg Tablet 1 mg PO DAILY Qty: 30 0RF thiamine mononitrate (vit B1) 100 mg Tablet 100 mg PO DAILY Qty: 30 0RF calcium carbonate 500 mg calcium (1,250 mg) Tablet 500 mg PO DAILY cyanocobalamin (vitamin B-12) 1,000 mcg tablet 1,000 mcg PO DAILY Discharge Orders: Discharge Order (Routine); Ordered 09/13/22 Ordered By: Josue Ramirez Diet: Advance to usual diet Activity on Discharge: As tolerated Stand Alone Forms: Patient Portal Discharge page Care Plan Goals: full recovery from pancreatitis, and abstinence from alcoho Health Concerns: alcoholuse desorder pancreatitis Plan of Treatment: avoid alcohol and fatty food, follow up with your doctor in a week, returne to emergency if pain worsen Assessment: as above
--- NOTE | 2022-09-13 10:56 | MHC.CM.PN ---
pt is covid vax x 5 lives with a roomate has own ttransport home dr storm is her pcp home no serves
--- NOTE | 2022-09-13 10:58 | MHC.CM.PN ---
pt dcd home no skilled servceis ordered by
--- NOTE | 2022-09-13 14:03 | MHC.RECOVRN ---
Met with pt prior to dc to provide support. Pt states I'm thriving right now, feels recovery is going well. Pt states I drank on my 42th birthday to see if I could do it and now I know I can't. Pt reports hx naltrexone and acamprosate, reports they were not helpful and is not interested in restarting. Pt is not interested in other recovery resources or referrals. Denies questions or concerns for t/w.
== END 2022-09-13 12:00 | disposition home or self-care (01) ==
LOC: HO.ED 09-12 02:11 → HO.EDOVER 09-12 02:23 → HO.S3 09-12 12:26
PROVIDERS: Physician Assistant; Admitting Provider Student in an Organized Health Care Education/Training Program; Emergency Provider Internal Medicine; PCP Family Medicine; Visit Provider Internal Medicine
DX: K85.20 Alcohol induced acute pancreatitis without necrosis or infection (principal); F90.9 Attention-deficit hyperactivity disorder, unspecified type; R10.13 Epigastric pain; E03.1 Congenital hypothyroidism without goiter; Z79.899 Other long term (current) drug therapy; N39.0 Urinary tract infection, site not specified; E83.42 Hypomagnesemia; D75.89 Other specified diseases of blood and blood-forming organs
CPT/HCPCS: 36415; 74177; 80048; 80053; 80307; 81001; 82077; 83605; 83690; 83735; 84478; 84702; 85025; 87040; 87086; 87088; 87186; 96361; 96365; 96366; 96372; 96375; 96376; 99221; 99285; J0696; J1170; J1650; J2270; J2405; J3475; Q9967

== ENCOUNTER 2022-10-19 16:58 | Inpatient (IN) | payer OTHER, SELFPAY ==
[2022-10-19 17:07] VITALS: BP 128/89; PULSE 102; RESP 18; O2SAT 99; BMI 28.1
--- NOTE | 2022-10-19 17:22 | ED.PSYCH ---
HPI - Psych General Chief Complaint: Psychiatric Symptoms Stated Complaint: SI with plan Time Seen by Provider: 10/19/22 17:10 Source: patient Mode of arrival: ambulatory Limitations: no limitations History of Present Illness HPI Narrative: Patient comes to the emergency room complaining of suicidal ideation. Patient states that she is going through divorce and breaking up with a significant other. Patient very overwhelmed. Patient states that she was diagnosed apartments, started feeling overwhelmed, called her current to tell her that she wanted to blow her head off, she was instructed to come to the hospital for further evaluation. Patient denies HI. Patient states that she is scared that she will be homeless soon. Related Data Home Medications Medication Instructions Recorded Confirmed cetirizine 10 mg tablet 30 mg PO DAILY 01/03/21 09/12/22 vitamin B complex 1 cap PO DAILY 01/03/21 06/03/22 dextroamphetamine-amphetamine ER 20 mg PO DAILY 06/03/22 09/12/22 20 mg 24hr capsule,extend release levothyroxine 75 mcg tablet 75 mcg PO DAILY@0600 06/03/22 09/12/22 therapeutic multivitamin 1 tab PO QAM 06/03/22 06/03/22 (Thera-Tabs tablet) cyanocobalamin (vitamin B-12) 1,000 mcg PO DAILY 09/12/22 09/12/22 1,000 mcg tablet Previous Rx's Medication Instructions Recorded epinephrine 0.3 mg/0.3 mL 0.3 mg (0.3 mL) IM Q20M PRN 02/11/22 injection, auto-injector (EpiPen) anaphylaxis #2 ea folic acid 1 mg tablet 1 mg PO DAILY #30 tabs 06/06/22 thiamine mononitrate (vit B1) 100 100 mg PO DAILY #30 tabs 06/06/22 mg tablet oxycodone 5 mg tablet 5 mg PO Q6H PRN pain (scale score 09/13/22 7-10) #8 tabs Allergies Allergy/AdvReac Type Severity Reaction Status Date / Time shellfish derived Allergy Severe ANAPHYLAXIS Verified 10/19/22 17:26 [SHELLFISH DERIVED] benztropine [From COGENTIN] Allergy Intermediate PSYCHOSIS Verified 10/19/22 17:26 gabapentin [GABAPENTIN] Allergy Intermediate PSYCHOSIS Verified 10/19/22 17:26 amantadine [AMANTADINE] Allergy Mild HIVES, rash Verified 10/19/22 17:26 Review of Systems Review of Systems: Constitutional : No Weight loss, No Fever, No Chills, No Night Sweats, No Fatigue, No Malaise ENT/Mouth : No Hearing loss, No Ear Pain, No Nasal Congestion, No Sinus Pain, No Hoarseness, No sore throat, No Rhinorrhea, No Swallowing Difficulty Eyes: No Eye Pain, No Swelling, No Redness, No Foreign Body, No Discharge, No Vision Changes Cardiovascular : No Chest Pain, No SOB, No Dyspnea on Exertion, No Orthopnea, No Edema, No Palpitations Respiratory : No Cough, No Sputum, No Wheezing, No Smoke Exposure, No Dyspnea Gastrointestinal : No Nausea, No Vomiting, No Diarrhea, No Constipation, No abdominal Pain, No Hematochezia, No Melena Genitourinary : no irregular bleeding, No Dysuria, No Urinary Frequency, No Hematuria, No Urinary Incontinence, No Urgency, No Flank Pain, No Urinary Flow Changes, No Hesitancy Musculoskeletal : No joint pain, No Myalgias, No Joint Swelling Skin : No Skin Lesions, No rash Neuro : No Weakness, No Numbness, No Paresthesias, No Loss of Consciousness, No Dizziness, No Headache Psych : Complaining of feeling anxious, depressed, suicidal ideation, no HI Heme/Lymph: No Bruising, No Bleeding,No Lymphadenopathy Endocrine : No Polyuria, No Polydipsia, No Temperature Intolerance PMFSH Past Medical History Medical History Acute pancreatitis ADHD Congenital hypothyroidism Depression Elevated liver function tests Migraine Surgical History H/O gastric bypass H/O tubal ligation History of cholecystectomy History of Calixto-en-Y gastric bypass Previous section Family History Family History Mother No problems noted. Father No problems noted. Brother No problems noted. Brother No problems noted. Sister No problems noted. Sister No problems noted. Son No problems noted. Social History Social History Household Members: Significant Other and Children Housing: House Do you presently have visiting nurse or other home services: No Alcohol intake: current Alcohol intake frequency: other Alcohol type: hard liquor Patient Tobacco Use Status: Never used Tobacco e-Cigarette/Vaping Use: Never Used Use of substances other than those prescribed or required for medical reasons: Unknown Substance Use Type: Unknown Substance Use Frequency: Chronic Longstanding Last Used Substance: Just Prior to Admission Any prior treatment program specific to substance use: No (ukn) Advance Directives: No Advance Directives Information Provided: No Patient : No (ukn) service: No Current occupational status: employed Physical Exam Vital Signs: Vital Signs: Last Vital Signs Pulse 102 H 10/19/22 17:07 Resp 18 10/19/22 17:07 BP 128/89 10/19/22 17:07 Pulse Ox 99 10/19/22 17:07 O2 Del Method Room Air 10/19/22 17:07 BMI result Body Mass Index 28.1 Const: Other: Appearance: Alert. Oriented X3. No acute distress. Seems to be intoxicated, still able to hold a coherent conversation Eyes: Pupils equal, round and reactive to light. ENT: Pharynx normal. Neck: Normal inspection. Neck supple. No lymph nodes noted. No crepitus CVS: Normal heart rate and rhythm. Pulses normal. Normal S1 and S2 Respiratory: No respiratory distress. Breath sounds normal. No Wheezing. No rales Abdomen: Soft and nontender. No rigidity. No distention. Skin: Skin warm and dry. Normal skin color. Normal skin turgor. Extremities: No lower extremity edema. No Lacerations. No Rash Neuro: Oriented X 3. No motor deficit. No sensory deficit. Moving all extremities. No slurred speech. CN 2 through 12 grossly intact Psych: calm, cooperative, intoxicated Course Course Course Narrative: -all of patient's labs pending -patient is on a Section 12 -care team consult pending -physician observation started at 17:30 Medical Decision Making Lab Data Labs: Lab Results 10/19/22 Range/Units 17:31 Urine Test NEGATIVE (NEGATIVE) Discharge Plan Discharge Clinical Impression: Suicidal ideation Patient Disposition: Still a Patient Prescriptions: No Action cholecalciferol (vitamin D3) 50 mcg (2,000 unit) capsule 50 mcg PO DAILY Qty: 30 11RF cetirizine 10 mg Tablet 30 mg PO DAILY vitamin B complex Capsule 1 cap PO DAILY epinephrine [EpiPen] 0.3 mg/0.3 mL auto-injector 0.3 mg IM Q20M PRN (Reason: anaphylaxis) Qty: 2 0RF Rx Instructions: do not exceed 3 doses per episode dextroamphetamine-amphetamine 20 mg capsule,extended release 24hr 20 mg PO DAILY levothyroxine 75 mcg tablet 75 mcg PO DAILY@0600 Thera-Tabs Tablet 1 tab PO QAM folic acid 1 mg Tablet 1 mg PO DAILY Qty: 30 0RF thiamine mononitrate (vit B1) 100 mg Tablet 100 mg PO DAILY Qty: 30 0RF calcium carbonate 500 mg calcium (1,250 mg) Tablet 500 mg PO DAILY cyanocobalamin (vitamin B-12) 1,000 mcg tablet 1,000 mcg PO DAILY oxycodone 5 mg tablet 5 mg PO Q6H PRN (Reason: pain (scale score 7-10)) Qty: 8 0RF Rx Instructions: Partial Fill upon patient request. Interventions: [place]-Suicide Risk Severity Scale Last Done: 10/19/22 17:16
[2022-10-19 17:41] LABS: Appearance Urine Clear; Color Urine Yellow; Glucose Urine UA Negative (Negative); Leukocyte Esterase Urine Negative (Negative); Nitrite Urine Negative (Negative); PH 5.5 (5.0-9.0); Specific Gravity - Urine <= 1.005 (1.005-1.025); Urine Blood Negative (Negative); Urine Ketones Negative (Negative); Urine Protein Negative (Neg-Trace)
[2022-10-19 17:42] LABS: UPreg QC Valid YES; Urine Pregnancy NEGATIVE (NEGATIVE)
--- NOTE | 2022-10-19 17:46 | PC.NURSE ---
Section 12A Reads: Wants to blow her head off.
[2022-10-19 17:49] LABS: Amphetamine Screen Urine Not Detected (Not Detect); Barbiturates, Urine Not Detected (Not Detect); Benzodiazepines Screen Urine Not Detected (Not Detect); Cannabinoid Screen Urine Not Detected (Not Detect); Cocaine Screen Urine Not Detected (Not Detect); Fentanyl, urine Not Detected (Not Detect); Opiate Screen Urine Not Detected (Not Detect); Phencyclidine Screen Urine Not Detected (Not Detect)
[2022-10-19 17:53] LABS: COVID-19 Test Negative (Negative); IDNOW Serial# 08D9AD1C
[2022-10-19 18:03] LABS: Bacteria Urine None Seen (None Seen); Hyaline Casts Urine 0-2 /LPF (0-2); RBC Urine 0-2 /HPF (0-2); Squamous Epithelial Cell Urine 0-2 /HPF (0-2); WBC Urine 0-5 /HPF (0-5)
[2022-10-19 19:19] LABS: MANUAL DIFF FLAG NO
[2022-10-19 19:44] LABS: Basophils Percent Auto 0.5 % (0-2); Eosinophils Percent Auto 0.7 % (0-4); Hematocrit 39.8 % (37.0-47.0); Imm Gran Abs Auto 0.01 X10*3/uL (0.00-0.03); Imm Gran Pct Auto 0.2 % (0.0-0.4); Lymphocytes Absolute Auto 1.8 X10*3/uL (1.2-4.9); Lymphocytes Percent Auto 43.3 % (20-40); Mean Corpuscular HGB Conc 32.7 g/dl (31.0-35.0); Mean Corpuscular Hemoglobin 33.9 pg (27.0-33.0); Mean Corpuscular Volume 103.6 fL (80.0-98.0); Mean Platelet Volume 11.2 fL (9.4-12.3); Monocytes Absolute Auto 0.2 X10*3/uL (0.1-1.2); Monocytes Percent Auto 4.1 % (2-11); Neutrophils Absolute Auto 2.1 x10*3/uL (2.0-8.3); Neutrophils Percent Auto 51.2 % (45-73); PLT CLUMP 1; Red Blood Count 3.84 X10*6/uL (4.20-5.50); Red Cell Distribution Width 16.4 % (11.0-16.0); SCAN SMEAR FLAG 1
[2022-10-19 20:00] LABS: White Blood Count 4.2 X10*3/uL (4.8-10.8)
[2022-10-19 20:01] LABS: Platelet Count 91 X10*3/uL (160-400)
[2022-10-19 20:32] LABS: Ethanol 265 mg/dL
--- NOTE | 2022-10-20 04:48 | PC.NURSE ---
Patient slept through the night, no distress observed/reported, no behavior concerns, med rec completed/pending provider's approval, care consult ordered/pending evaluation, BMP/Liver panel/Magnesium blood draw hemolyzed/pending redraw in the morning, per networking technology instructor lab draw difficult, remaining labs completed/resulted, VSS, will continue to monitor.
[2022-10-20 07:37] VITALS: BP 141/85; PULSE 90; RESP 16; TEMP 36.8; O2SAT 96
[2022-10-20 11:57] VITALS: BP 152/97; PULSE 91; RESP 16; TEMP 36.5; O2SAT 100
--- NOTE | 2022-10-20 12:43 | PC.NURSE ---
Pt awake. No dangerous behaviors noted. Taking a shower. Will continue to monitor.
--- NOTE | 2022-10-20 12:53 | MHC.CARE ---
Addendum entered by Kaylynn Martinez, [facility] 10/20/22 14:53: Accepted for admission to [facility]. CV signed and placed in chart. Original Note: CARE team assessment complete. Disposition is for inpt psychiatric admission. Pt will be presented for admission to [facility].
[2022-10-20 13:17] LABS: Alanine Aminotransferase 27 U/L (0-31); Albumin Level 3.9 g/dL (3.5-5.0); Alkaline Phosphatase 125 U/L (39-117); Anion Gap 22 (12-20); Aspartate Amino Transferase 59 U/L (5-31); Bilirubin Direct 0.3 mg/dL (0.0-0.5); Bilirubin Total 0.9 mg/dL (0.0-1.0); Blood Urea Nitrogen 13 mg/dL (9-16); Calcium 9.2 mg/dL (8.4-10.2); Carbon Dioxide 20 mmol/L (22-29); Chloride 102 mmol/L (96-108); Creatinine Clr Calc Pharmacy 117.9; Estimated Glomerular Filt Rate > 60; Glucose Random 78 mg/dL (60-115); Magnesium 1.3 mg/dL (1.6-2.6); Sodium 140 mmol/L (135-145); Total Protein 7.2 g/dL (6.5-8.0)
[2022-10-20] MEDS: Magnesium Hydrox/Alum Hydrox 30 ML ORAL.SUSP PO (13:30)
[2022-10-20] MEDS: Magnesium Oxide 400 MG TABLET PO (13:30)
[2022-10-20] MEDS: Thiamine HCL 100 MG TABLET PO (13:43)
[2022-10-20] MEDS: Cyanocobalamin (Vitamin B-12) 1,000 MCG TABLET 1000 MCG PO (13:43)
[2022-10-20] MEDS: Loratadine 10 MG TABLET PO (13:43)
[2022-10-20] MEDS: Levothyroxine Sodium 75 MCG TABLET PO (13:43)
[2022-10-20 16:08] VITALS: BP 145/97; PULSE 97; RESP 20; TEMP 36.6; O2SAT 97
[2022-10-20] MEDS: LORazepam 1 MG TABLET 2 MG PO ×2 (16:09→20:14)
--- NOTE | 2022-10-20 16:33 | ECG_ITS ---
Test Reason : MEDICAL CLEARENCE Blood Pressure : / mmHG Vent. Rate : 086 BPM Atrial Rate : 086 BPM P-R Int : 126 ms QRS Dur : 096 ms QT Int : 386 ms P-R-T Axes : 044 -07 018 degrees QTc Int : 461 ms Normal sinus rhythm Possible Left atrial enlargement Borderline ECG When compared with ECG of 02-JUN-2022 22:34, No significant change was found Referred By: Peace Lombardi Electronically Signed By:Abner Medeiros
--- NOTE | 2022-10-20 19:36 | PC.NURSE ---
report received from HARMONY Tabor Pt resting on bed comfortably at this time, pt reports wanting Ativan, pt educated that the Ativan order is Q4H and that the next dose is due at 2008, pt agreeable to this plan. Pt aware of plan to go upstairs
[2022-10-20 20:24] VITALS: BP 139/98; PULSE 107; RESP 18; TEMP 36.4; O2SAT 97
[2022-10-20 22:15] VITALS: BP 128/87; PULSE 104; RESP 18; TEMP 36.6; O2SAT 98
[2022-10-20 22:30] VITALS: BMI 26.2
[2022-10-21] MEDS: traZODone HCL 50 MG TABLET PO ×2 (00:22→23:58)
[2022-10-21] MEDS: hydrOXYzine HCL 25 MG TABLET PO ×2 (00:22→17:10)
--- NOTE | 2022-10-21 01:04 | PC.ADMIT ---
Mallory was admitted [place] [facility] [place] for unspecified depressive D/O, ETOH use D/O moderate/severe and suicidal ideation. she alert and oriented X's 4 and cooperative but guarded with avoidant eye contact during the admission. her Crisis report indicates that she has been drinking 1 pint of hard liquor daily X's 7 days however the patient stated that she drinks a couple times a week and when asked about her last drink she said it was before she was admitted to the ED but that it was just a few sips. However her BAL was 265 upon admission to the ED. She states that she has a history of trauma and was treated for PTSD in the past. she states that she sees her psychiatrist 1 x yearly. she denies depression and anxiety, suicidal/homicidal ideation and auditory/visual hallucinations. and states that she was never suicidal she just made a comment in the heat of the moment she has a history of self injurious behavior but has not cut herself since she was a teenager. all admission documentation completed, patient oriented to the unit. monitor for safety
[2022-10-21] MEDS: Levothyroxine Sodium 75 MCG TABLET PO (06:35)
[2022-10-21 08:20] VITALS: BP 117/69; PULSE 89; RESP 18; TEMP 36.6; O2SAT 96
[2022-10-21 09:13] LABS: Alanine Aminotransferase 25 U/L (0-31); Albumin Level 3.5 g/dL (3.5-5.0); Alkaline Phosphatase 104 U/L (39-117); Anion Gap 14 (12-20); Aspartate Amino Transferase 55 U/L (5-31); Bilirubin Total 0.8 mg/dL (0.0-1.0); Blood Urea Nitrogen 18 mg/dL (9-16); Calcium 9.2 mg/dL (8.4-10.2); Carbon Dioxide 27 mmol/L (22-29); Chloride 109 mmol/L (96-108); Cholesterol 241 mg/dL; Creatinine Clr Calc Pharmacy 124.5; Estimated Glomerular Filt Rate > 60; Glucose Fasting 102 mg/dL (60-99); HDL Cholesterol 95 mg/dL; LDL Cholesterol Calculated 125 mg/dl; Potassium 3.7 mmol/L (3.3-5.1); Sodium 146 mmol/L (135-145); Total Protein 6.4 g/dL (6.5-8.0); Triglycerides 106 mg/dL
--- NOTE | 2022-10-21 09:22 | P.HPPS_ITS ---
HPI Date of Service: 10/21/22 Chief Complaint: SI Sources of Information: patient interviewed, chart reviewed and crisis/core team assessment reviewed HPI Subjective Notes: Fuentes Warning (given and shows understanding) and Conditional Voluntary Narrative: Mrs. Haley is a 42 year-old woman with hx of alcohol use disorder who self presented to [facility] [place] [place] ED after she reported to her ex that she was having thoughts of driving into [place] and had her car park near a [place]. In the ED, her BAL was 265. On the unit, pt reports she has been overwhelmed due to recent break up of relationship but adamantly denies any plan or intent to end her life. She reports she was on the phone with her ex and felt she was being blamed and out of frustration, she reports she stated she would [place] her [place] a [place]. Pt reports her ex is a physician and he was following right procedures. She states her ex asked her to go to ED or he would call 911 for assessment. Pt denies significant increase in depressed mood or anxiety. She also seems to significantly minimize extend of alcohol use in that she has been medically admitted twice this year for acute pancreatitis and she reports she only had few drinks. She reports most recently she has had few drinks. 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 Pt denies hx of VH/AH. Pt reports she is also overwhelmed as she is moving out of shared apartment with ex boyfriend but has not been able to find new apartment. 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 Past Psychiatric History: Inpatient: none OP: none at the moment Past med trials: naltrexon, campral Hx of suicide attempts: pt denies but crisis assessment reports pt had intentional OD several years ago. Medical Evaluation Reviewed: Yes [facility] Medical History Acute pancreatitis ADHD Congenital hypothyroidism Depression Elevated liver function tests Migraine Surgical History H/O gastric bypass H/O tubal ligation History of cholecystectomy History of Calixto-en-Y gastric bypass Previous section Family History: unknown Social History: from for several years. They have 15 y/o son. 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 Pt has sister with whom she is very close. Substance History: alcohol use for several years- reports no significant alcohol use this year however, she has been medically admitted twice this year for acute pancreatitis. Trauma History: not disclose Diagnostics Vital Signs (24Hr): Vital Signs - 24 hr 10/20/22 11:57 10/20/22 16:08 10/20/22 20:24 Temperature 97.7 F 98 F 97.5 F Pulse Rate 91 97 107 H Respiratory Rate 16 20 18 Blood Pressure 152/97 H 145/97 H 139/98 H Pulse Oximetry 100 97 97 Oxygen Delivery Method Room Air Room Air Room Air 10/20/22 22:15 Temperature 97.8 F Pulse Rate 104 H Respiratory Rate 18 Blood Pressure 128/87 Pulse Oximetry 98 Oxygen Delivery Method Room Air BMI result Body Mass Index 26.2 Labs 10/19/22 19:15 10/21/22 08:19 Labs: Laboratory Results - last 48 hr 10/19/22 10/19/22 10/19/22 17:31 17:31 17:31 WBC RBC Hgb Hct MCV MCH MCHC RDW Plt Count MPV Immature Gran % (Auto) Neut % (Auto) Lymph % (Auto) [place] % (Auto) Eos % (Auto) Baso % (Auto) Lymph # (Auto) [place] # (Auto) Eos # (Auto) Baso # (Auto) Abs Immat Gran (auto) Absolute Neuts (auto) Absolute Nucleated RBC Nucleated RBC % (auto) Sodium Potassium Chloride Carbon Dioxide Anion Gap BUN Creatinine Estim Creat Clear Calc Estimated GFR Random Glucose Fasting Glucose Calcium Magnesium Total Bilirubin Direct Bilirubin AST ALT Alkaline Phosphatase Total Protein Albumin Triglycerides Cholesterol LDL Cholesterol, Calc HDL Cholesterol Urine Color Yellow Urine Appearance Clear Urine pH 5.5 Ur Specific [place] <= 1.005 Urine Protein Negative Urine Glucose (UA) Negative Urine Ketones Negative Urine Blood Negative Urine Nitrite Negative Ur Leukocyte Esterase Negative Urine RBC 0-2 Urine WBC 0-5 Ur Squamous Epith Cells 0-2 Urine Bacteria None Seen Hyaline Casts 0-2 Urine Test Urine Opiates Screen Not Detected Urine Fentanyl Screen Not Detected Ur Barbiturates Screen Not Detected Ur Phencyclidine Scrn Not Detected Ur Amphetamines Screen Not Detected U Benzodiazepines Scrn Not Detected Urine Cocaine Screen Not Detected U Marijuana (THC) Screen Not Detected Ethyl Alcohol COVID-19 (ANIKET) Negative COVID-19 Clin Com See Note 10/19/22 10/19/22 10/19/22 17:31 19:15 19:15 WBC 4.2 L RBC 3.84 L D Hgb 13.0 D Hct 39.8 D MCV 103.6 H MCH 33.9 H MCHC 32.7 RDW 16.4 H Plt Count 91 L D MPV 11.2 Immature Gran % (Auto) 0.2 Neut % (Auto) 51.2 Lymph % (Auto) 43.3 H [place] % (Auto) 4.1 Eos % (Auto) 0.7 Baso % (Auto) 0.5 Lymph # (Auto) 1.8 [place] # (Auto) 0.2 Eos # (Auto) 0.0 Baso # (Auto) 0.0 Abs Immat Gran (auto) 0.01 Absolute Neuts (auto) 2.1 Absolute Nucleated RBC 0.000 Nucleated RBC % (auto) 0.0 Sodium Potassium Chloride Carbon Dioxide Anion Gap BUN Creatinine Estim Creat Clear Calc Estimated GFR Random Glucose Fasting Glucose Calcium Magnesium Total Bilirubin Direct Bilirubin AST ALT Alkaline Phosphatase Total Protein Albumin Triglycerides Cholesterol LDL Cholesterol, Calc HDL Cholesterol Urine Color Urine Appearance Urine pH Ur Specific [place] Urine Protein Urine Glucose (UA) Urine Ketones Urine Blood Urine Nitrite Ur Leukocyte Esterase Urine RBC Urine WBC Ur Squamous Epith Cells Urine Bacteria Hyaline Casts Urine Test NEGATIVE Urine Opiates Screen Urine Fentanyl Screen Ur Barbiturates Screen Ur Phencyclidine Scrn Ur Amphetamines Screen U Benzodiazepines Scrn Urine Cocaine Screen U Marijuana (THC) Screen Ethyl Alcohol Cancelled COVID-19 (ANIKET) COVID-19 Clin Com 10/19/22 10/20/22 10/21/22 19:15 12:17 08:19 WBC RBC Hgb Hct MCV MCH MCHC RDW Plt Count MPV Immature Gran % (Auto) Neut % (Auto) Lymph % (Auto) [place] % (Auto) Eos % (Auto) Baso % (Auto) Lymph # (Auto) [place] # (Auto) Eos # (Auto) Baso # (Auto) Abs Immat Gran (auto) Absolute Neuts (auto) Absolute Nucleated RBC Nucleated RBC % (auto) Sodium 140 146 H Potassium 4.0 3.7 Chloride 102 109 H Carbon Dioxide 20 L 27 Anion Gap 22 H 14 BUN 13 18 H Creatinine 0.72 0.66 Estim Creat Clear Calc 117.9 124.5 Estimated GFR > 60 > 60 Random Glucose 78 Fasting Glucose 102 H Calcium 9.2 D 9.2 Magnesium 1.3 L* Total Bilirubin 0.9 0.8 Direct Bilirubin 0.3 AST 59 H 55 H ALT 27 25 Alkaline Phosphatase 125 H 104 Total Protein 7.2 6.4 L Albumin 3.9 3.5 Triglycerides 106 Cholesterol 241 LDL Cholesterol, Calc 125 HDL Cholesterol 95 Urine Color Urine Appearance Urine pH Ur Specific [place] Urine Protein Urine Glucose (UA) Urine Ketones Urine Blood Urine Nitrite Ur Leukocyte Esterase Urine RBC Urine WBC Ur Squamous Epith Cells Urine Bacteria Hyaline Casts Urine Test Urine Opiates Screen Urine Fentanyl Screen Ur Barbiturates Screen Ur Phencyclidine Scrn Ur Amphetamines Screen U Benzodiazepines Scrn Urine Cocaine Screen U Marijuana (THC) Screen Ethyl Alcohol 265 COVID-19 (ANIKET) COVID-19 Clin Com Meds/Allergies Meds Home Medications Medication Instructions Recorded Confirmed Type cetirizine 10 mg tablet 30 mg PO DAILY 01/03/21 10/19/22 History levothyroxine 75 mcg tablet 75 mcg PO DAILY@0600 06/03/22 10/19/22 History cyanocobalamin (vitamin B-12) 1,000 mcg PO DAILY 09/12/22 10/19/22 History 1,000 mcg tablet Allergies Allergies Allergy/AdvReac Type Severity Reaction Status Date / Time shellfish derived Allergy Severe ANAPHYLAXIS Verified 10/19/22 17:26 [SHELLFISH DERIVED] benztropine [From COGENTIN] Allergy Intermediate PSYCHOSIS Verified 10/19/22 17:26 gabapentin [GABAPENTIN] Allergy Intermediate PSYCHOSIS Verified 10/19/22 17:26 amantadine [AMANTADINE] Allergy Mild HIVES, rash Verified 10/19/22 17:26 Mental Status Exam Mental Status Exam Narrative: Appearance: casually groomed, good hygiene, in NAD Behavior: cooperative Psychomotor: some restlessness noted Speech: clear, normal rate/rhythm/volume, spontaneous TP: linear TC: no psychosis, feeling overwhelmed, but wanting to be discharged soon Mood: better' Affect: anxious SI: denies HI: denies VH/AH: none Delusions: none Insight/judgment: fair x 2. Memory/cog: alert, oriented x 3. grossly intact to conversational testing. Assessment & Plan Assessment & Plan (1) MDD (major depressive disorder), recurrent episode, moderate: Status: Acute Code(s): F33.1 - Major depressive disorder, recurrent, moderate (2) Alcohol use disorder, moderate, dependence: Status: Acute Code(s): F10.20 - Alcohol dependence, uncomplicated Plan Mrs. Haley is a 42 year-old woman with hx of alcohol use disorder, depression who self presented to [facility] [place] [place] ED after she told her ex plan to drive into [place] as suicide attempt. In the ED, BAL 265. Pt also reported in the Ed that she would shoot herself. On the unit, pt denies suicidal or homicidal ideation. She reports making suicidal statement out of frustrations. Pt appears to minimize extend of alcohol use, degree of shame/guilt related to alcohol use. We discussed risks, benefits and alternative treatment options. PLAN 1. Admit to M3, CV, 15 minutes checks for safety 2. continue current medications. 3. obtain collateral information 4. aftercare planning. Patient educated on: diagnosis, medication risk/benefits and substance abuse Reason for continued inpatient stay Substantial Risk for: harm to self Statement Statement: I have reviewed the history and physical and performed a pertinent examination on my patient. No changes have occurred unless specified. If the History and Physical was not performed prior to admission, the Hospitalist's service will be consulted for completing the admission physical. Time Spent With Patient Time: Total time managing care of this patient today ____ minutes.
[2022-10-21] MEDS: Cyanocobalamin (Vitamin B-12) 1,000 MCG TABLET 1000 MCG PO (09:34)
[2022-10-21] MEDS: Loratadine 10 MG TABLET PO (09:34)
[2022-10-21] MEDS: Thiamine HCL 100 MG TABLET PO (09:35)
[2022-10-21 19:18] VITALS: BP 137/104; PULSE 127; RESP 20; TEMP 36.8; O2SAT 98
[2022-10-21] MEDS: LORazepam 1 MG TABLET 2 MG PO (19:20)
[2022-10-21 20:25] VITALS: BP 140/70; PULSE 114; RESP 18; TEMP 36.6; O2SAT 98
[2022-10-21] MEDS: LORazepam 1 MG TABLET PO (23:54)
--- NOTE | 2022-10-22 01:16 | PC.NURSE ---
Mallory was noted to be visible on the unit in the early evening. she was social with select peers but flat and guarded. at 2358 she scores 8 on her CIWA and received 1mg of Ativan. with Trazodone. 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 she describes depression and anxiety as very mild. she denies all other psych symptoms she did state however that people lied to me, they said I was going to leave today but I didn't patient was reassured that she would most likely not be inpatient for very long but that she was scoring on the ETOH withdrawal scale and would benefit from further treatment. monitor for safety, continue Plan of Care
[2022-10-22 09:54] VITALS: BP 130/74; PULSE 87; RESP 16; TEMP 36.8; O2SAT 98
[2022-10-22] MEDS: Thiamine HCL 100 MG TABLET PO (09:55)
[2022-10-22] MEDS: Cyanocobalamin (Vitamin B-12) 1,000 MCG TABLET 1000 MCG PO (09:55)
[2022-10-22] MEDS: Loratadine 10 MG TABLET PO (09:55)
--- NOTE | 2022-10-22 11:02 | P.DS_ITS ---
DS: Providers Provider Date of Service: 10/22/22 Date of admission: 10/20/22 18:11 Primary care physician: Skinny Stout MD DS: Diagnosis Discharge Diagnosis (1) MDD (major depressive disorder), recurrent episode, moderate: Status: Acute (2) Alcohol use disorder, moderate, dependence: Status: Acute DS: Medications Discharge Medications Home Medications: Home Medications Medication Instructions Recorded Confirmed cetirizine 10 mg tablet 30 mg PO DAILY 01/03/21 10/19/22 levothyroxine 75 mcg tablet 75 mcg PO DAILY@0600 06/03/22 10/19/22 cyanocobalamin (vitamin B-12) 1,000 mcg PO DAILY 09/12/22 10/19/22 1,000 mcg tablet Previous Rx's Medication Instructions Recorded epinephrine 0.3 mg/0.3 mL 0.3 mg (0.3 mL) IM Q20M PRN 02/11/22 injection, auto-injector (EpiPen) anaphylaxis #2 ea thiamine mononitrate (vit B1) 100 100 mg PO DAILY #30 tabs 06/06/22 mg tablet trazodone 50 mg tablet 50 mg PO BEDTIME 30 days #30 tabs 10/22/22 Mental Status Exam Mental Status Exam Narrative: Appearance: casually groomed, good hygiene, in NAD Behavior: cooperative Psychomotor: some restlessness noted Speech: clear, normal rate/rhythm/volume, spontaneous TP: linear TC: no psychosis, feeling overwhelmed, but wanting to be discharged soon Mood: good Affect: anxious SI: denies HI: denies VH/AH: none Delusions: none Insight/judgment: fair x 2. Memory/cog: alert, oriented x 3. grossly intact to conversational testing. Data Data Completed and Pending Completed studies during hospitalization [Text1]: 10/19/22 10/19/22 10/19/22 17:31 17:31 17:31 WBC RBC Hgb Hct MCV MCH MCHC RDW Plt Count MPV Immature Gran % (Auto) Neut % (Auto) Lymph % (Auto) [place] % (Auto) Eos % (Auto) Baso % (Auto) Lymph # (Auto) [place] # (Auto) Eos # (Auto) Baso # (Auto) Abs Immat Gran (auto) Absolute Neuts (auto) Absolute Nucleated RBC Nucleated RBC % (auto) Sodium Potassium Chloride Carbon Dioxide Anion Gap BUN Creatinine Estim Creat Clear Calc Estimated GFR Random Glucose Fasting Glucose Calcium Magnesium Total Bilirubin Direct Bilirubin AST ALT Alkaline Phosphatase Total Protein Albumin Triglycerides Cholesterol LDL Cholesterol, Calc HDL Cholesterol Urine Color Yellow Urine Appearance Clear Urine pH 5.5 Ur Specific [place] <= 1.005 Urine Protein Negative Urine Glucose (UA) Negative Urine Ketones Negative Urine Blood Negative Urine Nitrite Negative Ur Leukocyte Esterase Negative Urine RBC 0-2 Urine WBC 0-5 Ur Squamous Epith Cells 0-2 Urine Bacteria None Seen Hyaline Casts 0-2 Urine Test Urine Opiates Screen Not Detected Urine Fentanyl Screen Not Detected Ur Barbiturates Screen Not Detected Ur Phencyclidine Scrn Not Detected Ur Amphetamines Screen Not Detected U Benzodiazepines Scrn Not Detected Urine Cocaine Screen Not Detected U Marijuana (THC) Screen Not Detected Ethyl Alcohol COVID-19 (ANIKET) Negative COVID-19 Clin Com See Note 10/19/22 10/19/22 10/19/22 17:31 19:15 19:15 WBC 4.2 L RBC 3.84 L D Hgb 13.0 D Hct 39.8 D MCV 103.6 H MCH 33.9 H MCHC 32.7 RDW 16.4 H Plt Count 91 L D MPV 11.2 Immature Gran % (Auto) 0.2 Neut % (Auto) 51.2 Lymph % (Auto) 43.3 H [place] % (Auto) 4.1 Eos % (Auto) 0.7 Baso % (Auto) 0.5 Lymph # (Auto) 1.8 [place] # (Auto) 0.2 Eos # (Auto) 0.0 Baso # (Auto) 0.0 Abs Immat Gran (auto) 0.01 Absolute Neuts (auto) 2.1 Absolute Nucleated RBC 0.000 Nucleated RBC % (auto) 0.0 Sodium Potassium Chloride Carbon Dioxide Anion Gap BUN Creatinine Estim Creat Clear Calc Estimated GFR Random Glucose Fasting Glucose Calcium Magnesium Total Bilirubin Direct Bilirubin AST ALT Alkaline Phosphatase Total Protein Albumin Triglycerides Cholesterol LDL Cholesterol, Calc HDL Cholesterol Urine Color Urine Appearance Urine pH Ur Specific [place] Urine Protein Urine Glucose (UA) Urine Ketones Urine Blood Urine Nitrite Ur Leukocyte Esterase Urine RBC Urine WBC Ur Squamous Epith Cells Urine Bacteria Hyaline Casts Urine Test NEGATIVE Urine Opiates Screen Urine Fentanyl Screen Ur Barbiturates Screen Ur Phencyclidine Scrn Ur Amphetamines Screen U Benzodiazepines Scrn Urine Cocaine Screen U Marijuana (THC) Screen Ethyl Alcohol Cancelled COVID-19 (ANIKET) COVID-19 Clin Com 10/19/22 10/20/22 10/21/22 19:15 12:17 08:19 WBC RBC Hgb Hct MCV MCH MCHC RDW Plt Count MPV Immature Gran % (Auto) Neut % (Auto) Lymph % (Auto) [place] % (Auto) Eos % (Auto) Baso % (Auto) Lymph # (Auto) [place] # (Auto) Eos # (Auto) Baso # (Auto) Abs Immat Gran (auto) Absolute Neuts (auto) Absolute Nucleated RBC Nucleated RBC % (auto) Sodium 140 146 H Potassium 4.0 3.7 Chloride 102 109 H Carbon Dioxide 20 L 27 Anion Gap 22 H 14 BUN 13 18 H Creatinine 0.72 0.66 Estim Creat Clear Calc 117.9 124.5 Estimated GFR > 60 > 60 Random Glucose 78 Fasting Glucose 102 H Calcium 9.2 D 9.2 Magnesium 1.3 L* Total Bilirubin 0.9 0.8 Direct Bilirubin 0.3 AST 59 H 55 H ALT 27 25 Alkaline Phosphatase 125 H 104 Total Protein 7.2 6.4 L Albumin 3.9 3.5 Triglycerides 106 Cholesterol 241 LDL Cholesterol, Calc 125 HDL Cholesterol 95 Urine Color Urine Appearance Urine pH Ur Specific [place] Urine Protein Urine Glucose (UA) Urine Ketones Urine Blood Urine Nitrite Ur Leukocyte Esterase Urine RBC Urine WBC Ur Squamous Epith Cells Urine Bacteria Hyaline Casts Urine Test Urine Opiates Screen Urine Fentanyl Screen Ur Barbiturates Screen Ur Phencyclidine Scrn Ur Amphetamines Screen U Benzodiazepines Scrn Urine Cocaine Screen U Marijuana (THC) Screen Ethyl Alcohol 265 COVID-19 (ANIKET) COVID-19 Clin Com DS: Summary Hospital Course Hospital Course: per 10/21 admission note: Mrs. Haley is a 42 year-old woman with hx of alcohol use disorder who self presented to [facility] ED after she reported to her ex that she was having thoughts of driving into [place] and had her car park near a [place]. In the ED, her BAL was 265. On the unit, pt reports she has been overwhelmed due to recent break up of relationship but adamantly denies any plan or intent to end her life. She reports she was on the phone with her ex and felt she was being blamed and out of frustration, she reports she stated she [place]. Pt reports her ex is a physician and he was following right procedures. She states her ex asked her to go to ED or he would call 911 for assessment. Pt denies significant increase in depressed mood or anxiety. She also seems to significantly minimize extend of alcohol use in that she has been medically admitted twice this year for acute pancreatitis and she reports she only had few drinks. She reports most recently she has had few drinks. However, she did report to cardio clinician drinking about one pint of whiskey daily for over a week. Pt denies hx of VH/AH. Pt reports she is also overwhelmed as she is moving out of shared apartment with ex boyfriend but has not been able to find new apartment. 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 Past Psychiatric History: Inpatient: none OP: none at the moment Past med trials: naltrexon, campral Hx of suicide attempts: pt denies but crisis assessment reports pt had intentional OD several years ago. Medical Evaluation Reviewed: Yes PMFSH Medical History? Acute pancreatitis ADHD Congenital hypothyroidism Depression Elevated liver function tests Migraine Surgical History? H/O gastric bypass H/O tubal ligation History of cholecystectomy History of Calixto-en-Y gastric bypass Previous section Family History: unknown Social History: from for several years. They have 15 y/o son. 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 Pt has sister with whom she is very close. Substance History: alcohol use for several years- reports no significant alcohol use this year however, she has been medically admitted twice this year for acute pancreatitis. Trauma History: not disclose Previous section Family History: unknown Social History: from for several years. They have 15 y/o son. 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 Pt has sister with whom she is very close. Substance History: alcohol use for several years- reports no significant alcohol use this year however, she has been medically admitted twice this year for acute pancreatitis. Trauma History: not disclose Labs: Laboratory Results - last 48 hr ? 10/19/22 10/19/22 10/19/22 ? 17:31 17:31 17:31 WBC ? ? ? RBC ? ? ? Hgb ? ? ? Hct ? ? ? MCV ? ? ? MCH ? ? ? MCHC ? ? ? RDW ? ? ? Plt Count ? ? ? MPVB ? ? ? Immature Gran % (Auto) ? ? ? Neut % (Auto) ? ? ? Lymph % (Auto) ? ? ? [place] % (Auto) ? ? ? Eos % (Auto) ? ? ? Baso % (Auto) ? ? ? Lymph # (Auto) ? ? ? [place] # (Auto) ? ? ? Eos # (Auto) ? ? ? Baso # (Auto) ? ? ? Abs Immat Gran (auto) ? ? ? Absolute Neuts (auto) ? ? ? Absolute Nucleated RBC ? ? ? Nucleated RBC % (auto) ? ? ? Sodium ? ? ? Potassium ? ? ? Chloride ? ? ? Carbon DioxideB ? ? ? Anion Gap ? ? ? BUN ? ? ? Creatinine ? ? ? Estim Creat Clear Calc ? ? ? Estimated GFR ? ? ? Random Glucose ? ? ? Fasting Glucose ? ? ? Calcium ? ? ? Magnesium ? ? ? Total Bilirubin ? ? ? Direct Bilirubin ?B ? ? AST ? ? ? ALT ? ? ? Alkaline Phosphatase ? ? ? Total Protein ? ? ? Albumin ? ? ? Triglycerides ? ? ? Cholesterol ? ? ? LDL Cholesterol, Calc ? ? ? HDL Cholesterol ? ? ? Urine Color ? ? ?Yellow Urine Appearance ? ? ?Clear Urine pH ? ? ?5.5 Ur Specific [place] ? ? ?<= 1.005 Urine Protein ? ? ?Negative D Urine Glucose (UA) ? ? ?Negative Urine Ketones ? ? ?Negative Urine Blood ? ? ?Negative Urine Nitrite ? ? ?Negative Ur Leukocyte Esterase ? ? ?Negative Urine RBC ? ? ?0-2 Urine WBC ? ? ?0-5 Ur Squamous Epith Cells ? ? ?0-2 Urine Bacteria ? ? ?None Seen Hyaline Casts ? ? ?0-2 Urine Test ? ? ? Urine Opiates Screen ? ?Not Detected ? Urine Fentanyl Screen ? ?Not Detected ? Ur Barbiturates Screen ? ?Not Detected ? Ur Phencyclidine Scrn ? ?Not Detected ? Ur Amphetamines Screen ? ?Not Detected ? U Benzodiazepines Scrn ? ?Not Detected ? Urine Cocaine Screen ? ?Not Detected ? U Marijuana (THC) Screen ? ?Not Detected ? Ethyl Alcohol ? ? ? COVID-19 (ANIKET) ?Negative ? ? COVID-19 Clin Com ?See Note ? ? ? 10/19/22 10/19/22 10/19/22 ? 17:31 19:15 19:15 WBC ? ?4.2 L ? RBC ? ?3.84 L D ? Hgb ? ?13.0? D ? Hct ? ?39.8? D ? MCV ? ?103.6 H ? MCH ? ?33.9 H ? MCHC ? ?32.7 ? RDW ? ?16.4 H ? Plt Count ? ?91 L DB ? MPV ? ?11.2 ? Immature Gran % (Auto) ? ?0.2 ? Neut % (Auto) ? ?51.2 ? Lymph % (Auto) ? ?43.3 H ? [place] % (Auto) ? ?4.1 ? Eos % (Auto) ? ?0.7 ? Baso % (Auto) ? ?0.5 ? Lymph # (Auto) ? ?1.8 ? [place] # (Auto) ? ?0.2 ? Eos # (Auto) ? ?0.0 ? Baso # (Auto) ? ?0.0 ? Abs Immat Gran (auto) ? ?0.01 ? Absolute Neuts (auto) ? ?2.1 ? Absolute Nucleated RBC ? ?0.000 ? Nucleated RBC % (auto) ? ?0.0 ? Sodium ? ? ? Potassium ? ? ? Chloride ? ? ? Carbon Dioxide ? ? ? Anion Gap ? ? ? BUN ? ? ? Creatinine ? ? ? Estim Creat Clear Calc ? ? ? Estimated GFR ? ? ? Random Glucose ? ? ? Fasting Glucose ? ? ? Calcium ? ? ? Magnesium ? ? ? Total Bilirubin ? ? ? Direct Bilirubin ? ? ? AST ? ? ? ALT ? ? ? Alkaline Phosphatase ? ? ? Total Protein ? ? ? Albumin ? ? ? Triglycerides ? ? ? Cholesterol ? ? ? LDL Cholesterol, Calc ? ? ? HDL Cholesterol ? ? ? Urine Color ? ? ? Urine Appearance ? ? ? Urine pH ? ? ? Ur Specific [place] ? ? ? Urine Protein ? ? ? Urine Glucose (UA) ? ? ? Urine Ketones ? ? ? Urine Blood ? ? ? Urine Nitrite ? ? ? Ur Leukocyte Esterase ? ? ? Urine RBC ? ? ? Urine WBC ? ? ? Ur Squamous Epith Cells ? ? ? Urine Bacteria ? ? ? Hyaline Casts ? ? ? Urine Test ?NEGATIVE ? ? Urine Opiates Screen ? ? ? Urine Fentanyl Screen ? ? ? Ur Barbiturates Screen ? ? ? Ur Phencyclidine Scrn ? ? ? Ur Amphetamines Screen ? ? ? U Benzodiazepines Scrn ? ? ? Urine Cocaine Screen ? ? ? U Marijuana (THC) Screen ? ? ? Ethyl Alcohol ? ? ?Cancelled COVID-19 (ANIKET) ? ? ? COVID-19 Clin Com ? 10/19/22 10/20/22 06/10/08 ? 19:15 12:17 08:19 WBC ? ? ? RBC ? ? ? Hgb ? ? ? Hct ? ? ? MCV ? ? ? MCH ? ? ? MCHC ? ? ? RDW ? ? ? Plt Count ? ? ? MPV ? ? ? Immature Gran % (Auto) ? ? ? Neut % (Auto) ? ? ? Lymph % (Auto) ? ? ? [place] % (Auto) ? ? ? Eos % (Auto) ? ? ? Baso % (Auto) ? ? ? Lymph # (Auto) ? ? ? [place] # (Auto) ? ? ? Eos # (Auto) ? ? ? Baso # (Auto) ? ? ? Abs Immat Gran (auto) ? ? ? Absolute Neuts (auto) ? ? ? Absolute Nucleated RBC ? ? ? Nucleated RBC % (auto) ? ? ? Sodium ? ?140 ?146 H Potassium ? ?4.0 ?3.7 Chloride ? ?102 ?109 H Carbon Dioxide ? ?20 L ?27 Anion Gap ? ?22 H ?14 BUN ? ?13 ?18 H Creatinine ? ?0.72 ?0.66 Estim Creat Clear Calc ? ?117.9 ?124.5 Estimated GFR ? ?> 60 ?> 60 Random Glucose ? ?78 ? Fasting Glucose ? ? ?102 H Calcium ? ?9.2? D ?9.2 Magnesium ? ?1.3 L* ? Total Bilirubin ? ?0.9 ?0.8 Direct Bilirubin ? ?0.3 ? AST ? ?59 H ?55 H ALT ? ?27 ?25 Alkaline Phosphatase ? ?125 H ?104 Total Protein ? ?7.2 ?6.4 L Albumin ? ?3.9 ?3.5 Triglycerides ? ? ?106 Cholesterol ? ? ?241 LDL Cholesterol, Calc ? ? ?125 HDL Cholesterol ? ? ?95 Urine Color ? ? ? Urine Appearance ? ? ? Urine pH ? ? ? Ur Specific [place] ? ? ? Urine Protein ? ? ? Urine Glucose (UA) ? ? ? Urine Ketones ? ? ? Urine Blood ?B ? ? Urine Nitrite ? ? ? Ur Leukocyte Esterase ? ? ? Urine RBC ? ? ? Urine WBCB ? ? ? Ur Squamous Epith Cells ? ? ? Urine Bacteria ? ? ? Hyaline Casts ? ? ? Urine Test ? ? ? Urine Opiates Screen ? ? ? Urine Fentanyl Screen ? ? ? Ur Barbiturates Screen ? ? ? Ur Phencyclidine Scrn ? ? ? Ur Amphetamines Screen ? ? ? U Benzodiazepines Scrn ? ? ? Urine Cocaine Screen ? ? ? U Marijuana (THC) Screen ? ? ? Ethyl Alcohol ?265 ? ? COVID-19 (ANIKET) ? ? ? COVID-19 Clin Com ? ? ? Plan Mrs. Haley is a 42 year-old woman with hx of alcohol use disorder, depression who self presented to [facility] ED after she told her ex plan to drive into [place] as suicide attempt. In the ED, BAL 265.? Pt also reported in the Ed that she would shoot herself. On the unit, pt denies suicidal or homicidal ideation. She reports making suicidal statement out of frustrations. Pt appears to minimize extend of alcohol use, degree of shame/guilt related to alcohol use. We discussed risks, benefits and alternative treatment options. PLAN 1. Admit to , CV, 15 minutes checks for safety 2. continue current medications. 3. obtain collateral information 4. aftercare planning On October 22, her second day on the inpatient unit, she was deemed suitable for discharge and unlikely to benefit from further hospitalization, and hence discharged. Time Spent with Patient Time attestation: Total time managing care of this patient today ____ minutes. Time spent: Less than 30 minutes Discharge Plan Discharge Anticipated Discharge Date/Time: 10/22/22 13:30 Patient Disposition: Home, Self-Care Discharge Diagnosis: Major Depressive Disorder, Recurrent, Moderate Alcohol Use Disorder Referrals: Psychiatry [Other] - 1 Week (Please follow up with your psychiatrist regarding your next appointment) Primary Care Provider [Other] - 1 Week Skinny Stout MD [Primary Care Provider] - 1 Week Discharge Medications: New trazodone 50 mg Tablet 50 mg PO BEDTIME 30 Days Qty: 30 0RF Continued cetirizine 10 mg Tablet 30 mg PO DAILY epinephrine [EpiPen] 0.3 mg/0.3 mL auto-injector 0.3 mg IM Q20M PRN (Reason: anaphylaxis) Qty: 2 0RF Rx Instructions: do not exceed 3 doses per episode levothyroxine 75 mcg tablet 75 mcg PO DAILY@0600 thiamine mononitrate (vit B1) 100 mg Tablet 100 mg PO DAILY Qty: 30 0RF cyanocobalamin (vitamin B-12) 1,000 mcg tablet 1,000 mcg PO DAILY Discharge Orders: Discharge Order (Routine); Ordered 10/22/22 Ordered By: Wiley Pathak Diet: Advance to usual diet Activity on Discharge: As tolerated Stand Alone Forms: Patient Portal Discharge page, Community Support Care Plan Goals: remain safe, stable, and sober in the outpatient treatment setting. Health Concerns: none Plan of Treatment: take medications as prescribed, attend appointments as scheduled. schedule an appointment with your outpatient mental health provider as soon as possible. Assessment: not at imminent risk of harm to self or others Discharge Date/Time: 10/22/22 12:59
== END 2022-10-22 12:59 | disposition home or self-care (01) | DRG 751 ==
LOC: HO.ED 17:50 → HO.PADLT16 10-20 18:49
PROVIDERS: Admitting Provider Psychiatry & Neurology Psychiatry; Emergency Provider Emergency Medicine; PCP Family Medicine; Visit Provider Psychiatry & Neurology Psychiatry
DX: F33.1 Major depressive disorder, recurrent, moderate (principal); E03.1 Congenital hypothyroidism without goiter; F10.220 Alcohol dependence with intoxication, uncomplicated; Z20.822 Contact with and (suspected) exposure to COVID-19; Y90.8 Blood alcohol level of 240 mg/100 ml or more; Z98.84 Bariatric surgery status; Z88.8 Allergy status to other drugs, medicaments and biological substances; Z79.890 Hormone replacement therapy; Z79.899 Other long term (current) drug therapy
CPT/HCPCS: 36415; 80048; 80053; 80061; 80076; 80307; 81001; 81025; 83735; 85025; 87635; 93005; 99285; S9485

== ENCOUNTER → 2022-10-20 18:11 | Outpatient (BNV) | payer OTHER, SELFPAY | PROVIDERS: Admitting Provider Psychiatry & Neurology Psychiatry; Emergency Provider Emergency Medicine; PCP Family Medicine; Visit Provider Social Worker | DX: F33.1 Major depressive disorder, recurrent, moderate (principal); F10.20 Alcohol dependence, uncomplicated | CPT/HCPCS: 90792; 99238 ==

== ENCOUNTER 2023-01-23 12:51 | Inpatient (IN) | payer OTHER, SELFPAY ==
[2023-01-23] VITALS (7 sets, daily range): BP systolic 149–165; BP diastolic 83–111; PULSE 65–85; RESP 12–113; TEMP 36.3–36.6; O2SAT 98–100; BMI 26.6
--- NOTE | 2023-01-23 | ECG_ITS ---
Test Reason : irregular rhythm Blood Pressure : / mmHG Vent. Rate : 071 BPM Atrial Rate : 071 BPM P-R Int : 104 ms QRS Dur : 102 ms QT Int : 466 ms P-R-T Axes : -70 -09 024 degrees QTc Int : 506 ms Unusual P axis and short VA, probable junctional rhythm Minimal voltage criteria for LVH, may be normal variant ( [place] product ) Prolonged QT Abnormal ECG When compared with ECG of 23-JAN-2023 12:59, No significant change was found Referred By: Nadia Davila Electronically Signed By:MODESTA SOTO
--- NOTE | ~2023-01-23 | XR_ITS ---
EXAMINATION: XR CHEST 2 VIEW CLINICAL INFORMATION: Chest pain COMPARISON: 06/02/2022 TECHNIQUE: PA and lateral views of the chest obtained. FINDINGS: The lungs are clear. There are no pleural effusions. The cardiomediastinal silhouette is normal. XR/XR chest 2V IMPRESSION: No acute cardiopulmonary disease.
--- NOTE | ~2023-01-23 | US_ITS ---
EXAMINATION: US ABDOMEN LIMITED CLINICAL INFORMATION: Left upper quadrant abdominal pain. COMPARISON: 09/12/2022 and 06/03/2022 TECHNIQUE: Real-time imaging of the right upper quadrant abdominal viscera. FINDINGS: PANCREAS: Heterogeneous echotexture. No ductal dilatation. LIVER: The liver is normal in size. Nodular surface contour. There is diffuse increased liver parenchymal echogenicity, consistent with infiltrative hepatocellular disease. No focal hepatic lesion. There is no intrahepatic biliary duct dilatation seen. GALLBLADDER: Surgically absent. COMMON BILE DUCT: Normal in caliber measuring 0.7 cm in diameter. FREE FLUID: Trace perihepatic free fluid. US/US abdomen limited IMPRESSION: Heterogeneous sonographic appearance of the pancreas. MRI/MRCP is recommended for further characterization. Nodular surface contour of the liver. Increased parenchymal echogenicity. Findings are suggestive chronic liver disease.
--- NOTE | ~2023-01-23 | CT_ITS ---
EXAMINATION: CT ABDOMEN AND PELVIS WITH CONTRAST CLINICAL INFORMATION: Pancreatitis. COMPARISON: 09/12/2022 TECHNIQUE: Multidetector volumetric images were obtained from the superior aspect of the liver through the pubic symphysis following administration 85 mL of Omnipaque 350 intravenous contrast. Sagittal and coronal reformatted images were obtained on the technologist's workstation. Oral contrast: No This CT examination was performed using dose optimization techniques as appropriate, variously including the following: *Automated exposure control *Adjustment of mA and/or kV according to patient size (this includes techniques or standardized protocols for targeted exams where dose is matched to indication/reason for exam; i.e. extremities or head) *Use of iterative reconstruction technique DLP: 582 mGy-cm FINDINGS: LUNG BASES: The visualized lung bases are unremarkable. LIVER, GALLBLADDER, AND BILIARY TREE: The liver is decreased in attenuation. Nodular surface contour. No focal hepatic lesion or biliary ductal dilatation is present. The gallbladder is not visualized. PANCREAS: Peripancreatic stranding and edema. Homogeneous enhancement. No ductal dilatation. SPLEEN: Unremarkable. ADRENAL GLANDS: Unremarkable. KIDNEYS AND URETERS: The kidneys are symmetric in size and enhancement. No hydronephrosis or perinephric stranding. There is fluid and stranding in the left anterior pararenal space. BLADDER: Unremarkable. GASTROINTESTINAL TRACT: Status post gastric bypass. No small bowel obstruction. Wall thickening of the colon without significant pericolonic inflammatory changes. ABDOMINAL WALL: No significant hernia is appreciated. LYMPH NODES: Subcentimeter retroperitoneal mesenteric lymph nodes. VASCULAR: Normal caliber abdominal aorta. PELVIC VISCERA: Unremarkable. OSSEOUS STRUCTURES: No destructive bone lesions. CT/CT abdomen pelvis w IV con IMPRESSION: Acute pancreatitis. No peripancreatic fluid collection. Small free fluid in the right paracolic gutter. Fluid and stranding in the left anterior pararenal space. Diffuse wall thickening of the colon without significant pericolonic inflammatory changes. This may be on a reactive basis. Advise clinical correlation. Hepatic steatosis. Nodular surface contour of the liver.
--- NOTE | 2023-01-23 12:52 | ECG_ITS ---
Test Reason : chest pain Blood Pressure : / mmHG Vent. Rate : 074 BPM Atrial Rate : 074 BPM P-R Int : 092 ms QRS Dur : 108 ms QT Int : 462 ms P-R-T Axes : -88 -17 030 degrees QTc Int : 512 ms Unusual P axis and short MO, probable junctional rhythm Minimal voltage criteria for LVH, may be normal variant ( [place] product ) Prolonged QT Abnormal ECG When compared with ECG of 20-OCT-2022 17:25, Junctional rhythm has replaced Sinus rhythm QT has lengthened Referred By: Shirley Hagan Electronically Signed By:MODESTA SOTO
--- NOTE | 2023-01-23 13:04 | ED.GENADULT ---
HPI - General Adult General Chief complaint: Chest Pain Stated complaint: chest pain mental status vomiting Time Seen by Provider: 01/23/23 14:56 Source: patient Mode of arrival: ambulatory Limitations: no limitations History of Present Illness HPI narrative: Patient comes to the emergency room complaining of abdominal pain and mental fogginess starting this morning. Patient also complaining of chest pain/epigastric pain. Patient admits to drinking heavily, patient states she has had pancreatitis in the past. Patient complaining of nausea and vomiting, no diarrhea. Related Data Previous Rx's Medication Instructions Recorded multivitamin (Daily-Shayla tablet) 1 tab PO DAILY #30 tabs 01/26/23 ondansetron 4 mg disintegrating 4 mg PO Q8H PRN nausea and 01/26/23 tablet vomiting #14 tabs thiamine mononitrate (vit B1) 100 100 mg PO DAILY #30 tabs 01/26/23 mg tablet Allergies Allergy/AdvReac Type Severity Reaction Status Date / Time shellfish derived Allergy Severe ANAPHYLAXIS Verified 10/19/22 17:26 [SHELLFISH DERIVED] benztropine [From COGENTIN] Allergy Intermediate PSYCHOSIS Verified 10/19/22 17:26 gabapentin [GABAPENTIN] Allergy Intermediate PSYCHOSIS Verified 10/19/22 17:26 amantadine [AMANTADINE] Allergy Mild HIVES, rash Verified 10/19/22 17:26 Review of Systems Review of Systems: Constitutional : No Weight loss, No Fever, No Chills, No Night Sweats, No Fatigue, No Malaise ENT/Mouth : No Hearing loss, No Ear Pain, No Nasal Congestion, No Sinus Pain, No Hoarseness, No sore throat, No Rhinorrhea, No Swallowing Difficulty Eyes: No Eye Pain, No Swelling, No Redness, No Foreign Body, No Discharge, No Vision Changes Cardiovascular : Complaining of epigastric pain/chest pain, No SOB, No Dyspnea on Exertion, No Orthopnea, No Edema, No Palpitations Respiratory : No Cough, No Sputum, No Wheezing, No Smoke Exposure, No Dyspnea Gastrointestinal : Complaining of nausea and vomiting, complaining of epigastric pain, no hematochezia or melena Genitourinary : no irregular bleeding, No Dysuria, No Urinary Frequency, No Hematuria, No Urinary Incontinence, No Urgency, No Flank Pain, No Urinary Flow Changes, No Hesitancy Musculoskeletal : No joint pain, No Myalgias, No Joint Swelling Skin : No Skin Lesions, No rash Neuro : Complaining of feeling foggy/confused, No Weakness, No Numbness, No Paresthesias, No Loss of Consciousness, No Dizziness, No Headache Psych : No Anxiety/Panic, No Depression, No SI/HI/AH/VH, No Social Issues, Heme/Lymph: No Bruising, No Bleeding,No Lymphadenopathy Endocrine : No Polyuria, No Polydipsia, No Temperature Intolerance [facility] Past Medical History Medical History Alcohol use disorder, moderate, dependence Congenital hypothyroidism Acute pancreatitis Elevated liver function tests ADHD Depression Migraine Surgical History History of Calixto-en-Y gastric bypass H/O gastric bypass History of cholecystectomy H/O tubal ligation Previous section Family History Family History Mother No problems noted. Father No problems noted. Brother No problems noted. Brother No problems noted. Sister No problems noted. Sister No problems noted. Son No problems noted. Social History Social History Household Members: None Household Members Other:: ex-partner Housing: Apartment Do you presently have visiting nurse or other home services: No Alcohol intake: never Patient Tobacco Use Status: Never used Tobacco e-Cigarette/Vaping Use: Never Used Substance Use Type: Amphetamines and Other service: No Current occupational status: employed Sexual orientation: Straight/Heterosexual Physical Exam ED Vital Signs: Vital Signs - 24 hr 01/23/23 13:05 01/23/23 15:14 01/23/23 17:30 Temperature 97.3 F 97.7 F 97.8 F Pulse Rate 80 65 77 Respiratory Rate 18 18 113 H Blood Pressure 151/111 H 165/97 H 153/109 H Pulse Oximetry 100 100 100 Oxygen Delivery Method Room Air Room Air Room Air BMI result Body Mass Index 26.6 Const Other: Appearance: Alert. Oriented X3. Seems uncomfortable, nauseous, in pain Eyes: Pupils equal, round and reactive to light. ENT: Pharynx normal. Neck: Normal inspection. Neck supple. No lymph nodes noted. No crepitus CVS: Normal heart rate and rhythm. Pulses normal. Normal S1 and S2 Respiratory: No respiratory distress. Breath sounds normal. No Wheezing. No rales Abdomen: Pain to palpation epigastric and left upper quadrant pain, no rebound or guarding Skin: Skin warm and dry. Normal skin color. Normal skin turgor. Extremities: No lower extremity edema. No Lacerations. No Rash Neuro: Oriented X 3. No motor deficit. No sensory deficit. Moving all extremities. No slurred speech. CN 2 through 12 grossly intact Psych: calm, cooperative, normal affect Course Course Course Narrative: RME 15pm 42yoF with a PMHx of pancreatitis last time in May who is presenting to the ER with complaints of left-sided chest pain/left upper quadrant abdominal pain with associated vomiting that started yesterday. Reports that she woke up with this. Reports it feels like her prior pancreatitis attacks. Last drink on Friday. Reports she drinks 1 pt of whiskey daily. Denies any drug usage. Denies any recent travel or sick contacts or any other symptoms complaints or concerns at this time. Plan: Labs, EKG, chest x-ray, abdominal ultrasound. Patient will be sent back to the waiting room to be evaluated the ED. H&P deferred to next provider. Medications Administered Discontinued Medications Generic Name Dose Route Start Last Admin Trade Name Freq PRN Reason Stop Dose Admin Diphenhydramine HCl 25 mg 01/24/23 07:44 01/24/23 08:08 Diphenhydramine Hcl 50 Mg/Ml Vial IVPUSH 01/24/23 07:45 25 mg ONCE ONE Administration Enoxaparin Sodium 40 mg 01/23/23 23:00 01/25/23 21:34 Enoxaparin Sodium 40 Mg/0.4 Ml Syringe SUBCUT 40 mg Q24H MALI Administration Famotidine 20 mg 01/24/23 09:00 01/26/23 09:55 Famotidine 20 Mg Tablet PO 20 mg BID MALI Administration Folic Acid 1 mg 01/24/23 09:00 01/26/23 09:56 Folic Acid 1 Mg Tablet PO 01/27/23 08:59 1 mg DAILY MALI Administration Magnesium Sulfate 2 gm in 50 mls @ 25 mls/hr 01/23/23 15:16 01/23/23 17:40 Magnesium Sulfate/H2o IV 01/23/23 17:15 Infused ONCE ONE Infusion Sodium Chloride 1,000 mls @ 150 mls/hr 01/23/23 15:16 01/24/23 07:44 Ns IVCONT 01/23/23 21:55 Infused .Q6H40M ONE Infusion Promethazine HCl 6.25 mg/ 50.25 mls @ 201 mls/hr 01/23/23 18:48 01/23/23 19:54 Sodium Chloride IV 01/23/23 18:49 Infused ONCE ONE Infusion Magnesium Sulfate 2 gm in 50 mls @ 25 mls/hr 01/23/23 22:02 01/24/23 01:39 Magnesium Sulfate/H2o IV 01/24/23 00:01 Infused ONCE ONE Infusion Lactated Ringer's 1,000 mls @ 100 mls/hr 01/23/23 22:45 01/24/23 08:10 Lr IVCONT Infused .Q10H MALI Infusion Sodium Chloride 1,000 mls @ 150 mls/hr 01/24/23 08:00 01/26/23 13:12 Ns IVCONT Infused .Q6H40M MALI Infusion Sodium Bicarbonate 150 meq/ 1,000 mls @ 50 mls/hr 01/24/23 20:00 01/25/23 02:28 Dextrose IV Infused .Q20H MALI Infusion Iohexol 100 ml 01/23/23 16:08 01/23/23 16:09 Iohexol 350 Mg/Ml 100 Ml Infus..Btl IV 01/23/23 16:09 85 ml ONCE ONE Administration Ketorolac Tromethamine 15 mg 01/25/23 23:28 01/25/23 23:39 Ketorolac Tromethamine 15 Mg/Ml Vial IVPUSH 01/25/23 23:29 15 mg ONCE ONE Administration Morphine Sulfate 4 mg 01/23/23 15:22 01/23/23 15:37 Morphine Sulfate 4 Mg/Ml Cartridge IVPUSH 01/23/23 15:23 4 mg ONCE ONE Administration Protocol Morphine Sulfate 4 mg 01/23/23 18:47 01/26/23 09:54 Morphine Sulfate 4 Mg/Ml Cartridge IVPUSH 4 mg Q4H PRN Administration Pain, Severe (Pain Scale 7-10) Protocol Multivitamins/Vitamin C 1 tab 01/24/23 09:00 01/26/23 09:55 Multivitamin Tablet PO 01/27/23 08:59 1 tab DAILY MALI Administration Ondansetron HCl 4 mg 01/23/23 15:22 01/23/23 15:37 Ondansetron Hcl 4 Mg/2 Ml Vial IVPUSH 01/23/23 15:23 4 mg ONCE ONE Administration Phenobarbital 45 mg 01/24/23 09:00 01/25/23 20:18 Phenobarbital 15 Mg Tablet PO 01/25/23 21:01 45 mg BID MALI Administration Protocol Phenobarbital 15 mg 01/26/23 09:00 01/26/23 09:55 Phenobarbital 15 Mg Tablet PO 01/27/23 21:01 15 mg BID MALI Administration Protocol Phenobarbital Sodium 306.8 mg 01/23/23 18:00 01/23/23 18:05 Phenobarbital Sodium 130 Mg/Ml Im Once IM 01/23/23 18:01 306.8 mg ONCE ONE Administration Protocol Phenobarbital Sodium 230.1 mg 01/23/23 21:00 01/24/23 01:04 Phenobarbital Sodium 130 Mg/Ml Vial Im Q3hx2 IM 01/24/23 00:01 230.1 mg Q3H MALI Administration Protocol Potassium Chloride 40 meq 01/23/23 22:15 01/24/23 01:40 Potassium Chloride Packet 20 Meq Packet PO 01/24/23 00:16 40 meq Q2H MALI Administration Prochlorperazine Edisylate 5 mg 01/23/23 22:09 01/23/23 23:33 Prochlorperazine Edisylate 10 Mg/2 Ml Vial IVPUSH 01/23/23 22:10 5 mg ONCE ONE Administration Sodium Bicarbonate 650 mg 01/24/23 21:00 01/25/23 09:11 Sodium Bicarbonate 650 Mg Tablet PO 650 mg BID MALI Administration Sodium Chloride 3 ml 01/24/23 00:00 01/26/23 09:56 0.9 % Sodium Chloride Flush 3 Ml Syringe IVFLUSH 3 ml QSHIFT MALI Administration Thiamine HCl 100 mg 01/24/23 09:00 01/26/23 09:56 Thiamine Hcl 100 Mg Tablet PO 01/27/23 08:59 100 mg DAILY MALI Administration Urea 30 gm 01/24/23 15:31 01/24/23 16:12 Urea 15 Gm Powder PO 01/24/23 15:32 30 gm ONCE ONE Administration Urea 30 gm 01/25/23 12:03 01/25/23 14:19 Urea 15 Gm Powder PO 01/25/23 12:04 30 gm ONCE ONE Administration Medical Decision Making Medical Decision Making MDM Narrative: -my interpretation of EKG: Sinus rhythm, heart rate 74, no ST segment depression elevation, no T-wave inversion, QTC 512 -meditation of labs: patient's magnesium is low, likely causing a following QTC, patient was repleted with IV magnesium, sodium 124 likely secondary from alcohol intake. Lipase elevated, likely secondary to alcohol. -my interpretation of CT scan: No small bowel obstruction, pancreas seems edematous -I discussed with the patient that she has electrolyte abnormalities, pancreatitis, she will need to be admitted, agrees with plan. -patient already received IV fluids with a slow drip due to hyponatremia, morphine and Zofran -I discussed the patient with Dr. Hawkins, patient being admitted Differential Diagnosis Differential Diagnoses: The differential diagnosis associated with the presentation includes (SBO, pancreatitis, peptic ulcer disease, bowel perforation) Admission/Observation Consideration of admission/observation: Escalation of care including admission/observation considered Consult Healthcare Provider Management of the patient was discussed with: Hospitalist Lab Data [facility] Lab Attestation statement: I reviewed the patient's lab results. 01/24/23 06:10 01/26/23 06:55 Labs: Lab Results 01/23/23 01/23/23 Range/Units 14:12 17:33 WBC 4.3 L (4.8-10.8) X10*3/uL RBC 3.35 L (4.20-5.50) X10*6/uL Hgb 11.2 L (12.0-16.0) g/dl Hct 32.2 L (37.0-47.0) % MCV 96.1 (80.0-98.0) fL MCH 33.4 H (27.0-33.0) pg MCHC 34.8 (31.0-35.0) g/dl RDW 17.5 H (11.0-16.0) % Plt Count 117 L D (160-400) X10*3/uL MPV 11.5 (9.4-12.3) fL Immature Gran % (Auto) 0.5 H (0.0-0.4) % Neut % (Auto) 72.6 (45-73) % Lymph % (Auto) 15.9 L (20-40) % [place] % (Auto) 10.6 (2-11) % Eos % (Auto) 0.2 (0-4) % Baso % (Auto) 0.2 (0-2) % Lymph # (Auto) 0.7 L (1.2-4.9) X10*3/uL [place] # (Auto) 0.5 (0.1-1.2) X10*3/uL Eos # (Auto) 0.0 (0.0-0.4) X10*3/uL Baso # (Auto) 0.0 (0.0-0.2) X10*3/uL Abs Immat Gran (auto) 0.02 (0.00-0.03) X10*3/uL Absolute Neuts (auto) 3.2 (2.0-8.3) x10*3/uL Absolute Nucleated RBC 0.000 (0.0-0.012) X10*3/uL Nucleated RBC % (auto) 0.0 (0.0-0.2) /100WBC PT 11.6 (11.1-13.3) SEC INR 1.0 (0.9-1.1) Sodium 124 L (135-145) mmol/L Potassium 3.4 (3.3-5.1) mmol/L Chloride 91 L (96-108) mmol/L Carbon Dioxide 18 L (22-29) mmol/L Anion Gap 18 (12-20) BUN 4 L (9-16) mg/dL Creatinine 0.59 (0.5-1.4) mg/dL Estim Creat Clear Calc 140.2 Estimated GFR > 60 Random Glucose 113 (60-115) mg/dL Calcium 9.4 (8.4-10.2) mg/dL Magnesium 0.9 L* (1.6-2.6) mg/dL Total Bilirubin 0.9 (0.0-1.0) mg/dL AST 49 H (5-31) U/L ALT 31 (0-31) U/L Alkaline Phosphatase 143 H (39-117) U/L Troponin I High Sens < 2.7 (<3.5-17.0) ng/L Total Protein 7.1 (6.5-8.0) g/dL Albumin 3.9 (3.5-5.0) g/dL Triglycerides 76 (<150) mg/dL Lipase 465 H (8-78) U/L Beta HCG, Quant < 2 mIU/mL Urine Opiates Screen POSITIVE H (Not Detect) Urine Fentanyl Screen Not Detected (Not Detect) Ur Barbiturates Screen Not Detected (Not Detect) Ur Phencyclidine Scrn Not Detected (Not Detect) Ur Amphetamines Screen Not Detected (Not Detect) U Benzodiazepines Scrn Not Detected (Not Detect) Urine Cocaine Screen Not Detected (Not Detect) U Marijuana (THC) Screen Not Detected (Not Detect) Ethyl Alcohol < 10 mg/dL Independent Interpretation I performed an independent interpretation of an: CT Scan Radiology Impression Discussion of test interpretation with radiology: I have reviewed the radiologist's reading. Radiologist Impression: FINDINGS: LUNG BASES: The visualized lung bases are unremarkable. LIVER, GALLBLADDER, AND BILIARY TREE: The liver is decreased in attenuation. Nodular surface contour. No focal hepatic lesion or biliary ductal dilatation is present. The gallbladder is not visualized. PANCREAS: Peripancreatic stranding and edema. Homogeneous enhancement. No ductal dilatation. SPLEEN: Unremarkable. ADRENAL GLANDS: Unremarkable. KIDNEYS AND URETERS: The kidneys are symmetric in size and enhancement. No hydronephrosis or perinephric stranding. There is fluid and stranding in the left anterior pararenal space. BLADDER: Unremarkable. GASTROINTESTINAL TRACT: Status post gastric bypass. No small bowel obstruction. Wall thickening of the colon without significant pericolonic inflammatory changes. ABDOMINAL WALL: No significant hernia is appreciated. LYMPH NODES: Subcentimeter retroperitoneal mesenteric lymph nodes. VASCULAR: Normal caliber abdominal aorta. PELVIC VISCERA: Unremarkable. OSSEOUS STRUCTURES: No destructive bone lesions. CT/CT abdomen pelvis w IV con IMPRESSION: Acute pancreatitis. No peripancreatic fluid collection. Small free fluid in the right paracolic gutter. Fluid and stranding in the left anterior pararenal space. Diffuse wall thickening of the colon without significant pericolonic inflammatory changes. This may be on a reactive basis. Advise clinical correlation. Hepatic steatosis. Nodular surface contour of the liver. Chronic Conditions Patient?s care impacted by: Other (Alcoholism, pancreatitis) Critical Care Time Critical Care Time Critical Care Time: Yes Total Critical Care Time: 60 Attestation: I have personally provided critical care time. Time includes review of lab data, radiology results, discussion with consultants, and monitoring for potential decompensation. Intervention performed as documented. Discharge Plan Discharge Clinical Impression: Acute pancreatitis, Acute hyponatremia, Hypomagnesemia Patient Disposition: Admitted As Inpatient Interventions: Admission Worksheet (ED) Last Done: 01/24/23 00:43 Discharge Date/Time: 01/24/23 00:43
[2023-01-23 14:20] LABS: MANUAL DIFF FLAG NO
[2023-01-23 14:31] LABS: Prothrombin Time 11.6 SEC (11.1-13.3)
[2023-01-23 14:32] LABS: Basophils Percent Auto 0.2 % (0-2); Eosinophils Percent Auto 0.2 % (0-4); Hematocrit 32.2 % (37.0-47.0); Hemoglobin 11.2 g/dl (12.0-16.0); Imm Gran Abs Auto 0.02 X10*3/uL (0.00-0.03); Imm Gran Pct Auto 0.5 % (0.0-0.4); Lymphocytes Absolute Auto 0.7 X10*3/uL (1.2-4.9); Lymphocytes Percent Auto 15.9 % (20-40); Mean Corpuscular HGB Conc 34.8 g/dl (31.0-35.0); Mean Corpuscular Hemoglobin 33.4 pg (27.0-33.0); Mean Corpuscular Volume 96.1 fL (80.0-98.0); Mean Platelet Volume 11.5 fL (9.4-12.3); Monocytes Absolute Auto 0.5 X10*3/uL (0.1-1.2); Monocytes Percent Auto 10.6 % (2-11); Neutrophils Absolute Auto 3.2 x10*3/uL (2.0-8.3); Neutrophils Percent Auto 72.6 % (45-73); Platelet Count 117 X10*3/uL (160-400); Red Blood Count 3.35 X10*6/uL (4.20-5.50); Red Cell Distribution Width 17.5 % (11.0-16.0); White Blood Count 4.3 X10*3/uL (4.8-10.8)
[2023-01-23 14:35] LABS: Ethanol < 10 mg/dL
[2023-01-23 14:42] LABS: Alanine Aminotransferase 31 U/L (0-31); Albumin Level 3.9 g/dL (3.5-5.0); Alkaline Phosphatase 143 U/L (39-117); Anion Gap 18 (12-20); Aspartate Amino Transferase 49 U/L (5-31); Bilirubin Total 0.9 mg/dL (0.0-1.0); Blood Urea Nitrogen 4 mg/dL (9-16); Calcium 9.4 mg/dL (8.4-10.2); Carbon Dioxide 18 mmol/L (22-29); Chloride 91 mmol/L (96-108); Creatinine Clr Calc Pharmacy 140.2; Estimated Glomerular Filt Rate > 60; Glucose Random 113 mg/dL (60-115); Magnesium 0.9 mg/dL (1.6-2.6); Potassium 3.4 mmol/L (3.3-5.1); Sodium 124 mmol/L (135-145); Total Protein 7.1 g/dL (6.5-8.0)
[2023-01-23 14:45] LABS: HCG Quantitative < 2 mIU/mL; Troponin-I High Sensitivity < 2.7 ng/L (<3.5-17.0)
[2023-01-23 14:48] LABS: Lipase 465 U/L (8-78)
[2023-01-23] MEDS: Morphine Sulfate 4 MG/ML CARTRIDGE IVPUSH ×2 (15:37→19:45)
[2023-01-23] MEDS: ondansetron HCL 4 MG/2 ML VIAL IVPUSH (15:37)
[2023-01-23] MEDS: Magnesium Sulfate/H2O 2 GM/50 ML PIGGYBACK IV ×2 (15:38→23:34)
[2023-01-23] MEDS: iohexoL 350 MG/ML 100 ML INFUS..BTL IV (16:09)
[2023-01-23] MEDS: 0.9 % Sodium Chloride 1,000 ML 75 ML IVCONT (17:26)
--- NOTE | 2023-01-23 17:45 | PC.NURSE ---
pt aware of plan of care for admission to hosp.
[2023-01-23 17:57] LABS: Amphetamine Screen Urine Not Detected (Not Detect); Barbiturates, Urine Not Detected (Not Detect); Benzodiazepines Screen Urine Not Detected (Not Detect); Cannabinoid Screen Urine Not Detected (Not Detect); Cocaine Screen Urine Not Detected (Not Detect); Fentanyl, urine Not Detected (Not Detect); Opiate Screen Urine POSITIVE (Not Detect); Phencyclidine Screen Urine Not Detected (Not Detect)
--- NOTE | 2023-01-23 17:58 | PHA.MEDREC ---
Pharmacy Consult ? Medication Reconciliation Pharmacy has completed the medication reconciliation. Patient reports no medications. Lucero Bond, AnisaD
[2023-01-23] MEDS: PHENobarbitaL sodium 130 MG/ML IM ONCE 306.8 MG IM (18:05)
--- NOTE | 2023-01-23 21:01 | P.HPHOSP_ITS ---
<Statement entered by Nadia Davila MD - 01/26/23 23:15> Pt seen and examined at bedside. agree with finidings below. acute pancreatitis 2/2 alcohol abuse. for full hp see below History of Present Illness Date of Service: 01/23/23 Attending physician on admission: Nadia Davila Chief Complaint: Abdominal pain, mental fogginess Pt is a 42-year-old female with a PMH significant for?alcohol use disorder, hx of alcoholic pancreatitis, ADHD, and hypothyroidism who presents to the ED with?abdominal pain, nausea, vomiting, and brain fog since yesterday. Pt has a long history of heavy alcohol use and prior admissions for acute pancreatitis. Patient used to drink at least 1 pt of alcohol daily but states she has been trying to cut back. Patient reports drinking quite a lot of alcohol with her boyfriend on Friday. On Friday she began developing severe epigastric abdominal pain radiating to her back along with nausea and vomiting, and mental fogginess. Patient states that she has had mild for all in the past with slight tremors, denies any history of withdrawal seizures. States she noticed some tremors in upper extremities earlier today. Denies chest pain/pressure, palpitations. No diaphoresis. Denies headache, increased anxiety. In the ED patient was afebrile but hypertensive up to 165/97. Labs were significant for pancytopenia of WBC 4.3, H&H 11.2/32.2, platelets 117, sodium 124, magnesium 0.9, AST 49, alk-phos 143, lipase 465. Tox screen negative for ethyl alcohol. CXR showed no acute cardiopulmonary disease. CT of abdomen and pelvis found acute pancreatitis with no peripancreatic fluid collection but small free fluid in the right pericolic gutter. Also found diffuse wall thickening of the colon without significant pericolonic inflammatory changes and found hepatic steatosis with nodular surface contour the liver. Abdominal ultrasound found heterogeneous sonographic appearance of the pancreas and finding suggested of chronic liver disease. EKG demonstrated unusual P axis with short TX suggestive of junctional rhythm and prolonged QTc of 512. Pt was treated with ondansetron, morphine, Mag sulfate, IVF, promethazine, and started on phenobarb protocol. Pt will be admitted to the hospital for treatment further evaluation of acute pancreatitis likely secondary to alcohol use and alcohol withdrawal. Review of Systems 2 Review of Systems: Epigastric abdominal pain radiating to the back Nausea, vomiting Mental fogginess Slight upper extremity tremors Denies chest pain/pressure, palpitations No headache, diaphoresis, increased anxiety [facility] Medical History Alcohol use disorder, moderate, dependence Congenital hypothyroidism Acute pancreatitis Elevated liver function tests ADHD Depression Migraine Family History Mother No problems noted. Father No problems noted. Brother No problems noted. Brother No problems noted. Sister No problems noted. Sister No problems noted. Son No problems noted. Surgical History History of Calixto-en-Y gastric bypass H/O gastric bypass History of cholecystectomy H/O tubal ligation Previous section Social History Household Members: Other Household Members Other:: ex-partner Housing: House Do you presently have visiting nurse or other home services: No Alcohol intake: never Patient Tobacco Use Status: Never used Tobacco Smoked in Last 30 Days: No e-Cigarette/Vaping Use: Never Used Use of substances other than those prescribed or required for medical reasons: No Substance Use Type: Amphetamines and Other Advance Directives: No Patient : No service: No Current occupational status: employed Sexual orientation: Straight/Heterosexual Meds Allergies Allergy/AdvReac Type Severity Reaction Status Date / Time shellfish derived Allergy Severe ANAPHYLAXIS Verified 10/19/22 17:26 [SHELLFISH DERIVED] benztropine [From COGENTIN] Allergy Intermediate PSYCHOSIS Verified 10/19/22 17:26 gabapentin [GABAPENTIN] Allergy Intermediate PSYCHOSIS Verified 10/19/22 17:26 amantadine [AMANTADINE] Allergy Mild HIVES, rash Verified 10/19/22 17:26 Active Medications: Current Medications Sodium Chloride (Ns) 1,000 mls @ 150 mls/hr IVCONT .Q6H40M ONE Stop: 01/23/23 21:55 Last Admin: 01/23/23 17:26 Dose: 75 mls/hr Morphine Sulfate (Morphine Sulfate 4 Mg/Ml Cartridge) 4 mg IVPUSH Q4H PRN; Protocol PRN Reason: Pain, Severe (Pain Scale 7-10) Last Admin: 01/23/23 19:45 Dose: 4 mg Ondansetron HCl (Ondansetron Hcl 4 Mg/2 Ml Vial) 4 mg IVPUSH Q6H PRN PRN Reason: Nausea and Vomiting Pharmacy Consult (Consult Rx Etoh Phenob Im/Po) 1 each MISCELLANE ONCE PRN; Protocol PRN Reason: Consult order Phenobarbital (Phenobarbital 15 Mg Tablet) 45 mg PO BID MALI; Protocol Stop: 01/25/23 21:01 Phenobarbital (Phenobarbital 15 Mg Tablet) 15 mg PO BID MALI; Protocol Stop: 01/27/23 21:01 Phenobarbital (Phenobarbital 15 Mg Tablet) 15 mg PO DAILY MALI Stop: 01/29/23 09:01 Phenobarbital Sodium (Phenobarbital Sodium 130 Mg/Ml Vial Im Q3hx2) 230.1 mg IM Q3H MALI; Protocol Stop: 01/24/23 00:01 Home Medications Medication Instructions Recorded Confirmed Last Taken Type No Known Home Meds 01/23/23 01/23/23 Unknown History Physical Exam 2 Vital Signs and Narrative: Vital Signs: Last Vital Signs Temp 97.6 F 01/23/23 19:49 Pulse 72 01/23/23 19:49 Resp 16 01/23/23 19:49 BP 164/83 H 01/23/23 19:49 Pulse Ox 99 01/23/23 19:49 O2 Del Method Room Air 01/23/23 19:49 BMI result Body Mass Index 26.6 General: AOx3, appears uncomfortable, no acute distress Resp: CTA bilaterally CVS: S1, S2. No murmur, rubs, gallops noted GI: +BS, no distention. Epigastric and LUQ tenderness. Back: Left flank and left-sided mid-back tenderness Skin: Warm, dry Neuro: Cranial nerves II-XII grossly intact bilaterally. Motor grossly intact bilaterally Extremities: No edema Psych: Appropriate affect Results Labs 01/23/23 14:12 01/23/23 14:12 Labs: Laboratory Results - last 24 hr 01/23/23 01/23/23 14:12 17:33 MCV 96.1 MCH 33.4 H MCHC 34.8 RDW 17.5 H Plt Count 117 L D MPV 11.5 Immature Gran % (Auto) 0.5 H Neut % (Auto) 72.6 Lymph % (Auto) 15.9 L [place] % (Auto) 10.6 Eos % (Auto) 0.2 Baso % (Auto) 0.2 Lymph # (Auto) 0.7 L [place] # (Auto) 0.5 Eos # (Auto) 0.0 Baso # (Auto) 0.0 Abs Immat Gran (auto) 0.02 Absolute Neuts (auto) 3.2 Absolute Nucleated RBC 0.000 Nucleated RBC % (auto) 0.0 PT 11.6 INR 1.0 Anion Gap 18 Estim Creat Clear Calc 140.2 Estimated GFR > 60 Random Glucose 113 Calcium 9.4 Magnesium 0.9 L* Total Bilirubin 0.9 AST 49 H ALT 31 Alkaline Phosphatase 143 H Total Protein 7.1 Albumin 3.9 Lipase 465 H Beta HCG, Quant < 2 Urine Opiates Screen POSITIVE H Urine Fentanyl Screen Not Detected Ur Barbiturates Screen Not Detected Ur Phencyclidine Scrn Not Detected Ur Amphetamines Screen Not Detected U Benzodiazepines Scrn Not Detected Urine Cocaine Screen Not Detected U Marijuana (THC) Screen Not Detected Ethyl Alcohol < 10 Imaging Radiologist's Impressions: Impressions Chest X-Ray 01/23/23 13:45 IMPRESSION: No acute cardiopulmonary disease. Abdomen Ultrasound 01/23/23 13:58 IMPRESSION: Heterogeneous sonographic appearance of the pancreas. MRI/MRCP is recommended for further characterization. Nodular surface contour of the liver. Increased parenchymal echogenicity. Findings are suggestive chronic liver disease. Abdomen/Pelvis CT 01/23/23 16:18 IMPRESSION: Acute pancreatitis. No peripancreatic fluid collection. Small free fluid in the right paracolic gutter. Fluid and stranding in the left anterior pararenal space. Diffuse wall thickening of the colon without significant pericolonic inflammatory changes. This may be on a reactive basis. Advise clinical correlation. Hepatic steatosis. Nodular surface contour of the liver. Assessment and Plan (1) Alcohol use disorder, moderate, dependence: Status: Acute (2) Hypomagnesemia: Status: Acute (3) Acute alcoholic pancreatitis: Status: Acute (4) Acute hyponatremia: Status: Acute Plan Pt is a 42-year-old female with a PMH significant for?alcohol use disorder, hx of alcoholic pancreatitis, ADHD, and hypothyroidism who presents to the ED with?abdominal pain, nausea, vomiting, and brain fog since yesterday. Pt has a long history of heavy alcohol use and prior admissions for acute pancreatitis. Patient used to drink at least 1 pt of alcohol daily but states she has been trying to cut back. Patient reports drinking quite a lot of alcohol with her boyfriend on Friday. Pt will be admitted to the hospital for treatment further evaluation of acute pancreatitis likely secondary to alcohol use and alcohol withdrawal. Acute pancreatitis CT of abdomen pelvis with evidence of acute pancreatitis, lipase elevated at 465 Likely secondary to alcohol use: pt admits to drinking heavily on Friday Triclycerides WNL at 76 Will treat with analgesics, anti emetics, IVF, and bowel rest Will order anti emetics at pt's request d/t prolonged QTc Alcohol cessation advised Alcohol use disorder Pt with history of minor withdrawal symptoms Reports minor upper extremity tremors earlier today Last drank on Friday Will continue phenobarb protocol Daily multivitamin, folic acid, thiamine Famotidine 20 mg b.i.d. Follow lytes, Mag, BMP IVF: Lactated Ringer's CIWA scale Addiction Medicine consult Monitor on telemetry Hypomagnesemia Magnesium 0.9 at time of admission Likely secondary to alcohol use disorder Patient received magnesium 2 g IV in ED Will give additional Mag 2g IV Follow Mag Hyponatremia Sodium 124 time of presentation Likely secondary to GI losses due to nausea and vomiting Patient received IVF in ED Will be placed on maintenance fluids Follow BMP Abnormal EKG EKG showed unusual P axis short TX, probable junctional rhythm with QTc prolonged at 512 Likely secondary to electrolyte abnormalities: Will replenish unsure Mag above 2.0 and potassium above 4.0 Avoid QT prolonging agents Will get repeat crystal attacher on telemtry Full Code Attending:?Dr. Davila DVT Prophylaxis: Lovenox Pt will require a hospitalization of at least two nights for treatment of?electrolyte abnormalities and acute alcohol pancreatitis with IVF, bowel rest, and IV analgesics. Time Spent With Patient Time: Total time managing care of this patient today ____ minutes. Quality Stroke Does the patient have a stroke diagnosis?: No VTE Prior VTE?: No VTE Risk Level:: Medical - moderate - high VTE Device Contraindication: Treatment Not Indicated VTE Drug Contraindication: N/A - Med Ordered
[2023-01-23] MEDS: PHENobarbitaL sodium 130 MG/ML VIAL IM Q3Hx2 230.1 MG IM (21:27)
--- NOTE | 2023-01-23 21:36 | PC.NURSE ---
IV line on the right hand accidentally removed by pt. No injury or complication noted. Gauze dressing applied. Pt medicated with phenobarb as ordered. Tolerated well. Hospitalist at bedside.
[2023-01-23 22:20] LABS: Triglycerides 76 mg/dL (<150)
[2023-01-23] MEDS: Enoxaparin Sodium 40 MG/0.4 ML SYRINGE SUBCUT (23:33)
[2023-01-23] MEDS: Prochlorperazine Edisylate 10 MG/2 ML VIAL 5 MG IVPUSH (23:33)
[2023-01-23] MEDS: Lactated Ringers 1,000 ML 100 ML IVCONT (23:34)
[2023-01-23] MEDS: Potassium Chloride Packet 20 MEQ PACKET 40 MEQ PO (23:47)
[2023-01-23 23:52] LABS: Magnesium 1.4 mg/dL (1.6-2.6)
[2023-01-24] VITALS (10 sets, daily range): BP systolic 132–164; BP diastolic 73–105; PULSE 65–110; RESP 14–18; TEMP 36–36.8; O2SAT 97–100; BMI 26.5
--- NOTE | 2023-01-24 | ECG_ITS ---
Test Reason : qtc prolongnation Blood Pressure : / mmHG Vent. Rate : 066 BPM Atrial Rate : 066 BPM P-R Int : 134 ms QRS Dur : 100 ms QT Int : 462 ms P-R-T Axes : 047 002 034 degrees QTc Int : 484 ms Normal sinus rhythm Prolonged QT Abnormal ECG When compared with ECG of 24-JAN-2023 07:31, Sinus rhythm has replaced Junctional rhythm QT has shortened Referred By: Darren Hawkins Electronically Signed By:MODESTA SOTO
[2023-01-24] MEDS: Morphine Sulfate 4 MG/ML CARTRIDGE IVPUSH ×5 (00:52→20:21)
[2023-01-24] MEDS: 0.9 % Sodium Chloride Flush 3 ML SYRINGE IVFLUSH ×3 (00:58→20:22)
[2023-01-24] MEDS: PHENobarbitaL sodium 130 MG/ML VIAL IM Q3Hx2 230.1 MG IM (01:04)
[2023-01-24] MEDS: Potassium Chloride Packet 20 MEQ PACKET 40 MEQ PO (01:40)
--- NOTE | 2023-01-24 05:29 | PC.NURSE ---
On admission assessment, patient reported her home medications were taken in the ED and locked with pharmacy. This RN verified with ED RN, patient's meds are currently held in ED until pharmacy is available in a.m.
[2023-01-24 06:57] LABS: Hematocrit 33.4 % (37.0-47.0); Hemoglobin 11.9 g/dl (12.0-16.0); Mean Corpuscular HGB Conc 35.6 g/dl (31.0-35.0); Mean Corpuscular Hemoglobin 34.1 pg (27.0-33.0); Mean Corpuscular Volume 95.7 fL (80.0-98.0); Mean Platelet Volume 11.9 fL (9.4-12.3); PLT CLUMP 1; Red Blood Count 3.49 X10*6/uL (4.20-5.50); Red Cell Distribution Width 17.6 % (11.0-16.0)
[2023-01-24 06:59] LABS: White Blood Count 5.1 X10*3/uL (4.8-10.8)
[2023-01-24 07:03] LABS: Anion Gap 16 (12-20); Blood Urea Nitrogen 4 mg/dL (9-16); Calcium 8.7 mg/dL (8.4-10.2); Carbon Dioxide 19 mmol/L (22-29); Chloride 91 mmol/L (96-108); Estimated Glomerular Filt Rate > 60; Glucose Random 103 mg/dL (60-115); Magnesium 1.7 mg/dL (1.6-2.6); Potassium 4.4 mmol/L (3.3-5.1); Sodium 122 mmol/L (135-145)
[2023-01-24 07:27] LABS: Platelet Count 92 X10*3/uL (160-400)
[2023-01-24] MEDS: Lactated Ringers 1,000 ML 100 ML IVCONT (07:46)
[2023-01-24] MEDS: diphenhydrAMINE HCL 50 MG/ML VIAL 25 MG IVPUSH (08:08)
[2023-01-24] MEDS: 0.9 % Sodium Chloride 1,000 ML 150 ML IVCONT ×2 (08:09→14:32)
[2023-01-24] MEDS: Multivitamin TABLET 1 TAB PO (11:12)
[2023-01-24] MEDS: Thiamine HCL 100 MG TABLET PO (11:13)
[2023-01-24] MEDS: Folic Acid 1 MG TABLET PO (11:13)
[2023-01-24] MEDS: Famotidine 20 MG TABLET PO ×2 (11:13→20:21)
[2023-01-24] MEDS: PHENobarbitaL 15 MG TABLET 45 MG PO ×2 (11:13→20:22)
--- NOTE | 2023-01-24 11:41 | MHC.CM.PN ---
PT REPORTS SHE LIVES ALONE AND HER SON IS THERE [employer]ATION [employer]PER[employer] SHE DENIES USE OF DME OR HOME SERVICES PT DECLINES TO COMPLETE A HCP PCP: DEBORAH SEARS DCP: HOME NO SERVICES PTS CAR IS IN THE LOT
--- NOTE | 2023-01-24 15:33 | P.CONNP_ITS ---
History of Present Illness Reason for Consult Consult date: 01/24/23 Reason for consult: hyponatremia Chief Complaint Chief complaint: acute alcoholic pancreatitis History of Present Illness Narrative: Ms. Mallory Willingham is a 42-year-old female with a history of?alcohol use disorder, alcoholic pancreatitis, ADHD, and hypothyroidism who presents with alcohol associated pancreatitis and concern for withdrawal. Course now complicated by Hyponatremia. On my assessment patient has poor solute intake. Poor nutrition. Little protein intake. She has a hypotonic intake mostly. She is in good spirits at this time. Review of Systems Review of Systems Epigastric abdominal pain radiating to the back Nausea, vomiting Mental fogginess Slight upper extremity tremors Denies chest pain/pressure, palpitations No headache, diaphoresis, increased anxiety PMFSH Past Medical History Medical History Alcohol use disorder, moderate, dependence Congenital hypothyroidism Acute pancreatitis Elevated liver function tests ADHD Depression Migraine Family History Family History Mother No problems noted. Father No problems noted. Brother No problems noted. Brother No problems noted. Sister No problems noted. Sister No problems noted. Son No problems noted. Surgical History Surgical History History of Calixto-en-Y gastric bypass H/O gastric bypass History of cholecystectomy H/O tubal ligation Previous section Social History Social History Household Members: None Household Members Other:: ex-partner Housing: Apartment Do you presently have visiting nurse or other home services: No Alcohol intake: never Patient Tobacco Use Status: Never used Tobacco Smoked in Last 30 Days: No e-Cigarette/Vaping Use: Never Used Use of substances other than those prescribed or required for medical reasons: No Substance Use Type: Amphetamines and Other Currently Displaying Signs/Symptoms of Drug Intoxication Withdrawal: No Have you been hit, kicked, punched, or otherwise hurt by someone within the past year? If so, by whom?: No Do you feel safe in your current relationship?: Yes Is there a partner from a previous relationship who is making you feel unsafe now?: No Are you made to feel afraid or neglected: No Advance Directives: No Do you have thoughts of harming others: None Do you have a plan to hurt others: No Plan Recently lost weight without trying: No Nutrition Risks: No Nutritional Risk Patient : No service: No Current occupational status: employed Sexual orientation: Straight/Heterosexual Meds Allergies Allergy/AdvReac Type Severity Reaction Status Date / Time shellfish derived Allergy Severe ANAPHYLAXIS Verified 10/19/22 17:26 [SHELLFISH DERIVED] benztropine [From COGENTIN] Allergy Intermediate PSYCHOSIS Verified 10/19/22 17:26 gabapentin [GABAPENTIN] Allergy Intermediate PSYCHOSIS Verified 10/19/22 17:26 amantadine [AMANTADINE] Allergy Mild HIVES, rash Verified 10/19/22 17:26 Active Medications: Current Medications Acetaminophen (Acetaminophen 325 Mg Tablet) 650 mg PO Q6H PRN PRN Reason: Pain, Mild (Pain Scale 1-3) Docusate Sodium (Docusate Sodium 100 Mg Capsule) 100 mg PO DAILY PRN PRN Reason: Constipation Enoxaparin Sodium (Enoxaparin Sodium 40 Mg/0.4 Ml Syringe) 40 mg SUBCUT Q24H [facility] Last Admin: 01/23/23 23:33 Dose: 40 mg Famotidine (Famotidine 20 Mg Tablet) 20 mg PO BID [facility] Last Admin: 01/24/23 11:13 Dose: 20 mg Folic Acid (Folic Acid 1 Mg Tablet) 1 mg PO DAILY [facility] Stop: 01/27/23 08:59 Last Admin: 01/24/23 11:13 Dose: 1 mg Sodium Chloride (Ns) 1,000 mls @ 150 mls/hr IVCONT .Q6H40M [facility] Last Admin: 01/24/23 14:32 Dose: 150 mls/hr Morphine Sulfate (Morphine Sulfate 4 Mg/Ml Cartridge) 4 mg IVPUSH Q4H PRN; Protocol PRN Reason: Pain, Severe (Pain Scale 7-10) Last Admin: 01/24/23 11:36 Dose: 4 mg Multivitamins/Vitamin C (Multivitamin Tablet) 1 tab PO DAILY [facility] Stop: 01/27/23 08:59 Last Admin: 01/24/23 11:12 Dose: 1 tab Ondansetron HCl (Ondansetron Hcl 4 Mg/2 Ml Vial) 4 mg IVPUSH Q8H PRN PRN Reason: Nausea and Vomiting Pharmacy Consult (Consult Rx Etoh Phenob Im/Po) 1 each MISCELLANE ONCE PRN; Protocol PRN Reason: Consult order Phenobarbital (Phenobarbital 15 Mg Tablet) 45 mg PO BID [facility]; Protocol Stop: 01/25/23 21:01 Last Admin: 01/24/23 11:13 Dose: 45 mg Phenobarbital (Phenobarbital 15 Mg Tablet) 15 mg PO BID [facility]; Protocol Stop: 01/27/23 21:01 Phenobarbital (Phenobarbital 15 Mg Tablet) 15 mg PO DAILY [facility] Stop: 01/29/23 09:01 Sodium Bicarbonate (Sodium Bicarbonate 650 Mg Tablet) 650 mg PO BID [facility] Sodium Chloride (0.9 % Sodium Chloride Flush 3 Ml Syringe) 3 ml IVFLUSH QSHIFT [facility] Last Admin: 01/24/23 08:09 Dose: Not Given Thiamine HCl (Thiamine Hcl 100 Mg Tablet) 100 mg PO DAILY [facility] Stop: 01/27/23 08:59 Last Admin: 01/24/23 11:13 Dose: 100 mg Urea (Urea 15 Gm Powder) 30 gm PO ONCE ONE Stop: 01/24/23 15:32 Home Medications Medication Instructions Recorded Confirmed Last Taken Type No Known Home Meds 01/23/23 01/23/23 Unknown History Physical Exam Vital Signs: Last Vital Signs Temp 97.5 F 01/24/23 11:23 Pulse 89 01/24/23 11:23 Resp 18 01/24/23 11:23 BP 138/73 01/24/23 11:23 Pulse Ox 100 01/24/23 11:23 O2 Del Method Room Air 01/24/23 11:23 BMI result Body Mass Index 26.5 Const Other: Appearance: Alert. Oriented X3. Seems uncomfortable, nauseous, in pain Eyes: Pupils equal, round and reactive to light. ENT: Pharynx normal. Neck: Normal inspection. Neck supple. No lymph nodes noted. No crepitus CVS: Normal heart rate and rhythm. Pulses normal. Normal S1 and S2 Respiratory: No respiratory distress. Breath sounds normal. No Wheezing. No rales Abdomen: Pain to palpation epigastric and left upper quadrant pain, no rebound or guarding Skin: Skin warm and dry. Normal skin color. Normal skin turgor. Extremities: No lower extremity edema. No Lacerations. No Rash Neuro: Oriented X 3. No motor deficit. No sensory deficit. Moving all extremities. No slurred speech. CN 2 through 12 grossly intact Psych: calm, cooperative, normal affect Results Lab Results 01/24/23 06:10 01/24/23 06:10 Lab results: Chemistry 01/23/23 01/24/23 14:12 06:10 Sodium 124 L 122 L Potassium 3.4 4.4 D Carbon Dioxide 18 L 19 L BUN 4 L 4 L Creatinine 0.59 0.54 Calcium 9.4 8.7 D Hematology 01/23/23 01/24/23 14:12 06:10 WBC 4.3 L 5.1 Hgb 11.2 L 11.9 L Plt Count 117 L D 92 L Assessment and Plan (1) Alcohol use disorder, moderate, dependence: Status: Acute (2) Hypomagnesemia: Status: Acute (3) Acute alcoholic pancreatitis: Status: Acute (4) Acute hyponatremia: Status: Acute Plan Ms. Mallory Willingham is a 42-year-old female with a history of?alcohol use disorder, alcoholic pancreatitis, ADHD, and hypothyroidism who presents with alcohol associated pancreatitis and concern for withdrawal. Course now complicated by Hyponatremia. 1. Hypotonic Euvolemic Hyponatremia Will need Basilio and Uosm to make accurate diagnosis However at this time we are likely dealing with a beer potomania vs SIADH Plan: - check Uosm - ok to c/w IVF for now normal saline is fine - will add NaBicarb BID as a solute load, but also to help with the metabolic acidosis. 2. Acid Base Metabolic acidosis vs compensation for resp alk of cirrhosis. Plan: - for now will use Nabicarb for solute loading - check ABG Time Spent With Patient Time: Total time managing care of this patient today ____ minutes. Procedures Date of Service Date of Service: 01/24/23
[2023-01-24] MEDS: Urea 15 GM POWDER 30 GM PO (16:12)
[2023-01-24 16:21] LABS: Anion Gap 16 (12-20); Blood Urea Nitrogen 3 mg/dL (9-16); Calcium 8.6 mg/dL (8.4-10.2); Carbon Dioxide 18 mmol/L (22-29); Chloride 92 mmol/L (96-108); Estimated Glomerular Filt Rate > 60; Glucose Random 102 mg/dL (60-115); Potassium 4.5 mmol/L (3.3-5.1); Sodium 121 mmol/L (135-145)
--- NOTE | 2023-01-24 16:39 | P.PNIM_ITS ---
Subjective Subjective Date of Service: 01/24/23 Interval History: Seen and evaluated Feels more comfortable, still having pain and nausea withdrawal symptoms controlled No fever, chills Review of Systems Review of Systems: Yes all other systems are reviewed and are negative Physical Exam 2 Vital Signs: Vital Signs: Last Vital Signs Temp 98.0 F 01/24/23 15:55 Pulse 110 H 01/24/23 15:55 Resp 14 01/24/23 15:55 BP 138/97 H 01/24/23 15:55 Pulse Ox 100 01/24/23 15:55 O2 Del Method Room Air 01/24/23 15:55 BMI result Body Mass Index 26.5 Const: Other: Constitutional : Awake, interactive, not in distress Neck : Normal inspection, Supple Cardiovascular : RRR, no JVP, no lower extremity edema Respiratory : good bilateral air entry, no crackles, wheezes or rhonchi Gastrointestinal: soft, lax, Normal bowel sounds, epigastric mild tenderness Skin : Warm, Dry Neurological : Alert & oriented x3, No focal deficit Objective Data Active Medications Acetaminophen (Acetaminophen 325 Mg Tablet) 650 mg PO Q6H PRN PRN Reason: Pain, Mild (Pain Scale 1-3) Docusate Sodium (Docusate Sodium 100 Mg Capsule) 100 mg PO DAILY PRN PRN Reason: Constipation Enoxaparin Sodium (Enoxaparin Sodium 40 Mg/0.4 Ml Syringe) 40 mg SUBCUT Q24H [facility] Last Admin: 01/23/23 23:33 Dose: 40 mg Documented By: KASHMIR Famotidine (Famotidine 20 Mg Tablet) 20 mg PO BID [facility] Last Admin: 01/24/23 11:13 Dose: 20 mg Documented By: AMOS Folic Acid (Folic Acid 1 Mg Tablet) 1 mg PO DAILY [facility] Stop: 01/27/23 08:59 Last Admin: 01/24/23 11:13 Dose: 1 mg Documented By: AMOS Sodium Chloride (Ns) 1,000 mls @ 150 mls/hr IVCONT .Q6H40M [facility] Last Admin: 01/24/23 14:32 Dose: 150 mls/hr Documented By: AMOS Morphine Sulfate (Morphine Sulfate 4 Mg/Ml Cartridge) 4 mg IVPUSH Q4H PRN; Protocol PRN Reason: Pain, Severe (Pain Scale 7-10) Last Admin: 01/24/23 11:36 Dose: 4 mg Documented By: AMOS Multivitamins/Vitamin C (Multivitamin Tablet) 1 tab PO DAILY [facility] Stop: 01/27/23 08:59 Last Admin: 01/24/23 11:12 Dose: 1 tab Documented By: AMOS Ondansetron HCl (Ondansetron Hcl 4 Mg/2 Ml Vial) 4 mg IVPUSH Q8H PRN PRN Reason: Nausea and Vomiting Pharmacy Consult (Consult Rx Etoh Phenob Im/Po) 1 each MISCELLANE ONCE PRN; Protocol PRN Reason: Consult order Phenobarbital (Phenobarbital 15 Mg Tablet) 45 mg PO BID [facility]; Protocol Stop: 01/25/23 21:01 Last Admin: 01/24/23 11:13 Dose: 45 mg Documented By: AOMS Phenobarbital (Phenobarbital 15 Mg Tablet) 15 mg PO BID [facility]; Protocol Stop: 01/27/23 21:01 Phenobarbital (Phenobarbital 15 Mg Tablet) 15 mg PO DAILY [facility] Stop: 01/29/23 09:01 Sodium Bicarbonate (Sodium Bicarbonate 650 Mg Tablet) 650 mg PO BID [facility] Sodium Chloride (0.9 % Sodium Chloride Flush 3 Ml Syringe) 3 ml IVFLUSH QSHIFT [facility] Last Admin: 01/24/23 16:12 Dose: 3 ml Documented By: POLINA Thiamine HCl (Thiamine Hcl 100 Mg Tablet) 100 mg PO DAILY [facility] Stop: 01/27/23 08:59 Last Admin: 01/24/23 11:13 Dose: 100 mg Documented By: AMOS Labs 01/24/23 06:10 01/24/23 15:11 Labs: Laboratory Results - last 24 hr 01/23/23 01/23/23 01/23/23 14:12 17:33 23:18 MCV MCH MCHC RDW Plt Count MPV Absolute Nucleated RBC Nucleated RBC % (auto) Anion Gap Estim Creat Clear Calc Estimated GFR Random Glucose Calcium Magnesium 1.4 L* Triglycerides 76 Ur Random Sodium Urine Opiates Screen POSITIVE H Urine Fentanyl Screen Not Detected Ur Barbiturates Screen Not Detected Ur Phencyclidine Scrn Not Detected Ur Amphetamines Screen Not Detected U Benzodiazepines Scrn Not Detected Urine Cocaine Screen Not Detected U Marijuana (THC) Screen Not Detected 01/24/23 01/24/23 01/24/23 06:10 11:06 15:11 MCV 95.7 MCH 34.1 H MCHC 35.6 H RDW 17.6 H Plt Count 92 L MPV 11.9 Absolute Nucleated RBC 0.000 Nucleated RBC % (auto) 0.0 Anion Gap 16 16 Estim Creat Clear Calc 153.0 159.0 Estimated GFR > 60 > 60 Random Glucose 103 102 Calcium 8.7 D 8.6 Magnesium 1.7 Triglycerides Ur Random Sodium 176.0 Urine Opiates Screen Urine Fentanyl Screen Ur Barbiturates Screen Ur Phencyclidine Scrn Ur Amphetamines Screen U Benzodiazepines Scrn Urine Cocaine Screen U Marijuana (THC) Screen Assessment and Plan (1) Alcohol use disorder, moderate, dependence: Status: Acute (2) Hypomagnesemia: Status: Acute (3) Acute hyponatremia: Status: Acute (4) Acute pancreatitis: Status: Acute Plan Pt is a 42-year-old female with a PMH significant for?alcohol use disorder, hx of alcoholic pancreatitis, ADHD, and hypothyroidism who presents to the ED with?abdominal pain, nausea, vomiting, and brain fog since yesterday. Pt has a long history of heavy alcohol use and prior admissions for acute pancreatitis. Patient used to drink at least 1 pt of alcohol daily but states she has been trying to cut back. Patient reports drinking quite a lot of alcohol with her boyfriend on Friday. Pt will be admitted to the hospital for treatment further evaluation of acute pancreatitis likely secondary to alcohol use and alcohol withdrawal. Acute alcoholic pancreatitis IVF Morphine for pain Zofran prn Start clear liquids Alcohol cessation advised Alcohol use disorder with withdrawal Feels better today Continue CIWA and phenobarb protocol multivitamin, folic acid, thiamine Famotidine 20 mg b.i.d. Addiction Medicine consult Hypomagnesemia improved to 1.7 after replacement Hypotonic Euvolemic Hyponatremia likely SIADH vs Beer potomania Sodium of 121 today on IVF check urine studies Nephrology consult , Start Urea and Bicarb Abnormal EKG repeated EKG showing sinus rhythm w QTc of 484 telemtry Full Code DVT Prophylaxis: Lovenox Pt will require a hospitalization overnight for treatment of?electrolyte abnormalities and acute alcohol pancreatitis with IVF, bowel rest, and IV analgesics. Time Spent With Patient Time: Total time managing care of this patient today ____ minutes. Quality Stroke Does the patient have a stroke diagnosis?: No VTE Prior VTE?: No VTE Risk Level:: Medical - moderate - high VTE Device Contraindication: Treatment Not Indicated VTE Drug Contraindication: N/A - Med Ordered
[2023-01-24 17:14] LABS: Osmolality, Serum 251 mosm/kg (281-305)
[2023-01-24 18:44] LABS: VBG Base Excess 0.2 mmol/L; VBG HCO3 18 mmol/L (22-26); VBG pCO2 16 mmHg; VBG pO2 198 mmHg
[2023-01-24 18:48] LABS: VBG pH 7.65 (7.32-7.43)
[2023-01-24 18:48] LABS: Venous Blood Gas Refer to POC result
[2023-01-24 19:20] LABS: Osmolality Urine 557 mosm/kg (373-1093)
[2023-01-24 19:37] LABS: Anion Gap 17 (12-20); Blood Urea Nitrogen 16 mg/dL (9-16); Calcium 8.7 mg/dL (8.4-10.2); Carbon Dioxide 16 mmol/L (22-29); Chloride 94 mmol/L (96-108); Creatinine Clr Calc Pharmacy 150.3; Estimated Glomerular Filt Rate > 60; Glucose Random 152 mg/dL (60-115); Potassium 4.5 mmol/L (3.3-5.1); Sodium 122 mmol/L (135-145)
[2023-01-24] MEDS: Sodium Bicarbonate 650 MG TABLET PO (20:22)
[2023-01-24] MEDS: Sodium Bicarbonate 8.4% 150 MEQ in Dextrose 5 % 850 ML 50 MEQ IV (22:59)
[2023-01-24] MEDS: Enoxaparin Sodium 40 MG/0.4 ML SYRINGE SUBCUT (23:03)
[2023-01-25] MEDS: Morphine Sulfate 4 MG/ML CARTRIDGE IVPUSH ×6 (00:23→21:36)
[2023-01-25 00:48] LABS: Anion Gap 12 (12-20); Blood Urea Nitrogen 25 mg/dL (9-16); Calcium 9.5 mg/dL (8.4-10.2); Carbon Dioxide 22 mmol/L (22-29); Chloride 95 mmol/L (96-108); Creatinine Clr Calc Pharmacy 142.5; Estimated Glomerular Filt Rate > 60; Glucose Random 134 mg/dL (60-115); Potassium 3.6 mmol/L (3.3-5.1); Sodium 125 mmol/L (135-145)
[2023-01-25] MEDS: 0.9 % Sodium Chloride 1,000 ML 150 ML IVCONT ×5 (02:31→23:40)
[2023-01-25 03:44] VITALS: BP 120/75; PULSE 96; RESP 18; TEMP 36.3; O2SAT 100
[2023-01-25 06:49] LABS: Anion Gap 11 (12-20); Blood Urea Nitrogen 17 mg/dL (9-16); Carbon Dioxide 23 mmol/L (22-29); Chloride 99 mmol/L (96-108); Creatinine Clr Calc Pharmacy 142.5; Estimated Glomerular Filt Rate > 60; Glucose Random 105 mg/dL (60-115); Potassium 3.4 mmol/L (3.3-5.1); Sodium 130 mmol/L (135-145)
[2023-01-25 07:27] VITALS: BP 130/82; PULSE 81; RESP 18; TEMP 36.6; O2SAT 100
[2023-01-25] MEDS: PHENobarbitaL 15 MG TABLET 45 MG PO ×2 (09:09→20:18)
[2023-01-25] MEDS: Famotidine 20 MG TABLET PO ×2 (09:11→20:18)
[2023-01-25] MEDS: Folic Acid 1 MG TABLET PO (09:11)
[2023-01-25] MEDS: Sodium Bicarbonate 650 MG TABLET PO (09:11)
[2023-01-25] MEDS: Multivitamin TABLET 1 TAB PO (09:11)
[2023-01-25] MEDS: Thiamine HCL 100 MG TABLET PO (09:11)
[2023-01-25] MEDS: 0.9 % Sodium Chloride Flush 3 ML SYRINGE IVFLUSH ×2 (09:17→17:40)
[2023-01-25 11:15] VITALS: BP 134/81; PULSE 95; RESP 18; TEMP 36.7; O2SAT 98
[2023-01-25 12:01] LABS: Anion Gap 11 (12-20); Blood Urea Nitrogen 14 mg/dL (9-16); Calcium 8.6 mg/dL (8.4-10.2); Carbon Dioxide 23 mmol/L (22-29); Chloride 100 mmol/L (96-108); Creatinine Clr Calc Pharmacy 137.7; Estimated Glomerular Filt Rate > 60; Glucose Random 117 mg/dL (60-115); Potassium 3.5 mmol/L (3.3-5.1); Sodium 130 mmol/L (135-145)
--- NOTE | 2023-01-25 12:03 | P.PNNP_ITS ---
Subjective Subjective Date of Service: 01/25/23 Interval history: Na better tolerating volume support Physical Exam 2 Vital Signs: Vital Signs: Last Vital Signs Temp 98.1 F 01/25/23 11:15 Pulse 95 01/25/23 11:15 Resp 18 01/25/23 11:15 BP 134/81 01/25/23 11:15 Pulse Ox 98 01/25/23 11:15 O2 Del Method Room Air 01/25/23 11:15 BMI result Body Mass Index 26.5 Const: Other: Appearance: Alert. Oriented X3. Seems uncomfortable, nauseous, in pain Eyes: Pupils equal, round and reactive to light. ENT: Pharynx normal. Neck: Normal inspection. Neck supple. No lymph nodes noted. No crepitus CVS: Normal heart rate and rhythm. Pulses normal. Normal S1 and S2 Respiratory: No respiratory distress. Breath sounds normal. No Wheezing. No rales Abdomen: Pain to palpation epigastric and left upper quadrant pain, no rebound or guarding Skin: Skin warm and dry. Normal skin color. Normal skin turgor. Extremities: No lower extremity edema. No Lacerations. No Rash Neuro: Oriented X 3. No motor deficit. No sensory deficit. Moving all extremities. No slurred speech. CN 2 through 12 grossly intact Psych: calm, cooperative, normal affect Objective Data Labs 01/24/23 06:10 01/25/23 11:38 Labs: Laboratory Results - last 24 hr 01/24/23 01/24/23 01/24/23 11:06 15:11 15:12 VBG pH VBG pCO2 VBG pO2 VBG HCO3 VBG O2 Saturation VBG Base Excess Sodium 121 L Potassium 4.5 Chloride 92 L Carbon Dioxide 18 L Anion Gap 16 BUN 3 L Creatinine 0.52 Estim Creat Clear Calc 159.0 Estimated GFR > 60 Random Glucose 102 Osmolality 251 L Calcium 8.6 Urine Osmolality 557 01/24/23 01/24/23 01/25/23 18:37 18:38 00:28 VBG pH 7.65 H* VBG pCO2 16 VBG pO2 198 VBG HCO3 18 L VBG O2 Saturation 99.0 VBG Base Excess 0.2 Sodium 122 L 125 L Potassium 4.5 3.6 Chloride 94 L 95 L Carbon Dioxide 16 L 22 Anion Gap 17 12 BUN 16 25 H Creatinine 0.55 0.58 Estim Creat Clear Calc 150.3 142.5 Estimated GFR > 60 > 60 Random Glucose 152 H 134 H Osmolality Calcium 8.7 9.5 D Urine Osmolality 01/25/23 01/25/23 06:20 11:38 VBG pH VBG pCO2 VBG pO2 VBG HCO3 VBG O2 Saturation VBG Base Excess Sodium 130 L 130 L Potassium 3.4 3.5 Chloride 99 100 Carbon Dioxide 23 23 Anion Gap 11 L 11 L BUN 17 H 14 Creatinine 0.58 0.60 Estim Creat Clear Calc 142.5 137.7 Estimated GFR > 60 > 60 Random Glucose 105 117 H Osmolality Calcium 9.0 8.6 Urine Osmolality Procedures Date of Service Date of Service: 01/25/23 Assessment & Plan Assessment and plan (1) Alcohol use disorder, moderate, dependence: Status: Acute (2) Hypomagnesemia: Status: Acute (3) Acute alcoholic pancreatitis: Status: Acute (4) Acute hyponatremia: Status: Acute Plan Ms. Mallory Willingham is a 42-year-old female with a history of?alcohol use disorder, alcoholic pancreatitis, ADHD, and hypothyroidism who presents with alcohol associated pancreatitis and concern for withdrawal. Course now complicated by Hyponatremia. 1. Hypotonic Euvolemic Hyponatremia BEER POTOMANIA with dilute urine ouput UOsm 170s is impressive. Plan: - Solute load once again with Urea 30g x1 - ok to c/w 0.95 saline 2. Metabolic acidosis resolved Plan: - Stopped NaBicarb. Time Spent With Patient Time: Total time managing care of this patient today ____ minutes. Progress Note: Quality Stroke Does the patient have a stroke diagnosis?: No
[2023-01-25] MEDS: Urea 15 GM POWDER 30 GM PO (14:19)
[2023-01-25 15:04] VITALS: BP 118/73; PULSE 94; RESP 18; TEMP 37.2; O2SAT 99
--- NOTE | 2023-01-25 15:09 | HO.PM.IMPN ---
Subjective Subjective Date of Service: 01/25/23 Interval History: Seen and evaluated Feels more comfortable, tolerating clears Having pain and nausea withdrawal symptoms controlled Sodium improved to 130 No fever, chills Review of Systems Review of Systems: Yes all other systems are reviewed and are negative Physical Exam Vital Signs: Vital Signs: Last Vital Signs Temp 98.9 F 01/25/23 15:04 Pulse 94 01/25/23 15:04 Resp 18 01/25/23 15:04 BP 118/73 01/25/23 15:04 Pulse Ox 99 01/25/23 15:04 O2 Del Method Room Air 01/25/23 15:04 BMI result Body Mass Index 26.5 Const: Other: Constitutional : Awake, interactive, not in distress Neck : Normal inspection, Supple Cardiovascular : RRR, no JVP, no lower extremity edema Respiratory : good bilateral air entry, no crackles, wheezes or rhonchi Gastrointestinal: soft, lax, Normal bowel sounds, epigastric mild tenderness Skin : Warm, Dry Neurological : Alert & oriented x3, No focal deficit Objective Data Active Medications Acetaminophen (Acetaminophen 325 Mg Tablet) 650 mg PO Q6H PRN PRN Reason: Pain, Mild (Pain Scale 1-3) Docusate Sodium (Docusate Sodium 100 Mg Capsule) 100 mg PO DAILY PRN PRN Reason: Constipation Enoxaparin Sodium (Enoxaparin Sodium 40 Mg/0.4 Ml Syringe) 40 mg SUBCUT Q24H [facility] BEDS AT [facility] Last Admin: 01/24/23 23:03 Dose: 40 mg Documented By: KENYON Famotidine (Famotidine 20 Mg Tablet) 20 mg PO BID [facility] 234 BEDS AT [facility] Last Admin: 01/25/23 09:11 Dose: 20 mg Documented By: YESENIA Folic Acid (Folic Acid 1 Mg Tablet) 1 mg PO DAILY [facility] 234 BEDS AT [facility] Stop: 01/27/23 08:59 Last Admin: 01/25/23 09:11 Dose: 1 mg Documented By: YESENIA Sodium Chloride (Ns) 1,000 mls @ 150 mls/hr IVCONT .Q6H40M [facility]S [facility]CLUDE 234 BEDS AT [facility] Last Admin: 01/25/23 13:11 Dose: 150 mls/hr Documented By: YESENIA Morphine Sulfate (Morphine Sulfate 4 Mg/Ml Cartridge) 4 mg IVPUSH Q4H PRN; Protocol PRN Reason: Pain, Severe (Pain Scale 7-10) Last Admin: 01/25/23 13:10 Dose: 4 mg Documented By: YESENIA Multivitamins/Vitamin C (Multivitamin Tablet) 1 tab PO DAILY [facility] 234 BEDS AT [facility] Stop: 01/27/23 08:59 Last Admin: 01/25/23 09:11 Dose: 1 tab Documented By: YESENIA Ondansetron HCl (Ondansetron Hcl 4 Mg/2 Ml Vial) 4 mg IVPUSH Q8H PRN PRN Reason: Nausea and Vomiting Pharmacy Consult (Consult Rx Etoh Phenob Im/Po) 1 each MISCELLANE ONCE PRN; Protocol PRN Reason: Consult order Phenobarbital (Phenobarbital 15 Mg Tablet) 45 mg PO BID [facility] 234 B[facility]S AT [facility]; Protocol Stop: 01/25/23 21:01 Last Admin: 01/25/23 09:09 Dose: 45 mg Documented By: YESENIA Phenobarbital (Phenobarbital 15 Mg Tablet) 15 mg PO BID [facility]CLUDE 234 BEDS AT [facility]; Protocol Stop: 01/27/23 21:01 Phenobarbital (Phenobarbital 15 Mg Tablet) 15 mg PO DAILY [facility]CLUDE 234 BEDS AT [facility] Stop: 01/29/23 09:01 Sodium Chloride (0.9 % Sodium Chloride Flush 3 Ml Syringe) 3 ml IVFLUSH QSHIFT COUNTS INCLUDE 234 BEDS AT [facility] Last Admin: 01/25/23 09:17 Dose: 3 ml Documented By: YESENIA Thiamine HCl (Thiamine Hcl 100 Mg Tablet) 100 mg PO DAILY [facility]CLUDE 234 BEDS AT [facility] Stop: 01/27/23 08:59 Last Admin: 01/25/23 09:11 Dose: 100 mg Documented By: YESENIA Labs 01/24/23 06:10 01/25/23 11:38 Labs: Laboratory Results - last 24 hr 01/24/23 01/24/23 01/24/23 11:06 15:11 15:12 VBG pH VBG pCO2 VBG pO2 VBG HCO3 VBG O2 Saturation VBG Base Excess Anion Gap 16 Estim Creat Clear Calc 159.0 Estimated GFR > 60 Random Glucose 102 Osmolality 251 L Calcium 8.6 Urine Osmolality 557 01/24/23 01/24/23 01/25/23 18:37 18:38 00:28 VBG pH 7.65 H* VBG pCO2 16 VBG pO2 198 VBG HCO3 18 L VBG O2 Saturation 99.0 VBG Base Excess 0.2 Anion Gap 17 12 Estim Creat Clear Calc 150.3 142.5 Estimated GFR > 60 > 60 Random Glucose 152 H 134 H Osmolality Calcium 8.7 9.5 D Urine Osmolality 01/25/23 01/25/23 06:20 11:38 VBG pH VBG pCO2 VBG pO2 VBG HCO3 VBG O2 Saturation VBG Base Excess Anion Gap 11 L 11 L Estim Creat Clear Calc 142.5 137.7 Estimated GFR > 60 > 60 Random Glucose 105 117 H Osmolality Calcium 9.0 8.6 Urine Osmolality Assessment and Plan (1) Alcohol use disorder, moderate, dependence: Status: Acute (2) Hypomagnesemia: Status: Acute (3) Acute hyponatremia: Status: Acute (4) Acute pancreatitis: Status: Acute Plan Pt is a 42-year-old female with a PMH significant for?alcohol use disorder, hx of alcoholic pancreatitis, ADHD, and hypothyroidism who presents to the ED with?abdominal pain, nausea, vomiting, and brain fog since yesterday. Pt has a long history of heavy alcohol use and prior admissions for acute pancreatitis. Patient used to drink at least 1 pt of alcohol daily but states she has been trying to cut back. Patient reports drinking quite a lot of alcohol with her boyfriend on Friday. Pt will be admitted to the hospital for treatment further evaluation of acute pancreatitis likely secondary to alcohol use and alcohol withdrawal. Acute alcoholic pancreatitis IVF Morphine for pain Zofran prn Start regular as tolerated Alcohol cessation advised Alcohol use disorder with withdrawal Feels better today Continue phenobarb protocol multivitamin, folic acid, thiamine Famotidine 20 mg b.i.d. Addiction Medicine consult Hypomagnesemia improved to 1.7 after replacement acute Hypotonic Euvolemic Hyponatremia likely Beer potomania Sodium of 130 this morning on IVF and PO Urea check urine studies Nephrology consult , Start Urea and Bicarb Abnormal EKG repeated EKG showing sinus rhythm w QTc of 484 telemtry Full Code DVT Prophylaxis: Lovenox Pt will require a hospitalization overnight for treatment of?electrolyte abnormalities and acute alcohol pancreatitis with IVF, bowel rest, and IV analgesics. Time Spent With Patient Time: Total time managing care of this patient today ____ minutes. Quality Stroke Does the patient have a stroke diagnosis?: No VTE Prior VTE?: No VTE Risk Level:: Medical - moderate - high VTE Device Contraindication: Treatment Not Indicated VTE Drug Contraindication: N/A - Med Ordered
[2023-01-25 18:56] VITALS: BP 128/73; PULSE 96; RESP 18; TEMP 37; O2SAT 98
[2023-01-25] MEDS: Enoxaparin Sodium 40 MG/0.4 ML SYRINGE SUBCUT (21:34)
[2023-01-25 23:39] VITALS: BP 129/84; PULSE 87; RESP 18; TEMP 36.4; O2SAT 97
[2023-01-25] MEDS: Ketorolac Tromethamine 15 MG/ML VIAL IVPUSH (23:39)
[2023-01-26] MEDS: Morphine Sulfate 4 MG/ML CARTRIDGE IVPUSH ×3 (01:37→09:54)
[2023-01-26 03:46] VITALS: BP 108/74; PULSE 66; RESP 18; TEMP 36.3; O2SAT 96
[2023-01-26] MEDS: 0.9 % Sodium Chloride 1,000 ML 150 ML IVCONT (05:59)
[2023-01-26 07:13] VITALS: BP 128/76; PULSE 76; RESP 18; TEMP 36.2; O2SAT 98
[2023-01-26 07:29] LABS: Anion Gap 8 (12-20); Blood Urea Nitrogen 17 mg/dL (9-16); Calcium 8.6 mg/dL (8.4-10.2); Carbon Dioxide 22 mmol/L (22-29); Chloride 110 mmol/L (96-108); Estimated Glomerular Filt Rate > 60; Glucose Random 103 mg/dL (60-115); Potassium 3.4 mmol/L (3.3-5.1); Sodium 137 mmol/L (135-145)
[2023-01-26] MEDS: Multivitamin TABLET 1 TAB PO (09:55)
[2023-01-26] MEDS: Famotidine 20 MG TABLET PO (09:55)
[2023-01-26] MEDS: PHENobarbitaL 15 MG TABLET PO (09:55)
[2023-01-26] MEDS: 0.9 % Sodium Chloride Flush 3 ML SYRINGE IVFLUSH (09:56)
[2023-01-26] MEDS: Folic Acid 1 MG TABLET PO (09:56)
[2023-01-26] MEDS: Thiamine HCL 100 MG TABLET PO (09:56)
--- NOTE | 2023-01-26 11:43 | P.DS_ITS ---
DS: Providers Provider Date of Service: 01/26/23 Date of admission: 01/23/23 22:40 Primary care physician: Skinny Stout MD Consults: 01/24/23 07:59 Consult to Nephrology Routine Consulting Provider: Milton Shields Reason for consultation: Acute hyponatremia DS: Diagnosis Discharge Diagnosis (1) Alcohol use disorder, moderate, dependence: Status: Acute (2) Hypomagnesemia: Status: Acute (3) Acute hyponatremia: Status: Acute (4) Acute pancreatitis: Status: Acute DS: Summary Hospital Course Hospital Course: Admission note HPI Pt is a 42-year-old female with a PMH significant for?alcohol use disorder, hx of alcoholic pancreatitis, ADHD, and hypothyroidism who presents to the ED with?abdominal pain, nausea, vomiting, and brain fog since yesterday. Pt has a long history of heavy alcohol use and prior admissions for acute pancreatitis. Patient used to drink at least 1 pt of alcohol daily but states she has been trying to cut back. Patient reports drinking quite a lot of alcohol with her boyfriend on Friday. On Friday she began developing severe epigastric abdominal pain radiating to her back along with nausea and vomiting, and mental fogginess. Patient states that she has had mild for all in the past with slight tremors, denies any history of withdrawal seizures. States she noticed some tremors in upper extremities earlier today. Denies chest pain/pressure, palpitations. No diaphoresis. Denies headache, increased anxiety. In the ED patient was afebrile but hypertensive up to 165/97. Labs were significant for pancytopenia of WBC 4.3, H&H 11.2/32.2, platelets 117, sodium 124, magnesium 0.9, AST 49, alk-phos 143, lipase 465. Tox screen negative for ethyl alcohol. CXR showed no acute cardiopulmonary disease. CT of abdomen and pelvis found acute pancreatitis with no peripancreatic fluid collection but small free fluid in the right pericolic gutter. Also found diffuse wall thickening of the colon without significant pericolonic inflammatory changes and found hepatic steatosis with nodular surface contour the liver. Abdominal ultrasound found heterogeneous sonographic appearance of the pancreas and finding suggested of chronic liver disease. EKG demonstrated unusual P axis with short AR suggestive of junctional rhythm and prolonged QTc of 512. Pt was treated with ondansetron, morphine, Mag sulfate, IVF, promethazine, and started on phenobarb protocol. Pt will be admitted to the hospital for treatment further evaluation of acute pancreatitis likely secondary to alcohol use and alcohol withdrawal. Hospital course Admitted for Acute alcoholic pancreatitis as showed by elevated Lipase and CT scan. Treated with IVF, Morphine for pain, Zofran prn for nausea. diet advanced as pain subsided and she was able to tolerate regular diet before discharge. Alcohol cessation advised Treated also for Alcohol use disorder with withdrawal phenobarb protocol, multivitamin, folic acid, thiamine. To continue MVN and thiamine on discharge. 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 We advise you complete abstinence from Alcohol Advance your diet as tolerated Continue vitamins Zofran as needed Time Spent with Patient Time attestation: Total time managing care of this patient today ____ minutes. Discharge coordination time: Greater than 30 minutes Quality: Safe Use of Opioids Does Pt have an Active Cancer Diagnosis on the Problem List?: No Quality: Stroke Does the patient have a stroke diagnosis?: No Physical Exam Vital Signs: Vital Signs: Last Vital Signs Temp 97.1 F 01/26/23 07:13 Pulse 76 01/26/23 07:13 Resp 18 01/26/23 07:13 BP 128/76 01/26/23 07:13 Pulse Ox 98 01/26/23 07:13 O2 Del Method Room Air 01/26/23 07:13 BMI result Body Mass Index 26.5 Const: Other: Constitutional : Awake, interactive, not in distress Neck : Normal inspection, Supple Cardiovascular : RRR, no JVP, no lower extremity edema Respiratory : good bilateral air entry, no crackles, wheezes or rhonchi Gastrointestinal: soft, lax, Normal bowel sounds, no tenderness Skin : Warm, Dry Neurological : Alert & oriented x3, No focal deficit DS: Data Data Completed and Pending Completed studies during hospitalization [Text1]: Procedures Detoxification Services for Substance Abuse Treatment (06/03/22) Labs on day of discharge: Laboratory Results - last 24 hr 01/25/23 01/26/23 11:38 06:55 Sodium 130 L 137 Potassium 3.5 3.4 Chloride 100 110 H Carbon Dioxide 23 22 Anion Gap 11 L 8 L BUN 14 17 H Creatinine 0.60 0.54 Estim Creat Clear Calc 137.7 153.0 Estimated GFR > 60 > 60 Random Glucose 117 H 103 Calcium 8[address] scan - abdomen: Radiologist's impression: ITS Impressions Chest X-Ray 01/23/23 13:45 IMPRESSION: No acute cardiopulmonary disease. Abdomen Ultrasound 01/23/23 13:58 IMPRESSION: Heterogeneous sonographic appearance of the pancreas. MRI/MRCP is recommended for further characterization. Nodular surface contour of the liver. Increased parenchymal echogenicity. Findings are suggestive chronic liver disease. Abdomen/Pelvis CT 01/23/23 16:18 IMPRESSION: Acute pancreatitis. No peripancreatic fluid collection. Small free fluid in the right paracolic gutter. Fluid and stranding in the left anterior pararenal space. Diffuse wall thickening of the colon without significant pericolonic inflammatory changes. This may be on a reactive basis. Advise clinical correlation. Hepatic steatosis. Nodular surface contour of the liver. Discharge Plan Discharge Anticipated Discharge Date/Time: 01/25/23 12:02 Patient Disposition: Home, Self-Care Discharge Diagnosis: Acute pancreatitis Hyponatremia Referrals: Skinny Stout MD [Primary Care Provider] - 1 Week Discharge Medications: New multivitamin [Daily-Shayla] Tablet 1 tab PO DAILY Qty: 30 0RF thiamine mononitrate (vit B1) 100 mg Tablet 100 mg PO DAILY Qty: 30 0RF ondansetron 4 mg tablet,disintegrating 4 mg PO Q8H PRN (Reason: nausea and vomiting) Qty: 14 0RF Discharge Orders: Discharge Order (Routine); Ordered 01/26/23 Ordered By: Darren Hawkins Diet: Advance to usual diet Activity on Discharge: As tolerated Stand Alone Forms: Patient Portal Discharge page Care Plan Goals: Read below Health Concerns: Read below Plan of Treatment: Read below Assessment: Admitted for treatment of alcoholic pancreatitis and withdrawal that was treated with IV fluids, pain and nausea medications along with withdrawal protocol with good response over the course of hospital stay. We advise you complete abstinence from Alcohol Advance your diet as tolerated Continue vitamins Zofran as needed
--- NOTE | 2023-01-26 11:47 | MHC.CM.PN ---
order for home, self care. CM acknowledge.
[2023-01-26 11:58] VITALS: BP 140/91; PULSE 64; RESP 18; TEMP 36.3; O2SAT 98
== END 2023-01-26 13:15 | disposition home or self-care (01) | DRG 282 ==
LOC: HO.ED 17:33 → HO.EDOVER 22:57 → HO.IMC 23:06
PROVIDERS: Emergency Medicine; Internal Medicine; Physician Assistant Medical; Admitting Provider Student in an Organized Health Care Education/Training Program; Emergency Provider Emergency Medicine; PCP Family Medicine; Visit Provider Student in an Organized Health Care Education/Training Program
DX: K85.20 Alcohol induced acute pancreatitis without necrosis or infection (principal); E87.20 Acidosis, unspecified; E03.1 Congenital hypothyroidism without goiter; F90.9 Attention-deficit hyperactivity disorder, unspecified type; F10.20 Alcohol dependence, uncomplicated; Z98.84 Bariatric surgery status; Z79.899 Other long term (current) drug therapy
CPT/HCPCS: 36415; 71046; 74177; 76705; 80048; 80053; 80307; 82803; 83690; 83735; 83930; 83935; 84300; 84478; 84484; 84702; 85025; 85027; 85610; 93005; 99285; J1200; J1650; J1885; J2270; J2405; J2550; J2560; J3475; Q9967

== ENCOUNTER → 2023-01-23 22:40 | Outpatient (BNV) | payer OTHER, SELFPAY | PROVIDERS: Admitting Provider Student in an Organized Health Care Education/Training Program; Emergency Provider Emergency Medicine; PCP Family Medicine; Visit Provider Student in an Organized Health Care Education/Training Program | DX: F10.20 Alcohol dependence, uncomplicated (principal); E83.42 Hypomagnesemia; E87.1 Hypo-osmolality and hyponatremia; K85.90 Acute pancreatitis without necrosis or infection, unspecified | CPT/HCPCS: 99223; 99233; 99239 ==

== ENCOUNTER 2023-04-05 11:05 | Emergency (ER) | payer OTHER, SELFPAY ==
[2023-04-05 11:10] VITALS: BP 103/56; BP 114/70; PULSE 58; PULSE 59; RESP 16; TEMP 36.5; O2SAT 100; O2SAT 97; BMI 28.1
--- NOTE | 2023-04-05 11:18 | ED.ALCOHOL ---
HPI - Alcohol General Chief Complaint: General Medical Stated Complaint: SORE THROAT, ETOH FOR DAYS PER EMS Source: patient Mode of arrival: EMS Limitations: other (intoxicated) History of Present Illness HPI narrative: 42 yo female wiht PMH of alcohol abuse, hx of withdrawal, pancreatitis, bariatric surgery in the past, she tells me she takes amoxicillin daily for 5 years after rheumatic fever dx though I see no fill of amoxicillin she called EMS for sore throat. 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 No head trauma noted or reported. She denies sick contacts. MD complaint: alcohol intoxication (sore throat) Last drink: Just prior to admission Chronic alcohol use: Yes Previous visits for alcohol intoxication: Yes Recent trauma: No Associated symptoms: other (sore throat) Treatments prior to arrival: none Related Data Previous Rx's Medication Instructions Recorded multivitamin (Daily-Shayla tablet) 1 tab PO DAILY #30 tabs 01/26/23 ondansetron 4 mg disintegrating 4 mg PO Q8H PRN nausea and 01/26/23 tablet vomiting #14 tabs thiamine mononitrate (vit B1) 100 100 mg PO DAILY #30 tabs 01/26/23 mg tablet Allergies Allergy/AdvReac Type Severity Reaction Status Date / Time shellfish derived Allergy Severe ANAPHYLAXIS Verified 10/19/22 17:26 [SHELLFISH DERIVED] benztropine [From COGENTIN] Allergy Intermediate PSYCHOSIS Verified 10/19/22 17:26 gabapentin [GABAPENTIN] Allergy Intermediate PSYCHOSIS Verified 10/19/22 17:26 amantadine [AMANTADINE] Allergy Mild HIVES, rash Verified 10/19/22 17:26 Review of Systems Review of Systems: Constitutional : No Fever, No Chills, No Fatigue ENT/Mouth : pos sore throat, No Rhinorrhea Eyes: No Eye Pain, No Swelling, No Redness Cardiovascular : No Chest Pain, No SOB, No Dyspnea on Exertion Respiratory : No Cough, No Sputum Gastrointestinal : No Nausea, No Vomiting, No Diarrhea, No abdominal Pain Genitourinary : No Dysuria, No Urinary Frequency, No Hematuria, Musculoskeletal : No joint pain, No Myalgias, No Joint Swelling Skin : No Skin Lesions, No rash Neuro : No Weakness, No Numbness, No Dizziness, Headache Psych : No Anxiety/Panic, No Depression Heme/Lymph: No Bruising, No Bleeding,No Lymphadenopathy Endocrine : No Polyuria, No Polydipsia All other systems reviewed and are negative [facility] Past Medical History Attestation statement: The following information was validated with the patient. Source: old records reviewed Medical History Alcohol use disorder, moderate, dependence Congenital hypothyroidism Acute pancreatitis Elevated liver function tests ADHD Depression Migraine Surgical History History of Calixto-en-Y gastric bypass H/O gastric bypass History of cholecystectomy H/O tubal ligation Previous section Family History Family History Mother No problems noted. Father No problems noted. Brother No problems noted. Brother No problems noted. Sister No problems noted. Sister No problems noted. Son No problems noted. Social History Social History Household Members: None Household Members Other:: ex-partner Housing: Apartment Do you presently have visiting nurse or other home services: No Alcohol intake: current Alcohol intake frequency: 0-2 drinks per day Alcohol type: hard liquor Patient Tobacco Use Status: Never used Tobacco Smoked in Last 30 Days: No e-Cigarette/Vaping Use: Never Used Use of substances other than those prescribed or required for medical reasons: No Substance Use Type: Amphetamines and Other Advance Directives: No Advance Directives Information Provided: No Patient : No service: No Current occupational status: employed Sexual orientation: Straight/Heterosexual Physical Exam ED Vital Signs: Vital Signs - 24 hr 04/05/23 11:10 Temperature 97.7 F Pulse Rate 58 Respiratory Rate 16 Blood Pressure 103/56 L Pulse Oximetry 97 Oxygen Delivery Method Room Air BMI result Body Mass Index 28.1 Appearance: Alert. Oriented X3. No acute distress. ETOH odor, intoxicated Eyes: Pupils equal, round and reactive to light. ENT: Pharynx normal. no patches, minimal erythema, no stridor, drooling, tolerating secretions, uvula midline. atraumatic Neck: Normal inspection. Neck supple. no lymphadenopathy CVS: Normal heart rate and rhythm. Pulses normal. Respiratory: No respiratory distress. Breath sounds normal. Abdomen: Soft and nontender. Skin: Skin warm and dry. Normal skin color. Normal skin turgor. Extremities: No lower extremity edema. No calf ttp Neuro: Oriented X 3. No motor deficit. No sensory deficit. Course Course Course Narrative: steady gait GCS 15, wants to go home, I do not feel she has to be sectioned here. Reevaluation(s) Reevaluation #1: met her sober adult ride reliable and will stay with her - she walked out with steady gait Medical Decision Making Medical Decision Making [facility] Narrative: 42 yo female wiht PMH of alcohol abuse, hx of withdrawal, pancreatitis, bariatric surgery in the past here with c/o sore throat for 1 day her throat is not impressive no swelling or exudates, uvula is midline she is not toxic, tolerating secretions and voice is normal. No neck swelling or mass. She is very intoxicated at this time no signs of head trauma. Will obtain basic labs, viral panel and strep swab. Differential Diagnosis Differential Diagnoses: The differential diagnosis associated with the presentation includes viral syndrome, pharyngitis, intoxication Admission/Observation Consideration of admission/observation: Escalation of care including admission/observation considered swabs negative, throat exam benign, VS stable - will monitor until she has a sober ride Lab Data [facility] Lab Attestation statement: I reviewed the patient's lab results. 04/05/23 11:38 04/05/23 11:38 Labs: Lab Results 04/05/23 04/05/23 04/05/23 Range/Units 11:25 11:26 11:38 Sodium 146 H (135-145) mmol/L Potassium 3.8 (3.3-5.1) mmol/L Chloride 114 H (96-108) mmol/L Carbon Dioxide 17 L (22-29) mmol/L Anion Gap 19 (12-20) BUN 11 (9-16) mg/dL Creatinine 0.63 (0.5-1.4) mg/dL Estim Creat Clear Calc 134.7 Estimated GFR > 60 Random Glucose 79 (60-115) mg/dL Calcium 7.6 L D (8.4-10.2) mg/dL Magnesium 1.8 (1.6-2.6) mg/dL Total Bilirubin 0.5 (0.0-1.0) mg/dL Direct Bilirubin 0.2 (0.0-0.5) mg/dL AST 69 H (5-31) U/L ALT 21 (0-31) U/L Alkaline Phosphatase 108 (39-117) U/L Total Protein 6.3 L (6.5-8.0) g/dL Albumin 3.4 L (3.5-5.0) g/dL Ethyl Alcohol 419 H* mg/dL COVID-19 (ANIKET) Negative (Negative) COVID-19 Clin Com See Note Influenza Type A (DANNY) Negative (Negative) Influenza Type B (DANNY) Negative (Negative) Influenza A & B Note See Note S. pyogenes GrpA DANNY Negative (Negative) Independent Historian Clinical information obtained from an independent historian. History obtained from or confirmed by: EMS External Record Review External record reviewed: Inpatient record Discharge Plan Discharge Clinical Impression: Pharyngitis Qualifiers: Pharyngitis/tonsillitis etiology: unspecified etiology Qualified Code(s): J02.9 - Acute pharyngitis, unspecified Alcohol intoxication Qualifiers: Complication of substance-induced condition: uncomplicated Qualified Code(s): F10.920 - Alcohol use, unspecified with intoxication, uncomplicated Patient Disposition: Home, Self-Care Instructions: Pharyngitis (ED), Alcohol Intoxication (ED) Additional Instructions: negative for flu, covid and strep, labs showed elevated alcohol level. stay with responsible adult today, no driving or operating heavy machinery. Prescriptions: No Action multivitamin [Daily-Shayla] Tablet 1 tab PO DAILY Qty: 30 0RF thiamine mononitrate (vit B1) 100 mg Tablet 100 mg PO DAILY Qty: 30 0RF ondansetron 4 mg tablet,disintegrating 4 mg PO Q8H PRN (Reason: nausea and vomiting) Qty: 14 0RF
[2023-04-05 11:42] LABS: IDNOW Serial# 08D9AD1C; Strep A Nucleic Acid Negative (Negative)
[2023-04-05 11:57] LABS: IDNOW Serial# 9DB6401D; Influenza A Negative (Negative); Influenza B2 Negative (Negative)
[2023-04-05 11:59] LABS: COVID-19 Test Negative (Negative); IDNOW Serial# 08D9AD1C
[2023-04-05 12:10] LABS: Alanine Aminotransferase 21 U/L (0-31); Albumin Level 3.4 g/dL (3.5-5.0); Alkaline Phosphatase 108 U/L (39-117); Anion Gap 19 (12-20); Aspartate Amino Transferase 69 U/L (5-31); Bilirubin Direct 0.2 mg/dL (0.0-0.5); Bilirubin Total 0.5 mg/dL (0.0-1.0); Blood Urea Nitrogen 11 mg/dL (9-16); Calcium 7.6 mg/dL (8.4-10.2); Carbon Dioxide 17 mmol/L (22-29); Chloride 114 mmol/L (96-108); Creatinine Clr Calc Pharmacy 134.7; Estimated Glomerular Filt Rate > 60; Ethanol 419 mg/dL; Glucose Random 79 mg/dL (60-115); Magnesium 1.8 mg/dL (1.6-2.6); Potassium 3.8 mmol/L (3.3-5.1); Sodium 146 mmol/L (135-145); Total Protein 6.3 g/dL (6.5-8.0)
--- NOTE | 2023-04-05 12:22 | MHC.EDTECH ---
CBC hemolyzed. Provider stated that we do not need to collect the specimen.
--- NOTE | 2023-04-05 12:26 | PC.NURSE ---
Patient called boyfriend who stated he will come pick her up. Patient ambulated with steady gait to bathroom and back
== END 2023-04-05 12:58 | disposition home or self-care (01) ==
PROVIDERS: Emergency Provider Emergency Medicine
DX: J02.9 Acute pharyngitis, unspecified (principal); F10.220 Alcohol dependence with intoxication, uncomplicated; Y90.8 Blood alcohol level of 240 mg/100 ml or more; Z11.52 Encounter for screening for COVID-19
CPT/HCPCS: 80048; 80076; 80307; 83735; 87502; 87635; 87651; 99283; 99284

== ENCOUNTER 2023-06-17 09:54 | Emergency (ER) | payer OTHER, SELFPAY ==
--- NOTE | ~2023-06-17 | CT_ITS ---
CT HEAD WITHOUT IV CONTRAST CT CERVICAL SPINE WITHOUT IV CONTRAST INDICATION: Fall with pain. COMPARISON: Head CT 03/08/2022. TECHNIQUE: Multidetector CT acquisitions of the head and cervical spine were obtained without IV contrast. Multiplanar reformats were acquired and utilized for image interpretation. This CT examination was performed using dose optimization techniques as appropriate, variously including the following: *Automated exposure control *Adjustment of mA and/or kV according to patient size (this includes techniques or standardized protocols for targeted exams where dose is matched to indication/reason for exam; i.e. extremities or head) *Use of iterative reconstruction technique FINDINGS: HEAD: There is no intracranial hemorrhage, hydrocephalus, extra-axial surface collection, midline shift, or other herniation pattern. Nolen to white matter differentiation is diffusely maintained without evidence of an evolved acute territorial infarct. The basilar cisterns are preserved. No significant soft tissue abnormality. No acute osseous abnormality. There are retention cysts within the maxillary sinuses bilaterally. The remaining paranasal sinuses and the mastoid air cells are clear. CERVICAL SPINE: No acute fractures and no acute subluxations. Straightening of the cervical lordosis. No prevertebral soft tissue swelling. Imaged lung apices are clear. CT/CT head/brain wo IV con IMPRESSION: - No acute intracranial abnormality. - No acute osseous abnormality within the cervical spine.
--- NOTE | ~2023-06-17 | CT_ITS ---
CT HEAD WITHOUT IV CONTRAST CT CERVICAL SPINE WITHOUT IV CONTRAST INDICATION: Fall with pain. COMPARISON: Head CT 03/08/2022. TECHNIQUE: Multidetector CT acquisitions of the head and cervical spine were obtained without IV contrast. Multiplanar reformats were acquired and utilized for image interpretation. This CT examination was performed using dose optimization techniques as appropriate, variously including the following: *Automated exposure control *Adjustment of mA and/or kV according to patient size (this includes techniques or standardized protocols for targeted exams where dose is matched to indication/reason for exam; i.e. extremities or head) *Use of iterative reconstruction technique FINDINGS: HEAD: There is no intracranial hemorrhage, hydrocephalus, extra-axial surface collection, midline shift, or other herniation pattern. Nolen to white matter differentiation is diffusely maintained without evidence of an evolved acute territorial infarct. The basilar cisterns are preserved. No significant soft tissue abnormality. No acute osseous abnormality. There are retention cysts within the maxillary sinuses bilaterally. The remaining paranasal sinuses and the mastoid air cells are clear. CERVICAL SPINE: No acute fractures and no acute subluxations. Straightening of the cervical lordosis. No prevertebral soft tissue swelling. Imaged lung apices are clear. CT/CT cervical spine wo IV con IMPRESSION: - No acute intracranial abnormality. - No acute osseous abnormality within the cervical spine.
[2023-06-17 10:00] VITALS: BP 124/60; PULSE 76; RESP 19; TEMP 36.6; O2SAT 98; BMI 26.3
[2023-06-17 10:21] LABS: MANUAL DIFF FLAG NO
[2023-06-17 10:26] LABS: Basophils Percent Auto 1.1 % (0-2); Eosinophils Percent Auto 0.4 % (0-4); Hematocrit 38.4 % (37.0-47.0); Hemoglobin 12.8 g/dl (12.0-16.0); Imm Gran Abs Auto 0.01 X10*3/uL (0.00-0.03); Imm Gran Pct Auto 0.4 % (0.0-0.4); Lymphocytes Absolute Auto 0.9 X10*3/uL (1.2-4.9); Lymphocytes Percent Auto 33.6 % (20-40); Mean Corpuscular HGB Conc 33.3 g/dl (31.0-35.0); Mean Corpuscular Hemoglobin 35.4 pg (27.0-33.0); Mean Corpuscular Volume 106.1 fL (80.0-98.0); Mean Platelet Volume 8.8 fL (9.4-12.3); Monocytes Absolute Auto 0.2 X10*3/uL (0.1-1.2); Monocytes Percent Auto 7.1 % (2-11); Neutrophils Absolute Auto 1.6 x10*3/uL (2.0-8.3); Neutrophils Percent Auto 57.4 % (45-73); Platelet Count 182 X10*3/uL (160-400); Red Blood Count 3.62 X10*6/uL (4.20-5.50); Red Cell Distribution Width 15.2 % (11.0-16.0); White Blood Count 2.8 X10*3/uL (4.8-10.8)
[2023-06-17 10:34] LABS: Ethanol 401 mg/dL
[2023-06-17 10:41] LABS: Anion Gap 25 (12-20); Blood Urea Nitrogen 15 mg/dL (9-16); Calcium 8.8 mg/dL (8.4-10.2); Carbon Dioxide 18 mmol/L (22-29); Chloride 105 mmol/L (96-108); Creatinine Clr Calc Pharmacy 126.6; Estimated Glomerular Filt Rate > 60; Glucose Random 70 mg/dL (60-115); Potassium 4.3 mmol/L (3.3-5.1); Sodium 144 mmol/L (135-145)
[2023-06-17 13:17] VITALS: BP 128/55; PULSE 84; RESP 16; TEMP 36.2; O2SAT 98
--- NOTE | 2023-06-17 13:17 | ED_ITS ---
HPI - General Adult General Chief complaint: Head Injury Stated complaint: dizzy, confused, hit head on sink Time Seen by Provider: 06/17/23 19:33 Source: patient Mode of arrival: ambulatory Limitations: no limitations History of Present Illness HPI narrative: Patient alcoholic had drinks last night went to the bathroom intoxicated sitting on the toilet seat lost balance and fell hitting her right forehead to the sink, no loss of consciousness. Patient complaining of headache and dizziness patient does have chronic tremors no vomiting patient call level when she arrived at 10:00 was 401 does not want any help for detox patient does not drink 3 days a week and does not have any withdrawal during those days Related Data Previous Rx's Medication Instructions Recorded multivitamin (Daily-Shayla tablet) 1 tab PO DAILY #30 tabs 01/26/23 ondansetron 4 mg disintegrating 4 mg PO Q8H PRN nausea and 01/26/23 tablet vomiting #14 tabs thiamine mononitrate (vit B1) 100 100 mg PO DAILY #30 tabs 01/26/23 mg tablet Allergies Allergy/AdvReac Type Severity Reaction Status Date / Time shellfish derived Allergy Severe ANAPHYLAXIS Verified 06/17/23 10:00 [SHELLFISH DERIVED] benztropine [From COGENTIN] Allergy Intermediate PSYCHOSIS Verified 06/17/23 10:00 gabapentin [GABAPENTIN] Allergy Intermediate PSYCHOSIS Verified 06/17/23 10:00 amantadine [AMANTADINE] Allergy Mild HIVES, rash Verified 06/17/23 10:00 Review of Systems 2 Review of Systems: Yes all other systems are reviewed and are negative [facility] Past Medical History Medical History Alcohol use disorder, moderate, dependence Congenital hypothyroidism Acute pancreatitis Elevated liver function tests ADHD Depression Migraine Surgical History History of Calixto-en-Y gastric bypass H/O gastric bypass History of cholecystectomy H/O tubal ligation Previous section Family History Family History Mother No problems noted. Father No problems noted. Brother No problems noted. Brother No problems noted. Sister No problems noted. Sister No problems noted. Son No problems noted. 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 Patient Tobacco Use Status: Never used Tobacco Smoked in Last 30 Days: No e-Cigarette/Vaping Use: Never Used Use of substances other than those prescribed or required for medical reasons: No Substance Use Type: Amphetamines and Other Patient : No service: No Current occupational status: employed Sexual orientation: Straight/Heterosexual Physical Exam ED Vital Signs: Vital Signs - 24 hr 06/17/23 10:00 06/17/23 13:17 06/17/23 18:09 Temperature 98 F 97.2 F 97.3 F Pulse Rate 76 84 107 H Respiratory Rate 19 16 18 Blood Pressure 124/60 128/55 L 114/66 Pulse Oximetry 98 98 96 Oxygen Delivery Method Room Air Room Air Room Air 06/17/23 19:24 Temperature Pulse Rate 92 Respiratory Rate 18 Blood Pressure 143/89 H Pulse Oximetry 97 Oxygen Delivery Method Room Air BMI result Body Mass Index 26.3 Appearance: Alert. Oriented X3. No acute distress. etoh+ with tremors Eyes: PERRLA, No Nystagmus ENT: Pharynx normal. Oral Mucosa moist slight soft tissue swelling and bruising right forehead Neck: Normal inspection. Neck supple. CVS: Normal heart rate and rhythm. Pulses normal. Respiratory: No respiratory distress. Equal air entry bilateral, no wheezing/rales/rhonchi Abdomen: Soft and nontender. Bowel sounds are present, no mass palpable, no CVA tenderness Skin: Skin warm and dry. Normal skin color. Normal skin turgor. Extremities: No lower extremity edema. No calf tenderness Neuro: Oriented X 3. No motor deficit. No sensory deficit.No cerebellar signs , cranial nerves II-XII intact resting tremors+ Course Course Course Narrative: RME- 42 year old female presents for evaluation of dizziness and a headache. She reports hitting her head last night after slipping off the toilet. She has labs this morning showing an Etoh level of 401. Medical Decision Making Medical Decision Making MDM Narrative: Patient adiel came here for minor head injury CT scan of the head and C-spine negative labs are stable patient refusing to get any help for alcohol use denies any DTs in the past family is at her bedside Differential Diagnosis Differential Diagnoses: The differential diagnosis associated with the presentation includes Intracranial injury/SDH/SAH/alcohol intoxication Lab Data MDM Lab Attestation statement: I reviewed the patient's lab results. 06/17/23 10:16 06/17/23 10:16 Labs: Lab Results 06/17/23 Range/Units 10:16 WBC 2.8 L (4.8-10.8) X10*3/uL RBC 3.62 L (4.20-5.50) X10*6/uL Hgb 12.8 (12.0-16.0) g/dl Hct 38.4 (37.0-47.0) % MCV 106.1 H (80.0-98.0) fL MCH 35.4 H (27.0-33.0) pg MCHC 33.3 (31.0-35.0) g/dl RDW 15.2 (11.0-16.0) % Plt Count 182 D (160-400) X10*3/uL MPV 8.8 L (9.4-12.3) fL Immature Gran % (Auto) 0.4 (0.0-0.4) % Neut % (Auto) 57.4 (45-73) % Lymph % (Auto) 33.6 (20-40) % Pickett % (Auto) 7.1 (2-11) % Eos % (Auto) 0.4 (0-4) % Baso % (Auto) 1.1 (0-2) % Lymph # (Auto) 0.9 L (1.2-4.9) X10*3/uL Pickett # (Auto) 0.2 (0.1-1.2) X10*3/uL Eos # (Auto) 0.0 (0.0-0.4) X10*3/uL Baso # (Auto) 0.0 (0.0-0.2) X10*3/uL Abs Immat Gran (auto) 0.01 (0.00-0.03) X10*3/uL Absolute Neuts (auto) 1.6 L (2.0-8.3) x10*3/uL Absolute Nucleated RBC 0.000 (0.0-0.012) X10*3/uL Nucleated RBC % (auto) 0.0 (0.0-0.2) /100WBC Sodium 144 (135-145) mmol/L Potassium 4.3 (3.3-5.1) mmol/L Chloride 105 (96-108) mmol/L Carbon Dioxide 18 L (22-29) mmol/L Anion Gap 25 H (12-20) BUN 15 (9-16) mg/dL Creatinine 0.65 (0.5-1.4) mg/dL Estim Creat Clear Calc 126.6 Estimated GFR > 60 Random Glucose 70 (60-115) mg/dL Calcium 8.8 D (8.4-10.2) mg/dL Ethyl Alcohol 401 H* mg/dL Independent Interpretation I performed an independent interpretation of an: CT Scan Radiology Impression Discussion of test interpretation with radiology: I have reviewed the radiologist's reading. Discharge Plan Discharge Clinical Impression: Closed head injury, Alcohol abuse Patient Disposition: Home, Self-Care Instructions: Head Injury (ED), Abuse of Alcohol (ED) Additional Instructions: Stop drinking alcohol Take multivitamin daily Follow-up with detox Prescriptions: No Action multivitamin [Daily-Shayla] Tablet 1 tab PO DAILY Qty: 30 0RF thiamine mononitrate (vit B1) 100 mg Tablet 100 mg PO DAILY Qty: 30 0RF ondansetron 4 mg tablet,disintegrating 4 mg PO Q8H PRN (Reason: nausea and vomiting) Qty: 14 0RF
[2023-06-17 18:09] VITALS: BP 114/66; PULSE 107; RESP 18; TEMP 36.3; O2SAT 96
[2023-06-17 19:24] VITALS: BP 143/89; PULSE 92; RESP 18; O2SAT 97
[2023-06-17] MEDS: Butalb/Acetamin/Caff 50/325/40 TABLET 1 TAB PO (20:01)
[2023-06-17] MEDS: LORazepam 1 MG TABLET PO (20:01)
== END 2023-06-17 20:11 | disposition home or self-care (01) ==
PROVIDERS: Emergency Provider Internal Medicine
DX: S09.90XA Unspecified injury of head, initial encounter (principal); F10.10 Alcohol abuse, uncomplicated; Y90.8 Blood alcohol level of 240 mg/100 ml or more; R42 Dizziness and giddiness; R25.1 Tremor, unspecified; M54.2 Cervicalgia; R51.9 Headache, unspecified; W18.12XA Fall from or off toilet with subsequent striking against object, initial encounter; Z91.81 History of falling; Y93.9 Activity, unspecified; Y92.002 Bathroom of unspecified non-institutional (private) residence as the place of occurrence of the external cause; Y99.8 Other external cause status
CPT/HCPCS: 36415; 70450; 72125; 80048; 80307; 85025; 99284

== ENCOUNTER 2023-06-24 15:22 | Emergency (ER) | payer OTHER, SELFPAY ==
[2023-06-24 15:37] VITALS: BP 113/64; PULSE 82; RESP 18; TEMP 36.3; O2SAT 96; BMI 25.6
--- NOTE | 2023-06-24 15:40 | ED.HA ---
HPI - Headache General Chief Complaint: General Medical Stated Complaint: HEADACHE/CONCUSSION Time Seen by Provider: 06/24/23 18:32 Source: patient, RN notes reviewed and old records reviewed Mode of arrival: ambulatory Limitations: no limitations History of Present Illness HPI Narrative: [age] old female presents for evaluation of a headache. She was seen here last week after a fall and had CT scans of her head and neck that did not show any traumatic injuries She states that she has had a headache ever since She has not had any further head trauma. She states that she could not open her right eye this morning and felt it was swollen shut She also reports feeling generally weak and confused She took Tylenol at 9:00 a.m. No other complaints or concerns at this time Patient does admit to alcohol consumption, approximately 750 mL of whiskey 4 times per week Related Data Previous Rx's Medication Instructions Recorded multivitamin (Daily-Shayla tablet) 1 tab PO DAILY #30 tabs 01/26/23 ondansetron 4 mg disintegrating 4 mg PO Q8H PRN nausea and 01/26/23 tablet vomiting #14 tabs thiamine mononitrate (vit B1) 100 100 mg PO DAILY #30 tabs 01/26/23 mg tablet Allergies Allergy/AdvReac Type Severity Reaction Status Date / Time shellfish derived Allergy Severe ANAPHYLAXIS Verified 06/17/23 10:00 [SHELLFISH DERIVED] benztropine [From COGENTIN] Allergy Intermediate PSYCHOSIS Verified 06/17/23 10:00 gabapentin [GABAPENTIN] Allergy Intermediate PSYCHOSIS Verified 06/17/23 10:00 amantadine [AMANTADINE] Allergy Mild HIVES, rash Verified 06/17/23 10:00 Review of Systems Constitutional: Constitutional: Denies chills, Denies fever(s), Reports headache(s), Reports malaise and Reports weakness Eyes: Eyes: Denies change in vision ENT: Reports headache(s) Cardiovascular: Cardiovascular: Denies chest pain and Denies dyspnea Respiratory: Respiratory: Denies cough and Denies dyspnea Gastrointestinal: Gastrointestinal: Denies abdominal pain, Denies nausea and Denies vomiting Musculoskeletal: Musculoskeletal: Denies back pain Integumentary/Breasts: Skin/Breast: Denies rash Neurologic: Reports headache(s) and Reports weakness PMFSH Past Medical History Medical History Alcohol use disorder, moderate, dependence Congenital hypothyroidism Acute pancreatitis Elevated liver function tests ADHD Depression Migraine Surgical History History of Calixto-en-Y gastric bypass H/O gastric bypass History of cholecystectomy H/O tubal ligation Previous section Family History Family History Mother No problems noted. Father No problems noted. Brother No problems noted. Brother No problems noted. Sister No problems noted. Sister No problems noted. Son No problems noted. 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 Patient Tobacco Use Status: Never used Tobacco e-Cigarette/Vaping Use: Never Used Substance Use Type: Amphetamines and Other Advance Directives: No Advance Directives Information Provided: No service: No Current occupational status: employed Sexual orientation: Straight/Heterosexual Physical Exam Vital Signs: Vital Signs: Last Vital Signs Temp 98.6 F 06/24/23 22:11 Pulse 78 06/24/23 22:11 Resp 18 06/24/23 22:11 BP 134/82 06/24/23 22:11 Pulse Ox 98 06/24/23 22:11 O2 Del Method Room Air 06/24/23 22:11 BMI result Body Mass Index 25.6 Const: General: healthy appearing, comfortable, no acute distress, alert and awake Nutritional Appearance: well nourished Orientation/consciousness: patient oriented x3 HEENT: Head: Yes normocephalic and Yes atraumatic Eyes: Eyelids: Yes eyelids normal Conjunctivae: conjunctivae normal Sclerae: sclerae normal Corneas: corneas normal Pupils: Equal, round and reactive pupils present EOM: EOMs intact bilaterally Neck: Neck: Yes full ROM Resp: Effort & Inspection: normal respiratory effort, able to speak in complete sentences and not labored GI: Inspection: No distended Palpation (GI): Soft to palpation, not firm, nontender, no guarding and not rigid Skin: General skin exam: elasticity normal Neuro: General: patient oriented x3 Cranial nerves: Yes CN's II-XII intact bilaterally, Yes Equal, round and reactive pupils present and Yes Bilaterally intact EOM present Cognition (Neuro): normal cognition Course Course Course Narrative: This is a rapid medical exam. Deferred additional HPI, ROS, PE to primary provider. 42 yo female seen here 06/17 for head injury with negative imaging here with persistent headache. VSS Reevaluation(s) Reevaluation #1: Patient re-evaluated, her headache has improved with just fluids, Reglan Benadryl. Her repeat lactic improved to 4.1. Will check a BNP to assess for improving anion gap. Again, there is no concern for sepsis at this time as there is no source of infection. The patient reports feeling much better Time: 01:18 Reevaluation #2: Patient's repeat BMP shows improving anion gap. The patient is able to tolerate fluids, she is encouraged to avoid excessive consumption of alcohol. She was offered to discuss with detox/addiction services and declines stating that she is working on her alcohol abuse with her primary doctor. Patient is stable for discharge at this time Time: 01:53 Medications Administered Discontinued Medications Generic Name Dose Route Start Last Admin Trade Name Freq PRN Reason Stop Dose Admin Diphenhydramine HCl 25 mg 06/24/23 18:53 06/24/23 19:29 Diphenhydramine Hcl 50 Mg/Ml Vial IVPUSH 06/24/23 18:54 25 mg ONCE ONE Administration Sodium Chloride 1,000 mls @ 999 mls/hr 06/24/23 19:00 06/24/23 21:32 Ns IV 06/24/23 20:00 Infused .Q1H1M MALI Infusion Folic Acid 1 mg/ Sodium 50.2 mls @ 100.4 mls/hr 06/24/23 18:53 06/24/23 22:05 Chloride IV 06/24/23 19:22 Infused ONCE ONE Infusion Sodium Chloride 1,000 mls @ 999 mls/hr 06/24/23 22:00 06/24/23 22:54 Ns IV 06/24/23 23:00 999 mls/hr .Q1H1M MALI Administration Metoclopramide HCl 10 mg 06/24/23 18:53 06/24/23 19:29 Metoclopramide Hcl 10 Mg/2 Ml Vial IVPUSH 06/24/23 18:54 10 mg ONCE ONE Administration Medical Decision Making Medical Decision Making [facility] Narrative: 42 female presents for evaluation of headache and weakness. Reviewed her imaging from her last visit which did not show any traumatic injuries. Patient had basic labs that showed an anion gap that was elevated to 27 with a carbon dioxide level of 17. I suspect this is due to alcoholic ketosis, I added on a VBG as well as a lactic acid. The VBG showed a slightly elevated pH to 7.51. Her lactic acid was elevated to 6.2 again, likely related to alcoholic ketosis. We will treat with IV fluids, she was given thiamine. I do not see any indication to repeat imaging as the patient is neuro intact and had no further trauma. Differential Diagnosis Differential Diagnoses: The differential diagnosis associated with the presentation includes Lactic acidosis Alcoholic ketosis Dehydration DESTINY Contusion Wernicke's encephalopathy Admission/Observation Consideration of admission/observation: Escalation of care including admission/observation considered Consider admission for alcoholic ketosis platelets with fluids Lab Data [facility] Lab Attestation statement: I reviewed the patient's lab results. As above 06/24/23 16:17 06/25/23 01:32 Labs: Lab Results 06/24/23 06/24/23 06/24/23 Range/Units 16:17 19:34 19:35 WBC 3.9 L (4.8-10.8) X10*3/uL RBC 3.46 L (4.20-5.50) X10*6/uL Hgb 12.2 (12.0-16.0) g/dl Hct 36.3 L (37.0-47.0) % MCV 104.9 H (80.0-98.0) fL MCH 35.3 H (27.0-33.0) pg MCHC 33.6 (31.0-35.0) g/dl RDW 15.3 (11.0-16.0) % Plt Count 180 (160-400) X10*3/uL MPV 9.4 (9.4-12.3) fL Immature Gran % (Auto) 0.3 (0.0-0.4) % Neut % (Auto) 54.1 (45-73) % Lymph % (Auto) 39.7 (20-40) % [place] % (Auto) 4.6 (2-11) % Eos % (Auto) 0.3 (0-4) % Baso % (Auto) 1.0 (0-2) % Lymph # (Auto) 1.5 (1.2-4.9) X10*3/uL [place] # (Auto) 0.2 (0.1-1.2) X10*3/uL Eos # (Auto) 0.0 (0.0-0.4) X10*3/uL Baso # (Auto) 0.0 (0.0-0.2) X10*3/uL Abs Immat Gran (auto) 0.01 (0.00-0.03) X10*3/uL Absolute Neuts (auto) 2.1 (2.0-8.3) x10*3/uL Absolute Nucleated RBC 0.000 (0.0-0.012) X10*3/uL Nucleated RBC % (auto) 0.0 (0.0-0.2) /100WBC PT 13.1 (11.1-13.3) SEC INR 1.1 (0.9-1.1) APTT 31.4 (26.0-36.8) SEC VBG pH (7.32-7.43) VBG pCO2 mmHg VBG pO2 mmHg VBG HCO3 (22-26) mmol/L VBG O2 Saturation % VBG Base Excess mmol/L Sodium 146 H (135-145) mmol/L Potassium 4.7 (3.3-5.1) mmol/L Chloride 107 (96-108) mmol/L Carbon Dioxide 17 L (22-29) mmol/L Anion Gap 27 H (12-20) BUN 16 (9-16) mg/dL Creatinine 0.70 (0.5-1.4) mg/dL Estim Creat Clear Calc 107.7 Estimated GFR > 60 Random Glucose 125 H (60-115) mg/dL Lactic Acid 6.2 H* (0.5-2.0) mmol/L Lactic Acid F/U @ 2Hr (0.5-2.0) mmol/L Calcium 8.4 (8.4-10.2) mg/dL Total Bilirubin 0.9 (0.0-1.0) mg/dL Direct Bilirubin 0.2 (0.0-0.5) mg/dL AST 53 H (5-31) U/L ALT 20 (0-31) U/L Alkaline Phosphatase 110 (39-117) U/L Total Protein 7.2 (6.5-8.0) g/dL Albumin 3.7 (3.5-5.0) g/dL Lipase 8 (8-78) U/L Urine Color Yellow Urine Appearance Cloudy Urine pH 5.5 (5.0-9.0) Ur Specific [place] 1.020 (1.005-1.025) Urine Protein Negative (Neg-Trace) mg/dL Urine Glucose (UA) Negative (Negative) mg/dL Urine Ketones Trace (Negative) mg/dL Urine Blood Negative (Negative) Urine Nitrite Negative (Negative) Ur Leukocyte Esterase Negative (Negative) Ethyl Alcohol 260 mg/dL 06/24/23 06/25/23 06/25/23 Range/Units 20:09 00:50 01:32 WBC (4.8-10.8) X10*3/uL RBC (4.20-5.50) X10*6/uL Hgb (12.0-16.0) g/dl Hct (37.0-47.0) % MCV (80.0-98.0) fL MCH (27.0-33.0) pg MCHC (31.0-35.0) g/dl RDW (11.0-16.0) % Plt Count (160-400) X10*3/uL MPV (9.4-12.3) fL Immature Gran % (Auto) (0.0-0.4) % Neut % (Auto) (45-73) % Lymph % (Auto) (20-40) % [place] % (Auto) (2-11) % Eos % (Auto) (0-4) % Baso % (Auto) (0-2) % Lymph # (Auto) (1.2-4.9) X10*3/uL [place] # (Auto) (0.1-1.2) X10*3/uL Eos # (Auto) (0.0-0.4) X10*3/uL Baso # (Auto) (0.0-0.2) X10*3/uL Abs Immat Gran (auto) (0.00-0.03) X10*3/uL Absolute Neuts (auto) (2.0-8.3) x10*3/uL Absolute Nucleated RBC (0.0-0.012) X10*3/uL Nucleated RBC % (auto) (0.0-0.2) /100WBC PT (11.1-13.3) SEC INR (0.9-1.1) APTT (26.0-36.8) SEC VBG pH 7.51 H (7.32-7.43) VBG pCO2 28 mmHg VBG pO2 213 mmHg VBG HCO3 23 (22-26) mmol/L VBG O2 Saturation 100.0 % VBG Base Excess 1.4 mmol/L Sodium 140 (135-145) mmol/L Potassium 4.4 (3.3-5.1) mmol/L Chloride 108 (96-108) mmol/L Carbon Dioxide 14 L (22-29) mmol/L Anion Gap 22 H (12-20) BUN 15 (9-16) mg/dL Creatinine 0.65 (0.5-1.4) mg/dL Estim Creat Clear Calc 116.0 Estimated GFR > 60 Random Glucose 178 H (60-115) mg/dL Lactic Acid (0.5-2.0) mmol/L Lactic Acid F/U @ 2Hr 4.1 H* (0.5-2.0) mmol/L Calcium 7.9 L (8.4-10.2) mg/dL Total Bilirubin (0.0-1.0) mg/dL Direct Bilirubin (0.0-0.5) mg/dL AST (5-31) U/L ALT (0-31) U/L Alkaline Phosphatase (39-117) U/L Total Protein (6.5-8.0) g/dL Albumin (3.5-5.0) g/dL Lipase (8-78) U/L Urine Color Urine Appearance Urine pH (5.0-9.0) Ur Specific [place] (1.005-1.025) Urine Protein (Neg-Trace) mg/dL Urine Glucose (UA) (Negative) mg/dL Urine Ketones (Negative) mg/dL Urine Blood (Negative) Urine Nitrite (Negative) Ur Leukocyte Esterase (Negative) Ethyl Alcohol mg/dL Discharge Plan Discharge Clinical Impression: Headache, Alkalosis, metabolic, Alcoholic ketosis Patient Disposition: Home, Self-Care Instructions: Abuse of Alcohol (ED) Additional Instructions: Your blood work was significant for alcoholic ketosis and a high lactic acid which is likely related to her alcohol abuse Continue to drink lots of nonalcoholic fluids Continue to follow-up with your primary doctor regarding attempts to control your alcoholism You may return for new or worsening symptoms You may take Tylenol as needed for any further headaches Prescriptions: No Action multivitamin [Daily-Shayla] Tablet 1 tab PO DAILY Qty: 30 0RF thiamine mononitrate (vit B1) 100 mg Tablet 100 mg PO DAILY Qty: 30 0RF ondansetron 4 mg tablet,disintegrating 4 mg PO Q8H PRN (Reason: nausea and vomiting) Qty: 14 0RF Stand Alone Forms: Work/School Release
[2023-06-24 16:23] LABS: MANUAL DIFF FLAG NO
[2023-06-24 16:27] LABS: Eosinophils Percent Auto 0.3 % (0-4); Hematocrit 36.3 % (37.0-47.0); Hemoglobin 12.2 g/dl (12.0-16.0); Imm Gran Abs Auto 0.01 X10*3/uL (0.00-0.03); Imm Gran Pct Auto 0.3 % (0.0-0.4); Lymphocytes Absolute Auto 1.5 X10*3/uL (1.2-4.9); Lymphocytes Percent Auto 39.7 % (20-40); Mean Corpuscular HGB Conc 33.6 g/dl (31.0-35.0); Mean Corpuscular Hemoglobin 35.3 pg (27.0-33.0); Mean Corpuscular Volume 104.9 fL (80.0-98.0); Mean Platelet Volume 9.4 fL (9.4-12.3); Monocytes Absolute Auto 0.2 X10*3/uL (0.1-1.2); Monocytes Percent Auto 4.6 % (2-11); Neutrophils Absolute Auto 2.1 x10*3/uL (2.0-8.3); Neutrophils Percent Auto 54.1 % (45-73); Platelet Count 180 X10*3/uL (160-400); Red Blood Count 3.46 X10*6/uL (4.20-5.50); Red Cell Distribution Width 15.3 % (11.0-16.0); White Blood Count 3.9 X10*3/uL (4.8-10.8)
[2023-06-24 16:43] LABS: Anion Gap 27 (12-20); Blood Urea Nitrogen 16 mg/dL (9-16); Calcium 8.4 mg/dL (8.4-10.2); Carbon Dioxide 17 mmol/L (22-29); Chloride 107 mmol/L (96-108); Creatinine Clr Calc Pharmacy 107.7; Estimated Glomerular Filt Rate > 60; Glucose Random 125 mg/dL (60-115); Potassium 4.7 mmol/L (3.3-5.1); Sodium 146 mmol/L (135-145)
--- NOTE | 2023-06-24 18:53 | ECG_ITS ---
Test Reason : weakness Blood Pressure : / mmHG Vent. Rate : 061 BPM Atrial Rate : 061 BPM P-R Int : 140 ms QRS Dur : 096 ms QT Int : 456 ms P-R-T Axes : 051 -03 013 degrees QTc Int : 459 ms Normal sinus rhythm Possible Left atrial enlargement Borderline ECG When compared with ECG of 24-JAN-2023 12:02, T wave inversion now evident in Anterior leads Referred By: Casey Sun Electronically Signed By:CORINNA LORENZANA
[2023-06-24 19:27] LABS: Alanine Aminotransferase 20 U/L (0-31); Albumin Level 3.7 g/dL (3.5-5.0); Alkaline Phosphatase 110 U/L (39-117); Aspartate Amino Transferase 53 U/L (5-31); Bilirubin Direct 0.2 mg/dL (0.0-0.5); Bilirubin Total 0.9 mg/dL (0.0-1.0); Lipase 8 U/L (8-78); Total Protein 7.2 g/dL (6.5-8.0)
[2023-06-24] MEDS: 0.9 % Sodium Chloride 1,000 ML 999 ML IV ×2 (19:28→22:54)
[2023-06-24] MEDS: Metoclopramide HCl 10 MG/2 ML VIAL IVPUSH (19:29)
[2023-06-24] MEDS: diphenhydrAMINE HCL 50 MG/ML VIAL 25 MG IVPUSH (19:29)
[2023-06-24 19:46] LABS: Appearance Urine Cloudy; Color Urine Yellow; Glucose Urine UA Negative (Negative); Leukocyte Esterase Urine Negative (Negative); Nitrite Urine Negative (Negative); PH 5.5 (5.0-9.0); Urine Blood Negative (Negative); Urine Ketones Trace mg/dL (Negative); Urine Protein Negative (Neg-Trace)
[2023-06-24 19:53] LABS: INTERNATIONAL NORM RATIO 1.1 (0.9-1.1); Prothrombin Time 13.1 SEC (11.1-13.3)
[2023-06-24 19:56] LABS: Partial Thromboplastin Time 31.4 SEC (26.0-36.8)
[2023-06-24 19:59] LABS: Lactic Acid 6.2 mmol/L (0.5-2.0)
[2023-06-24 20:15] LABS: VBG Base Excess 1.4 mmol/L; VBG HCO3 23 mmol/L (22-26); VBG pCO2 28 mmHg; VBG pH 7.51 (7.32-7.43); VBG pO2 213 mmHg
[2023-06-24 20:21] LABS: Venous Blood Gas Refer to POC result
[2023-06-24 20:30] LABS: Ethanol 260 mg/dL
[2023-06-24 20:35] VITALS: BP 136/98; PULSE 78; RESP 18; TEMP 37.2; O2SAT 99
[2023-06-24] MEDS: Folic Acid 1 MG in 0.9 % Sodium Chloride 50 ML 100.4 MG IV (21:34)
[2023-06-24 21:41] LABS: Reflex Lactate? Lactic Acid Added
--- NOTE | 2023-06-24 21:51 | PC.NURSE ---
pt medicated per MAR- pt resting quietly, cooperative and pleasant. pt has 22g IV in left hand, pt has rec 1L NS per order, as well as folic acid. Follow up lactic to be collected
[2023-06-24 22:11] VITALS: BP 134/82; PULSE 78; RESP 18; TEMP 37; O2SAT 98
--- NOTE | 2023-06-24 22:46 | PC.NURSE ---
second liter of fluid ordered- 2nd lactic to be drawn after fluids. pt given sandwich, resting quietly call bryant within reach
[2023-06-25 01:09] LABS: ~Lactic Acid-LAB USE ONLY 4.1 mmol/L (0.5-2.0)
[2023-06-25 01:50] LABS: Anion Gap 22 (12-20); Blood Urea Nitrogen 15 mg/dL (9-16); Calcium 7.9 mg/dL (8.4-10.2); Carbon Dioxide 14 mmol/L (22-29); Chloride 108 mmol/L (96-108); Estimated Glomerular Filt Rate > 60; Glucose Random 178 mg/dL (60-115); Potassium 4.4 mmol/L (3.3-5.1); Sodium 140 mmol/L (135-145)
[2023-06-25 02:55] LABS: Reflex Lactate? 2 Y
== END 2023-06-25 03:10 | disposition home or self-care (01) ==
PROVIDERS: Physician Assistant; Emergency Provider Student in an Organized Health Care Education/Training Program
DX: E03.1 Congenital hypothyroidism without goiter (principal); K85.90 Acute pancreatitis without necrosis or infection, unspecified; E87.3 Alkalosis; E88.89 Other specified metabolic disorders; Z91.81 History of falling; Z79.899 Other long term (current) drug therapy
CPT/HCPCS: 36415; 80048; 80076; 80307; 81003; 82803; 83605; 83690; 85025; 85610; 85730; 93005; 96361; 96365; 96375; 99284; J1200; J2765

== ENCOUNTER → 2023-06-24 18:53 | Outpatient (BNV) | payer OTHER, SELFPAY | PROVIDERS: Emergency Provider Student in an Organized Health Care Education/Training Program; Visit Provider Internal Medicine | DX: R53.1 Weakness (principal) | CPT/HCPCS: 93010 ==